=== PATIENT | male | born 1945 | race Caucasian/White ===

== ENCOUNTER 2017-06-15 18:33 | Inpatient (IN) | payer MEDICARE ==
[2017-06-15 18:34] VITALS: BMI 29.0
--- NOTE | 2017-06-15 18:59 | CT ---
PROCEDURE: CT HEAD WITHOUT CONTRAST. HISTORY: Code Stroke COMPARISON: None available. TECHNIQUE: Axial computed tomography images were obtained through the head/brain without intravenous contrast. Radiation dose: Total exam DLP = 894.91 mGy-cm. This CT exam was performed using one or more of the following dose reduction techniques: Automated exposure control, adjustment of the mA and/or kV according to patient size, and/or use of iterative reconstruction technique. FINDINGS: HEMORRHAGE: No intracranial hemorrhage. BRAIN: No mass effect or edema. Mild atrophy. Moderate white matter changes likely due to chronic microvascular ischemic disease. There is questionable left MCA sign. VENTRICLES: Unremarkable. No hydrocephalus. CALVARIUM: Unremarkable. PARANASAL SINUSES: Unremarkable as visualized. No significant inflammatory changes. MASTOID AIR CELLS: Unremarkable as visualized. No inflammatory changes. OTHER FINDINGS: None. IMPRESSION: No evidence of acute intracranial hemorrhage or territorial infarct. Mild atrophy and moderate white matter changes likely due to chronic microvascular ischemic disease. Questionable left MCA sign
[2017-06-15 19:14] LABS: BASO % 0.5 % (0.0-2.0); EOS # 0.1 K/uL (0.0-0.7); EOS % 1.7 % (0.0-4.0); HEMATOCRIT 39.9 % (35.0-51.0); LYMPH # 2.3 K/uL (1.0-4.3); LYMPH % 28.7 % (20.0-40.0); MEAN CELL VOLUME 87.7 fL (80.0-94.0); MEAN CORPUSCULAR HEMOGLOBIN 30.2 pg (27.0-31.0); MEAN CORPUSCULAR HGB CONC 34.4 g/dL (33.0-37.0); MEAN PLATELET VOLUME 8.8 fL (7.2-11.7); MONO # 0.6 K/uL (0.0-0.8); MONO % 7.6 % (0.0-10.0); RED CELL DISTRIBUTION WIDTH 13.3 % (11.5-14.5); WHITE BLOOD COUNT 8.2 K/uL (4.8-10.8)
[2017-06-15 19:23] LABS: INR 1.2
[2017-06-15 19:28] LABS: ALB/GLOB RATIO 1.4 (1.0-2.1); ALKALINE PHOSPHATASE 95 U/L (38-126); ALT/SGPT 27 U/L (21-72); AST/SGOT 17 U/L (17-59); BILIRUBIN,TOTAL 0.8 mg/dL (0.2-1.3); BLOOD UREA NITROGEN 22 mg/dL (9-20); CALCIUM 8.5 mg/dl (8.6-10.4); CARBON DIOXIDE 26 mmol/L (22-30); CHLORIDE 100 mmol/L (98-107); CHOLESTEROL 106 mg/dL (0-199); GFR AFRICAN-AMERICAN > 60; GLUCOSE,RANDOM 204 mg/dL (75-110); POTASSIUM 4.1 mmol/L (3.6-5.2); SODIUM 136 mmol/L (132-148); TOTAL PROTEIN 6.3 g/dL (6.3-8.3)
--- NOTE | 2017-06-15 19:51 | C.PDOC ---
History Of Present Illness 71 year old male, whose PMHx includes DM and HTN, presents to the ED via EMS for evaluation of altered mental status and slurred speech which began earlier today. Patient states he was eating dinner when his symptoms began at 5pm Patient denies other weakness and has no other complaints at this time. Time Seen by Provider: 06/15/17 18:34 Chief Complaint (Nursing): Altered Mental Status History Per: Patient History/Exam Limitations: None Onset/Duration Of Symptoms: Hrs Current Symptoms Are (Timing): Still Present Exacerbating Factor(s): Unknown Additional History Per: Patient Past Medical History Reviewed: Historical Data, Nursing Documentation, Vital Signs Vital Signs: Last Vital Signs Temp 97.9 F 06/16/17 07:55 Pulse 59 L 06/16/17 08:20 Resp 18 06/16/17 07:55 BP 156/85 H 06/16/17 07:55 Pulse Ox 96 06/16/17 07:55 - Medical History PMH: Diabetes, HTN Surgical History: No Surg Hx - [facility] Procedures ESOPHAGOGASTRODUODENOSCOPY [EGD] W/CLOSED BIOPSY (03/02/13) NONEXCIS DEBRID OF WOUND, INFECT, OR BURN (02/07/13) PACKED CELL TRANSFUSION (03/02/13) PART OSTECT-METATAR/TAR (02/07/13) VACCINATION NEC (03/02/13) VENOUS CATHETERIZATION NEC (03/02/13) Family History: States: Unknown Family Hx - Social History Hx Tobacco Use: No Hx Alcohol Use: No Hx Substance Use: No - Immunization History Hx Tetanus Toxoid Vaccination: Yes Hx Influenza Vaccination: No Hx Pneumococcal Vaccination: No Review Of Systems Neurological: Positive for: Change in Speech (slurred ), Altered Mental Status Physical Exam - Physical Exam Appears: Non-toxic, No Acute Distress Skin: Normal Color, Warm, Dry Head: Atraumatic, Normacephalic Eye(s): bilateral: Normal Inspection Oral Mucosa: Moist Neck: Supple Chest: Symmetrical, No Deformity, No Tenderness Cardiovascular: Rhythm Regular, No Murmur Respiratory: Normal Breath Sounds, No Rales, No Rhonchi, No Wheezing Extremity: Normal ROM, Capillary Refill (less than 2 seconds ) Neurological/Psych: No Normal Speech (slurred), Normal Cognition, Normal Cranial Nerves, Normal Motor, Normal Sensation, Other (alert and oriented x 2) ED Course And Treatment - Laboratory Results Result Diagrams: 06/15/17 19:08 06/15/17 19:08 ECG: Interpreted By Me, Viewed By Me ECG Rhythm: R BBB Rate From EC O2 Sat by Pulse Oximetry: 99 (on RA ) Pulse Ox Interpretation: Normal - CT Scan/US CT Head Other Rad Studies (CT/US): Interpreted By Me, Read By Radiologist, Radiology Report Reviewed CT/US Interpretation: PROCEDURE: CT HEAD WITHOUT CONTRAST. HISTORY: Code Stroke. COMPARISON: None available. TECHNIQUE: Axial computed tomography images were obtained through the head/brain without intravenous contrast. Radiation dose: Total exam DLP = 894.91 mGy-cm. This CT exam was performed using one or more of the following dose reduction techniques: Automated exposure control, adjustment of the mA and/or kV according to patient size, and/ or use of iterative reconstruction technique. FINDINGS: HEMORRHAGE: No intracranial hemorrhage. BRAIN: No mass effect or edema. Mild atrophy. Moderate white matter changes likely due to chronic microvascular ischemic disease. There is questionable left MCA sign. VENTRICLES: Unremarkable. No hydrocephalus. CALVARIUM: Unremarkable. PARANASAL SINUSES: Unremarkable as visualized. No significant inflammatory changes. MASTOID AIR CELLS: Unremarkable as visualized. No inflammatory changes. OTHER FINDINGS: None. IMPRESSION: No evidence of acute intracranial hemorrhage or territorial infarct. Mild atrophy and moderate white matter changes likely due to chronic microvascular ischemic disease. Questionable left MCA sign NIHSS Stroke Scale - How Severe is the Stoke Level of Consciousness: 0=Alert LOC to Questions: 0=Both comments correct LOC to commands: 0=Obeys both correctly Best Gaze: 0=Normal Visual: 0=No visual loss Facial: 0=Normal Motor Arm - Left: 0=No drift Motor Arm - Right: 0=No drift Motor Leg - Left: 0=No drift Motor Leg - Right: 0=No drift Limb Ataxia: 0=Absent Sensory: 0=Normal Best Language: 0=No aphasia Dysarthia: 1=Mild to moderate slurring Extinction & Inattention (Neglect): 0=Normal, no object Score: 1 Severity Of Stroke: 1-4= Minor Stroke rTPA Inclusion/Exclusion - Refusal of Treatment Patient Refused Treatment: No - Inclusion Criteria for Altepase Patient is 18 years or Older: Yes Clinical DX Ischemic Stroke Cause Neurological Deficit: No Time of Onset Established Less Than 270 Mins Before TX Begin: Yes Risk/Benefit Discussed With Patient/Family Member Present: Yes Medical Decision Making Medical Decision Making: ams r/o stroke, intracrnial, metabolic, infectious etiology Progress: Bloodwork, UA, CT Head, CXR, EKG ordered and reviewed. On reassessment, patient is resting comfortably, showing no signs of distress and is now alert and oriented x3 and baseline smiling. discussed with dr thomson, resolved symptoms, not tpa candidate Disposition - Disposition Disposition: HOSPITALIZED - Scribe Statement The provider has reviewed the documentation as recorded by the Scribe (China Stinson) Provider Attestation: All medical record entries made by the Scribe were at my direction and personally dictated by me. I have reviewed the chart and agree that the record accurately reflects my personal performance of the history, physical exam, medical decision making, and the department course for this patient. I have also personally directed, reviewed, and agree with the discharge instructions and disposition.
--- NOTE | 2017-06-15 22:33 | CP.PCM.HP ---
Past Patient History - Infectious Disease Hx of Infectious Diseases: None - Past Social History Smoking Status: Never Smoked - CARDIAC Hx Hypertension: Yes - ENDOCRINE/METABOLIC Hx Diabetes Mellitus Type 1: Yes - PSYCHIATRIC Hx Substance Use: No - SURGICAL HISTORY Hx Amputation: Yes (RT GREAT TOE) - ANESTHESIA Hx Anesthesia: Yes Hx Anesthesia Reactions: No Meds Allergies/Adverse Reactions: Allergies Allergy/AdvReac Type Severity Reaction Status Date / Time No Known Allergies Allergy Verified 06/15/17 18:35 Results - Vital Signs Recent Vital Signs: Last Vital Signs Temp 98 F 06/15/17 22:24 Pulse 75 06/15/17 22:24 Resp 20 06/15/17 22:24 BP 154/88 H 06/15/17 22:24 Pulse Ox 95 06/15/17 22:24 - Labs Result Diagrams: 06/15/17 19:08 06/15/17 19:08 Labs: Laboratory Results - last 24 hr 06/15/17 06/15/17 06/15/17 18:36 19:08 19:08 WBC 8.2 RBC 4.55 Hgb 13.7 D Hct 39.9 MCV 87.7 MCH 30.2 MCHC 34.4 RDW 13.3 Plt Count 197 MPV 8.8 Neut % (Auto) 61.5 Lymph % (Auto) 28.7 Luna % (Auto) 7.6 Eos % (Auto) 1.7 Baso % (Auto) 0.5 Neut # 5.0 Lymph # 2.3 Luna # 0.6 Eos # 0.1 Baso # 0.0 PT 12.9 H INR 1.2 APTT 34 Sodium Potassium Chloride Carbon Dioxide Anion Gap BUN Creatinine Est GFR ( Amer) Est GFR (Non-Af Amer) POC Glucose (mg/dL) 241 H Random Glucose Hemoglobin A1c Calcium Total Bilirubin AST ALT Alkaline Phosphatase Troponin I Total Protein Albumin Globulin Albumin/Globulin Ratio Triglycerides Cholesterol LDL Cholesterol Direct HDL Cholesterol Blood Type Antibody Screen 06/15/17 06/15/17 06/15/17 19:08 19:08 19:08 WBC RBC Hgb Hct MCV MCH MCHC RDW Plt Count MPV Neut % (Auto) Lymph % (Auto) Luna % (Auto) Eos % (Auto) Baso % (Auto) Neut # Lymph # Luna # Eos # Baso # PT INR APTT Sodium 136 Potassium 4.1 Chloride 100 Carbon Dioxide 26 Anion Gap 13 BUN 22 H Creatinine 1.4 Est GFR ( Amer) > 60 Est GFR (Non-Af Amer) 50 POC Glucose (mg/dL) Random Glucose 204 H Hemoglobin A1c 8.3 H Calcium 8.5 L Total Bilirubin 0.8 AST 17 ALT 27 Alkaline Phosphatase 95 Troponin I 0.0270 Total Protein 6.3 Albumin 3.7 Globulin 2.7 Albumin/Globulin Ratio 1.4 Triglycerides 203 H Cholesterol 106 LDL Cholesterol Direct 69 HDL Cholesterol 26 L Blood Type O POSITIVE Antibody Screen Negative
[2017-06-16] MEDS ORDERED: Pantoprazole 40 mg EC Tab PO SCH (10:00)
[2017-06-16] MEDS ORDERED: Enoxaparin 40 mg Syringe SC SCH (10:00)
--- NOTE | 2017-06-16 10:24 | RAD ---
HISTORY: code stroke COMPARISON: Portable chest 03/08/2013. FINDINGS: LUNGS: Right PICC is been removed. No acute infiltrate or pleural effusion is seen and there is no pneumothorax identified either. CARDIOVASCULAR: Cardiac size appears somewhat more prominent however technical magnification is not excluded. Pulmonary vascular derangement is manifest by increased vascularity at the hilar regions bilaterally extending to the periphery suspicious for pulmonary venous congestion or CHF. OSSEOUS STRUCTURES: No significant abnormalities. VISUALIZED UPPER ABDOMEN: Normal. OTHER FINDINGS: None. IMPRESSION: Findings suspicious for pulmonary venous congestion/ CHF. No definite acute infiltrate. No pleural effusion or pneumothorax bilaterally. Prior PICC now removed compared to radiograph.
--- NOTE | 2017-06-16 13:32 | CARD ---
APPROVED REPORT EKG Measurement Heart [id number] <Conclusion> Normal sinus rhythm Right bundle branch block Left anterior fascicular block Bifascicular block Moderate voltage criteria for LVH, may be normal variant Cannot rule out Septal infarct, age undetermined Abnormal ECG
--- NOTE | 2017-06-16 16:06 | CARD ---
APPROVED REPORT EXAM: Two-dimensional and M-mode echocardiogram with Doppler and color Doppler. Other Information Quality : GoodRhythm : INDICATION CVA/TIA AMS/ slurred speech RISK FACTORS Hypertension Diabetes 2D DIMENSIONS IVSd1.3 (0.7-1.1cm)LVDd3.9 (3.9-5.9cm) PWd1.3 (0.7-1.1cm)LVDs2.5 (2.5-4.0cm) FS (%) 36.3 %LVEF (%)66.7 (>50%) M-Mode DIMENSIONS Left Atrium (MM)4.03 (2.5-4.0cm)Aortic Root3.49 (2.2-3.7cm) Aortic Cusp Exc.2.26 (1.5-2.0cm) Mitral Valve MV E Fywamvov27.7cm/sMV A Oemjxzay456.0cm/sE/A ratio0.7 TDI E/Lateral E'0.0E/Medial E'0.0 Tricuspid Valve TR Peak Vwpnrsqb798bc/sTR Peak Gr.76jlHoZOZG12gnBr LEFT VENTRICLE The left ventricle is normal size. There is mild to moderate concentric left ventricular hypertrophy. Left ventricle systolic function is normal. The Ejection Fraction is 65-70%. There is normal LV segmental wall motion. Transmitral Doppler flow pattern is Grade I-abnormal relaxation pattern. There is no ventricular septal defect visualized. RIGHT VENTRICLE The right ventricle is normal size. The right ventricular systolic function is normal. ATRIA The left atrium is mildly dilated. The right atrium size is normal. AORTIC VALVE The aortic valve is mildly sclerotic. The aortic valve is tri-cuspid. There is trace aortic regurgitation. There is no aortic valvular stenosis. MITRAL VALVE Mitral annular calcification is moderate to severe. There is no evidence of mitral valve prolapse. There is no mitral valve regurgitation noted. TRICUSPID VALVE The tricuspid valve is normal in structure. There is trace tricuspid regurgitation. Right ventricular systolic pressure is estimated at less than 30 mmHg. There is no pulmonary hypertension. PULMONIC VALVE The pulmonic valve is not well visualized. There is no pulmonic valvular regurgitation. GREAT VESSELS The aortic root is normal in size. The ascending aorta is normal in size. The IVC is normal in size and collapses >50% with inspiration. PERICARDIAL EFFUSION There is no pericardial effusion. <Conclusion> There is mild to moderate concentric left ventricular hypertrophy. Left ventricle systolic function is normal. The Ejection Fraction is 65-70%. Transmitral Doppler flow pattern is Grade I-abnormal relaxation pattern. Mitral annular calcification is moderate to severe.
--- NOTE | 2017-06-16 19:18 | CP.PCM.PN ---
Subjective - Date & Time of Evaluation Date of Evaluation: 06/16/17 Time of Evaluation: 12:20 - Subjective Subjective: clinically same Objective - Vital Signs/Intake and Output Vital Signs (last 24 hours): Temp Pulse Resp BP Pulse Ox 97.9 F 76 18 156/85 H 99 06/16/17 07:55 06/16/17 16:27 06/16/17 07:55 06/16/17 07:55 06/16/17 13:19 Intake and Output: 06/16/17 06/17/17 18:59 06:59 Intake Total 200 Output Total 0 Balance 200 - Medications Medications: Current Medications Aspirin (Aspirin Chewable) 81 mg PO DAILY [facility] Last Admin: 06/16/17 13:18 Dose: 81 mg Clopidogrel Bisulfate (Plavix) 75 mg PO DAILY [facility] Last Admin: 06/16/17 13:18 Dose: 75 mg Enoxaparin Sodium (Lovenox) 40 mg SC DAILY [facility] Last Admin: 06/16/17 09:22 Dose: 40 mg Famotidine (Pepcid) 20 mg PO DAILY [facility] Lisinopril (Zestril) 10 mg PO DAILY [facility] Last Admin: 06/16/17 09:21 Dose: 10 mg Metformin HCl (Glucophage) 1,000 mg PO BID [facility] Last Admin: 06/16/17 17:35 Dose: 1,000 mg - Labs Labs: 06/15/17 19:08 06/15/17 19:08 PT 12.9 SECONDS (9.7-12.2) H 06/15/17 19:08 INR 1.2 06/15/17 19:08 APTT 34 SECONDS (21-34) 06/15/17 19:08
--- NOTE | 2017-06-16 21:21 | CON ---
DATE: NEUROLOGY CONSULTATION REASON FOR CONSULTATION: CVA. HISTORY OF PRESENTING ILLNESS: Patient is a 71-year-old male who has been asked for evaluation of CVA. The patient apparently was at home having dinner and all of a sudden, he started to have weakness in his left side as well as slurring of speech and was a little confused. His symptoms lasted for about an hour and then spontaneously got resolved. He feels fine now. He denies any further weakness in his arm or legs. REVIEW OF SYSTEMS: Denies any headache, dizziness, chest pain, shortness of breath, abdominal pain, constipation, diarrhea, dysuria, pyuria, cough, or sputum production. PAST MEDICAL HISTORY: Includes hypertension, diabetes mellitus. MEDICATIONS AT HOME: Included lisinopril, metformin, and aspirin. ALLERGIES: NO KNOWN DRUG ALLERGIES. SOCIAL HISTORY: Patient denies smoking, use of alcohol, or illicit drugs. FAMILY HISTORY: Reviewed and noncontributory to the case. PHYSICAL EXAMINATION: GENERAL: Patient is an elderly male lying on the bed, in no acute distress. VITAL SIGNS: His blood pressure is 156/85, heart rate is 64 per minute, breathing at a rate of 16 per minute, temperature 97.9 degree Fahrenheit. HEENT: Head is normocephalic and atraumatic. NECK: Supple. There are no carotid bruit. LUNGS: Clear. CARDIOVASCULAR SYSTEM: S1, S2 are audible. No murmurs. ABDOMEN: Soft and nontender. Bowel sounds are present. NEUROLOGIC: Mental status: Patient is awake, alert, oriented to time, place, person. Speech is fluent. Naming and repetition normal. Memory and cognition appears intact. Cranial nerves: Pupils on the left is oval, nonreactive and right is 3 mm and minimally reactive to light. Extraocular movements are intact. There is no facial asymmetry. Palate is upgoing bilaterally and tongue is midline. Motor: Tone is normal. Power is 5/5 bilaterally in all extremities. Reflexes are +1 and symmetrical. Plantars downgoing bilaterally. Cerebellar: [id number]-[id number] shows no dysmetria. LABORATORY DATA: Reviewed, CT scan of the head shows no evidence of acute intracranial hemorrhage or territorial infarct. Mild atrophy and moderate white matter changes, likely due to chronic microvascular ishemic changes. His WBC is 8.2, hemoglobin of 13.7, hematocrit of 39.9, and platelets of 197. INR is 1.2. Sodium is 136, potassium 4.1, chloride 100, carbon dioxide 26, BUN of 22, creatinine of 1.4, and glucose of 204. His cholesterol is 106, LDL is 69. IMPRESSION: Episode of left-sided weakness associated with slurring of speech and confusion. This is likely secondary to a transient ischemic attack. RECOMMENDATIONS: 1. Patient to have an MRI of the brain without contrast. 2. Patient to have a carotid Doppler study. 3. Patient to have an echocardiogram. 4. Patient was taking aspirin at home; we will add Plavix. 5. Patient to have cardiac monitoring to look for any cardiac arrhythmias, particularly atrial fibrillation. 6. Patient was not a candidate for TPA administration because of complete resolution of his symptoms. 7. Patient to have physical therapy and speech therapy. 8. Please continue supportive care and other treatment. Thank you for the opportunity to participate in the care of this patient. Cassidy Guthrie MD
[2017-06-17 02:21] VITALS: RESP 20
[2017-06-17 04:04] VITALS: BP 167/86; TEMP 98.5; O2SAT 99
[2017-06-17 04:47] VITALS: PULSE 82
[2017-06-17] MEDS ORDERED: Moxifloxacin IV 400mg/250ml NS 400 MG/250 ML BAG IVPB SCH (10:00)
--- NOTE | 2017-06-17 15:51 | MRI ---
PROCEDURE: MRI BRAIN WITHOUT CONTRAST HISTORY: tia COMPARISON: Comparison is made to the previous CT dated 06/15/2017 TECHNIQUE: Multiplanar, multisequence MR images of the brain were obtained without intravenous contrast enhancement. FINDINGS: HEMORRHAGE: None DWI: No definite evidence of diffusion restriction in the brain. BRAIN PARENCHYMA: No mass effect or edema. Moderate atrophy and [id number] chronic microvascular white matter ischemic changes. VENTRICLES: Unremarkable. No hydrocephalus. CRANIUM: Unremarkable. ORBITS: Grossly unremarkable. PARANASAL SINUSES/MASTOIDS: Clear VASCULAR SYSTEM: Skull base flow voids intact. OTHER FINDINGS: None. IMPRESSION: No evidence of acute intracranial hemorrhage territorial infarct mass effect or midline shift. Atrophy and chronic microvascular white matter ischemic changes. Preliminary report was submitted by [facility] .
--- NOTE | 2017-06-18 15:09 | VASCLAB ---
PROCEDURE: HISTORY: tia COMPARISON: None available. TECHNIQUE: Grayscale and duplex Doppler evaluation of the cervical carotid and vertebral arteries were performed. The common carotid, carotid bifurcations and cervical Internal Carotid Artery (ICA) and proximal External Carotid Artery (ECA) were evaluated. The vertebral arteries were evaluated for gross patency and flow direction. Report prepared by Vlad Sellers, BS, RVT FINDINGS: RIGHT CAROTID ARTERIES: 1. Common Carotid Artery: No significant focal plaque formation of the right common carotid artery. Maximum Peak Systolic velocity: 78 cm/sec: End-diastolic velocity 10 cm/sec. 2. Carotid Bifurcation: plaque formation. Maximum Peak Systolic velocity: 72 cm/sec: End-diastolic velocity 9 cm/sec. 3. Internal Carotid Artery: Plaque description: 3.1. Proximal Segment: Peak systolic velocity 79 cm/sec: End-diastolic velocity 15 cm/sec - % stenosis 0-15% 3.2. Middle Segment: Peak systolic velocity 97 cm/sec: End-diastolic velocity 18 cm/sec - % stenosis 0-15% 3.3. Distal Segment: Peak systolic velocity 70 cm/sec: End-diastolic velocity 16 cm/sec - % stenosis 0-15% 4. External Carotid Artery: No significant focal plaque formation. Peak systolic velocity 88 cm/sec 5. ICA/CCA Ratio: 1.2 LEFT CAROTID ARTERIES: 1. Common Carotid Artery: No significant focal plaque formation of the left common carotid artery. Maximum Peak Systolic velocity: 93 cm/sec: End-diastolic velocity 12 cm/sec. 2. Carotid Bifurcation: plaque formation. Maximum Peak Systolic velocity: 72 cm/sec: End-diastolic velocity 9 cm/sec. 3. Internal Carotid Artery: Plaque description: 3.1. Proximal Segment: Peak systolic velocity 91 cm/sec: End-diastolic velocity 16 cm/sec - % stenosis 0-15% 3.2. Middle Segment: Peak systolic velocity 47 cm/sec: End-diastolic velocity 10 cm/sec - % stenosis 0-15% 3.3. Distal Segment: Peak systolic velocity 72 cm/sec: End-diastolic velocity 9 cm/sec - % stenosis 0-15% 4. External Carotid Artery: No significant focal plaque formation. Peak systolic velocity 114 cm/sec 5. ICA/CCA Ratio: 1.0 VERTEBRAL ARTERIES: 1. Right Vertebral Artery: The right vertebral artery flow direction is antegrade. 2. Left Vertebral Artery: The left vertebral artery flow direction is antegrade. OTHER FINDINGS: 1. Right Brachial Blood pressure: 164 mmHg. 2. Left Brachial Blood pressure: 160 mmHg. IMPRESSION: RIGHT: Duplex scan does not suggest hemodynamically significant stenosis of the right extracranial carotid arteries. LEFT: Duplex scan does not suggest hemodynamically significant stenosis of the left extracranial carotid arteries.
== END 2017-06-17 09:53 | disposition left against medical advice (07) | DRG 69 ==
LOC: C.ER 18:33 → C.6T 20:18 → OBSVTOIN 06-16 13:24
PROVIDERS: ADMIT Internal Medicine Nephrology; ATTEND Internal Medicine Nephrology
DX: G45.9 Transient cerebral ischemic attack, unspecified (principal); E10.9 Type 1 diabetes mellitus without complications; I10 Essential (primary) hypertension; Z79.4 Long term (current) use of insulin

== ENCOUNTER 2018-04-20 08:34 | Inpatient (IN) | payer MEDICARE ==
[2018-04-20 08:35] VITALS: BMI 29.0
[2018-04-20 08:51] LABS: BASO # 0.1 K/uL (0.0-0.2); BASO % 0.6 % (0.0-2.0); EOS # 0.3 K/uL (0.0-0.7); EOS % 2.6 % (0.0-4.0); LYMPH # 1.3 K/uL (1.0-4.3); LYMPH % 11.6 % (20.0-40.0); MEAN CORPUSCULAR HEMOGLOBIN 29.6 pg (27.0-31.0); MEAN CORPUSCULAR HGB CONC 34.6 g/dL (33.0-37.0); MEAN PLATELET VOLUME 8.2 fL (7.2-11.7); MONO # 0.7 K/uL (0.0-0.8); MONO % 6.5 % (0.0-10.0); NEUT # 8.7 K/uL (1.8-7.0); NEUT % 78.7 % (50.0-75.0); NRBC % 0.1 % (0.0-2.0); RBC 4.05 Mil/uL (4.40-5.90); RED CELL DISTRIBUTION WIDTH 14.2 % (11.5-14.5)
[2018-04-20 08:53] LABS: MEAN CELL VOLUME 85.5 fL (80.0-94.0)
[2018-04-20 09:00] LABS: INR 1.2; PROTHROMBIN TIME 13.2 SECONDS (9.7-12.2)
[2018-04-20 09:04] LABS: BLOOD UREA NITROGEN 25 mg/dL (9-20); CALCIUM 8.3 mg/dl (8.6-10.4); GFR NON-AFRICAN AMERICAN > 60; HDL CHOLESTEROL 23 mg/dL (30-70)
[2018-04-20 09:08] LABS: ALB/GLOB RATIO 0.9 (1.0-2.1); ALBUMIN 2.9 g/dL (3.5-5.0); ALT/SGPT 16 U/L (21-72); AST/SGOT 29 U/L (17-59)
[2018-04-20 09:14] LABS: LDL CHOLESTEROL 75 mg/dL (0-129)
[2018-04-20] MEDS ORDERED: Iodixanol 320 MG/ML 100 ML BOTTLE IV ONE (09:56)
--- NOTE | 2018-04-20 09:58 | CT ---
Date of service: 04/20/2018 PROCEDURE: CT HEAD WITHOUT CONTRAST. HISTORY: Code Stroke COMPARISON: None available. TECHNIQUE: Axial computed tomography images were obtained through the head/brain without intravenous contrast. Radiation dose: Total exam DLP = 1164 mGy-cm. This CT exam was performed using one or more of the following dose reduction techniques: Automated exposure control, adjustment of the mA and/or kV according to patient size, and/or use of iterative reconstruction technique. FINDINGS: HEMORRHAGE: No intracranial hemorrhage. BRAIN: No mass effect or edema. Scattered focal lucencies in the subcortical and periventricular white matter suggestive for chronic microvascular ischemic change. More confluent low attenuation seen within the right frontal subcortical white matter on series 4, image 47, nonspecific. Correlation with MRI may be helpful to better evaluate for acute ischemic change at this level. 9 millimeter focal hypodensity within the right cerebellum suggestive for chronic lacunar infarct. Bilateral basal ganglia calcifications. VENTRICLES: Unremarkable. No hydrocephalus. CALVARIUM: Unremarkable. PARANASAL SINUSES: Unremarkable as visualized. No significant inflammatory changes. MASTOID AIR CELLS: Unremarkable as visualized. No inflammatory changes. OTHER FINDINGS: Intracranial arterial calcifications. IMPRESSION: Chronic microvascular ischemic changes. More confluent low attenuation seen within the right frontal subcortical white matter on series 4, image 47, nonspecific. Correlation with MRI may be helpful to better evaluate for acute ischemic change at this level. 9 millimeter focal hypodensity within the right cerebellum suggestive for chronic lacunar infarct. No acute intracranial hemorrhage. Intracranial arterial calcifications. If symptoms persist, consider correlation with MRI. These findings were discussed with Dr. Johnson at 8:55 a.m. on 04/20/2018.
--- NOTE | 2018-04-20 10:04 | CT ---
Date of service: 04/20/2018. PROCEDURE: CT Angiography of the neck and brain with contrast. HISTORY: Code stroke COMPARISON: Correlation made with concurrent CT scan brain. TECHNIQUE: Contiguous axial images of the neck and brain were obtained from the level of the vertex of the skull to the superior mediastinum in the arteriographic phase of enhancement. Coronal and sagittal reformats or also generated. IV contrast dose: 100 cc Visipaque 320 Radiation Dose - DLP: 544.07 mGy-cm This CT exam was performed using one or more of the following dose reduction techniques: Automated exposure control, adjustment of the mA and/or kV according to patient size, and/or use of iterative reconstruction technique.. FINDINGS: The visualized portions of the aortic arch widely patent despite some minor calcified atherosclerotic plaque changes along the inferior margin of the transverse portion of the aortic arch. Both common carotid arteries are patent. Some minor calcified plaque changes are also seen along the medial margin of the right carotid bifurcation however no evidence of occlusion or significant stenosis seen. There is no evidence of dissection. The left common carotid artery carotid bifurcation and internal carotid artery widely patent. The distal internal carotid arteries are patent however some minimal plaque seen along the right carotid siphon. Both vertebral arteries larger in caliber more dominant than the left. The basilar artery is patent as well. The visualized major branches of the [place] of [place] including the A1 and M1 and proximal posterior cerebral arteries are patent. The A2 segments and distal branches of the middle cerebral artery as well as posterior cerebral arteries are also patent. No evidence of large aneurysm nor vascular malformation. The distal branches of the middle cerebral arteries are also relatively symmetric OTHER FINDINGS: Note made of multilevel degenerative spondylosis of the cervical spine. Suspect chronic interstitial disease/fibrosis both lung apices. Anterior superior margin of the vallecula which may be secondary to some encroaching lingual tonsil however some residual/retained secretion may contribute. Few small nonspecific bilateral cervical lymph nodes. Changes of bilateral cataract surgery again noted. Extensive diffuse bilateral chronic white matter ischemic changes with extension into the basal nuclei less than seen on this exam as compared to standard CT scan. Please refer to that study and corresponding report for additional details. IMPRESSION: No evidence of occlusion dissection or significant stenosis. No evidence of large aneurysm nor vascular malformation. See above discussion for additional details and findings.
--- NOTE | 2018-04-20 11:03 | RAD ---
Date of service: 04/20/2018 HISTORY: Code Stroke COMPARISON: 06/15/2017. FINDINGS: LUNGS: Pulmonary vascular congestion a new finding compared to the prior study. PLEURA: No significant pleural effusion identified, no pneumothorax apparent. CARDIOVASCULAR: No significant interval change compared to the prior examination(s). OSSEOUS STRUCTURES: No significant abnormalities. VISUALIZED UPPER ABDOMEN: Normal. OTHER FINDINGS: None. IMPRESSION: Pulmonary vascular congestion a new finding compared to the prior study.
--- NOTE | 2018-04-20 11:15 | C.PDOC ---
History Of Present Illness 72 y/o male brought to the ED via ALS for evaluation of code stroke. As per patient he woke up around 2:00am with no symptoms, and went back to bed. When he awoke at 7:30 am he noticed inability to use left arm and decreased ability to use left leg. Patient admits to history of TIAs in the past. No recent trauma. Denies any pain. Otherwise no changes in speech, facial droop, changes in sensation, chest pain, SOB, dizziness, or visual changes. Time Seen by Provider: 04/20/18 08:36 Chief Complaint (Nursing): Weakness/Neurological Deficit History Per: Patient History/Exam Limitations: no limitations Onset/Duration Of Symptoms: Hrs Current Symptoms Are (Timing): Still Present Fall Associated With With Symptoms: No, No Injury As Result Of Fall Recent travel outside of the [place]: No - Symptoms Of CVA Character Of Deficits: Left: Weakness, Arm: Weakness, Leg: Weakness Recent Head Trauma: No Past Medical History Reviewed: Historical Data, Nursing Documentation, Vital Signs Vital Signs: Last Vital Signs Temp 98.1 F 04/20/18 15:00 Pulse 79 04/20/18 15:00 Resp 20 04/20/18 15:00 BP 157/84 H 04/20/18 15:00 Pulse Ox 96 04/20/18 15:00 - Medical History PMH: Diabetes, HTN, Hyperlipidemia, TIA Denies: Chronic Kidney Disease - [facility] Procedures ESOPHAGOGASTRODUODENOSCOPY [EGD] W/CLOSED BIOPSY (03/02/13) NONEXCIS DEBRID OF WOUND, INFECT, OR BURN (02/07/13) PACKED CELL TRANSFUSION (03/02/13) PART OSTECT-METATAR/TAR (02/07/13) VACCINATION NEC (03/02/13) VENOUS CATHETERIZATION NEC (03/02/13) Family History: States: Unknown Family Hx - Social History Hx Tobacco Use: No Hx Alcohol Use: No Hx Substance Use: No - Immunization History Hx Tetanus Toxoid Vaccination: Yes Hx Influenza Vaccination: No Hx Pneumococcal Vaccination: No Review Of Systems Except As Marked, All Systems Reviewed And Found Negative. Constitutional: Negative for: Fever, Chills Eyes: Negative for: Vision Change Cardiovascular: Negative for: Chest Pain, Palpitations Respiratory: Negative for: Shortness of Breath Gastrointestinal: Negative for: Nausea, Vomiting, Abdominal Pain Musculoskeletal: Negative for: Arm Pain, Leg Pain Neurological: Positive for: Weakness (to left upper and lower extremity). Negative for: Numbness, Change in Speech, Confusion, Altered Mental Status, Dizziness Physical Exam - Physical Exam Appears: Non-toxic, No Acute Distress Skin: Normal Color, Warm, Dry Head: Atraumatic, Normacephalic Eye(s): bilateral: Normal Inspection, PERRL, EOMI Neck: Normal ROM Chest: Symmetrical Cardiovascular: Rhythm Regular, No Murmur Respiratory: Normal Breath Sounds, No Rales, No Rhonchi, No Wheezing Gastrointestinal/Abdominal: Bowel Sounds (normal), Soft, No Tenderness, No Distention Extremity: Bilateral: Atraumatic, No Pedal Edema, Normal Color And Temperature Pulses: Left Dorsalis Pedis: Normal, Right Dorsalis Pedis: Normal Neurological/Psych: Oriented x3, Normal Speech, Normal Cognition, Normal Cranial Nerves, No Normal Motor (4/5 strength in the right upper and lower extremities; 1/5 strength in LUE, 3/5 strength in LLE), Normal Sensation (no sensory deficits), No Dysarthria Other Neurological Findings: No Facial Palsy, No Forehead Sparing ED Course And Treatment - Laboratory Results Result Diagrams: 04/20/18 08:46 04/20/18 08:46 ECG: Interpreted By Me, Viewed By Me ECG Rhythm: Sinus Rhythm Interpretation Of ECG: Left axis deviation, bifascicular block Rate From EC O2 Sat by Pulse Oximetry: 98 (RA) Pulse Ox Interpretation: Normal - Other Rad Chest X-Ray X-Ray: Viewed By Me, Read By Radiologist Interpretation: Kessler, Howard MD. Patient NameJENNIFER DE LA GARZA / [id number] Singleton MD. Study [id number] 08:39:38Transcriber. Sex / AgeM / 72YApproverCoy Singleton MD. [facility] [id number] 11:01:53. My Comm ent. Study Comments. Report. Date of service: 04/20/2018. HISTORY: Code Stroke. COMPARISON: 06/15/2017. FINDINGS: LUNGS: Pulmonary vascular congestion a new finding compared to the prior study. PLEURA: No significant pleural effusion identified, no pneumothorax apparent. CARDIOVASCULAR: No significant interval change compared to the prior examination(s). OSSEOUS STRUCTURES: No significant abnormalities. VISUALIZED UPPER ABDOMEN: Normal. OTHER FINDINGS: None. IMPRESSION: Pulmonary vascular congestion a new finding compared to the prior study. - CT Scan/US Head CT Other Rad Studies (CT/US): Read By Radiologist, Radiology Report Reviewed CT/US Interpretation: Nancy RT,CT. Patient NameJENNIFER DE LA GARZA / [id number] Argueta MD. Study [id number] 08:47:46Transcriber. Sex / AgeM / 72YApproverSage Argueta MD. [facility] River[facility] [id number] 09:08:17. My Comment. Study Comments. Report. Date of service: 04/20/2018. PROCEDURE: CT HEAD WITHOUT CONTRAST. HISTORY: Code Stroke. COMPARISON: None available. TECHNIQUE: Axial computed tomography images were obtained through the head/brain without intravenous contrast. Radiation dose: Total exam DLP = 1164 mGy-cm. This CT exam was performed using one or more of the following dose reduction techniques: Automated exposure control, adjustment of the mA and/or kV according to patient size, and/or use of iterative reconstruction technique. FINDINGS: HEMORRHAGE: No intracranial hemorrhage. BRAIN: No mass effect or edema. Scattered focal lucencies in the subcortical and periventricular white matter suggestive for chronic microvascular ischemic change. More confluent low attenuation seen within the right frontal subcortical white matter on series 4, image 47, nonspecific. Correlation with MRI may be helpful to better evaluate for acute ischemic change at this level. 9 millimeter focal hypodensity within the right cerebellum suggestive for chronic lacunar infarct. Bilateral basal ganglia calcifications. VENTRICLES: Unremarkable. No hydrocephalus. CALVARIUM: Unremarkable. PARANASAL SINUSES: Unremarkable as visualized. No significant inflammatory changes. MASTOID AIR CELLS: Unremarkable as visualized. No inflammatory changes. OTHER FINDINGS: Intracranial arterial calcifications. IMPRESSION: Chronic microvascular ischemic changes. More confluent low attenuation seen within the right frontal subcortical white matter on series 4, image 47, nonspecific. Correlation with MRI may be helpful to better evaluate for acute ischemic change at this level. 9 millimeter focal hypodensity within the right cerebellum suggestive for chronic lacunar infarct. No acute intracranial hemorrhage. Intracranial arterial calcifications. If symptoms persist, consider correlation with MRI. These findings were discussed with Dr. Johnson at 8:55 a.m. on 04/20/2018. CTA Head/Neck Other Rad Studies (CT/US): Read By Radiologist, Radiology Report Reviewed CT/US Interpretation: Nancy RT,CT. Patient NameJENNIFER DE LA GARZA / [id number] Franklin MD. Study [id number] 08:54:26Transcriber. Sex / AgeM / 72YApproverCarlos Franklin MD. [facility] RiverAppro[facility] [id number] 10:02:54. My Comment. Study Comments. Report. Date of service: 04/20/2018. PROCEDURE: CT Angiography of the neck and brain with contrast. HISTORY: Code stroke. COMPARISON: Correlation made with concurrent CT scan brain. TECHNIQUE: Contiguous axial images of the neck and brain were obtained from the level of the vertex of the skull to the superior mediastinum in the arteriographic phase of enhancement. Coronal and sagittal reformats or also generated. IV contrast dose: 100 cc Visipaque 320. Radiation Dose - DLP: 544.07 mGy-cm. This CT exam was performed using one or more of the following dose reduction techniques: Automated exposure control, adjustment of the mA and/or kV according to patient size, and/or use of iterative reconstruction technique.. FINDINGS: The visualized portions of the aortic arch widely patent despite some minor calcified atherosclerotic plaque changes along the inferior margin of the transverse portion of the aortic arch. Both common carotid arteries are patent. Some minor calcified plaque changes are also seen along the medial margin of the right carotid bifurcation however no evidence of occlusion or significant stenosis seen. There is no evidence of dissection. The left common carotid artery carotid bifurcation and internal carotid artery widely patent. The distal internal carotid arteries are patent however some minimal plaque seen along the right carotid siphon. Both vertebral arteries larger in caliber more dominant than the left. The basilar artery is patent as well. The visualized major branches of the [place] of [place] including the A1 and M1 and proximal posterior cerebral arteries are patent. The A2 segments and distal branches of the middle cerebral artery as well as posterior cerebral arteries are also patent. No evidence of large aneurysm nor vascular malformation. The distal branches of the middle cerebral arteries are also relatively symmetric. OTHER FINDINGS: Note made of multilevel degenerative spondylosis of the cervical spine. Suspect chronic interstitial disease/fibrosis both lung apices. Anterior superior margin of the vallecula which may be secondary to some encroaching lingual tonsil however some residual/retained secretion may contribute. Few small nonspecific bilateral cervical lymph nodes. Changes of bilateral cataract surgery again noted. Extensive diffuse bilateral chronic white matter ischemic changes with extension into the basal nuclei less than seen on this exam as compared to standard CT scan. Please refer to that study and corresponding report for additional details. IMPRESSION: No evidence of occlusion dissection or significant stenosis. No evidence of large aneurysm nor vascular malformation. See above discussion for additional details and findings. Critical Care Time - Critical Care Note Total Time (in mins): 90 Documented critical care: time excludes all time spent performing seperately billable procedures. NIHSS Stroke Scale 2 - Date/Time Evaluation Performed Date Performed: 04/20/18 Time Performed: 08:36 When Was NIHSS Performed: Code Stroke - How Severe is the Stroke Level of Consciousness: 0=Alert LOC to Questions: 0=Both comments correct LOC to commands: 0=Obeys both correctly Best Gaze: 0=Normal Visual: 0=No visual loss Facial: 0=Normal Motor Arm - Left: 4=No movement Motor Arm - Right: 0=No drift Motor Leg - Left: 2=Falls before 5 sec Motor Leg - Right: 0=No drift Limb Ataxia: 0=Absent Sensory: 0=Normal Best Language: 0=No aphasia Dysarthia: 1=Mild to moderate slurring Extinction & Inattention (Neglect): 0=Normal, no object Score: 7 rTPA Inclusion/Exclusion - Refusal of Treatment Patient Refused Treatment: No - Inclusion Criteria for Altepase Patient is 18 years or Older: Yes The Clinical Diagnosis of Ischemic Stroke That is Causing a Potentially Disabling Neurological Deficit: No Time of Onset is Well Established to be Less Than 270 Minute Before Treatment Would Begin: No Risk/Benefit Discussed With Patient/Family Member Present: No Medical Decision Making Medical Decision Making: Code Stroke initiated immediately upon evaluating patient. Initial Plan: --EKG --CT Head --CTA Head/Neck --Blood work --Chest x-ray --Stroke team consult I spoke to Dr. Holliday before and after CT scans made aware of case, recommends full dose aspirin and admit to telemetry. Spoke to Dr. Jansen, patient accepted for admission and resident made aware. Disposition Discussed With : Josué Jansen Jr. Doctor Will See Patient In The: Hospital Counseled Patient/Family Regarding: Studies Performed, Diagnosis - Disposition Disposition: HOSPITALIZED Disposition Time: 10:00 Condition: GUARDED - POA Present On Arrival: None Core Measure Indicators: Code Stroke - Clinical Impression Clinical Impression: TIA (transient ischemic attack) - Scribe Statement The provider has reviewed the documentation as recorded by the Sandra Limon Provider Attestation: All medical record entries made by the Sandra were at my direction and personally dictated by me. I have reviewed the chart and agree that the record accurately reflects my personal performance of the history, physical exam, medical decision making, and the department course for this patient. I have also personally directed, reviewed, and agree with the discharge instructions and disposition.
[2018-04-20] MEDS ORDERED: Sodium Chloride 0.9% 1,000 ML IV SCH (13:30)
[2018-04-20] MEDS ORDERED: Glucagon Recombinant 1 mg Inj IM PRN (14:04)
[2018-04-20] MEDS ORDERED: Dextrose 50% SYRINGE Inj (50 ml) IV PRN (14:04)
[2018-04-20 16:54] LABS: CK-MB 1.62 ng/mL (0.0-3.38); TROPONIN I 0.029 ng/mL (0.00-0.120)
--- NOTE | 2018-04-20 18:02 | CP.PCM.HP ---
History of Present Illness - History of Present Illness History of Present Illness: Carroll Awad PGY-1, H&P for Dr. Jansen CC: left sided weakness This is a 72 year old Mongolian speaking male with PMH of TIA (05/2017), NIDDM, diastolic CHF who was BIBA for evaluation of left sided weakness since approximately 7 am this morning (04/20). Pt is a poor historian. Left sided weakness is described as an inability to move his left arm and decreased movement of his left leg. Pt denies fever, chills, dizziness, headache, visual changes, chest pain, SOB, palpitations, abdominal pain, n/v/d, numbness or tingling. A 12-point ROS was reviewed and is otherwise unremarkable. PMD: Dr. 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 Pt is not taking ASA Allx: NKDA FHx: Father with HTN, of [place] in his 80s, No history of cancer in the family. Social Hx: denies smoking, drink etoh socially, denies drug use. Lives with . Present on Admission - Present on Admission Any Indicators Present on Admission: No Review of Systems - Review of Systems All systems: reviewed and no additional remarkable complaints except (as per HPI) Past Patient History - Infectious Disease Hx of Infectious Diseases: None - Past Medical History & Family History Past Medical History?: Yes - Past Social History Smoking Status: Never Smoked - CARDIAC Hx Hypertension: Yes - PULMONARY Hx Respiratory Disorders: No - NEUROLOGICAL HX Cerebrovascular Accident: Yes - HEENT Hx HEENT Problems: No - RENAL Hx Chronic Kidney Disease: No - ENDOCRINE/METABOLIC Hx Diabetes Mellitus Type 2: Yes - HEMATOLOGICAL/ONCOLOGICAL Hx Blood Disorders: No - INTEGUMENTARY Hx Dermatological Problems: No - MUSCULOSKELETAL/RHEUMATOLOGICAL Hx Musculoskeletal Disorders: No Hx Falls: No - GASTROINTESTINAL Hx Gastrointestinal Disorders: No - GENITOURINARY/GYNECOLOGICAL Hx Genitourinary Disorders: No - PSYCHIATRIC Hx Substance Use: No - SURGICAL HISTORY Hx Amputation: Yes (RT GREAT TOE) - ANESTHESIA Hx Anesthesia: Yes Hx Anesthesia Reactions: No Meds Allergies/Adverse Reactions: Allergies Allergy/AdvReac Type Severity Reaction Status Date / Time No Known Allergies Allergy Verified 06/15/17 18:35 Physical Exam - Constitutional Appears: Non-toxic, No Acute Distress - Head Exam Head Exam: ATRAUMATIC, NORMAL INSPECTION - Eye Exam Eye Exam: EOMI Pupil Exam: Irregular (coloboma bilaterally; brisk reactivity to light bilaterally) - ENT Exam ENT Exam: Mucous Membranes Moist - Neck Exam Neck exam: Positive for: Normal Inspection - Respiratory Exam Respiratory Exam: Rales (scant rales at the bases bilaterally), NORMAL BREATHING PATTERN. absent: Rhonchi, Wheezes, Respiratory Distress - Cardiovascular Exam Cardiovascular Exam: Gallop, REGULAR RHYTHM, +S1, +S2, +S4 Additional comments: (-) carotid bruit bilaterally - GI/Abdominal Exam GI & Abdominal Exam: Normal Bowel Sounds, Soft. absent: Distended, Firm, Guarding, Tenderness - Extremities Exam Extremities exam: Positive for: normal inspection, pedal pulses present. Negative for: pedal edema - Back Exam Back exam: NORMAL INSPECTION - Neurological Exam Neurological exam: Alert, Motor Sensory Deficit ((+) left upper extremity and deltoid strength is 1/5, (+) left lower extremity strength is 3/5; (+) right upper and lower extrmity strength is 4/5 ), Oriented x3 Additional comments: (+) left sided facial droop, but no tongue deviation, sensation is intact in bilateral upper and lower dermatomes (+) patch sander unable to be reliably tested as pt is not following directions appropriately (+) resting tremor, with cogwheel rigidity (-) clonus noted in either extremity (-) babinski bilaterally - Psychiatric Exam Psychiatric exam: Normal Affect, Normal Mood Additional comments: (+) slow mentation; noted to be baseline as per family at bedside - Skin Skin Exam: Dry, Normal Color, Warm Results - Vital Signs Recent Vital Signs: Last Vital Signs Temp 98.1 F 04/20/18 15:00 Pulse 79 04/20/18 15:00 Resp 20 04/20/18 15:00 BP 157/84 H 04/20/18 15:00 Pulse Ox 96 04/20/18 15:00 - Labs Result Diagrams: 04/20/18 08:46 04/20/18 08:46 Labs: Laboratory Results - last 24 hr 04/20/18 04/20/18 04/20/18 08:38 08:46 08:46 WBC 11.0 H RBC 4.05 L Hgb 12.0 Hct 34.6 L MCV 85.5 D MCH 29.6 MCHC 34.6 RDW 14.2 Plt Count 254 MPV 8.2 Neut % (Auto) 78.7 H Lymph % (Auto) 11.6 L Weston % (Auto) 6.5 Eos % (Auto) 2.6 Baso % (Auto) 0.6 Neut # (Auto) 8.7 H Lymph # (Auto) 1.3 Weston # (Auto) 0.7 Eos # (Auto) 0.3 Baso # (Auto) 0.1 PT 13.2 H INR 1.2 APTT 27 Sodium Potassium Chloride Carbon Dioxide Anion Gap BUN Creatinine Est GFR ( Amer) Est GFR (Non-Af Amer) POC Glucose (mg/dL) 151 H Random Glucose Hemoglobin A1c Calcium Total Bilirubin AST ALT Alkaline Phosphatase Total Creatine Kinase CK-MB (Mass) Troponin I Total Protein Albumin Globulin Albumin/Globulin Ratio Triglycerides Cholesterol LDL Cholesterol Direct HDL Cholesterol Blood Type Antibody Screen 04/20/18 04/20/18 04/20/18 08:46 08:48 09:03 WBC RBC Hgb Hct MCV MCH MCHC RDW Plt Count MPV Neut % (Auto) Lymph % (Auto) Weston % (Auto) Eos % (Auto) Baso % (Auto) Neut # (Auto) Lymph # (Auto) Weston # (Auto) Eos # (Auto) Baso # (Auto) PT INR APTT Sodium 138 Potassium 5.2 Chloride 102 Carbon Dioxide 29 Anion Gap 13 BUN 25 H Creatinine 0.8 Est GFR ( Amer) > 60 Est GFR (Non-Af Amer) > 60 POC Glucose (mg/dL) Random Glucose 147 H Hemoglobin A1c 7.2 H Calcium 8.3 L Total Bilirubin 1.0 AST 29 ALT 16 L D Alkaline Phosphatase 90 Total Creatine Kinase CK-MB (Mass) Troponin I 0.0390 Total Protein 6.1 L Albumin 2.9 L D Globulin 3.3 Albumin/Globulin Ratio 0.9 L Triglycerides 153 H D Cholesterol 124 LDL Cholesterol Direct 75 HDL Cholesterol 23 L Blood Type O POSITIVE Antibody Screen Negative 04/20/18 04/20/18 16:16 17:30 WBC RBC Hgb Hct MCV MCH MCHC RDW Plt Count MPV Neut % (Auto) Lymph % (Auto) Weston % (Auto) Eos % (Auto) Baso % (Auto) Neut # (Auto) Lymph # (Auto) Weston # (Auto) Eos # (Auto) Baso # (Auto) PT INR APTT Sodium Potassium Chloride Carbon Dioxide Anion Gap BUN Creatinine Est GFR ( Amer) Est GFR (Non-Af Amer) POC Glucose (mg/dL) 92 Random Glucose Hemoglobin A1c Calcium Total Bilirubin AST ALT Alkaline Phosphatase Total Creatine Kinase 30 L CK-MB (Mass) 1.62 Troponin I 0.0290 Total Protein Albumin Globulin Albumin/Globulin Ratio Triglycerides Cholesterol LDL Cholesterol Direct HDL Cholesterol Blood Type Antibody Screen Assessment & Plan - Assessment and Plan (Free Text) Assessment: This is a 72 year old Mongolian speaking male with PMH of TIA (05/2017), NIDDM, diastolic CHF who was BIBA for evaluation of left sided weakness since approximately 7 am this morning (04/20). Plan: Left sided weakness; likely due to ischemic CVA vs TIA (history of TIA in 2016) - Code stroke was called in the ED; NIHSS was 7 on admission; f/u NIHSS in 24 h ours - Neurology consulted; pt was outside of tPA window and was treated with ASA 300 mg as per Neuro - As per neuro, permissive HTN; SBP 170s-180s - will continue ASA 325 mg PO daily - will start Rosuvastatin 20 mg PO QHS - troponin is negative x1; will continue to trend x2 Q6H - Head CT shows no acute intracranial hemorrhage. Chronic microvascular ischemic changes. More confluent low attenuation seen within the right frontal subcortical white matter. Focal hypodensity within the right cerebellum suggestive for chronic lacunar infarct. Intracranial arterial calcifications. - Head and Neck CTA shows no evidence of occlusion dissectino or significant stenosis. No evidence of large aneurysm or vascular malformation. - Brain MRI w/ and w/o contrast ordered - echocardiogram ordered for evaluation of thromboembolism - swallow eval as per speech therapy suggests pureed solids, nectar thick liq uids - seizure, aspiration and fall precautions - will f/u with Neurology for further recs - PT/OT - vital signs q4h, neurocheck q4h Hx of TIA (2016) - Pt admitted for evaluation of slurred speech and AMS in 05/2017 - At that time: Brain MRI showed chronic changes, Carotid dopplers were negative for significant stenosis, echocardiogram findings below - pt was discharged home after 2 days Hx of CHF - Echocardiogram (2017) shows EF of 65-70%, grade I abnormal relaxation, moderate-severe mitral annular calcification, mildly dilated left atrium, mild- moderate LVH - Echocardiogram pending - CXR shows pulmonary vascular congestion; new in comparison to old CXR in 05/2017 - Lasix 20 mg IV once given Resting tremor; likely secondary to suspected parkinson's disease - as per son at bedside, pt has slow mentation and slurred speech at baseline. - pt noted to have cogwheel rigidity and pill-rolling resting tremor (right hand) on examination - neurology is on board, recs appreciated Hx of DM - HgbA1c is 7.2 - Metformin 500 mg PO BID - accucheck ACHS - ISS low ACHS Hypertriglyceridemia - TG/tChol/LDL/HDL is 153/124/75/23 - Rosuvastatin 20 mg PO at nighttime PPX/Diet - HHD with moderate carb consistency; pureed solids, nectar thick liquids - Protonix for GI; SCDs for DVT; no heparin at this time due to risk of hemorrhagic stroke Case was reviewed and discussed with attending physician, Dr. Jansen All medical management as per Dr. Justyna Awad PGY-1
[2018-04-20] MEDS: (Novolin R) Insulin Human Regular 100 units/ml vial SC SCH ×2 (18:14→21:21)
[2018-04-20 22:01] LABS: CK-MB 1.55 ng/mL (0.0-3.38); TROPONIN I 0.026 ng/mL (0.00-0.120)
[2018-04-21] MEDS: (Novolin R) Insulin Human Regular 100 units/ml vial SC SCH ×4 (06:45→21:41)
[2018-04-21 07:23] LABS: BASO # 0.1 K/uL (0.0-0.2); BASO % 0.7 % (0.0-2.0); EOS # 0.2 K/uL (0.0-0.7); EOS % 1.9 % (0.0-4.0); HEMOGLOBIN 11.2 g/dL (12.0-18.0); LYMPH # 1.3 K/uL (1.0-4.3); LYMPH % 11.4 % (20.0-40.0); MEAN CELL VOLUME 84.7 fL (80.0-94.0); MEAN CORPUSCULAR HEMOGLOBIN 29.3 pg (27.0-31.0); MEAN CORPUSCULAR HGB CONC 34.6 g/dL (33.0-37.0); MEAN PLATELET VOLUME 8.2 fL (7.2-11.7); MONO # 0.8 K/uL (0.0-0.8); MONO % 7.3 % (0.0-10.0); NEUT # 8.8 K/uL (1.8-7.0); NEUT % 78.7 % (50.0-75.0); RBC 3.84 Mil/uL (4.40-5.90); RED CELL DISTRIBUTION WIDTH 14.5 % (11.5-14.5); WHITE BLOOD COUNT 11.2 K/uL (4.8-10.8)
[2018-04-21 07:47] LABS: ALB/GLOB RATIO 0.9 (1.0-2.1); ALBUMIN 2.8 g/dL (3.5-5.0); ALT/SGPT 17 U/L (21-72); AST/SGOT 22 U/L (17-59); BLOOD UREA NITROGEN 23 mg/dL (9-20); CALCIUM 8.5 mg/dl (8.6-10.4); GFR NON-AFRICAN AMERICAN > 60
[2018-04-21] MEDS: Aspirin 325 mg EC Tablets PO SCH (09:07)
--- NOTE | 2018-04-21 14:44 | CP.PCM.PN ---
Subjective - Date & Time of Evaluation Date of Evaluation: 04/21/18 Time of Evaluation: 14:44 - Subjective Subjective: Carroll Awad PGY-1, Medicine progress note for Dr. Jansen Objective - Vital Signs/Intake and Output Vital Signs (last 24 hours): Temp Pulse Resp BP Pulse Ox 98.6 F 88 20 157/91 H 99 04/21/18 08:09 04/21/18 08:09 04/21/18 08:09 04/21/18 08:09 04/21/18 08:09 Intake and Output: 04/21/18 04/21/18 06:59 18:59 Intake Total 250 Output Total 300 Balance -50 - Medications Medications: Current Medications Aspirin (Ecotrin) 325 mg PO DAILY [facility] Last Admin: 04/21/18 09:07 Dose: 325 mg Dextrose (Dextrose 50% Inj) 0 ml IV STAT PRN; Protocol PRN Reason: Hypoglycemia Protocol Dextrose (Glutose 15) 15 gm PO ONCE PRN; Protocol PRN Reason: Hypoglycemia Protocol Glucagon (Glucagen Diagnostic Kit) 1 mg IM STAT PRN; Protocol PRN Reason: Hypoglycemia Protocol Heparin Sodium (Porcine) (Heparin) 5,000 units SC Q12 [facility] Dextrose (Dextrose 5% In Water 1000 Ml) 1,000 mls @ 0 mls/hr IV .Q0M PRN; Protocol PRN Reason: Hypoglycemia Protocol Insulin Human Regular (Novolin R) 0 unit SC ACHS DARIUS; Protocol Last Admin: 04/21/18 12:55 Dose: Not Given Metformin HCl (Glucophage) 500 mg PO BID [facility] Last Admin: 04/21/18 09:07 Dose: 500 mg Pantoprazole Sodium (Protonix Inj) 40 mg IVP DAILY [facility] Last Admin: 04/21/18 09:07 Dose: 40 mg Rosuvastatin Calcium (Crestor) 20 mg PO HS [facility] Last Admin: 04/20/18 21:28 Dose: 20 mg - Labs Labs: 04/21/18 07:06 04/21/18 07:06 PT 13.2 SECONDS (9.7-12.2) H 04/20/18 08:46 INR 1.2 04/20/18 08:46 APTT 27 SECONDS (21-34) 04/20/18 08:46 - Constitutional Appears: Non-toxic, No Acute Distress - Head Exam Head Exam: ATRAUMATIC, NORMAL INSPECTION - Eye Exam Eye Exam: EOMI Pupil Exam: Irregular (coloboma bilaterally; brisk reactivity to light bilaterally) - ENT Exam ENT Exam: Mucous Membranes Moist - Neck Exam Neck Exam: Normal Inspection Additional comments: (-) carotid bruit bilaterally - Respiratory Exam Respiratory Exam: Clear to Ausculation Bilateral, NORMAL BREATHING PATTERN. absent: Rales, Rhonchi, Wheezes - Cardiovascular Exam Cardiovascular Exam: REGULAR RHYTHM, +S1, +S2 - GI/Abdominal Exam GI & Abdominal Exam: Soft, Normal Bowel Sounds. absent: Guarding, Rigid, Tenderness - Extremities Exam Extremities Exam: Normal Inspection. 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 Plan: Left sided weakness; likely due to ischemic CVA vs TIA (history of TIA in 2017) - Code stroke was called in the ED; NIHSS was 7 on admission; f/u NIHSS in 24 hours - Neurology consulted; pt was outside of tPA window and was treated with ASA 300 mg as per Neuro - As per neuro, permissive HTN; SBP 170s-180s - continue ASA 325 mg PO daily - continue Rosuvastatin 20 mg PO QHS - troponin is negative x3 - Head CT shows no acute intracranial hemorrhage. Chronic microvascular ischemic changes. More confluent low attenuation seen within the right frontal subcortical white matter. Focal hypodensity within the right cerebellum suggestive for chronic lacunar infarct. Intracranial arterial calcifications. - Head and Neck CTA shows no evidence of occlusion dissectino or significant stenosis. No evidence of large aneurysm or vascular malformation. - Brain MRI w/o contrast shows 1. small acute right posterior frontoparietal subcortical infarct. 2. Moderate to significant chronic white matter changes with extension into the deep and subcortical white matter both cerebral hemispheres. Ischemic changes are also present in superior basal nuclei/kong radiata junction bilaterally. 3. Chronic appearing brainstem and bilateral cerebella lacunar type infarcts.4. Moderate generalized volume loss. 5. Localized bulbous masslike appearance of the right choroid plexus that is of uncertain etiology however this focus was not present on prior CT scan MRI of the brain dated 06/15/17 and 06/16/17. - Neurology, Dr. Holliday, is on board and recs are appreciated - echocardiogram reading is pending - swallow eval as per speech therapy suggests pureed solids, nectar thick liquids - seizure, aspiration and fall precautions - PT/OT/ST ordered Hx of TIA (2016) - Pt admitted for evaluation of slurred speech and AMS in 05/2017 - At that time: Brain MRI showed chronic changes, Carotid dopplers were negative for significant stenosis, echocardiogram findings below - pt was discharged home after 2 days Hx of CHF - Echocardiogram (2016) shows EF of 65-70%, grade I abnormal relaxation, moderate-severe mitral annular calcification, mildly dilated left atrium, mild- moderate LVH - Echocardiogram pending - CXR shows pulmonary vascular congestion; new in comparison to old CXR in 05/2017 - Lasix 20 mg IV once given - f/u CXR ordered Resting tremor; likely secondary to suspected parkinson's disease - as per son at bedside, pt has slow mentation and slurred speech at baseline. - pt noted to have cogwheel rigidity and pill-rolling resting tremor (right hand) on examination - neurology is on board, recs appreciated Hx of DM - HgbA1c is 7.2 - Metformin 500 mg PO BID - accucheck ACHS - ISS low ACHS Hypertriglyceridemia - TG/tChol/LDL/HDL is 153/124/75/23 - Rosuvastatin 20 mg PO at nighttime PPX/Diet - HHD with moderate carb consistency; pureed solids, nectar thick liquids - Protonix for GI; SCDs for DVT; chemical vte ppx at this time due to risk of hemorrhagic stroke Case was reviewed and discussed with attending physician, Dr. Jansen All medical management as per Dr. Justyna Awad PGY-1
--- NOTE | 2018-04-21 14:48 | MRI ---
Date of service: 2018-04-21 12:54:47 PROCEDURE: MRI BRAIN WITHOUT CONTRAST HISTORY: CVA COMPARISON: None available. TECHNIQUE: Multiplanar, multisequence MR images of the brain were obtained without intravenous contrast enhancement. Examination is limited by motion artifact FINDINGS: HEMORRHAGE: No acute parenchymal, subarachnoid nor extra-axial hemorrhage. No evidence of hemosiderin deposition seen on gradient echo weighted sequence. DWI: There is a small elliptical shaped acute infarct in the right posterior frontoparietal subcortical white matter. No other acute infarcts are identified. BRAIN PARENCHYMA: Moderate to significant diffuse/confluent chronic white matter ischemic changes seen extending peripherally into the deep and subcortical white matter both cerebral hemispheres.. In addition, there are chronic ischemic changes seen in the superior basal nuclei/kong radiata junction.. Chronic appearing the brainstem and bilateral cerebellar lacunar type infarcts are also present Moderate generalized volume loss. VENTRICLES: No obstructive hydrocephalus. Note is made of a localized bulbous masslike appearance of the right choroid plexus that is of uncertain etiology however this focus was not present on prior CT scan MRI of the brain dated 06/15/2017 and 06/16/2017 respectively. Follow-up post-contrast MRI of the brain is recommended to exclude the possibility of an intraventricular lesion such is an intraventricular meningioma, ependymoma, choroid plexus papilloma or neurocytoma not excluded. Follow-up not completely excluded. CRANIUM: Unremarkable. ORBITS: Changes of bilateral cataract surgery again noted PARANASAL SINUSES/MASTOIDS: Clear VASCULAR SYSTEM: Visualized major vascular flow voids at skull base patent. OTHER FINDINGS: None. IMPRESSION: There is a small acute right posterior frontoparietal subcortical infarct. Moderate to significant chronic white matter ischemic changes with extension into the deep and subcortical white matter both cerebral hemispheres as described. Ischemic changes are also seen in superior basal nuclei/kong radiata junction bilaterally. Chronic appearing the brainstem and bilateral cerebellar lacunar type infarcts are also present Moderate generalized volume loss. Localized bulbous masslike appearance of the right choroid plexus that is of uncertain etiology however this focus was not present on prior CT scan MRI of the brain dated 06/15/2017 and 06/16/2017 respectively. Follow-up post-contrast MRI of the brain is recommended to exclude the possibility of an intraventricular lesion such is an intraventricular meningioma, ependymoma, choroid plexus papilloma or neurocytoma not excluded. Follow-up not completely excluded.
[2018-04-22 06:36] LABS: BASO # 0.1 K/uL (0.0-0.2); BASO % 0.6 % (0.0-2.0); EOS # 0.2 K/uL (0.0-0.7); EOS % 1.7 % (0.0-4.0); LYMPH # 1.3 K/uL (1.0-4.3); LYMPH % 11.9 % (20.0-40.0); MEAN CELL VOLUME 84.8 fL (80.0-94.0); MEAN CORPUSCULAR HEMOGLOBIN 29.5 pg (27.0-31.0); MEAN CORPUSCULAR HGB CONC 34.8 g/dL (33.0-37.0); MEAN PLATELET VOLUME 8.1 fL (7.2-11.7); MONO # 0.8 K/uL (0.0-0.8); MONO % 7.6 % (0.0-10.0); NEUT # 8.4 K/uL (1.8-7.0); NEUT % 78.2 % (50.0-75.0); RBC 3.73 Mil/uL (4.40-5.90); RED CELL DISTRIBUTION WIDTH 14.2 % (11.5-14.5); WHITE BLOOD COUNT 10.7 K/uL (4.8-10.8)
[2018-04-22 06:39] LABS: ALB/GLOB RATIO 0.9 (1.0-2.1); ALBUMIN 2.7 g/dL (3.5-5.0); ALT/SGPT 28 U/L (21-72); AST/SGOT 25 U/L (17-59); BLOOD UREA NITROGEN 29 mg/dL (9-20); CALCIUM 8.3 mg/dl (8.6-10.4); GFR NON-AFRICAN AMERICAN > 60
[2018-04-22] MEDS: (Novolin R) Insulin Human Regular 100 units/ml vial SC SCH ×4 (08:02→22:00)
[2018-04-22] MEDS: Aspirin 325 mg EC Tablets PO SCH (09:10)
[2018-04-22 11:29] LABS: ARTERIAL BLOOD GAS HCO3 26.1 mmol/L (21-28); ARTERIAL BLOOD GAS O2 SAT 99.4 % (95-98); ARTERIAL BLOOD GAS PCO2 43 mm/Hg (35-45); ARTERIAL BLOOD GAS PO2 95 mm/Hg (80-100); ARTERIAL BLOOD GAS TCO2 27.9 mmol/L (22-28)
[2018-04-22 12:08] LABS: SQUAMOUS EPITHIAL 1 /hpf (0-5); URINE BACTERIA RARE (<OCC); URINE BILIRUBIN NEGATIVE (NEGATIVE); URINE BLOOD 3+ (NEGATIVE); URINE CLARITY Hazy (Clear); URINE COLOR Amber (YELLOW); URINE GLUCOSE (UA) NORMAL (Normal); URINE PROTEIN 2+ mg/dL (NEGATIVE)
[2018-04-22 12:11] LABS: URINE LEUKOCYTE ESTERASE 1+ Leu/uL (Negative)
[2018-04-22 12:19] LABS: CK-MB 1.51 ng/mL (0.0-3.38); TROPONIN I 0.028 ng/mL (0.00-0.120)
--- NOTE | 2018-04-22 12:39 | RAD ---
Date of service: 04/22/2018 HISTORY: tyson, presented with increased pulm congestion COMPARISON: 04/20/2018 FINDINGS: LUNGS: Worsening pulmonary edema. PLEURA: No significant pleural effusion identified, no pneumothorax apparent. CARDIOVASCULAR: No change. OSSEOUS STRUCTURES: No significant abnormalities. VISUALIZED UPPER ABDOMEN: Normal. OTHER FINDINGS: None. IMPRESSION: Worsening pulmonary edema.
--- NOTE | 2018-04-22 13:14 | RAD ---
HISTORY: dyspnea, pulm edema COMPARISON: Chest x-ray performed 04/22/18 TECHNIQUE: Chest, one view. FINDINGS: LUNGS: Persistent pulmonary edema without significant interval change. Hypoinflation. PLEURA: No significant pleural effusion identified. No definite pneumothorax . CARDIOVASCULAR: Cardiomegaly. OSSEOUS STRUCTURES: Osseous demineralization. Degenerative changes. VISUALIZED UPPER ABDOMEN: Unremarkable. OTHER FINDINGS: None. IMPRESSION: Hypoinflation. Persistent pulmonary edema without significant interval change. Cardiomegaly.
--- NOTE | 2018-04-22 13:29 | CP.PCM.PN ---
Subjective - Date & Time of Evaluation Date of Evaluation: 04/22/18 Time of Evaluation: 13:29 - Subjective Subjective: Carroll Awad PGY-1, Medicine progress note for Dr. Jansen Pt seen and examined at bedside. No acute events overnight. Pt CXR was reviewed from this morning prior to evaluation, which showed pulmonary edema and vascular pulmonary congestion. Pt reports shortness of breath and mild abdominal pain. Pt denies fever, chills, headache, visual changes, chest pain, n/v/d, A reliable 12-point ROS was unable to be obtained due to possibile parkinson's disease at baseline and recent ischemic cva resulting in aphasia. Objective - Vital Signs/Intake and Output Vital Signs (last 24 hours): Temp Pulse Resp BP Pulse Ox 98.2 F 98 H 20 117/80 98 04/22/18 12:26 04/22/18 12:26 04/22/18 12:26 04/22/18 12:26 04/22/18 12:26 Intake and Output: 04/22/18 04/22/18 06:59 18:59 Intake Total 250 Balance 250 - Medications Medications: Current Medications Aspirin (Ecotrin) 325 mg PO DAILY DARIUS Last Admin: 04/22/18 09:10 Dose: 325 mg Dextrose (Dextrose 50% Inj) 0 ml IV STAT PRN; Protocol PRN Reason: Hypoglycemia Protocol Dextrose (Glutose 15) 15 gm PO ONCE PRN; Protocol PRN Reason: Hypoglycemia Protocol Enoxaparin Sodium (Lovenox) 40 mg SC DAILY DARIUS Furosemide (Lasix) 40 mg IVP Q12 DARIUS Glucagon (Glucagen Diagnostic Kit) 1 mg IM STAT PRN; Protocol PRN Reason: Hypoglycemia Protocol Dextrose (Dextrose 5% In Water 1000 Ml) 1,000 mls @ 0 mls/hr IV .Q0M PRN; Pr otocol PRN Reason: Hypoglycemia Protocol Insulin Human Regular (Novolin R) 0 unit SC ACHS DARIUS; Protocol Last Admin: 04/22/18 10:50 Dose: Not Given Metformin HCl (Glucophage) 500 mg PO BID DARIUS Last Admin: 04/22/18 09:10 Dose: 500 mg Pantoprazole Sodium (Protonix Inj) 40 mg IVP DAILY DARIUS Last Admin: 04/22/18 09:10 Dose: 40 mg Rosuvastatin Calcium (Crestor) 20 mg PO HS DARIUS Last Admin: 04/21/18 21:48 Dose: 20 mg - Labs Labs: 04/22/18 06:15 04/22/18 06:15 PT 13.2 SECONDS (9.7-12.2) H 04/20/18 08:46 INR 1.2 04/20/18 08:46 APTT 27 SECONDS (21-34) 04/20/18 08:46 - Constitutional Appears: In Acute Distress (tachypnea) - Head Exam Head Exam: ATRAUMATIC - Eye Exam Eye Exam: EOMI. absent: Normal appearance (coboloma bilaterally, as seen on prior exam) - ENT Exam ENT Exam: Mucous Membranes Dry - Respiratory Exam Respiratory Exam: Accessory Muscle Use, Rales (throughout), Respiratory Distress (tachypnea at 24-28) - Cardiovascular Exam Cardiovascular Exam: REGULAR RHYTHM, +S1, +S2 - GI/Abdominal Exam GI & Abdominal Exam: Soft, Tenderness (mild epigastric tenderness), Normal Bowel Sounds. absent: Distended, Firm, Guarding, Rebound - Extremities Exam Extremities Exam: Normal Capillary Refill, Normal Inspection. absent: Calf Te nderness, Pedal Edema Additional comments: (+) cooler to touch than central body, (-) pallor (+) right upper extremity resting tremor - Neurological Exam Neurological Exam: Alert, Awake. absent: Oriented x3 (oriented to person, time, not place) Neuro motor strength exam: Left Upper Extremity: 2/1, Right Upper Extremity: 4, Left Lower Extremity: 3, Right Lower Extremity: 4 Additional comments: (-) babinski bilaterally GCS is 15 - Psychiatric Exam Psychiatric exam: Normal Affect - Skin Skin Exam: Diaphoretic (cool and clammy hands and feet). absent: Cyanosis Assessment and Plan - Assessment and Plan (Free Text) Assessment: Left sided weakness; likely due to ischemic CVA vs TIA (history of TIA in 2017) - Code stroke was called in the ED; NIHSS was 7 on admission - Neurology consulted; pt was outside of tPA window and was treated with ASA 300 mg as per Neuro - As per neuro, permissive HTN; SBP 170s-180s - ASA 325 mg PO daily - Rosuvastatin 20 mg PO QHS - troponin is negative x3 on admission - Head CT shows no acute intracranial hemorrhage. Chronic microvascular ischemic changes. More confluent low attenuation seen within the right frontal subcortical white matter. Focal hypodensity within the right cerebellum suggestive for chronic lacunar infarct. Intracranial arterial calcifications. - Head and Neck CTA shows no evidence of occlusion dissection or significant stenosis. No evidence of large aneurysm or vascular malformation. - Brain MRI w/o contrast shows 1. small acute right posterior frontoparietal subcortical infarct. 2. Moderate to significant chronic white matter changes with extension into the deep and subcortical white matter both cerebral hemispheres. Ischemic changes are also present in superior basal nuclei/kong radiata junction bilaterally. 3. Chronic appearing brainstem and bilateral cerebellar lacunar type infarcts. 4. Moderate generalized volume loss. 5. Localized bulbous masslike appearance of the right choroid plexus that is of uncertain etiology however this focus was not present on prior CT scan MRI of the brain dated 06/15/17 and 06/16/17. - Neurology, Dr. Holliday, is on board and recs are appreciated - echocardiogram reading is pending - swallow eval as per speech therapy suggests pureed solids, nectar thick liquids - seizure, aspiration and fall precautions - PT/OT/ST ordered CHF exacerbation - Echocardiogram (2016) shows EF of 65-70%, grade I abnormal relaxation, moderate-severe mitral annular calcification, mildly dilated left atrium, mild- moderate LVH - f/u Echocardiogram (04/20) reading - CXR (04/22) shows pulmonary edema, increased vascular congestion; as read by me - Lasix 40 mg IVPx2 given, Gonzalez placed, with diuresis of 600 mL of tea-colored urine. - MILVIA panel, ABG with shock panel, EKG, proBNP, ordered - SBP during this time was in 130s, DBPs in the 80s: pulse ox was 99% on 2L NC - ICU consulted, Dr. Bagley, who will evaluate the pt for transfer to ICU. Recs bipap 10i/5e, 30%, RR12, as well as albumin 5% 12.5g 250 mL. - Bipap initiated due to increased work of breathing. Albumin ordered for volume support. Tea-colored urine - 600 mL of tea-colored urine was diuresed after administration of aformentioned lasix - urine was clearing up (clear yellow, without clots or blood), after initial diuresis with Lasix 40 mg IVP - UA, UCx, BCx2 ordered Hx of TIA (2016) - Pt admitted for evaluation of slurred speech and AMS in 05/2017 - At that time: Brain MRI showed chronic changes, Carotid dopplers were negative for significant stenosis, echocardiogram findings below - pt was discharged home after 2 days Resting tremor; likely secondary to suspected parkinson's disease - as per son at bedside, pt has slow mentation and slurred speech at baseline. - pt noted to have cogwheel rigidity and pill-rolling resting tremor (right hand) on examination - neurology is on board, recs appreciated Hx of DM - HgbA1c is 7.2 - Holding Metformin 500 mg PO BID in light of acute distress - accucheck ACHS - ISS low ACHS Hypertriglyceridemia - TG/tChol/LDL/HDL is 153/124/75/23 on admission - Rosuvastatin 20 mg PO at nighttime PPX/Diet - NPO pending re-evaluation - Protonix for GI; SCDs for DVT; no chemical vte ppx at this time due to risk of conversion to hemorrhagic stroke Dispo: ICU consulted for evaluation due to dyspnea, with tachypnea and increased work of breathing, pulmonary edema. All further management by ICU team. Case was reviewed and discussed with attending physician, Dr. Jansen All medical management as per Dr. Justyna Awad PGY-1
--- NOTE | 2018-04-22 14:55 | CP.PCM.CON ---
<Ben Locke - Last Filed: 04/22/18 16:25> History of Present Illness - History of Present Illness History of Present Illness: CC: left sided weakness This is a 72 year old [place] speaking male with PMH of TIA (05/2017), NIDDM, diastolic CHF who was BIBA for evaluation of left sided weakness since approximately 7 am this morning (04/20). Pt is a poor historian. Left sided weakness is described as an inability to move his left arm and decreased movement of his left leg. Pt denies fever, chills, dizziness, headache, visual changes, chest pain, SOB, palpitations, abdominal pain, n/v/d, numbness or tingling. Pt improved today but was consulted for a sudden decrease in responsiv eness and sudden onset of fatigue. Pt able to follow some commands but appears lethargic. PMD: Dr. 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 Pt is not taking ASA Allx: NKDA FHx: Father with HTN, of NH in his 80s, No history of cancer in the family. Social Hx: denies smoking, drink etoh socially, denies drug use. Lives with . Review of Systems - Review of Systems Systems not reviewed;Unavailable: Altered Mental Status Review of Systems: on CPAP Past Patient History - Infectious Disease Hx of Infectious Diseases: None - Past Medical History & Family History Past Medical History?: Yes - Past Social History Smoking Status: Never Smoked - CARDIAC Hx Hypertension: Yes - PULMONARY Hx Respiratory Disorders: No - NEUROLOGICAL HX Cerebrovascular Accident: Yes - HEENT Hx HEENT Problems: No - RENAL Hx Chronic Kidney Disease: No - ENDOCRINE/METABOLIC Hx Diabetes Mellitus Type 2: Yes - HEMATOLOGICAL/ONCOLOGICAL Hx Blood Disorders: No - INTEGUMENTARY Hx Dermatological Problems: No - MUSCULOSKELETAL/RHEUMATOLOGICAL Hx Musculoskeletal Disorders: No Hx Falls: No - GASTROINTESTINAL Hx Gastrointestinal Disorders: No - GENITOURINARY/GYNECOLOGICAL Hx Genitourinary Disorders: No - PSYCHIATRIC Hx Substance Use: No - SURGICAL HISTORY Hx Amputation: Yes (RT GREAT TOE) - ANESTHESIA Hx Anesthesia: Yes Hx Anesthesia Reactions: No Meds Allergies/Adverse Reactions: Allergies Allergy/AdvReac Type Severity Reaction Status Date / Time No Known Allergies Allergy Verified 06/15/17 18:35 - Medications Medications: Current Medications Albumin Human (Albumin Human 5% (12.5 Gm/250 Ml)) 12.5 gm IV ONCE ONE Stop: 04/22/18 15:46 Aspirin (Ecotrin) 325 mg PO DAILY [facility] Last Admin: 04/22/18 09:10 Dose: 325 mg Dextrose (Dextrose 50% Inj) 0 ml IV STAT PRN; Protocol PRN Reason: Hypoglycemia Protocol Dextrose (Glutose 15) 15 gm PO ONCE PRN; Protocol PRN Reason: Hypoglycemia Protocol Enoxaparin Sodium (Lovenox) 40 mg SC DAILY [facility] Furosemide (Lasix) 40 mg IVP Q12 [facility] Glucagon (Glucagen Diagnostic Kit) 1 mg IM STAT PRN; Protocol PRN Reason: Hypoglycemia Protocol Dextrose (Dextrose 5% In Water 1000 Ml) 1,000 mls @ 0 mls/hr IV .Q0M PRN; Protocol PRN Reason: Hypoglycemia Protocol Insulin Human Regular (Novolin R) 0 unit SC ACHS [facility]; Protocol Last Admin: 04/22/18 10:50 Dose: Not Given Metformin HCl (Glucophage) 500 mg PO BID [facility] Last Admin: 04/22/18 09:10 Dose: 500 mg Pantoprazole Sodium (Protonix Inj) 40 mg IVP DAILY [facility] Last Admin: 04/22/18 09:10 Dose: 40 mg Rosuvastatin Calcium (Crestor) 20 mg PO HS [facility] Last Admin: 04/21/18 21:48 Dose: 20 mg Physical Exam - Constitutional Appears: Confused - Head Exam Head Exam: ATRAUMATIC, NORMAL INSPECTION - Eye Exam Eye Exam: EOMI, Nystagmus Pupil Exam: PERRL - ENT Exam ENT Exam: Mucous Membranes Moist - Neck Exam Neck exam: Positive for: Normal Inspection. Negative for: Tenderness, Thyromegaly - Respiratory Exam Respiratory Exam: Rales. absent: Respiratory Distress - Cardiovascular Exam Cardiovascular Exam: RRR - Extremities Exam Extremities exam: Positive for: pedal pulses present. Negative for: pedal edema - Neurological Exam Neurological exam: Altered Additional comments: follows some verbal commands responds to pain and verbal stimuli GCS 13 +1 clonus LLE 0/5 strength LUE and LLE 3/5 LLE 4/5 RUE - Skin Skin Exam: Pallor Additional comments: cold extremities Results - Vital Signs Recent Vital Signs: Last Vital Signs Temp 98.2 F 04/22/18 12:26 Pulse 98 H 04/22/18 13:40 Resp 20 04/22/18 12:26 BP 117/80 04/22/18 12:26 Pulse Ox 98 04/22/18 12:26 - Labs Result Diagrams: 04/22/18 06:15 04/22/18 06:15 Labs: Laboratory Results - last 24 hr 04/21/18 04/21/18 04/22/18 16:38 20:58 06:02 WBC RBC Hgb Hct MCV MCH MCHC RDW Plt Count MPV Neut % (Auto) Lymph % (Auto) Hutchinson % (Auto) Eos % (Auto) Baso % (Auto) Neut # (Auto) Lymph # (Auto) Hutchinson # (Auto) Eos # (Auto) Baso # (Auto) Puncture Site pCO2 pO2 HCO3 ABG pH ABG Total CO2 ABG O2 Saturation ABG Base Excess Jonas Test ABG Potassium Glucose Lactate Sodium Potassium Chloride Carbon Dioxide Anion Gap BUN Creatinine Est GFR ( Amer) Est GFR (Non-Af Amer) POC Glucose (mg/dL) 99 107 99 Random Glucose Calcium Total Bilirubin AST ALT Alkaline Phosphatase Total Creatine Kinase CK-MB (Mass) Troponin I NT-Pro-B Natriuret Pep Total Protein Albumin Globulin Albumin/Globulin Ratio Arterial Blood Potassium Urine Color Urine Clarity Urine pH Ur Specific [place] Urine Protein Urine Glucose (UA) Urine Ketones Urine Blood Urine Nitrate Urine Bilirubin Urine Urobilinogen Ur Leukocyte Esterase Urine WBC (Auto) Urine RBC (Auto) Ur Squamous Epith Cells Urine Bacteria Hyaline Casts 04/22/18 04/22/18 04/22/18 06:15 06:15 10:45 WBC 10.7 RBC 3.73 L Hgb 11.0 L Hct 31.7 L MCV 84.8 MCH 29.5 MCHC 34.8 RDW 14.2 Plt Count 239 MPV 8.1 Neut % (Auto) 78.2 H Lymph % (Auto) 11.9 L Hutchinson % (Auto) 7.6 Eos % (Auto) 1.7 Baso % (Auto) 0.6 Neut # (Auto) 8.4 H Lymph # (Auto) 1.3 Hutchinson # (Auto) 0.8 Eos # (Auto) 0.2 Baso # (Auto) 0.1 Puncture Site pCO2 pO2 HCO3 ABG pH ABG Total CO2 ABG O2 Saturation ABG Base Excess Jonas Test ABG Potassium Glucose Lactate Sodium 139 Potassium 4.2 Chloride 103 Carbon Dioxide 29 Anion Gap 11 BUN 29 H Creatinine 0.9 Est GFR ( Amer) > 60 Est GFR (Non-Af Amer) > 60 POC Glucose (mg/dL) 99 Random Glucose 111 H Calcium 8.3 L Total Bilirubin 0.8 AST 25 ALT 28 Alkaline Phosphatase 106 Total Creatine Kinase CK-MB (Mass) Troponin I NT-Pro-B Natriuret Pep Total Protein 5.7 L Albumin 2.7 L Globulin 3.0 Albumin/Globulin Ratio 0.9 L Arterial Blood Potassium Urine Color Urine Clarity Urine pH Ur Specific [place] Urine Protein Urine Glucose (UA) Urine Ketones Urine Blood Urine Nitrate Urine Bilirubin Urine Urobilinogen Ur Leukocyte Esterase Urine WBC (Auto) Urine RBC (Auto) Ur Squamous Epith Cells Urine Bacteria Hyaline Casts 04/22/18 04/22/18 04/22/18 11:25 11:39 11:43 WBC RBC Hgb Hct MCV MCH MCHC RDW Plt Count MPV Neut % (Auto) Lymph % (Auto) Hutchinson % (Auto) Eos % (Auto) Baso % (Auto) Neut # (Auto) Lymph # (Auto) Hutchinson # (Auto) Eos # (Auto) Baso # (Auto) Puncture Site Rba pCO2 43 pO2 95 HCO3 26.1 ABG pH 7.40 ABG Total CO2 27.9 ABG O2 Saturation 99.4 H ABG Base Excess 1.5 Jonas Test Na ABG Potassium 4.1 Glucose 107 Lactate 1.1 Sodium 140.0 Potassium Chloride 108.0 H Carbon Dioxide Anion Gap BUN Creatinine Est GFR ( Amer) Est GFR (Non-Af Amer) POC Glucose (mg/dL) Random Glucose Calcium Total Bilirubin AST ALT Alkaline Phosphatase Total Creatine Kinase 49 L CK-MB (Mass) 1.51 Troponin I 0.0280 NT-Pro-B Natriuret Pep 579 Total Protein Albumin Globulin Albumin/Globulin Ratio Arterial Blood Potassium 4.1 Urine Color Mercedes Urine Clarity Hazy Urine pH 5.0 Ur Specific [place] 1.027 Urine Protein 2+ H Urine Glucose (UA) Normal Urine Ketones Negative Urine Blood 3+ H Urine Nitrate Negative Urine Bilirubin Negative Urine Urobilinogen 4.0 Ur Leukocyte Esterase 1+ H Urine WBC (Auto) 19 H Urine RBC (Auto) 94 H Ur Squamous Epith Cells 1 Urine Bacteria Rare Hyaline Casts 3-5 H Assessment & Plan - Assessment and Plan (Free Text) Assessment: This is a 72 year old [place] speaking male with PMH of TIA (05/2017), NIDDM, diastolic CHF who was BIBA for evaluation of left sided weakness since approximately 7 am 04/20. Plan: NEURO Dr Holliday consulted f/u recs: -EEG f/u results consider keppra -hold lovenox - 04/[address] - 04/[address] shows no acute intracranial hemorrhage. Chronic microvascular ischemic changes. More confluent low attenuation seen within the right frontal subcortical white matter. Focal hypodensity within the right cerebellum suggestive for chronic lacunar infarct. Intracranial arterial calcifications. - 04/21 Head and Neck CTA shows no evidence of occlusion dissectino or significant stenosis. No evidence of large aneurysm or vascular malformation. - 04/21 Brain MRI w/o contrast shows: 1. small acute right posterior frontoparietal subcortical infarct. 2. Moderate to significant chronic white matter changes with extension into the deep and subcortical white matter both cerebral hemispheres. Ischemic changes are also present in superior basal nuclei/kong radiata junction bilaterally. 3. 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 4. Moderate generalized volume loss. 5. Localized bulbous masslike appearance of the right choroid plexus that is of uncertain etiology however this focus was not present on prior CT scan MRI of the brain dated 06/15/17 and 06/16/17. -neuro checks q4 PULM Pt lethargic in bed Pt given 80mg of lasix for rales this AM- possible hypoperfusion Stat BP at bedside: 109/66 -give Albumin bolus -f/u stat ABG -vital signs q4 CARDIOVASC Dr Owens Cardio consulted: f/u recs Pt baseline SBP 150s at bedside BP 109/66 likely 2/2 to Lasix hold lovenox ASA 325 PO daily RENAL Tea colored urine Cr 0.9 f/u cmp monitor renal function, I&Os connor cath in place GI -PTX -HHD ID afebrile no leukocytosis ENDO Hold Metformin 500 BID Accuchecks ACHS maintain euglycemia blood sugars 140-180 Hx of DM Sliding scale insulin hypoglycemic protocols glucagon 1mg IM PRN GI DVT PPX <Frank Bagley - Last Filed: 04/22/18 17:03> Meds - Medications Medications: Current Medications Albumin Human (Albumin Human 5% (12.5 Gm/250 Ml)) 12.5 gm IV ONCE ONE Stop: 04/22/18 15:46 Aspirin (Ecotrin) 325 mg PO DAILY [facility] Last Admin: 04/22/18 09:10 Dose: 325 mg Dextrose (Dextrose 50% Inj) 0 ml IV STAT PRN; Protocol PRN Reason: Hypoglycemia Protocol Dextrose (Glutose 15) 15 gm PO ONCE PRN; Protocol PRN Reason: Hypoglycemia Protocol Enoxaparin Sodium (Lovenox) 40 mg SC DAILY [facility] Furosemide (Lasix) 40 mg IVP Q12 [facility] Glucagon (Glucagen Diagnostic Kit) 1 mg IM STAT PRN; Protocol PRN Reason: Hypoglycemia Protocol Dextrose (Dextrose 5% In Water 1000 Ml) 1,000 mls @ 0 mls/hr IV .Q0M PRN; Protocol PRN Reason: Hypoglycemia Protocol Insulin Human Regular (Novolin R) 0 unit SC ACHS [facility]; Protocol Last Admin: 04/22/18 10:50 Dose: Not Given Metformin HCl (Glucophage) 500 mg PO BID [facility] Last Admin: 04/22/18 09:10 Dose: 500 mg Pantoprazole Sodium (Protonix Inj) 40 mg IVP DAILY [facility] Last Admin: 04/22/18 09:10 Dose: 40 mg Pneumococcal Polyvalent Vaccine (Pneumovax 23 Vaccine) 0.5 ml IM .ONCE ONE Stop: 04/23/18 10:01 Rosuvastatin Calcium (Crestor) 20 mg PO HS [facility] Last Admin: 04/21/18 21:48 Dose: 20 mg Results - Vital Signs Recent Vital Signs: Last Vital Signs Temp 98.2 F 04/22/18 12:26 Pulse 98 H 04/22/18 13:40 Resp 20 04/22/18 12:26 BP 117/80 04/22/18 12:26 Pulse Ox 98 04/22/18 12:26 - Labs Result Diagrams: 04/22/18 06:15 04/22/18 06:15 Labs: Laboratory Results - last 24 hr 04/21/18 04/21/18 04/22/18 16:38 20:58 06:02 WBC RBC Hgb Hct MCV MCH MCHC RDW Plt Count MPV Neut % (Auto) Lymph % (Auto) Hutchinson % (Auto) Eos % (Auto) Baso % (Auto) Neut # (Auto) Lymph # (Auto) Hutchinson # (Auto) Eos # (Auto) Baso # (Auto) Puncture Site pCO2 pO2 HCO3 ABG pH ABG Total CO2 ABG O2 Saturation ABG Base Excess Jonas Test ABG Potassium Glucose Lactate Sodium Potassium Chloride Carbon Dioxide Anion Gap BUN Creatinine Est GFR ( Amer) Est GFR (Non-Af Amer) POC Glucose (mg/dL) 99 107 99 Random Glucose Calcium Total Bilirubin AST ALT Alkaline Phosphatase Total Creatine Kinase CK-MB (Mass) Troponin I NT-Pro-B Natriuret Pep Total Protein Albumin Globulin Albumin/Globulin Ratio Arterial Blood Potassium Urine Color Urine Clarity Urine pH Ur Specific [place] Urine Protein Urine Glucose (UA) Urine Ketones Urine Blood Urine Nitrate Urine Bilirubin Urine Urobilinogen Ur Leukocyte Esterase Urine WBC (Auto) Urine RBC (Auto) Ur Squamous Epith Cells Urine Bacteria Hyaline Casts 04/22/18 04/22/18 04/22/18 06:15 06:15 10:45 WBC 10.7 RBC 3.73 L Hgb 11.0 L Hct 31.7 L MCV 84.8 MCH 29.5 MCHC 34.8 RDW 14.2 Plt Count 239 MPV 8.1 Neut % (Auto) 78.2 H Lymph % (Auto) 11.9 L Hutchinson % (Auto) 7.6 Eos % (Auto) 1.7 Baso % (Auto) 0.6 Neut # (Auto) 8.4 H Lymph # (Auto) 1.3 Hutchinson # (Auto) 0.8 Eos # (Auto) 0.2 Baso # (Auto) 0.1 Puncture Site pCO2 pO2 HCO3 ABG pH ABG Total CO2 ABG O2 Saturation ABG Base Excess Jonas Test ABG Potassium Glucose Lactate Sodium 139 Potassium 4.2 Chloride 103 Carbon Dioxide 29 Anion Gap 11 BUN 29 H Creatinine 0.9 Est GFR ( Amer) > 60 Est GFR (Non-Af Amer) > 60 POC Glucose (mg/dL) 99 Random Glucose 111 H Calcium 8.3 L Total Bilirubin 0.8 AST 25 ALT 28 Alkaline Phosphatase 106 Total Creatine Kinase CK-MB (Mass) Troponin I NT-Pro-B Natriuret Pep Total Protein 5.7 L Albumin 2.7 L Globulin 3.0 Albumin/Globulin Ratio 0.9 L Arterial Blood Potassium Urine Color Urine Clarity Urine pH Ur Specific [place] Urine Protein Urine Glucose (UA) Urine Ketones Urine Blood Urine Nitrate Urine Bilirubin Urine Urobilinogen Ur Leukocyte Esterase Urine WBC (Auto) Urine RBC (Auto) Ur Squamous Epith Cells Urine Bacteria Hyaline Casts 04/22/18 04/22/18 04/22/18 11:25 11:39 11:43 WBC RBC Hgb Hct MCV MCH MCHC RDW Plt Count MPV Neut % (Auto) Lymph % (Auto) Hutchinson % (Auto) Eos % (Auto) Baso % (Auto) Neut # (Auto) Lymph # (Auto) Hutchinson # (Auto) Eos # (Auto) Baso # (Auto) Puncture Site Rba pCO2 43 pO2 95 HCO3 26.1 ABG pH 7.40 ABG Total CO2 27.9 ABG O2 Saturation 99.4 H ABG Base Excess 1.5 Jonas Test Na ABG Potassium 4.1 Glucose 107 Lactate 1.1 Sodium 140.0 Potassium Chloride 108.0 H Carbon Dioxide Anion Gap BUN Creatinine Est GFR ( Amer) Est GFR (Non-Af Amer) POC Glucose (mg/dL) Random Glucose Calcium Total Bilirubin AST ALT Alkaline Phosphatase Total Creatine Kinase 49 L CK-MB (Mass) 1.51 Troponin I 0.0280 NT-Pro-B Natriuret Pep 579 Total Protein Albumin Globulin Albumin/Globulin Ratio Arterial Blood Potassium 4.1 Urine Color Mercedes Urine Clarity Hazy Urine pH 5.0 Ur Specific [place] 1.027 Urine Protein 2+ H Urine Glucose (UA) Normal Urine Ketones Negative Urine Blood 3+ H Urine Nitrate Negative Urine Bilirubin Negative Urine Urobilinogen 4.0 Ur Leukocyte Esterase 1+ H Urine WBC (Auto) 19 H Urine RBC (Auto) 94 H Ur Squamous Epith Cells 1 Urine Bacteria Rare Hyaline Casts 3-5 H 04/22/18 15:16 WBC RBC Hgb Hct MCV MCH MCHC RDW Plt Count MPV Neut % (Auto) Lymph % (Auto) Hutchinson % (Auto) Eos % (Auto) Baso % (Auto) Neut # (Auto) Lymph # (Auto) Hutchinson # (Auto) Eos # (Auto) Baso # (Auto) Puncture Site pCO2 pO2 HCO3 ABG pH ABG Total CO2 ABG O2 Saturation ABG Base Excess Jonas Test ABG Potassium Glucose Lactate Sodium Potassium Chloride Carbon Dioxide Anion Gap BUN Creatinine Est GFR ( Amer) Est GFR (Non-Af Amer) POC Glucose (mg/dL) 112 H Random Glucose Calcium Total Bilirubin AST ALT Alkaline Phosphatase Total Creatine Kinase CK-MB (Mass) Troponin I NT-Pro-B Natriuret Pep Total Protein Albumin Globulin Albumin/Globulin Ratio Arterial Blood Potassium Urine Color Urine Clarity Urine pH Ur Specific [place] Urine Protein Urine Glucose (UA) Urine Ketones Urine Blood Urine Nitrate Urine Bilirubin Urine Urobilinogen Ur Leukocyte Esterase Urine WBC (Auto) Urine RBC (Auto) Ur Squamous Epith Cells Urine Bacteria Hyaline Casts Attending/Attestation - Attestation I have personally seen and examined this patient.: Yes I have fully participated in the care of the patient.: Yes I have reviewed all pertinent clinical information: Yes Notes (Text): 04/22/18 15:27 I have seen and examined the patient. Medical records, lab studies, and imaging were reviewed by me and a management plan was formulated on multidisciplinary rounds with resident Dr. Locke. I agree with their documented assessment and plan. Patient became lethargic after diuresis for his CHF exacerbation. Most likely hypovolemia with resultant hypoperfusion with AMS. Will give volume back with albumin bolus. Will also obtain EEG to r/o seizure activity. Critical Care Time 35 minutes. Multi-disciplinary rounds were performed with house staff, nursing, speech therapy, respiratory therapy, pharmacy and nutrition with integrated input from the primary team/attending and other consulting services. The documented time is cumulative and includes review of patient data/exams/labs/chart review and examination of the patient on rounds and throughout the day; time is exclusive of any procedures or teaching time.
[2018-04-22] MEDS ORDERED: Albumin Human 5% (12.5 gm/250 ml) IV ONE (15:45)
--- NOTE | 2018-04-22 15:47 | CT ---
Date of service: 04/22/2018 PROCEDURE: CT HEAD WITHOUT CONTRAST. HISTORY: Decreasing mental status COMPARISON: Comparison made with MRI of the brain dated 04/21/2018. TECHNIQUE: Axial computed tomography images were obtained through the head/brain without intravenous contrast. Radiation dose: Total exam DLP = mGy-cm. This CT exam was performed using one or more of the following dose reduction techniques: Automated exposure control, adjustment of the mA and/or kV according to patient size, and/or use of iterative reconstruction technique. FINDINGS: HEMORRHAGE: No acute parenchymal, subarachnoid extra-axial hemorrhage. BRAIN: Moderate to significant diffuse and confluent chronic white matter ischemic changes seen extending peripherally subcortical white matter both cerebral hemispheres. The risa changes also seen in the superior basal nuclei/coronal radiata junction bilaterally. Chronic appearing brainstem cerebellar ischemic changes less well seen. Moderate generalized volume loss. VENTRICLES: No obstructive hydrocephalus. Redemonstrated is a bulbous somewhat masslike appearance of the right choroid plexus which is of uncertain etiology though underlying choroid plexus lesion must be excluded. Follow-up post-contrast MRI brain recommended to further characterize this lesion. CALVARIUM: Unremarkable. PARANASAL SINUSES: Unremarkable as visualized. No significant inflammatory changes. MASTOID AIR CELLS: Unremarkable as visualized. No inflammatory changes. OTHER FINDINGS: Changes bilateral cataract surgery again IMPRESSION: No acute intracranial hemorrhage. Moderate to significant diffuse and confluent chronic white matter ischemic changes seen extending peripherally subcortical white matter both cerebral hemispheres. The risa changes also seen in the superior basal nuclei/coronal radiata junction bilaterally. Chronic appearing brainstem cerebellar ischemic changes less well seen. Moderate generalized volume loss. Redemonstrated is a bulbous somewhat masslike appearance of the right choroid plexus which is of uncertain etiology though underlying choroid plexus lesion must be excluded. Follow-up post-contrast MRI brain recommended to further characterize this lesion.
[2018-04-22 16:27] LABS: ABG ALLEN TEST UNABLE; ARTERIAL BLOOD GAS HCO3 25.1 mmol/L (21-28); ARTERIAL BLOOD GAS O2 SAT 97.4 % (95-98); ARTERIAL BLOOD GAS PCO2 38 mm/Hg (35-45); ARTERIAL BLOOD GAS PH 7.42 (7.35-7.45); ARTERIAL BLOOD GAS PO2 76 mm/Hg (80-100); ARTERIAL BLOOD GAS TCO2 25.8 mmol/L (22-28)
--- NOTE | 2018-04-22 16:49 | CP.PCM.CON ---
History of Present Illness - History of Present Illness History of Present Illness: Neurology Consult Note: Dr. Holliday's Service CC: left sided weakness This is a 72 year old Togolese speaking male with PMH of TIA (05/2017), NIDDM, diastolic CHF who was BIBA for evaluation of left sided weakness since approximately 7 am this morning (04/20). Pt is a poor historian. Left sided weakness is described as an inability to move his left arm and decreased movement of his left leg. Pt denies fever, chills, dizziness, headache, visual changes, chest pain, SOB, palpitations, abdominal pain, n/v/d, numbness or tingling. Pt improved today but was consulted for a sudden decrease in responsiveness and sudden onset of fatigue. Pt able to follow some commands but appears lethargic. Patient was eating with the aid of his step-daughter at bedside this morning. Neurology was consulted for hemorrhage/cva PMD: Dr. 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 Pt is not taking ASA Allx: NKDA FHx: Father with HTN, of [place] in his 80s, No history of cancer in the family. Social Hx: denies smoking, drink etoh socially, denies drug use. Lives with . Review of Systems - Review of Systems Systems not reviewed;Unavailable: Altered Mental Status Review of Systems: Remaining ROS limited due to patient's current clinical condition. - Constitutional Constitutional: Daytime Sleepiness. absent: Chills, Frequent Falls, Headache - EENT Eyes: absent: Blurred Vision, Discharge, Loss of Peripheral Vision, Requires Corrective Lenses, Sees Flashes, Other Visual Disturbances, Loss of Vision Ears: absent: Ear Discharge, Dizziness Nose/Mouth/Throat: absent: Nasal Congestion, Nose Pain, Halitosis, Facial Pain - Cardiovascular Cardiovascular: absent: Chest Pain, Claudication, Irregular Heart Rhythm, Leg Edema, Palpitations, Pedal Edema, Syncope Past Patient History - Infectious Disease Hx of Infectious Diseases: None - Past Medical History & Family History Past Medical History?: Yes - Past Social History Smoking Status: Never Smoked - CARDIAC Hx Hypertension: Yes - PULMONARY Hx Respiratory Disorders: No - NEUROLOGICAL HX Cerebrovascular Accident: Yes - HEENT Hx HEENT Problems: No - RENAL Hx Chronic Kidney Disease: No - ENDOCRINE/METABOLIC Hx Diabetes Mellitus Type 2: Yes - HEMATOLOGICAL/ONCOLOGICAL Hx Blood Disorders: No - INTEGUMENTARY Hx Dermatological Problems: No - MUSCULOSKELETAL/RHEUMATOLOGICAL Hx Musculoskeletal Disorders: No Hx Falls: No - GASTROINTESTINAL Hx Gastrointestinal Disorders: No - GENITOURINARY/GYNECOLOGICAL Hx Genitourinary Disorders: No - PSYCHIATRIC Hx Substance Use: No - SURGICAL HISTORY Hx Amputation: Yes (RT GREAT TOE) - ANESTHESIA Hx Anesthesia: Yes Hx Anesthesia Reactions: No Meds Allergies/Adverse Reactions: Allergies Allergy/AdvReac Type Severity Reaction Status Date / Time No Known Allergies Allergy Verified 06/15/17 18:35 - Medications Medications: Current Medications Aspirin (Ecotrin) 325 mg PO DAILY [facility] Last Admin: 04/22/18 09:10 Dose: 325 mg Dextrose (Dextrose 50% Inj) 0 ml IV STAT PRN; Protocol PRN Reason: Hypoglycemia Protocol Dextrose (Glutose 15) 15 gm PO ONCE PRN; Protocol PRN Reason: Hypoglycemia Protocol Enoxaparin Sodium (Lovenox) 40 mg SC DAILY [facility] Furosemide (Lasix) 40 mg IVP Q12 [facility] Glucagon (Glucagen Diagnostic Kit) 1 mg IM STAT PRN; Protocol PRN Reason: Hypoglycemia Protocol Dextrose (Dextrose 5% In Water 1000 Ml) 1,000 mls @ 0 mls/hr IV .Q0M PRN; Protocol PRN Reason: Hypoglycemia Protocol Insulin Human Regular (Novolin R) 0 unit SC ACHS [facility]; Protocol Last Admin: 04/22/18 16:42 Dose: Not Given Metformin HCl (Glucophage) 500 mg PO BID [facility] Last Admin: 04/22/18 09:10 Dose: 500 mg Pantoprazole Sodium (Protonix Inj) 40 mg IVP DAILY [facility] Last Admin: 04/22/18 09:10 Dose: 40 mg Pneumococcal Polyvalent Vaccine (Pneumovax 23 Vaccine) 0.5 ml IM .ONCE ONE Stop: 04/23/18 10:01 Rosuvastatin Calcium (Crestor) 20 mg PO HS [facility] Last Admin: 04/21/18 21:48 Dose: 20 mg Physical Exam - Head Exam Head Exam: ATRAUMATIC, NORMAL INSPECTION - Eye Exam Eye Exam: EOMI, Normal appearance, PERRL Pupil Exam: NORMAL ACCOMODATION - ENT Exam ENT Exam: Mucous Membranes Moist - Respiratory Exam Respiratory Exam: Rales, Rhonchi - Cardiovascular Exam Cardiovascular Exam: REGULAR RHYTHM, +S1, +S2 - GI/Abdominal Exam GI & Abdominal Exam: Normal Bowel Sounds, Soft - Neurological Exam Neurological exam: Altered, Motor Sensory Deficit Additional comments: Left side strength 1/5. Decreased sensation and motor strength - Psychiatric Exam Psychiatric exam: Normal Affect, Normal Mood - Skin Skin Exam: Dry Results - Vital Signs Recent Vital Signs: Last Vital Signs Temp 96.7 F L 04/22/18 15:33 Pulse 96 H 04/22/18 16:35 Resp 20 04/22/18 12:26 BP 117/80 04/22/18 12:26 Pulse Ox 98 04/22/18 12:26 - Labs Result Diagrams: 04/22/18 06:15 04/22/18 06:15 Labs: Laboratory Results - last 24 hr 04/21/18 04/22/18 04/22/18 20:58 06:02 06:15 WBC 10.7 RBC 3.73 L Hgb 11.0 L Hct 31.7 L MCV 84.8 MCH 29.5 MCHC 34.8 RDW 14.2 Plt Count 239 MPV 8.1 Neut % (Auto) 78.2 H Lymph % (Auto) 11.9 L [place] % (Auto) 7.6 Eos % (Auto) 1.7 Baso % (Auto) 0.6 Neut # (Auto) 8.4 H Lymph # (Auto) 1.3 [place] # (Auto) 0.8 Eos # (Auto) 0.2 Baso # (Auto) 0.1 Puncture Site pCO2 pO2 HCO3 ABG pH ABG Total CO2 ABG O2 Saturation ABG Base Excess Jonas Test ABG Potassium A-a O2 Difference Respiratory Index Glucose Lactate Vent Mode FiO2 Inspiratory BiPAP Expiratory BiPAP Sodium Potassium Chloride Carbon Dioxide Anion Gap BUN Creatinine Est GFR ( Amer) Est GFR (Non-Af Amer) POC Glucose (mg/dL) 107 99 Random Glucose Calcium Total Bilirubin AST ALT Alkaline Phosphatase Total Creatine Kinase CK-MB (Mass) Troponin I NT-Pro-B Natriuret Pep Total Protein Albumin Globulin Albumin/Globulin Ratio Arterial Blood Potassium Urine Color Urine Clarity Urine pH Ur Specific [place] Urine Protein Urine Glucose (UA) Urine Ketones Urine Blood Urine Nitrate Urine Bilirubin Urine Urobilinogen Ur Leukocyte Esterase Urine WBC (Auto) Urine RBC (Auto) Ur Squamous Epith Cells Urine Bacteria Hyaline Casts 09/04/22/18 04/22/18 06:15 10:45 11:25 WBC RBC Hgb Hct MCV MCH MCHC RDW Plt Count MPV Neut % (Auto) Lymph % (Auto) [place] % (Auto) Eos % (Auto) Baso % (Auto) Neut # (Auto) Lymph # (Auto) [place] # (Auto) Eos # (Auto) Baso # (Auto) Puncture Site Rba pCO2 43 pO2 95 HCO3 26.1 ABG pH 7.40 ABG Total CO2 27.9 ABG O2 Saturation 99.4 H ABG Base Excess 1.5 Jonas Test Na ABG Potassium 4.1 A-a O2 Difference Respiratory Index Glucose 107 Lactate 1.1 Vent Mode FiO2 Inspiratory BiPAP Expiratory BiPAP Sodium 139 140.0 Potassium 4.2 Chloride 103 108.0 H Carbon Dioxide 29 Anion Gap 11 BUN 29 H Creatinine 0.9 Est GFR ( Amer) > 60 Est GFR (Non-Af Amer) > 60 POC Glucose (mg/dL) 99 Random Glucose 111 H Calcium 8.3 L Total Bilirubin 0.8 AST 25 ALT 28 Alkaline Phosphatase 106 Total Creatine Kinase CK-MB (Mass) Troponin I NT-Pro-B Natriuret Pep Total Protein 5.7 L Albumin 2.7 L Globulin 3.0 Albumin/Globulin Ratio 0.9 L Arterial Blood Potassium 4.1 Urine Color Urine Clarity Urine pH Ur Specific [place] Urine Protein Urine Glucose (UA) Urine Ketones Urine Blood Urine Nitrate Urine Bilirubin Urine Urobilinogen Ur Leukocyte Esterase Urine WBC (Auto) Urine RBC (Auto) Ur Squamous Epith Cells Urine Bacteria Hyaline Casts 04/22/18 04/22/18 04/22/18 11:39 11:43 15:16 WBC RBC Hgb Hct MCV MCH MCHC RDW Plt Count MPV Neut % (Auto) Lymph % (Auto) [place] % (Auto) Eos % (Auto) Baso % (Auto) Neut # (Auto) Lymph # (Auto) [place] # (Auto) Eos # (Auto) Baso # (Auto) Puncture Site pCO2 pO2 HCO3 ABG pH ABG Total CO2 ABG O2 Saturation ABG Base Excess Jonas Test ABG Potassium A-a O2 Difference Respiratory Index Glucose Lactate Vent Mode FiO2 Inspiratory BiPAP Expiratory BiPAP Sodium Potassium Chloride Carbon Dioxide Anion Gap BUN Creatinine Est GFR ( Amer) Est GFR (Non-Af Amer) POC Glucose (mg/dL) 112 H Random Glucose Calcium Total Bilirubin AST ALT Alkaline Phosphatase Total Creatine Kinase 49 L CK-MB (Mass) 1.51 Troponin I 0.0280 NT-Pro-B Natriuret Pep 579 Total Protein Albumin Globulin Albumin/Globulin Ratio Arterial Blood Potassium Urine Color [place] Urine Clarity Hazy Urine pH 5.0 Ur Specific [place] 1.027 Urine Protein 2+ H Urine Glucose (UA) Normal Urine Ketones Negative Urine Blood 3+ H Urine Nitrate Negative Urine Bilirubin Negative Urine Urobilinogen 4.0 Ur Leukocyte Esterase 1+ H Urine WBC (Auto) 19 H Urine RBC (Auto) 94 H Ur Squamous Epith Cells 1 Urine Bacteria Rare Hyaline Casts 3-5 H 04/22/18 04/22/18 16:15 16:25 WBC RBC Hgb Hct MCV MCH MCHC RDW Plt Count MPV Neut % (Auto) Lymph % (Auto) [place] % (Auto) Eos % (Auto) Baso % (Auto) Neut # (Auto) Lymph # (Auto) [place] # (Auto) Eos # (Auto) Baso # (Auto) Puncture Site Lr pCO2 38 pO2 76 L HCO3 25.1 ABG pH 7.42 ABG Total CO2 25.8 ABG O2 Saturation 97.4 ABG Base Excess 0.3 Jonas Test Unable ABG Potassium 3.8 A-a O2 Difference 90.0 Respiratory Index 1.2 Glucose 121 H Lactate 1.1 Vent Mode Bipap FiO2 30.0 Inspiratory BiPAP 12 Expiratory BiPAP 6 Sodium 141.0 Potassium Chloride 112.0 H Carbon Dioxide Anion Gap BUN Creatinine Est GFR ( Amer) Est GFR (Non-Af Amer) POC Glucose (mg/dL) 124 H Random Glucose Calcium Total Bilirubin AST ALT Alkaline Phosphatase Total Creatine Kinase CK-MB (Mass) Troponin I NT-Pro-B Natriuret Pep Total Protein Albumin Globulin Albumin/Globulin Ratio Arterial Blood Potassium 3.8 Urine Color Urine Clarity Urine pH Ur Specific [place] Urine Protein Urine Glucose (UA) Urine Ketones Urine Blood Urine Nitrate Urine Bilirubin Urine Urobilinogen Ur Leukocyte Esterase Urine WBC (Auto) Urine RBC (Auto) Ur Squamous Epith Cells Urine Bacteria Hyaline Casts Assessment & Plan - Assessment and Plan (Free Text) Assessment: This is a 72 year old Togolese speaking male with PMH of TIA (05/2017), NIDDM, diastolic CHF who was BIBA for evaluation of left sided weakness since approximately 7 am 04/20. Plan: Head CT shows no acute intracranial hemorrhage. Chronic microvascular ischemic changes. More confluent low attenuation seen within the right frontal subcortical white matter. Focal hypodensity within the right cerebellum askew ggestive for chronic lacunar infarct. Intracranial arterial calcifications. - 04/21 Head and Neck CTA shows no evidence of occlusion dissectino or significant stenosis. No evidence of large aneurysm or vascular malformation. Brain MRI w/o contrast shows: 1. small acute right posterior frontoparietal subcortical infarct. 2. Moderate to significant chronic white matter changes with extension into the deep and subcortical white matter both cerebral hemispheres. Ischemic changes are also present in superior basal nuclei/kong radiata junction bilaterally. 3. 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 4. Moderate generalized volume loss. 5. Localized bulbous masslike appearance of the right choroid plexus that is of uncertain etiology however this focus was not present on prior CT scan MRI of the brain dated 06/15/17 and 06/16/17. EEG ordered. Will f/u with results Repeat Head CT ordered. Will f/u with results. Transferred to ICU for further monitoring. Plan discussed with Dr. Holliday. Kota Daughrety,PGY-2
--- NOTE | 2018-04-22 16:49 | CP.PCM.PN ---
Subjective - Date & Time of Evaluation Date of Evaluation: 04/22/18 Time of Evaluation: 16:49 Objective - Vital Signs/Intake and Output Vital Signs (last 24 hours): Temp Pulse Resp BP Pulse Ox 96.7 F L 96 H 20 117/80 98 04/22/18 15:33 04/22/18 16:35 04/22/18 12:26 04/22/18 12:26 04/22/18 12:26 Intake and Output: 04/22/18 04/22/18 06:59 18:59 Intake Total 250 100 Balance 250 100 - Medications Medications: Current Medications Aspirin (Ecotrin) 325 mg PO DAILY [facility] Last Admin: 04/22/18 09:10 Dose: 325 mg Dextrose (Dextrose 50% Inj) 0 ml IV STAT PRN; Protocol PRN Reason: Hypoglycemia Protocol Dextrose (Glutose 15) 15 gm PO ONCE PRN; Protocol PRN Reason: Hypoglycemia Protocol Enoxaparin Sodium (Lovenox) 40 mg SC DAILY [facility] Furosemide (Lasix) 40 mg IVP Q12 [facility] Glucagon (Glucagen Diagnostic Kit) 1 mg IM STAT PRN; Protocol PRN Reason: Hypoglycemia Protocol Dextrose (Dextrose 5% In Water 1000 Ml) 1,000 mls @ 0 mls/hr IV .Q0M PRN; Protocol PRN Reason: Hypoglycemia Protocol Insulin Human Regular (Novolin R) 0 unit SC ACHS [facility]; Protocol Last Admin: 04/22/18 16:42 Dose: Not Given Metformin HCl (Glucophage) 500 mg PO BID [facility] Last Admin: 04/22/18 09:10 Dose: 500 mg Pantoprazole Sodium (Protonix Inj) 40 mg IVP DAILY [facility] Last Admin: 04/22/18 09:10 Dose: 40 mg Pneumococcal Polyvalent Vaccine (Pneumovax 23 Vaccine) 0.5 ml IM .ONCE ONE Stop: 04/23/18 10:01 Rosuvastatin Calcium (Crestor) 20 mg PO HS [facility] Last Admin: 04/21/18 21:48 Dose: 20 mg - Labs Labs: 04/22/18 06:15 04/22/18 06:15 PT 13.2 SECONDS (9.7-12.2) H 04/20/18 08:46 INR 1.2 04/20/18 08:46 APTT 27 SECONDS (21-34) 04/20/18 08:46
--- NOTE | 2018-04-22 18:24 | CP.PCM.CON ---
History of Present Illness - History of Present Illness History of Present Illness: I was asked to see patient by Dr Jansen. Patient is a 72 year old male who presents with CVA. Patient presented with altered mental status as well as extremity weakness. The patient was found to have a CVA. He was outside of the window for tPA. He was transferred to ICU due to altered mental status. Multiple family members are at the bedside. Review of Systems - Review of Systems Systems not reviewed;Unavailable: Altered Mental Status Past Patient History - Infectious Disease Hx of Infectious Diseases: None - Past Medical History & Family History Past Medical History?: Yes - Past Social History Smoking Status: Never Smoked - CARDIAC Hx Hypertension: Yes - PULMONARY Hx Respiratory Disorders: No - NEUROLOGICAL HX Cerebrovascular Accident: Yes - HEENT Hx HEENT Problems: No - RENAL Hx Chronic Kidney Disease: No - ENDOCRINE/METABOLIC Hx Diabetes Mellitus Type 2: Yes - HEMATOLOGICAL/ONCOLOGICAL Hx Blood Disorders: No - INTEGUMENTARY Hx Dermatological Problems: No - MUSCULOSKELETAL/RHEUMATOLOGICAL Hx Musculoskeletal Disorders: No Hx Falls: No - GASTROINTESTINAL Hx Gastrointestinal Disorders: No - GENITOURINARY/GYNECOLOGICAL Hx Genitourinary Disorders: No - PSYCHIATRIC Hx Substance Use: No - SURGICAL HISTORY Hx Amputation: Yes (RT GREAT TOE) - ANESTHESIA Hx Anesthesia: Yes Hx Anesthesia Reactions: No Meds Allergies/Adverse Reactions: Allergies Allergy/AdvReac Type Severity Reaction Status Date / Time No Known Allergies Allergy Verified 06/15/17 18:35 - Medications Medications: Current Medications Aspirin (Ecotrin) 325 mg PO DAILY [facility] Last Admin: 04/22/18 09:10 Dose: 325 mg Dextrose (Dextrose 50% Inj) 0 ml IV STAT PRN; Protocol PRN Reason: Hypoglycemia Protocol Dextrose (Glutose 15) 15 gm PO ONCE PRN; Protocol PRN Reason: Hypoglycemia Protocol Enoxaparin Sodium (Lovenox) 40 mg SC DAILY [facility] Furosemide (Lasix) 40 mg IVP Q12 [facility] Glucagon (Glucagen Diagnostic Kit) 1 mg IM STAT PRN; Protocol PRN Reason: Hypoglycemia Protocol Dextrose (Dextrose 5% In Water 1000 Ml) 1,000 mls @ 0 mls/hr IV .Q0M PRN; Protocol PRN Reason: Hypoglycemia Protocol Insulin Human Regular (Novolin R) 0 unit SC ACHS [facility]; Protocol Last Admin: 04/22/18 16:42 Dose: Not Given Metformin HCl (Glucophage) 500 mg PO BID [facility] Last Admin: 04/22/18 09:10 Dose: 500 mg Pantoprazole Sodium (Protonix Inj) 40 mg IVP DAILY [facility] Last Admin: 04/22/18 09:10 Dose: 40 mg Pneumococcal Polyvalent Vaccine (Pneumovax 23 Vaccine) 0.5 ml IM .ONCE ONE Stop: 04/23/18 10:01 Rosuvastatin Calcium (Crestor) 20 mg PO [facility] Last Admin: 04/21/18 21:48 Dose: 20 mg Physical Exam - Constitutional Appears: Toxic - Head Exam Head Exam: NORMAL INSPECTION - Eye Exam Eye Exam: Normal appearance - ENT Exam ENT Exam: Mucous Membranes Moist - Neck Exam Neck exam: Positive for: Full Rom - Respiratory Exam Respiratory Exam: Decreased Breath Sounds - Cardiovascular Exam Cardiovascular Exam: REGULAR RHYTHM - GI/Abdominal Exam GI & Abdominal Exam: Normal Bowel Sounds - Rectal Exam Rectal Exam: Deferred - Extremities Exam Extremities exam: Negative for: pedal edema - Back Exam Back exam: NORMAL INSPECTION - Skin Skin Exam: Normal Color Results - Vital Signs Recent Vital Signs: Last Vital Signs Temp 96.7 F L 04/22/18 15:33 Pulse 96 H 04/22/18 16:35 Resp 20 04/22/18 12:26 BP 117/80 04/22/18 12:26 Pulse Ox 98 04/22/18 12:26 - Labs Result Diagrams: 04/22/18 06:15 04/22/18 06:15 Labs: Laboratory Results - last 24 hr 04/21/18 04/22/18 04/22/18 20:58 06:02 06:15 WBC 10.7 RBC 3.73 L Hgb 11.0 L Hct 31.7 L MCV 84.8 MCH 29.5 MCHC 34.8 RDW 14.2 Plt Count 239 MPV 8.1 Neut % (Auto) 78.2 H Lymph % (Auto) 11.9 L [place] % (Auto) 7.6 Eos % (Auto) 1.7 Baso % (Auto) 0.6 Neut # (Auto) 8.4 H Lymph # (Auto) 1.3 [place] # (Auto) 0.8 Eos # (Auto) 0.2 Baso # (Auto) 0.1 Puncture Site pCO2 pO2 HCO3 ABG pH ABG Total CO2 ABG O2 Saturation ABG Base Excess Jonas Test ABG Potassium A-a O2 Difference Respiratory Index Glucose Lactate Vent Mode FiO2 Inspiratory BiPAP Expiratory BiPAP Sodium Potassium Chloride Carbon Dioxide Anion Gap BUN Creatinine Est GFR ( Amer) Est GFR (Non-Af Amer) POC Glucose (mg/dL) 107 99 Random Glucose Calcium Total Bilirubin AST ALT Alkaline Phosphatase Total Creatine Kinase CK-MB (Mass) Troponin I NT-Pro-B Natriuret Pep Total Protein Albumin Globulin Albumin/Globulin Ratio Arterial Blood Potassium Urine Color Urine Clarity Urine pH Ur Specific [place] Urine Protein Urine Glucose (UA) Urine Ketones Urine Blood Urine Nitrate Urine Bilirubin Urine Urobilinogen Ur Leukocyte Esterase Urine WBC (Auto) Urine RBC (Auto) Ur Squamous Epith Cells Urine Bacteria Hyaline Casts 04/22/18 04/22/18 04/22/18 06:15 10:45 11:25 WBC RBC Hgb Hct MCV MCH MCHC RDW Plt Count MPV Neut % (Auto) Lymph % (Auto) [place] % (Auto) Eos % (Auto) Baso % (Auto) Neut # (Auto) Lymph # (Auto) [place] # (Auto) Eos # (Auto) Baso # (Auto) Puncture Site Rba pCO2 43 pO2 95 HCO3 26.1 ABG pH 7.40 ABG Total CO2 27.9 ABG O2 Saturation 99.4 H ABG Base Excess 1.5 Jonas Test Na ABG Potassium 4.1 A-a O2 Difference Respiratory Index Glucose 107 Lactate 1.1 Vent Mode FiO2 Inspiratory BiPAP Expiratory BiPAP Sodium 139 140.0 Potassium 4.2 Chloride 103 108.0 H Carbon Dioxide 29 Anion Gap 11 BUN 29 H Creatinine 0.9 Est GFR ( Amer) > 60 Est GFR (Non-Af Amer) > 60 POC Glucose (mg/dL) 99 Random Glucose 111 H Calcium 8.3 L Total Bilirubin 0.8 AST 25 ALT 28 Alkaline Phosphatase 106 Total Creatine Kinase CK-MB (Mass) Troponin I NT-Pro-B Natriuret Pep Total Protein 5.7 L Albumin 2.7 L Globulin 3.0 Albumin/Globulin Ratio 0.9 L Arterial Blood Potassium 4.1 Urine Color Urine Clarity Urine pH Ur Specific [place] Urine Protein Urine Glucose (UA) Urine Ketones Urine Blood Urine Nitrate Urine Bilirubin Urine Urobilinogen Ur Leukocyte Esterase Urine WBC (Auto) Urine RBC (Auto) Ur Squamous Epith Cells Urine Bacteria Hyaline Casts 04/22/18 04/22/18 04/22/18 11:39 11:43 15:16 WBC RBC Hgb Hct MCV MCH MCHC RDW Plt Count MPV Neut % (Auto) Lymph % (Auto) [place] % (Auto) Eos % (Auto) Baso % (Auto) Neut # (Auto) Lymph # (Auto) [place] # (Auto) Eos # (Auto) Baso # (Auto) Puncture Site pCO2 pO2 HCO3 ABG pH ABG Total CO2 ABG O2 Saturation ABG Base Excess Jonas Test ABG Potassium A-a O2 Difference Respiratory Index Glucose Lactate Vent Mode FiO2 Inspiratory BiPAP Expiratory BiPAP Sodium Potassium Chloride Carbon Dioxide Anion Gap BUN Creatinine Est GFR ( Amer) Est GFR (Non-Af Amer) POC Glucose (mg/dL) 112 H Random Glucose Calcium Total Bilirubin AST ALT Alkaline Phosphatase Total Creatine Kinase 49 L CK-MB (Mass) 1.51 Troponin I 0.0280 NT-Pro-B Natriuret Pep 579 Total Protein Albumin Globulin Albumin/Globulin Ratio Arterial Blood Potassium Urine Color Mercedes Urine Clarity Hazy Urine pH 5.0 Ur Specific [place] 1.027 Urine Protein 2+ H Urine Glucose (UA) Normal Urine Ketones Negative Urine Blood 3+ H Urine Nitrate Negative Urine Bilirubin Negative Urine Urobilinogen 4.0 Ur Leukocyte Esterase 1+ H Urine WBC (Auto) 19 H Urine RBC (Auto) 94 H Ur Squamous Epith Cells 1 Urine Bacteria Rare Hyaline Casts 3-5 H 04/22/18 04/22/18 16:15 16:25 WBC RBC Hgb Hct MCV MCH MCHC RDW Plt Count MPV Neut % (Auto) Lymph % (Auto) [place] % (Auto) Eos % (Auto) Baso % (Auto) Neut # (Auto) Lymph # (Auto) [place] # (Auto) Eos # (Auto) Baso # (Auto) Puncture Site Lr pCO2 38 pO2 76 L HCO3 25.1 ABG pH 7.42 ABG Total CO2 25.8 ABG O2 Saturation 97.4 ABG Base Excess 0.3 Jonas Test Unable ABG Potassium 3.8 A-a O2 Difference 90.0 Respiratory Index 1.2 Glucose 121 H Lactate 1.1 Vent Mode Bipap FiO2 30.0 Inspiratory BiPAP 12 Expiratory BiPAP 6 Sodium 141.0 Potassium Chloride 112.0 H Carbon Dioxide Anion Gap BUN Creatinine Est GFR ( Amer) Est GFR (Non-Af Amer) POC Glucose (mg/dL) 124 H Random Glucose Calcium Total Bilirubin AST ALT Alkaline Phosphatase Total Creatine Kinase CK-MB (Mass) Troponin I NT-Pro-B Natriuret Pep Total Protein Albumin Globulin Albumin/Globulin Ratio Arterial Blood Potassium 3.8 Urine Color Urine Clarity Urine pH Ur Specific [place] Urine Protein Urine Glucose (UA) Urine Ketones Urine Blood Urine Nitrate Urine Bilirubin Urine Urobilinogen Ur Leukocyte Esterase Urine WBC (Auto) Urine RBC (Auto) Ur Squamous Epith Cells Urine Bacteria Hyaline Casts - EKG Data EKG Interpreted by: Myself EKG shows normal: Sinus rhythm Assessment & Plan (1) Diastolic dysfunction Assessment and Plan: echocardiogram reviewed. Normal left ventricular function, no apical thrombus. mitral annular calcification. diastolic dysfunction noted. will continue medical tehrapy. Primary management per neuro. No arrhythmia noted on tel emetry thus far. Status: Acute
--- NOTE | 2018-04-22 20:36 | CARD ---
APPROVED REPORT Date of service: 04/22/2018 EKG Measurement Heart [id number] <Conclusion> Normal sinus rhythm Right bundle branch block, plus right ventricular hypertrophy Septal infarct, age undetermined Abnormal ECG
[2018-04-22 22:32] LABS: URINE BACTERIA FEW (<OCC); URINE BILIRUBIN NEGATIVE (NEGATIVE); URINE BLOOD 3+ (NEGATIVE); URINE CLARITY Hazy (Clear); URINE GLUCOSE (UA) NORMAL (Normal); URINE LEUKOCYTE ESTERASE 2+ Leu/uL (Negative); URINE PROTEIN 2+ mg/dL (NEGATIVE)
[2018-04-22 23:19] LABS: SQUAMOUS EPITHIAL < 1 /hpf (0-5); URINE AMORPHOUS SEDIMENT OCC /ul (<OCC); URINE COLOR Amber (YELLOW)
[2018-04-23] MEDS ORDERED: Dextrose 5%/Lactated Ringer's 1,000 ML IV SCH (05:30)
[2018-04-23 06:23] LABS: BASO # 0.1 K/uL (0.0-0.2); BASO % 0.7 % (0.0-2.0); EOS # 0.2 K/uL (0.0-0.7); EOS % 1.5 % (0.0-4.0); HEMOGLOBIN 10.4 g/dL (12.0-18.0); LYMPH # 1.2 K/uL (1.0-4.3); LYMPH % 10.9 % (20.0-40.0); MEAN CELL VOLUME 85.5 fL (80.0-94.0); MEAN CORPUSCULAR HEMOGLOBIN 29.2 pg (27.0-31.0); MEAN CORPUSCULAR HGB CONC 34.1 g/dL (33.0-37.0); MEAN PLATELET VOLUME 8.3 fL (7.2-11.7); MONO # 0.8 K/uL (0.0-0.8); MONO % 7.4 % (0.0-10.0); NEUT # 8.5 K/uL (1.8-7.0); NEUT % 79.5 % (50.0-75.0); RBC 3.55 Mil/uL (4.40-5.90); RED CELL DISTRIBUTION WIDTH 14.4 % (11.5-14.5); WHITE BLOOD COUNT 10.7 K/uL (4.8-10.8)
[2018-04-23 06:46] LABS: ALBUMIN 2.8 g/dL (3.5-5.0); ALT/SGPT 25 U/L (21-72); AST/SGOT 22 U/L (17-59); BLOOD UREA NITROGEN 35 mg/dL (9-20); CALCIUM 8.4 mg/dl (8.6-10.4); GFR NON-AFRICAN AMERICAN > 60
[2018-04-23] MEDS ORDERED: (Novolin R) Insulin Human Regular 100 units/ml vial SC SCH (07:21)
--- NOTE | 2018-04-23 08:56 | CP.PCM.PN ---
Subjective - Date & Time of Evaluation Date of Evaluation: 04/23/18 Time of Evaluation: 07:00 - Subjective Subjective: PGY2- Progress Note for Dr. Jansen Patient seen and examined at bedside. Patient sleeping comfortably on BiPAP. Pt denies fever, chills, dizziness, headache, visual changes, chest pain, SOB, palpitations, abdominal pain, n/v/d. Objective - Vital Signs/Intake and Output Vital Signs (last 24 hours): Temp Pulse Resp BP Pulse Ox 98 F 91 H 20 145/77 97 04/23/18 04:00 04/23/18 08:13 04/23/18 08:13 04/23/18 08:13 04/23/18 08:13 Intake and Output: 04/23/18 04/23/18 06:59 18:59 Intake Total 0 0 Output Total 320 50 Balance -320 -50 - Medications Medications: Current Medications Aspirin (Ecotrin) 325 mg PO DAILY [facility] Last Admin: 04/22/18 09:10 Dose: 325 mg Dextrose (Dextrose 50% Inj) 0 ml IV STAT PRN; Protocol PRN Reason: Hypoglycemia Protocol Dextrose (Glutose 15) 15 gm PO ONCE PRN; Protocol PRN Reason: Hypoglycemia Protocol Enoxaparin Sodium (Lovenox) 40 mg SC DAILY [facility] Glucagon (Glucagen Diagnostic Kit) 1 mg IM STAT PRN; Protocol PRN Reason: Hypoglycemia Protocol Dextrose (Dextrose 5% In Water 1000 Ml) 1,000 mls @ 0 mls/hr IV .Q0M PRN; Kaushik col PRN Reason: Hypoglycemia Protocol Dextrose/Lactated Ringer's (Dextrose 5%/Lactated Ringer's) 1,000 mls @ 75 mls/hr IV .[id number] [facility] Stop: 04/23/18 18:49 Last Admin: 04/23/18 05:30 Dose: 75 mls/hr Insulin Human Regular (Novolin R) 0 unit SC Q6H [facility]; Protocol Metformin HCl (Glucophage) 500 mg PO BID [facility] Last Admin: 04/22/18 09:10 Dose: 500 mg Pantoprazole Sodium (Protonix Inj) 40 mg IVP DAILY [facility] Last Admin: 04/22/18 09:10 Dose: 40 mg Pneumococcal Polyvalent Vaccine (Pneumovax 23 Vaccine) 0.5 ml IM .ONCE ONE Stop: 04/23/18 10:01 Rosuvastatin Calcium (Crestor) 20 mg PO HS [facility] Last Admin: 04/22/18 22:57 Dose: Not Given - Labs Labs: 04/23/18 06:17 04/23/18 06:17 PT 13.2 SECONDS (9.7-12.2) H 04/20/18 08:46 INR 1.2 04/20/18 08:46 APTT 27 SECONDS (21-34) 04/20/18 08:46 - Additional Findings Additional findings: - Constitutional Appears: In Acute Distress (tachypnea) - Head Exam Head Exam: ATRAUMATIC - Eye Exam Eye Exam: EOMI. absent: Normal appearance (coboloma bilaterally, as seen on prior exam) - ENT Exam ENT Exam: Mucous Membranes Dry - Respiratory Exam Respiratory Exam: Accessory Muscle Use, Rales (throughout), Respiratory Distress (tachypnea at 24-28) - Cardiovascular Exam Cardiovascular Exam: REGULAR RHYTHM, +S1, +S2 - GI/Abdominal Exam GI & Abdominal Exam: Soft, Tenderness (mild epigastric tenderness), Normal Bowel Sounds. absent: Distended, Firm, Guarding, Rebound - Extremities Exam Extremities Exam: Normal Capillary Refill, Normal Inspection. absent: Calf Tenderness, Pedal Edema Additional comments: (+) cooler to touch than central body, (-) pallor (+) right upper extremity resting tremor - Neurological Exam Neurological Exam: Alert, Awake. absent: Oriented x3 (oriented to person, time, not place) Neuro motor strength exam: Left Upper Extremity: 2/1, Right Upper Extremity: 4, Left Lower Extremity: 3, Right Lower Extremity: 4 Additional comments: (-) babinski bilaterally - Psychiatric Exam Psychiatric exam: Normal Affect - Skin Skin Exam: Diaphoretic (cool and clammy hands and feet). absent: Cyanosis Assessment and Plan - Assessment and Plan (Free Text) Assessment: Left sided weakness; likely due to ischemic CVA vs TIA (history of TIA in 2017) - transferred to ICU 2/2 increasing lethargy/ AMS on 04/22 - Code stroke was called in the ED; NIHSS was 7 on admission - Neurology consulted; pt was outside of tPA window and was treated with ASA 300 mg as per Neuro - As per neuro, permissive HTN; SBP 170s-180s - ASA 325 mg PO daily - Rosuvastatin 20 mg PO QHS - troponin is negative x3 on admission -repeat head CT on 04/22: no acute change, redemonstrated a bulbous somewhat masslike appearance of the right choroid plexus which is of uncertain etiology though underlying choroid plexus lesion must be excluded. - Head CT shows no acute intracranial hemorrhage. Chronic microvascular ischemic changes. More confluent low attenuation seen within the right frontal subcortical white matter. Focal hypodensity within the right cerebellum suggestive for chronic lacunar infarct. Intracranial arterial calcifications. - Head and Neck CTA shows no evidence of occlusion dissection or significant stenosis. No evidence of large aneurysm or vascular malformation. - Brain MRI w/o contrast shows: 1. small acute right posterior frontoparietal subcortical infarct. 2. Moderate to significant chronic white matter changes with extension into the deep and subcortical white matter both cerebral hemispheres. Ischemic changes are also present in superior basal nuclei/kong radiata junction bilaterally. 3. Chronic appearing brainstem and bilateral cerebellar lacunar type infarcts. 4. Moderate generalized volume loss. 5. Localized bulbous mass like appearance of the right choroid plexus that is of uncertain etiology however this focus was not present on prior CT scan MRI of the brain dated 06/15/17 and 06/16/17. - Neurology, Dr. Holliday, is on board and recs are appreciated - echocardiogram reading is pending - swallow eval as per speech therapy suggests pureed solids, nectar thick li quids - seizure, aspiration and fall precautions - PT/OT/ST ordered CHF exacerbation - Echocardiogram (2016) shows EF of 65-70%, grade I abnormal relaxation, moderate-severe mitral annular calcification, mildly dilated left atrium, mild- moderate LVH - f/u Echocardiogram (04/20) reading - CXR (04/22) shows pulmonary edema, increased vascular congestion; as read by me - Lasix 40 mg IVPx2 given, Gonzalez placed, with diuresis of 600 mL of tea-colored urine. - MILVIA panel, ABG with shock panel, EKG, proBNP, ordered - SBP during this time was in 130s, DBPs in the 80s: pulse ox was 99% on 2L NC - ICU consulted, Dr. Bagley, who will evaluate the pt for transfer to ICU. Recs bipap 10i/5e, 30%, RR12, as well as albumin 5% 12.5g 250 mL. - Bipap initiated due to increased work of breathing. Albumin ordered for volume support. Tea colored urine - 600 mL of tea-colored urine was diuresed after administration of aformentioned lasix - urine was clearing up (clear yellow, without clots or blood), after initial diuresis with Lasix 40 mg IVP - UA: 2+ protein, 3+blood, 2+ leuk esterase, urine culture on 04/22 negative- no antibiotics indicated -blood cultures negative Hx of TIA (2016) - Pt admitted for evaluation of slurred speech and AMS in 05/2017 - At that time: Brain MRI showed chronic changes, Carotid dopplers were negative for significant stenosis, echocardiogram findings below Resting tremor; likely secondary to suspected parkinson's disease - as per son at bedside, pt has slow mentation and slurred speech at baseline. - pt noted to have cogwheel rigidity and pill-rolling resting tremor (right hand) on examination - neurology is on board, recs appreciated Hx of DM - HgbA1c is 7.2 - Holding Metformin 500 mg PO BID in light of acute distress - accucheck ACHS - ISS low ACHS Hypertriglyceridemia - TG/tChol/LDL/HDL is 153/124/75/23 on admission - Rosuvastatin 20 mg PO at nighttime PPX/Diet - Protonix for GI; SCDs for DVT; no chemical vte ppx at this time due to risk of conversion to hemorrhagic stroke Case was reviewed and discussed with attending physician, Dr. Jansen All medical management as per Dr. Jansen
[2018-04-23] MEDS ORDERED: Pneumococcal 23-Valent Vaccine IM ONE (10:00)
[2018-04-23] MEDS: Aspirin 325 mg EC Tablets PO SCH ×2 (10:20→15:35)
--- NOTE | 2018-04-23 13:49 | CP.CCUPN ---
<Frank Bagley - Last Filed: 04/23/18 14:59> CCU Objective - Vital Signs / Intake & Output Vital Signs (Last 4 hours): Vital Signs Pulse Resp BP Pulse Ox 04/23/18 14:11 83 04/23/18 12:00 83 22 97 04/23/18 11:50 82 17 94 L 04/23/18 11:40 83 18 94 L 04/23/18 11:30 85 19 97 04/23/18 11:20 87 19 97 04/23/18 11:13 86 18 157/80 H 96 04/23/18 11:11 85 04/23/18 11:10 86 23 95 04/23/18 11:00 87 14 97 Intake and Output (Last 8hrs): Intake & Output 04/22/18 04/23/18 04/23/18 22:59 06:59 14:59 Intake Total 250 0 0 Output Total 970 150 50 Balance -720 -150 -50 Weight 148 lb 6.4 oz 143 lb 8 oz Intake: Intake, IV Amount 250 Left Antecubital 250 Oral 0 0 0 Output: Urine 970 150 50 Urethral (Connor) 70 115 50 Urine, Voided 900 35 - Medications Active Medications: Active Medications Generic Name Dose Route Start Last Admin Trade Name Freq PRN Reason Stop Dose Admin Albumin Human 12.5 gm 04/23/18 12:00 Albumin Human 5% (12.5 Gm/250 Ml) IV 04/23/18 17:01 Q5H [facility] Aspirin 325 mg 04/21/18 10:00 04/22/18 09:10 Ecotrin PO 325 mg DAILY [facility] Administration Dextrose 0 ml 04/20/18 14:04 Dextrose 50% Inj IV STAT PRN Hypoglycemia Protocol Protocol Dextrose 15 gm 04/20/18 14:04 Glutose 15 PO ONCE PRN Hypoglycemia Protocol Protocol Enoxaparin Sodium 40 mg 04/22/18 10:00 Lovenox SC DAILY [facility] Furosemide 40 mg 04/23/18 13:30 Lasix IVP Q12H [facility] Glucagon 1 mg 04/20/18 14:04 Glucagen Diagnostic Kit IM STAT PRN Hypoglycemia Protocol Protocol Dextrose 1,000 mls @ 0 mls/hr 04/20/18 14:04 Dextrose 5% In Water 1000 Ml IV .Q0M PRN Hypoglycemia Protocol Protocol Per Protocol Insulin Human Regular 0 unit 04/23/18 12:00 Novolin R SC Q6H [facility] Protocol Levetiracetam 500 mg 04/23/18 18:00 Keppra PO BID [facility] Pantoprazole Sodium 40 mg 04/21/18 10:00 04/22/18 09:10 Protonix Inj IVP 40 mg DAILY [facility] Administration Rosuvastatin Calcium 20 mg 04/20/18 22:00 04/22/18 22:57 Crestor PO Not Given HS [facility] - Patient Studies Lab Studies: Microbiology Studies 04/22/18 13:38 Blood Culture - Preliminary Blood NO GROWTH AFTER 24 HOURS 04/22/18 13:38 Blood Culture - Preliminary Blood NO GROWTH AFTER 24 HOURS 04/22/18 11:39 Urine Culture - Final Urine No Growth (<1,000 CFU/ML) Lab Studies 04/23/18 04/23/18 04/23/18 Range/Units 06:17 06:17 05:13 WBC 10.7 (4.8-10.8) K/uL RBC 3.55 L (4.40-5.90) Mil/uL Hgb 10.4 L (12.0-18.0) g/dL Hct 30.4 L (35.0-51.0) % MCV 85.5 (80.0-94.0) fL MCH 29.2 (27.0-31.0) pg MCHC 34.1 (33.0-37.0) g/dL RDW 14.4 (11.5-14.5) % Plt Count 241 (130-400) K/uL MPV 8.3 (7.2-11.7) fL Neut % (Auto) 79.5 H (50.0-75.0) % Lymph % (Auto) 10.9 L (20.0-40.0) % [place] % (Auto) 7.4 (0.0-10.0) % Eos % (Auto) 1.5 (0.0-4.0) % Baso % (Auto) 0.7 (0.0-2.0) % Neut # (Auto) 8.5 H (1.8-7.0) K/uL Lymph # (Auto) 1.2 (1.0-4.3) K/uL [place] # (Auto) 0.8 (0.0-0.8) K/uL Eos # (Auto) 0.2 (0.0-0.7) K/uL Baso # (Auto) 0.1 (0.0-0.2) K/uL Puncture Site pCO2 (35-45) mm/Hg pO2 (80-100) mm/Hg HCO3 (21-28) mmol/L ABG pH (7.35-7.45) ABG Total CO2 (22-28) mmol/L ABG O2 Saturation (95-98) % ABG Base Excess (-2.0-3.0) mmol/L Jonas Test ABG Potassium (3.6-5.2) mmol/L A-a O2 Difference mm/Hg Respiratory Index Sodium 141 (132-148) mmol/l Chloride 104 (98-107) mmol/L Glucose (75-110) mg/dl Lactate (0.7-2.1) mmol/L Vent Mode FiO2 % Inspiratory BiPAP Expiratory BiPAP Potassium 4.1 (3.6-5.2) mmol/L Carbon Dioxide 28 (22-30) mmol/L Anion Gap 14 (10-20) BUN 35 H (9-20) mg/dL Creatinine 1.1 (0.8-1.5) mg/dL Est GFR ( Amer) > 60 Est GFR (Non-Af Amer) > 60 POC Glucose (mg/dL) 92 (65-110) mg/dL Random Glucose 88 (75-110) mg/dL Calcium 8.4 L (8.6-10.4) mg/dl Total Bilirubin 0.9 (0.2-1.3) mg/dL AST 22 (17-59) U/L ALT 25 (21-72) U/L Alkaline Phosphatase 94 (38-126) U/L Total Protein 5.6 L (6.3-8.3) g/dL Albumin 2.8 L (3.5-5.0) g/dL Globulin 2.8 (2.2-3.9) gm/dL Albumin/Globulin Ratio 1.0 (1.0-2.1) Arterial Blood Potassium (3.6-5.2) mmol/L Urine Color (YELLOW) Urine Clarity (Clear) Urine pH (5.0-8.0) Ur Specific [place] (1.003-1.030) Urine Protein (NEGATIVE) mg/dL Urine Glucose (UA) (Normal) mg/dL Urine Ketones (NEGATIVE) mg/dL Urine Blood (NEGATIVE) Urine Nitrate (NEGATIVE) Urine Bilirubin (NEGATIVE) Urine Urobilinogen (0.2-1.0) mg/dL Ur Leukocyte Esterase (Negative) [place]/uL Urine WBC (Auto) (0-5) /hpf Urine RBC (Auto) (0-3) /hpf Ur Squamous Epith Cells (0-5) /hpf Amorphous Sediment (<OCC) /ul Urine Bacteria (<OCC) 04/22/18 04/22/18 04/22/18 Range/Units 22:24 21:09 16:25 WBC (4.8-10.8) K/uL RBC (4.40-5.90) Mil/uL Hgb (12.0-18.0) g/dL Hct (35.0-51.0) % MCV (80.0-94.0) fL MCH (27.0-31.0) pg MCHC (33.0-37.0) g/dL RDW (11.5-14.5) % Plt Count (130-400) K/uL MPV (7.2-11.7) fL Neut % (Auto) (50.0-75.0) % Lymph % (Auto) (20.0-40.0) % [place] % (Auto) (0.0-10.0) % Eos % (Auto) (0.0-4.0) % Baso % (Auto) (0.0-2.0) % Neut # (Auto) (1.8-7.0) K/uL Lymph # (Auto) (1.0-4.3) K/uL [place] # (Auto) (0.0-0.8) K/uL Eos # (Auto) (0.0-0.7) K/uL Baso # (Auto) (0.0-0.2) K/uL Puncture Site Lr pCO2 38 (35-45) mm/Hg pO2 76 L (80-100) mm/Hg HCO3 25.1 (21-28) mmol/L ABG pH 7.42 (7.35-7.45) ABG Total CO2 25.8 (22-28) mmol/L ABG O2 Saturation 97.4 (95-98) % ABG Base Excess 0.3 (-2.0-3.0) mmol/L Jonas Test Unable ABG Potassium 3.8 (3.6-5.2) mmol/L A-a O2 Difference 90.0 mm/Hg Respiratory Index 1.2 Sodium 141.0 (132-148) mmol/l Chloride 112.0 H (98-107) mmol/L Glucose 121 H (75-110) mg/dl Lactate 1.1 (0.7-2.1) mmol/L Vent Mode Bipap FiO2 30.0 % Inspiratory BiPAP 12 Expiratory BiPAP 6 Potassium (3.6-5.2) mmol/L Carbon Dioxide (22-30) mmol/L Anion Gap (10-20) BUN (9-20) mg/dL Creatinine (0.8-1.5) mg/dL Est GFR ( Amer) Est GFR (Non-Af Amer) POC Glucose (mg/dL) 103 (65-110) mg/dL Random Glucose (75-110) mg/dL Calcium (8.6-10.4) mg/dl Total Bilirubin (0.2-1.3) mg/dL AST (17-59) U/L ALT (21-72) U/L Alkaline Phosphatase (38-126) U/L Total Protein (6.3-8.3) g/dL Albumin (3.5-5.0) g/dL Globulin (2.2-3.9) gm/dL Albumin/Globulin Ratio (1.0-2.1) Arterial Blood Potassium 3.8 (3.6-5.2) mmol/L Urine Color Mercedes (YELLOW) Urine Clarity Hazy (Clear) Urine pH 5.0 (5.0-8.0) Ur Specific [place] 1.020 (1.003-1.030) Urine Protein 2+ H (NEGATIVE) mg/dL Urine Glucose (UA) Normal (Normal) mg/dL Urine Ketones Trace (NEGATIVE) mg/dL Urine Blood 3+ H (NEGATIVE) Urine Nitrate Negative (NEGATIVE) Urine Bilirubin Negative (NEGATIVE) Urine Urobilinogen 4.0 (0.2-1.0) mg/dL Ur Leukocyte Esterase 2+ H (Negative) [place]/uL Urine WBC (Auto) 25 H (0-5) /hpf Urine RBC (Auto) 75 H (0-3) /hpf Ur Squamous Epith Cells < 1 (0-5) /hpf Amorphous Sediment Occ H (<OCC) /ul Urine Bacteria Few H (<OCC) 04/22/18 04/22/18 Range/Units 16:15 15:16 WBC (4.8-10.8) K/uL RBC (4.40-5.90) Mil/uL Hgb (12.0-18.0) g/dL Hct (35.0-51.0) % MCV (80.0-94.0) fL MCH (27.0-31.0) pg MCHC (33.0-37.0) g/dL RDW (11.5-14.5) % Plt Count (130-400) K/uL MPV (7.2-11.7) fL Neut % (Auto) (50.0-75.0) % Lymph % (Auto) (20.0-40.0) % [place] % (Auto) (0.0-10.0) % Eos % (Auto) (0.0-4.0) % Baso % (Auto) (0.0-2.0) % Neut # (Auto) (1.8-7.0) K/uL Lymph # (Auto) (1.0-4.3) K/uL [place] # (Auto) (0.0-0.8) K/uL Eos # (Auto) (0.0-0.7) K/uL Baso # (Auto) (0.0-0.2) K/uL Puncture Site pCO2 (35-45) mm/Hg pO2 (80-100) mm/Hg HCO3 (21-28) mmol/L ABG pH (7.35-7.45) ABG Total CO2 (22-28) mmol/L ABG O2 Saturation (95-98) % ABG Base Excess (-2.0-3.0) mmol/L Jonas Test ABG Potassium (3.6-5.2) mmol/L A-a O2 Difference mm/Hg Respiratory Index Sodium (132-148) mmol/l Chloride (98-107) mmol/L Glucose (75-110) mg/dl Lactate (0.7-2.1) mmol/L Vent Mode FiO2 % Inspiratory BiPAP Expiratory BiPAP Potassium (3.6-5.2) mmol/L Carbon Dioxide (22-30) mmol/L Anion Gap (10-20) BUN (9-20) mg/dL Creatinine (0.8-1.5) mg/dL Est GFR ( Amer) Est GFR (Non-Af Amer) POC Glucose (mg/dL) 124 H 112 H (65-110) mg/dL Random Glucose (75-110) mg/dL Calcium (8.6-10.4) mg/dl Total Bilirubin (0.2-1.3) mg/dL AST (17-59) U/L ALT (21-72) U/L Alkaline Phosphatase (38-126) U/L Total Protein (6.3-8.3) g/dL Albumin (3.5-5.0) g/dL Globulin (2.2-3.9) gm/dL Albumin/Globulin Ratio (1.0-2.1) Arterial Blood Potassium (3.6-5.2) mmol/L Urine Color (YELLOW) Urine Clarity (Clear) Urine pH (5.0-8.0) Ur Specific [place] (1.003-1.030) Urine Protein (NEGATIVE) mg/dL Urine Glucose (UA) (Normal) mg/dL Urine Ketones (NEGATIVE) mg/dL Urine Blood (NEGATIVE) Urine Nitrate (NEGATIVE) Urine Bilirubin (NEGATIVE) Urine Urobilinogen (0.2-1.0) mg/dL Ur Leukocyte Esterase (Negative) [place]/uL Urine WBC (Auto) (0-5) /hpf Urine RBC (Auto) (0-3) /hpf Ur Squamous Epith Cells (0-5) /hpf Amorphous Sediment (<OCC) /ul Urine Bacteria (<OCC) Laboratory Results - last 24 hr 04/22/18 04/22/18 04/22/18 15:16 16:15 16:25 WBC RBC Hgb Hct MCV MCH MCHC RDW Plt Count MPV Neut % (Auto) Lymph % (Auto) [place] % (Auto) Eos % (Auto) Baso % (Auto) Neut # (Auto) Lymph # (Auto) [place] # (Auto) Eos # (Auto) Baso # (Auto) Puncture Site Lr pCO2 38 pO2 76 L HCO3 25.1 ABG pH 7.42 ABG Total CO2 25.8 ABG O2 Saturation 97.4 ABG Base Excess 0.3 Jonas Test Unable ABG Potassium 3.8 A-a O2 Difference 90.0 Respiratory Index 1.2 Sodium 141.0 Chloride 112.0 H Glucose 121 H Lactate 1.1 Vent Mode Bipap FiO2 30.0 Inspiratory BiPAP 12 Expiratory BiPAP 6 Potassium Carbon Dioxide Anion Gap BUN Creatinine Est GFR ( Amer) Est GFR (Non-Af Amer) POC Glucose (mg/dL) 112 H 124 H Random Glucose Calcium Total Bilirubin AST ALT Alkaline Phosphatase Total Protein Albumin Globulin Albumin/Globulin Ratio Arterial Blood Potassium 3.8 Urine Color Urine Clarity Urine pH Ur Specific [place] Urine Protein Urine Glucose (UA) Urine Ketones Urine Blood Urine Nitrate Urine Bilirubin Urine Urobilinogen Ur Leukocyte Esterase Urine WBC (Auto) Urine RBC (Auto) Ur Squamous Epith Cells Amorphous Sediment Urine Bacteria 04/22/18 04/22/18 04/23/18 21:09 22:24 05:13 WBC RBC Hgb Hct MCV MCH MCHC RDW Plt Count MPV Neut % (Auto) Lymph % (Auto) [place] % (Auto) Eos % (Auto) Baso % (Auto) Neut # (Auto) Lymph # (Auto) [place] # (Auto) Eos # (Auto) Baso # (Auto) Puncture Site pCO2 pO2 HCO3 ABG pH ABG Total CO2 ABG O2 Saturation ABG Base Excess Jonas Test ABG Potassium A-a O2 Difference Respiratory Index Sodium Chloride Glucose Lactate Vent Mode FiO2 Inspiratory BiPAP Expiratory BiPAP Potassium Carbon Dioxide Anion Gap BUN Creatinine Est GFR ( Amer) Est GFR (Non-Af Amer) POC Glucose (mg/dL) 103 92 Random Glucose Calcium Total Bilirubin AST ALT Alkaline Phosphatase Total Protein Albumin Globulin Albumin/Globulin Ratio Arterial Blood Potassium Urine Color Mercedes Urine Clarity Hazy Urine pH 5.0 Ur Specific [place] 1.020 Urine Protein 2+ H Urine Glucose (UA) Normal Urine Ketones Trace Urine Blood 3+ H Urine Nitrate Negative Urine Bilirubin Negative Urine Urobilinogen 4.0 Ur Leukocyte Esterase 2+ H Urine WBC (Auto) 25 H Urine RBC (Auto) 75 H Ur Squamous Epith Cells < 1 Amorphous Sediment Occ H Urine Bacteria Few H 04/23/18 04/23/18 06:17 06:17 WBC 10.7 RBC 3.55 L Hgb 10.4 L Hct 30.4 L MCV 85.5 MCH 29.2 MCHC 34.1 RDW 14.4 Plt Count 241 MPV 8.3 Neut % (Auto) 79.5 H Lymph % (Auto) 10.9 L [place] % (Auto) 7.4 Eos % (Auto) 1.5 Baso % (Auto) 0.7 Neut # (Auto) 8.5 H Lymph # (Auto) 1.2 [place] # (Auto) 0.8 Eos # (Auto) 0.2 Baso # (Auto) 0.1 Puncture Site pCO2 pO2 HCO3 ABG pH ABG Total CO2 ABG O2 Saturation ABG Base Excess Jonas Test ABG Potassium A-a O2 Difference Respiratory Index Sodium 141 Chloride 104 Glucose Lactate Vent Mode FiO2 Inspiratory BiPAP Expiratory BiPAP Potassium 4.1 Carbon Dioxide 28 Anion Gap 14 BUN 35 H Creatinine 1.1 Est GFR ( Amer) > 60 Est GFR (Non-Af Amer) > 60 POC Glucose (mg/dL) Random Glucose 88 Calcium 8.4 L Total Bilirubin 0.9 AST 22 ALT 25 Alkaline Phosphatase 94 Total Protein 5.6 L Albumin 2.8 L Globulin 2.8 Albumin/Globulin Ratio 1.0 Arterial Blood Potassium Urine Color Urine Clarity Urine pH Ur Specific [place] Urine Protein Urine Glucose (UA) Urine Ketones Urine Blood Urine Nitrate Urine Bilirubin Urine Urobilinogen Ur Leukocyte Esterase Urine WBC (Auto) Urine RBC (Auto) Ur Squamous Epith Cells Amorphous Sediment Urine Bacteria Attending/Attestation - Attestation I have personally seen and examined this patient.: Yes I have fully participated in the care of the patient.: Yes I have reviewed all pertinent clinical information: Yes Notes (Text): 04/23/18 14:59 I have seen and examined the patient. Medical records, lab studies, and imaging were reviewed by me and a management plan was formulated on multidisciplinary rounds with resident Dr. Campo. I agree with their documented assessment and plan. Patient became symptomatic from low blood pressure state. Still needs diuresis for acute exacerbation of chronic systolic CHF. Starting albumin drip with lasix to mitigate any hypotension. Patient more alert but still completely hemiparetic on the left. Critical Care Time 35 minutes. Multi-disciplinary rounds were performed with house staff, nursing, speech therapy, respiratory therapy, pharmacy and nutrition with integrated input from the primary team/attending and other consulting services. The documented time is cumulative and includes review of patient data/exams/labs/chart review and examination of the patient on rounds and throughout the day; time is exclusive of any procedures or teaching time. <Sky Campo - Last Filed: 04/23/18 19:06> CCU Subjective - Physician Review Subjective (Free Text): 04/23/18 17:33 Patient seen and examined at bedside in ICU. This AM, continued to exhibit aphasia and left hemiparesis, with intact RUE/RLE strength and movement, but this afternoon, shows some LUE/LLE movement on commands, saying few words coherently. Appears very improved. No acute distress. Denies pain, nausea, emesis, shortness of breath. Satting well on Bipap, tolerating well. CCU Objective - Vital Signs / Intake & Output Vital Signs (Last 4 hours): Vital Signs Pulse Resp BP Pulse Ox 04/23/18 12:00 83 22 97 04/23/18 11:50 82 17 94 L 04/23/18 11:40 83 18 94 L 04/23/18 11:30 85 19 97 04/23/18 11:20 87 19 97 04/23/18 11:13 86 18 157/80 H 96 04/23/18 11:11 85 04/23/18 11:10 86 23 95 04/23/18 11:00 87 14 97 04/23/18 10:50 85 17 94 L 04/23/18 10:40 88 20 97 04/23/18 10:30 88 19 98 04/23/18 10:20 88 19 97 04/23/18 10:13 89 15 149/81 97 04/23/18 10:10 85 17 97 04/23/18 10:00 86 19 96 04/23/18 09:50 85 17 95 Intake and Output (Last 8hrs): Intake & Output 04/22/18 04/23/18 04/23/18 22:59 06:59 14:59 Intake Total 250 0 0 Output Total 970 150 50 Balance -720 -150 -50 Weight 67.313 kg 65.091 kg Intake: Intake, IV Amount 250 Left Antecubital 250 Oral 0 0 0 Output: Urine 970 150 50 Urethral (Connor) 70 115 50 Urine, Voided 900 35 - Physical Exam Physical Exam Limitations: Positive for: Other (following simple commands in [place] Islander and Romanian, and pantomimed motions, struggles with complex commands) Head: Positive for: Atraumatic, Normocephalic, Other (no appreciable facial droop) Pupils: Positive for: PERRL. Negative for: Pinpoint Extroacular Muscles: Positive for: EOMI Conjunctiva: Negative for: Injected, Icteric Mouth: Positive for: Moist Mucous Membranes, Other (wearing Bipap mask) Nose (External): Positive for: Atraumatic. Negative for: Abrasion, Contusion, Laceration Nose (Internal): Positive for: No Active Bleeding. Negative for: Epistaxis Neck: Positive for: Normal Range of Motion (passive ROM intact, patient struggles to comprehend instructions for active ROM testing), Trachea Midline. Negative for: JVD Respiratory/Chest: Positive for: Clear to Auscultation, Respiratory Distress. Negative for: Good Air Exchange, Accessory Muscle Use, Wheezes, Decreased Breath Sounds, Rales, Rhonchi Cardiovascular: Positive for: Regular Rate and Rhythm, Normal S1, S2, Peripheal Pulses Present (+2 radials and doralis pedis bilaterally). Negative for: Murmurs, Irregular Rhythm, Tachycardic, Bradycardic Abdomen: Positive for: Normal Bowel Sounds. Negative for: Tenderness, Distention Upper Extremity: Positive for: NORMAL PULSES. Negative for: Cyanosis, Edema, Tenderness, Erythema, Deformity Lower Extremity: Positive for: NORMAL PULSES. Negative for: Edema, CALF TENDERNESS, Cyanosis, Tenderness, Swelling, Deformity Neurological: Positive for: GCS=15 (GCS between 14-15 (E4 V4-5 M6); able to speak few appropriate words, unable to speak sufficiently to assess if oriented or confused), Normal Sensory Function (difficult to fully evaluated sensory function due to non-verbal and language barriers, but able to attempt to move correct extremities based on poking/prodding desired extremity without being able to see the extremities when prodding so at least some degree of sensation intact bilaterally), Other (RUE/RLE: 5/5 motor strength, LUE: 3/5 motor strength, able to lift arm off bed 3-4 cm for 3-4 seconds before dropping to bed; LLE: 3-/5 motor strength, able to lift leg approx 5 cm off of bed over 1-2 seconds but drops back to bed almost immediately) Skin: Positive for: Warm, Dry, Normal Color. Negative for: Rashes Psychiatric: Positive for: Other (awake and alert, minimally verbal so unable to assess orientation but able to follow some commands and answer some questions with 1-2 word answers appropriately, so some intact mental faculties) - Medications Active Medications: Active Medications Generic Name Dose Route Start Last Admin Trade Name Freq PRN Reason Stop Dose Admin Albumin Human 12.5 gm 04/23/18 12:00 Albumin Human 5% (12.5 Gm/250 Ml) IV 04/23/18 17:01 Q5H [facility] Aspirin 325 mg 04/21/18 10:00 04/22/18 09:10 Ecotrin PO 325 mg DAILY [facility] Administration Dextrose 0 ml 04/20/18 14:04 Dextrose 50% Inj IV STAT PRN Hypoglycemia Protocol Protocol Dextrose 15 gm 04/20/18 14:04 Glutose 15 PO ONCE PRN Hypoglycemia Protocol Protocol Enoxaparin Sodium 40 mg 04/22/18 10:00 Lovenox SC DAILY [facility] Furosemide 40 mg 04/23/18 13:30 Lasix IVP Q12H [facility] Glucagon 1 mg 04/20/18 14:04 Glucagen Diagnostic Kit IM STAT PRN Hypoglycemia Protocol Protocol Dextrose 1,000 mls @ 0 mls/hr 04/20/18 14:04 Dextrose 5% In Water 1000 Ml IV .Q0M PRN Hypoglycemia Protocol Protocol Per Protocol Insulin Human Regular 0 unit 04/23/18 12:00 Novolin R SC Q6H [facility] Protocol Levetiracetam 500 mg 04/23/18 18:00 Keppra PO BID [facility] Pantoprazole Sodium 40 mg 04/21/18 10:00 04/22/18 09:10 Protonix Inj IVP 40 mg DAILY [facility] Administration Rosuvastatin Calcium 20 mg 04/20/18 22:00 04/22/18 22:57 Crestor PO Not Given HS [facility] - Patient Studies Lab Studies: Microbiology Studies 04/22/18 13:38 Blood Culture - Preliminary Blood NO GROWTH AFTER 24 HOURS 04/22/18 13:38 Blood Culture - Preliminary Blood NO GROWTH AFTER 24 HOURS 04/22/18 11:39 Urine Culture - Final Urine No Growth (<1,000 CFU/ML) Lab Studies 04/23/18 04/23/18 04/23/18 Range/Units 06:17 06:17 05:13 WBC 10.7 (4.8-10.8) K/uL RBC 3.55 L (4.40-5.90) Mil/uL Hgb 10.4 L (12.0-18.0) g/dL Hct 30.4 L (35.0-51.0) % MCV 85.5 (80.0-94.0) fL MCH 29.2 (27.0-31.0) pg MCHC 34.1 (33.0-37.0) g/dL RDW 14.4 (11.5-14.5) % Plt Count 241 (130-400) K/uL MPV 8.3 (7.2-11.7) fL Neut % (Auto) 79.5 H (50.0-75.0) % Lymph % (Auto) 10.9 L (20.0-40.0) % [place] % (Auto) 7.4 (0.0-10.0) % Eos % (Auto) 1.5 (0.0-4.0) % Baso % (Auto) 0.7 (0.0-2.0) % Neut # (Auto) 8.5 H (1.8-7.0) K/uL Lymph # (Auto) 1.2 (1.0-4.3) K/uL [place] # (Auto) 0.8 (0.0-0.8) K/uL Eos # (Auto) 0.2 (0.0-0.7) K/uL Baso # (Auto) 0.1 (0.0-0.2) K/uL Puncture Site pCO2 (35-45) mm/Hg pO2 (80-100) mm/Hg HCO3 (21-28) mmol/L ABG pH (7.35-7.45) ABG Total CO2 (22-28) mmol/L ABG O2 Saturation (95-98) % ABG Base Excess (-2.0-3.0) mmol/L Jonas Test ABG Potassium (3.6-5.2) mmol/L A-a O2 Difference mm/Hg Respiratory Index Sodium 141 (132-148) mmol/l Chloride 104 (98-107) mmol/L Glucose (75-110) mg/dl Lactate (0.7-2.1) mmol/L Vent Mode FiO2 % Inspiratory BiPAP Expiratory BiPAP Potassium 4.1 (3.6-5.2) mmol/L Carbon Dioxide 28 (22-30) mmol/L Anion Gap 14 (10-20) BUN 35 H (9-20) mg/dL Creatinine 1.1 (0.8-1.5) mg/dL Est GFR ( Amer) > 60 Est GFR (Non-Af Amer) > 60 POC Glucose (mg/dL) 92 (65-110) mg/dL Random Glucose 88 (75-110) mg/dL Calcium 8.4 L (8.6-10.4) mg/dl Total Bilirubin 0.9 (0.2-1.3) mg/dL AST 22 (17-59) U/L ALT 25 (21-72) U/L Alkaline Phosphatase 94 (38-126) U/L Total Protein 5.6 L (6.3-8.3) g/dL Albumin 2.8 L (3.5-5.0) g/dL Globulin 2.8 (2.2-3.9) gm/dL Albumin/Globulin Ratio 1.0 (1.0-2.1) Arterial Blood Potassium (3.6-5.2) mmol/L Urine Color (YELLOW) Urine Clarity (Clear) Urine pH (5.0-8.0) Ur Specific [place] (1.003-1.030) Urine Protein (NEGATIVE) mg/dL Urine Glucose (UA) (Normal) mg/dL Urine Ketones (NEGATIVE) mg/dL Urine Blood (NEGATIVE) Urine Nitrate (NEGATIVE) Urine Bilirubin (NEGATIVE) Urine Urobilinogen (0.2-1.0) mg/dL Ur Leukocyte Esterase (Negative) [place]/uL Urine WBC (Auto) (0-5) /hpf Urine RBC (Auto) (0-3) /hpf Ur Squamous Epith Cells (0-5) /hpf Amorphous Sediment (<OCC) /ul Urine Bacteria (<OCC) 04/22/18 04/22/18 04/22/18 Range/Units 22:24 21:09 16:25 WBC (4.8-10.8) K/uL RBC (4.40-5.90) Mil/uL Hgb (12.0-18.0) g/dL Hct (35.0-51.0) % MCV (80.0-94.0) fL MCH (27.0-31.0) pg MCHC (33.0-37.0) g/dL RDW (11.5-14.5) % Plt Count (130-400) K/uL MPV (7.2-11.7) fL Neut % (Auto) (50.0-75.0) % Lymph % (Auto) (20.0-40.0) % [place] % (Auto) (0.0-10.0) % Eos % (Auto) (0.0-4.0) % Baso % (Auto) (0.0-2.0) % Neut # (Auto) (1.8-7.0) K/uL Lymph # (Auto) (1.0-4.3) K/uL [place] # (Auto) (0.0-0.8) K/uL Eos # (Auto) (0.0-0.7) K/uL Baso # (Auto) (0.0-0.2) K/uL Puncture Site Lr pCO2 38 (35-45) mm/Hg pO2 76 L (80-100) mm/Hg HCO3 25.1 (21-28) mmol/L ABG pH 7.42 (7.35-7.45) ABG Total CO2 25.8 (22-28) mmol/L ABG O2 Saturation 97.4 (95-98) % ABG Base Excess 0.3 (-2.0-3.0) mmol/L Jonas Test Unable ABG Potassium 3.8 (3.6-5.2) mmol/L A-a O2 Difference 90.0 mm/Hg Respiratory Index 1.2 Sodium 141.0 (132-148) mmol/l Chloride 112.0 H (98-107) mmol/L Glucose 121 H (75-110) mg/dl Lactate 1.1 (0.7-2.1) mmol/L Vent Mode Bipap FiO2 30.0 % Inspiratory BiPAP 12 Expiratory BiPAP 6 Potassium (3.6-5.2) mmol/L Carbon Dioxide (22-30) mmol/L Anion Gap (10-20) BUN (9-20) mg/dL Creatinine (0.8-1.5) mg/dL Est GFR ( Amer) Est GFR (Non-Af Amer) POC Glucose (mg/dL) 103 (65-110) mg/dL Random Glucose (75-110) mg/dL Calcium (8.6-10.4) mg/dl Total Bilirubin (0.2-1.3) mg/dL AST (17-59) U/L ALT (21-72) U/L Alkaline Phosphatase (38-126) U/L Total Protein (6.3-8.3) g/dL Albumin (3.5-5.0) g/dL Globulin (2.2-3.9) gm/dL Albumin/Globulin Ratio (1.0-2.1) Arterial Blood Potassium 3.8 (3.6-5.2) mmol/L Urine Color Mercedes (YELLOW) Urine Clarity Hazy (Clear) Urine pH 5.0 (5.0-8.0) Ur Specific [place] 1.020 (1.003-1.030) Urine Protein 2+ H (NEGATIVE) mg/dL Urine Glucose (UA) Normal (Normal) mg/dL Urine Ketones Trace (NEGATIVE) mg/dL Urine Blood 3+ H (NEGATIVE) Urine Nitrate Negative (NEGATIVE) Urine Bilirubin Negative (NEGATIVE) Urine Urobilinogen 4.0 (0.2-1.0) mg/dL Ur Leukocyte Esterase 2+ H (Negative) Humaria/uL Urine WBC (Auto) 25 H (0-5) /hpf Urine RBC (Auto) 75 H (0-3) /hpf Ur Squamous Epith Cells < 1 (0-5) /hpf Amorphous Sediment Occ H (<OCC) /ul Urine Bacteria Few H (<OCC) 04/22/18 04/22/18 Range/Units 16:15 15:16 WBC (4.8-10.8) K/uL RBC (4.40-5.90) Mil/uL Hgb (12.0-18.0) g/dL Hct (35.0-51.0) % MCV (80.0-94.0) fL MCH (27.0-31.0) pg MCHC (33.0-37.0) g/dL RDW (11.5-14.5) % Plt Count (130-400) K/uL MPV (7.2-11.7) fL Neut % (Auto) (50.0-75.0) % Lymph % (Auto) (20.0-40.0) % [place] % (Auto) (0.0-10.0) % Eos % (Auto) (0.0-4.0) % Baso % (Auto) (0.0-2.0) % Neut # (Auto) (1.8-7.0) K/uL Lymph # (Auto) (1.0-4.3) K/uL [place] # (Auto) (0.0-0.8) K/uL Eos # (Auto) (0.0-0.7) K/uL Baso # (Auto) (0.0-0.2) K/uL Puncture Site pCO2 (35-45) mm/Hg pO2 (80-100) mm/Hg HCO3 (21-28) mmol/L ABG pH (7.35-7.45) ABG Total CO2 (22-28) mmol/L ABG O2 Saturation (95-98) % ABG Base Excess (-2.0-3.0) mmol/L Jonas Test ABG Potassium (3.6-5.2) mmol/L A-a O2 Difference mm/Hg Respiratory Index Sodium (132-148) mmol/l Chloride (98-107) mmol/L Glucose (75-110) mg/dl Lactate (0.7-2.1) mmol/L Vent Mode FiO2 % Inspiratory BiPAP Expiratory BiPAP Potassium (3.6-5.2) mmol/L Carbon Dioxide (22-30) mmol/L Anion Gap (10-20) BUN (9-20) mg/dL Creatinine (0.8-1.5) mg/dL Est GFR ( Amer) Est GFR (Non-Af Amer) POC Glucose (mg/dL) 124 H 112 H (65-110) mg/dL Random Glucose (75-110) mg/dL Calcium (8.6-10.4) mg/dl Total Bilirubin (0.2-1.3) mg/dL AST (17-59) U/L ALT (21-72) U/L Alkaline Phosphatase (38-126) U/L Total Protein (6.3-8.3) g/dL Albumin (3.5-5.0) g/dL Globulin (2.2-3.9) gm/dL Albumin/Globulin Ratio (1.0-2.1) Arterial Blood Potassium (3.6-5.2) mmol/L Urine Color (YELLOW) Urine Clarity (Clear) Urine pH (5.0-8.0) Ur Specific [place] (1.003-1.030) Urine Protein (NEGATIVE) mg/dL Urine Glucose (UA) (Normal) mg/dL Urine Ketones (NEGATIVE) mg/dL Urine Blood (NEGATIVE) Urine Nitrate (NEGATIVE) Urine Bilirubin (NEGATIVE) Urine Urobilinogen (0.2-1.0) mg/dL Ur Leukocyte Esterase (Negative) [place]/uL Urine WBC (Auto) (0-5) /hpf Urine RBC (Auto) (0-3) /hpf Ur Squamous Epith Cells (0-5) /hpf Amorphous Sediment (<OCC) /ul Urine Bacteria (<OCC) Laboratory Results - last 24 hr 04/22/18 04/22/18 04/22/18 15:16 16:15 16:25 WBC RBC Hgb Hct MCV MCH MCHC RDW Plt Count MPV Neut % (Auto) Lymph % (Auto) [place] % (Auto) Eos % (Auto) Baso % (Auto) Neut # (Auto) Lymph # (Auto) [place] # (Auto) Eos # (Auto) Baso # (Auto) Puncture Site Lr pCO2 38 pO2 76 L HCO3 25.1 ABG pH 7.42 ABG Total CO2 25.8 ABG O2 Saturation 97.4 ABG Base Excess 0.3 Jonas Test Unable ABG Potassium 3.8 A-a O2 Difference 90.0 Respiratory Index 1.2 Sodium 141.0 Chloride 112.0 H Glucose 121 H Lactate 1.1 Vent Mode Bipap FiO2 30.0 Inspiratory BiPAP 12 Expiratory BiPAP 6 Potassium Carbon Dioxide Anion Gap BUN Creatinine Est GFR ( Amer) Est GFR (Non-Af Amer) POC Glucose (mg/dL) 112 H 124 H Random Glucose Calcium Total Bilirubin AST ALT Alkaline Phosphatase Total Protein Albumin Globulin Albumin/Globulin Ratio Arterial Blood Potassium 3.8 Urine Color Urine Clarity Urine pH Ur Specific [place] Urine Protein Urine Glucose (UA) Urine Ketones Urine Blood Urine Nitrate Urine Bilirubin Urine Urobilinogen Ur Leukocyte Esterase Urine WBC (Auto) Urine RBC (Auto) Ur Squamous Epith Cells Amorphous Sediment Urine Bacteria 04/22/18 04/22/18 04/23/18 21:09 22:24 05:13 WBC RBC Hgb Hct MCV MCH MCHC RDW Plt Count MPV Neut % (Auto) Lymph % (Auto) [place] % (Auto) Eos % (Auto) Baso % (Auto) Neut # (Auto) Lymph # (Auto) [place] # (Auto) Eos # (Auto) Baso # (Auto) Puncture Site pCO2 pO2 HCO3 ABG pH ABG Total CO2 ABG O2 Saturation ABG Base Excess Jonas Test ABG Potassium A-a O2 Difference Respiratory Index Sodium Chloride Glucose Lactate Vent Mode FiO2 Inspiratory BiPAP Expiratory BiPAP Potassium Carbon Dioxide Anion Gap BUN Creatinine Est GFR ( Amer) Est GFR (Non-Af Amer) POC Glucose (mg/dL) 103 92 Random Glucose Calcium Total Bilirubin AST ALT Alkaline Phosphatase Total Protein Albumin Globulin Albumin/Globulin Ratio Arterial Blood Potassium Urine Color [place] Urine Clarity Hazy Urine pH 5.0 Ur Specific [place] 1.020 Urine Protein 2+ H Urine Glucose (UA) Normal Urine Ketones Trace Urine Blood 3+ H Urine Nitrate Negative Urine Bilirubin Negative Urine Urobilinogen 4.0 Ur Leukocyte Esterase 2+ H Urine WBC (Auto) 25 H Urine RBC (Auto) 75 H Ur Squamous Epith Cells < 1 Amorphous Sediment Occ H Urine Bacteria Few H 04/23/18 04/23/18 06:17 06:17 WBC 10.7 RBC 3.55 L Hgb 10.4 L Hct 30.4 L MCV 85.5 MCH 29.2 MCHC 34.1 RDW 14.4 Plt Count 241 MPV 8.3 Neut % (Auto) 79.5 H Lymph % (Auto) 10.9 L [place] % (Auto) 7.4 Eos % (Auto) 1.5 Baso % (Auto) 0.7 Neut # (Auto) 8.5 H Lymph # (Auto) 1.2 [place] # (Auto) 0.8 Eos # (Auto) 0.2 Baso # (Auto) 0.1 Puncture Site pCO2 pO2 HCO3 ABG pH ABG Total CO2 ABG O2 Saturation ABG Base Excess Jonas Test ABG Potassium A-a O2 Difference Respiratory Index Sodium 141 Chloride 104 Glucose Lactate Vent Mode FiO2 Inspiratory BiPAP Expiratory BiPAP Potassium 4.1 Carbon Dioxide 28 Anion Gap 14 BUN 35 H Creatinine 1.1 Est GFR ( Amer) > 60 Est GFR (Non-Af Amer) > 60 POC Glucose (mg/dL) Random Glucose 88 Calcium 8.4 L Total Bilirubin 0.9 AST 22 ALT 25 Alkaline Phosphatase 94 Total Protein 5.6 L Albumin 2.8 L Globulin 2.8 Albumin/Globulin Ratio 1.0 Arterial Blood Potassium Urine Color Urine Clarity Urine pH Ur Specific [place] Urine Protein Urine Glucose (UA) Urine Ketones Urine Blood Urine Nitrate Urine Bilirubin Urine Urobilinogen Ur Leukocyte Esterase Urine WBC (Auto) Urine RBC (Auto) Ur Squamous Epith Cells Amorphous Sediment Urine Bacteria Fingerstick Blood Sugar Results: 92 Review of Systems - Review of Systems Systems not reviewed;Unavailable: Other (primarily non-verbal + language barrier) Assessment/Plan - Assessment and Plan (Free Text) Assessment: This is a 72 yo M with PMH of TIA (05/2017), NIDDM, and diastolic CHF who presented to for evaluation of acute onset left sided weakness prior to presentation. He developed AMS yesterday and worsening left-sided weakness after diuresis for possible CHF exacerbation yesterday, but this has significantly improved today. Plan: Neuro: - 04/[address] shows no acute intracranial hemorrhage. Chronic microvascular ischemic changes. More confluent low attenuation seen within the right frontal subcortical white matter. Focal hypodensity within the right cerebellum suggestive for chronic lacunar infarct. Intracranial arterial calcifications. - 04/[address] notable for Moderate generalized volume loss, Redemonstrated bulbous/somewhat mass-like appearance in the right choroid plexus of uncertain etiology (please see report for full details) - 04/21 Head and Neck CTA shows no evidence of occlusion, dissection, or significant stenosis. No evidence of large aneurysm or vascular malformation. - 04/21 Brain MRI w/o contrast shows small acute rightposterior frontoparietal subcortical infarct, -significant improvement in neuro function throughout today, now moving left extremities and able to speak some words -Neuro (Dr Holliday) consulted, appreciate all recs; recs EEG (pending), repeat head CT (as above) -Continue Keppra 500mg BID, continue ASA 325mg -neuro checks q4 Pulm: -lungs clear to auscultation today -satting well on Bipap, tolerating well (no agitation, pulling at mask, etc), continue with Bipap -CXR this AM reviewed and compared to prior, appears unchanged on the left and mildly improved on the right -ABG from yesterday reviewed Cardio: -Dr Owens (Cardio) consulted, appreciate all recs; echo reviewed, no arrhythmia on tele, primary management as per neuro -Maintaining MAP > 65, no further hypotensive episodes -initial hypotensive episode with AMS likely 2/2 high dose lasix -Albumin drip q5 x2 bags ordered, continue Lasix 40mg IV q12 -continue ASA 325mg PO daily GI: -NPO except meds -Protonix for GI ppx Nephro: -Cr from 0.9 to 1.1 -making clear yellow urine in connor -monitor and replete electrolytes as needed ID: -remains afebrile, no leukocytosis -no indication for abx at this time Heme: -Hgb from 11 to 10.4, no signs of bleeding -repeat head CT negative for bleed -Lovenox SC for DVT ppx Endo: -maintain euglycemia, BG target 140-180 as per [employer] trial -Hx of DM, but hold Metformin given NPO and in case patient needs contrast study -Sliding scale insulin, hypoglycemic protocols, Accuchecks q6 -glucagon 1mg IM PRN Dispo: ICU, improving neurologically, tolerating Bipap well FEN: NPO Access: Peripheral IVs Consults: Neuro, Cardio, ICU Ppx: Lovenox for DVT, Protonix for GI Code Status: Unknown, so Full by default Seen, reviewed, and discussed with attending, Dr. Bagley
[2018-04-23] MEDS: Albumin Human 5% (12.5 gm/250 ml) IV SCH ×2 (14:00→18:09)
--- NOTE | 2018-04-23 15:02 | CARD ---
APPROVED REPORT Date of service: 04/20/2018 EKG Measurement Heart [id number] <Conclusion> Normal sinus rhythm Right bundle branch block Left anterior fascicular block Bifascicular block Septal infarct, age undetermined Abnormal ECG
[2018-04-23] MEDS: (Novolin R) Insulin Human Regular 100 units/ml vial SC SCH ×2 (15:06→18:08)
--- NOTE | 2018-04-23 15:32 | RAD ---
Date of service: 04/23/2018 HISTORY: chf COMPARISON: Comparison chest dated 04/22/2018. FINDINGS: LUNGS: Patchy bilateral infiltrate changes are present left greater than right likely due to pulmonary edema/CHF however concomitant pneumonia not excluded.. Questionable small bilateral effusions left larger than right. PLEURA: As above. No pneumothorax apparent. CARDIOVASCULAR: Heart appears borderline enlarged. OSSEOUS STRUCTURES: No significant abnormalities. VISUALIZED UPPER ABDOMEN: Normal. OTHER FINDINGS: None. IMPRESSION: Patchy bilateral infiltrate changes are present left greater than right likely due to pulmonary edema/CHF however concomitant pneumonia not excluded.. Questionable small bilateral effusions left larger than right.
[2018-04-24] MEDS: (Novolin R) Insulin Human Regular 100 units/ml vial SC SCH ×4 (00:31→18:27)
[2018-04-24 06:32] LABS: BASO # 0.1 K/uL (0.0-0.2); BASO % 0.6 % (0.0-2.0); EOS # 0.2 K/uL (0.0-0.7); HEMOGLOBIN 9.8 g/dL (12.0-18.0); LYMPH % 10.6 % (20.0-40.0); MEAN CELL VOLUME 85.5 fL (80.0-94.0); MEAN CORPUSCULAR HEMOGLOBIN 29.4 pg (27.0-31.0); MEAN CORPUSCULAR HGB CONC 34.4 g/dL (33.0-37.0); MEAN PLATELET VOLUME 8.2 fL (7.2-11.7); MONO # 0.8 K/uL (0.0-0.8); MONO % 8.3 % (0.0-10.0); NEUT # 7.7 K/uL (1.8-7.0); NEUT % 78.5 % (50.0-75.0); RBC 3.32 Mil/uL (4.40-5.90); RED CELL DISTRIBUTION WIDTH 14.1 % (11.5-14.5); WHITE BLOOD COUNT 9.8 K/uL (4.8-10.8)
--- NOTE | 2018-04-24 07:14 | CP.CCUPN ---
<Flip Fortune P - Last Filed: 04/24/18 18:05> CCU Objective - Vital Signs / Intake & Output Vital Signs (Last 4 hours): Vital Signs Temp Pulse Resp BP Pulse Ox 04/24/18 17:27 104 H 04/24/18 17:03 104 H 20 142/80 97 04/24/18 17:00 107 H 25 H 97 04/24/18 16:03 101 H 25 H 140/74 96 04/24/18 16:00 97.9 F 99 H 26 H 96 04/24/18 15:03 101 H 21 128/71 95 04/24/18 15:00 100 H 25 H 95 Intake and Output (Last 8hrs): Intake & Output 04/24/18 04/24/18 04/24/18 06:59 14:59 22:59 Intake Total 50 100 0 Output Total 1195 290 265 Balance -1145 -190 -265 Weight 139 lb Intake: Intake, IV Amount 50 100 0 Left Antecubital 0 0 Right Forearm 50 100 0 Oral 0 0 Output: Urine 1195 290 265 Urethral (Connor) 1195 290 265 Other: # Bowel Movements 0 0 - Medications Active Medications: Active Medications Generic Name Dose Route Start Last Admin Trade Name Freq PRN Reason Stop Dose Admin Aspirin 325 mg 04/21/18 10:00 04/24/18 09:55 Ecotrin PO Not Given DAILY DARIUS Dextrose 0 ml 04/20/18 14:04 Dextrose 50% Inj IV STAT PRN Hypoglycemia Protocol Protocol Dextrose 15 gm 04/20/18 14:04 Glutose 15 PO ONCE PRN Hypoglycemia Protocol Protocol Enoxaparin Sodium 40 mg 04/22/18 10:00 04/24/18 09:59 Lovenox SC 40 mg DAILY DARIUS Administration Glucagon 1 mg 04/20/18 14:04 Glucagen Diagnostic Kit IM STAT PRN Hypoglycemia Protocol Protocol Levetiracetam 500 mg/ Sodium 105 mls @ 420 mls/hr 04/24/18 10:30 04/24/18 10:24 Chloride IVPB 420 mls/hr Q12 DARIUS Administration Insulin Human Regular 0 unit 04/23/18 12:00 04/24/18 11:37 Novolin R SC Not Given Q6H DARIUS Protocol Levetiracetam 500 mg 04/23/18 18:00 04/24/18 09:59 Keppra PO Not Given BID DARIUS Pantoprazole Sodium 40 mg 04/21/18 10:00 04/24/18 10:13 Protonix Inj IVP 40 mg DAILY DARIUS Administration Rosuvastatin Calcium 20 mg 04/20/18 22:00 04/23/18 22:38 Crestor PO Not Given HS DARIUS - Patient Studies Lab Studies: Microbiology Studies 04/22/18 13:38 Blood Culture - Preliminary Blood NO GROWTH AFTER 48 HOURS 04/22/18 13:38 Blood Culture - Preliminary Blood NO GROWTH AFTER 48 HOURS 04/22/18 18:55 Urine Culture - Final Urine,Connor No Growth (<1,000 CFU/ML) 04/22/18 15:25 MRSA Culture (Admit) - Final Naris MRSA NOT DETECTED Lab Studies 04/24/18 04/24/18 04/24/18 Range/Units 17:45 11:15 05:43 WBC (4.8-10.8) K/uL RBC (4.40-5.90) Mil/uL Hgb (12.0-18.0) g/dL Hct (35.0-51.0) % MCV (80.0-94.0) fL MCH (27.0-31.0) pg MCHC (33.0-37.0) g/dL RDW (11.5-14.5) % Plt Count (130-400) K/uL MPV (7.2-11.7) fL Neut % (Auto) (50.0-75.0) % Lymph % (Auto) (20.0-40.0) % [place] % (Auto) (0.0-10.0) % Eos % (Auto) (0.0-4.0) % Baso % (Auto) (0.0-2.0) % Neut # (Auto) (1.8-7.0) K/uL Lymph # (Auto) (1.0-4.3) K/uL [place] # (Auto) (0.0-0.8) K/uL Eos # (Auto) (0.0-0.7) K/uL Baso # (Auto) (0.0-0.2) K/uL Sodium (132-148) mmol/L Potassium (3.6-5.2) mmol/L Chloride (98-107) mmol/L Carbon Dioxide (22-30) mmol/L Anion Gap (10-20) BUN (9-20) mg/dL Creatinine (0.8-1.5) mg/dL Est GFR ( Amer) Est GFR (Non-Af Amer) POC Glucose (mg/dL) 76 80 88 (65-110) mg/dL Random Glucose (75-110) mg/dL Calcium (8.6-10.4) mg/dl Total Bilirubin (0.2-1.3) mg/dL AST (17-59) U/L ALT (21-72) U/L Alkaline Phosphatase (38-126) U/L Total Protein (6.3-8.3) g/dL Albumin (3.5-5.0) g/dL Globulin (2.2-3.9) gm/dL Albumin/Globulin Ratio (1.0-2.1) 04/24/18 04/24/18 04/23/18 Range/Units 03:57 03:57 23:59 WBC 9.8 (4.8-10.8) K/uL RBC 3.32 L (4.40-5.90) Mil/uL Hgb 9.8 L (12.0-18.0) g/dL Hct 28.4 L (35.0-51.0) % MCV 85.5 (80.0-94.0) fL MCH 29.4 (27.0-31.0) pg MCHC 34.4 (33.0-37.0) g/dL RDW 14.1 (11.5-14.5) % Plt Count 237 (130-400) K/uL MPV 8.2 (7.2-11.7) fL Neut % (Auto) 78.5 H (50.0-75.0) % Lymph % (Auto) 10.6 L (20.0-40.0) % [place] % (Auto) 8.3 (0.0-10.0) % Eos % (Auto) 2.0 (0.0-4.0) % Baso % (Auto) 0.6 (0.0-2.0) % Neut # (Auto) 7.7 H (1.8-7.0) K/uL Lymph # (Auto) 1.0 (1.0-4.3) K/uL [place] # (Auto) 0.8 (0.0-0.8) K/uL Eos # (Auto) 0.2 (0.0-0.7) K/uL Baso # (Auto) 0.1 (0.0-0.2) K/uL Sodium 142 (132-148) mmol/L Potassium 4.1 (3.6-5.2) mmol/L Chloride 102 (98-107) mmol/L Carbon Dioxide 29 (22-30) mmol/L Anion Gap 16 (10-20) BUN 29 H (9-20) mg/dL Creatinine 0.8 (0.8-1.5) mg/dL Est GFR ( Amer) > 60 Est GFR (Non-Af Amer) > 60 POC Glucose (mg/dL) 84 (65-110) mg/dL Random Glucose 83 (75-110) mg/dL Calcium 8.8 (8.6-10.4) mg/dl Total Bilirubin 1.3 (0.2-1.3) mg/dL AST 29 (17-59) U/L ALT 20 L (21-72) U/L Alkaline Phosphatase 86 (38-126) U/L Total Protein 6.0 L (6.3-8.3) g/dL Albumin 3.1 L (3.5-5.0) g/dL Globulin 3.0 (2.2-3.9) gm/dL Albumin/Globulin Ratio 1.0 (1.0-2.1) Laboratory Results - last 24 hr 04/23/18 04/24/18 04/24/18 23:59 03:57 03:57 WBC 9.8 RBC 3.32 L Hgb 9.8 L Hct 28.4 L MCV 85.5 MCH 29.4 MCHC 34.4 RDW 14.1 Plt Count 237 MPV 8.2 Neut % (Auto) 78.5 H Lymph % (Auto) 10.6 L [place] % (Auto) 8.3 Eos % (Auto) 2.0 Baso % (Auto) 0.6 Neut # (Auto) 7.7 H Lymph # (Auto) 1.0 [place] # (Auto) 0.8 Eos # (Auto) 0.2 Baso # (Auto) 0.1 Sodium 142 Potassium 4.1 Chloride 102 Carbon Dioxide 29 Anion Gap 16 BUN 29 H Creatinine 0.8 Est GFR ( Amer) > 60 Est GFR (Non-Af Amer) > 60 POC Glucose (mg/dL) 84 Random Glucose 83 Calcium 8.8 Total Bilirubin 1.3 AST 29 ALT 20 L Alkaline Phosphatase 86 Total Protein 6.0 L Albumin 3.1 L Globulin 3.0 Albumin/Globulin Ratio 1.0 04/24/18 04/24/18 04/24/18 05:43 11:15 17:45 WBC RBC Hgb Hct MCV MCH MCHC RDW Plt Count MPV Neut % (Auto) Lymph % (Auto) [place] % (Auto) Eos % (Auto) Baso % (Auto) Neut # (Auto) Lymph # (Auto) [place] # (Auto) Eos # (Auto) Baso # (Auto) Sodium Potassium Chloride Carbon Dioxide Anion Gap BUN Creatinine Est GFR ( Amer) Est GFR (Non-Af Amer) POC Glucose (mg/dL) 88 80 76 Random Glucose Calcium Total Bilirubin AST ALT Alkaline Phosphatase Total Protein Albumin Globulin Albumin/Globulin Ratio Attending/Attestation - Attestation I have personally seen and examined this patient.: Yes I have fully participated in the care of the patient.: Yes I have reviewed all pertinent clinical information: Yes Notes (Text): 04/24/18 18:06 Patient had been bit lethargic but follows some commands, right arm 4/5, left a rm 2/5, moving, moving right leg more than left, spo2 on bipap was 97% on 30% fio2, patient was not sob, patient taken off bipap, spo2 on NC 97%, CXR done today still unchanged b/l vascular congestion with slight worsening left side infiltrate, afebrile, Head CT and MRI brain suggesting infarct in right water shed area. IV lasix stopped to improve perfusion in water shed infarct area. CTA chest will be ordered to assess the infiltrates seen on Chest xray better. MRI with and without contrast ordered by neuro to assess ct finding of choroid plexus mass. See orders for detail. <Sky Campo - Last Filed: 04/24/18 21:24> CCU Subjective - Physician Review Subjective (Free Text): 04/24/18 21:17 Patient seen and examined at bedside in ICU. More lethargic this AM, still speaking few words and less movement of left extremities on command, but does display some spontaneous movements of LLE and L hand. Tolerating Bipap well, downgraded to NC and will monitor. Pending official speech/swallow eval tmr. CCU Objective - Vital Signs / Intake & Output Vital Signs (Last 4 hours): Vital Signs Temp Pulse Resp BP Pulse Ox 04/24/18 06:13 95 H 18 163/91 H 97 04/24/18 05:13 89 19 156/80 H 92 L 04/24/18 04:13 130/91 H 04/24/18 04:12 96 H 21 97 04/24/18 04:00 98 F Intake and Output (Last 8hrs): Intake & Output 04/23/18 04/24/18 04/24/18 22:59 06:59 14:59 Intake Total 400 50 Output Total 270 1195 Balance 130 -1145 Weight 63.049 kg Intake: Intake, IV Amount 200 50 Right Forearm 200 50 Oral 0 Albumin 200 Output: Urine 270 1195 Urethral (Connor) 270 1195 Stool 0 Emesis 0 - Physical Exam Physical Exam Limitations: Positive for: Other (only following some commands, appears more lethargic today) Head: Positive for: Atraumatic, Normocephalic, Other (no appreciable facial droop) Pupils: Positive for: PERRL. Negative for: Pinpoint Extroacular Muscles: Positive for: EOMI Conjunctiva: Negative for: Injected, Icteric Mouth: Positive for: Moist Mucous Membranes, Other (wearing Bipap mask) Nose (External): Positive for: Atraumatic. Negative for: Abrasion, Contusion, Laceration Nose (Internal): Positive for: No Active Bleeding. Negative for: Epistaxis Neck: Positive for: Normal Range of Motion (passive ROM intact, patient struggles to comprehend instructions for active ROM testing), Trachea Midline. Negative for: JVD Respiratory/Chest: Positive for: Clear to Auscultation, Respiratory Distress. Negative for: Good Air Exchange, Accessory Muscle Use, Wheezes, Decreased Breath Sounds, Rales, Rhonchi Cardiovascular: Positive for: Regular Rate and Rhythm, Normal S1, S2, Peripheal Pulses Present (+2 radials and doralis pedis bilaterally). Negative for: Murmurs, Irregular Rhythm, Tachycardic, Bradycardic Abdomen: Positive for: Normal Bowel Sounds. Negative for: Tenderness, Distention Upper Extremity: Positive for: NORMAL PULSES. Negative for: Cyanosis, Edema, Tenderness, Erythema, Deformity Lower Extremity: Positive for: NORMAL PULSES. Negative for: Edema, CALF TENDERNESS, Cyanosis, Tenderness, Swelling, Deformity Neurological: Positive for: GCS=15 (GCS between 14-15 (E4 V4-5 M6); able to speak few appropriate words, unable to speak sufficiently to assess if oriented or confused), Normal Sensory Function (difficult to fully evaluated sensory function due to non-verbal and language barriers, but able to attempt to move correct extremities based on poking/prodding desired extremity without being able to see the extremities when prodding so at least some degree of sensation intact bilaterally), Other (5/5 motor in RLE and RUE, less movement of L extremities but does display spontaneous movement of L hand and LLE) Skin: Positive for: Warm, Dry, Normal Color. Negative for: Rashes Psychiatric: Positive for: Other (awake and alert, minimally verbal so unable to assess orientation but able to follow some commands and answer some questions with 1-2 word answers appropriately, so some intact mental faculties) - Medications Active Medications: Active Medications Generic Name Dose Route Start Last Admin Trade Name Freq PRN Reason Stop Dose Admin Aspirin 325 mg 04/21/18 10:00 04/23/18 15:35 Ecotrin PO Not Given DAILY DARIUS Dextrose 0 ml 04/20/18 14:04 Dextrose 50% Inj IV STAT PRN Hypoglycemia Protocol Protocol Dextrose 15 gm 04/20/18 14:04 Glutose 15 PO ONCE PRN Hypoglycemia Protocol Protocol Enoxaparin Sodium 40 mg 04/22/18 10:00 Lovenox SC DAILY DARIUS Furosemide 40 mg 04/23/18 13:30 04/24/18 00:33 Lasix IVP 40 mg Q12H DARIUS Administration Glucagon 1 mg 04/20/18 14:04 Glucagen Diagnostic Kit IM STAT PRN Hypoglycemia Protocol Protocol Insulin Human Regular 0 unit 04/23/18 12:00 04/24/18 00:31 Novolin R SC Not Given Q6H DARIUS Protocol Levetiracetam 500 mg 04/23/18 18:00 04/23/18 18:08 Keppra PO Not Given BID DARIUS Pantoprazole Sodium 40 mg 04/21/18 10:00 04/23/18 10:20 Protonix Inj IVP 40 mg DAILY DARIUS Administration Rosuvastatin Calcium 20 mg 04/20/18 22:00 04/23/18 22:38 Crestor PO Not Given HS DARIUS - Patient Studies Lab Studies: Microbiology Studies 04/22/18 15:25 MRSA Culture (Admit) - Final Naris MRSA NOT DETECTED 04/22/18 13:38 Blood Culture - Preliminary Blood NO GROWTH AFTER 24 HOURS 04/22/18 13:38 Blood Culture - Preliminary Blood NO GROWTH AFTER 24 HOURS 04/22/18 11:39 Urine Culture - Final Urine No Growth (<1,000 CFU/ML) Lab Studies 04/24/18 04/24/18 04/23/18 Range/Units 05:43 03:57 23:59 WBC 9.8 (4.8-10.8) K/uL RBC 3.32 L (4.40-5.90) Mil/uL Hgb 9.8 L (12.0-18.0) g/dL Hct 28.4 L (35.0-51.0) % MCV 85.5 (80.0-94.0) fL MCH 29.4 (27.0-31.0) pg MCHC 34.4 (33.0-37.0) g/dL RDW 14.1 (11.5-14.5) % Plt Count 237 (130-400) K/uL MPV 8.2 (7.2-11.7) fL Neut % (Auto) 78.5 H (50.0-75.0) % Lymph % (Auto) 10.6 L (20.0-40.0) % [place] % (Auto) 8.3 (0.0-10.0) % Eos % (Auto) 2.0 (0.0-4.0) % Baso % (Auto) 0.6 (0.0-2.0) % Neut # (Auto) 7.7 H (1.8-7.0) K/uL Lymph # (Auto) 1.0 (1.0-4.3) K/uL [place] # (Auto) 0.8 (0.0-0.8) K/uL Eos # (Auto) 0.2 (0.0-0.7) K/uL Baso # (Auto) 0.1 (0.0-0.2) K/uL POC Glucose (mg/dL) 88 84 (65-110) mg/dL 04/23/18 04/23/18 04/23/18 Range/Units 17:24 11:22 05:13 WBC (4.8-10.8) K/uL RBC (4.40-5.90) Mil/uL Hgb (12.0-18.0) g/dL Hct (35.0-51.0) % MCV (80.0-94.0) fL MCH (27.0-31.0) pg MCHC (33.0-37.0) g/dL RDW (11.5-14.5) % Plt Count (130-400) K/uL MPV (7.2-11.7) fL Neut % (Auto) (50.0-75.0) % Lymph % (Auto) (20.0-40.0) % [place] % (Auto) (0.0-10.0) % Eos % (Auto) (0.0-4.0) % Baso % (Auto) (0.0-2.0) % Neut # (Auto) (1.8-7.0) K/uL Lymph # (Auto) (1.0-4.3) K/uL [place] # (Auto) (0.0-0.8) K/uL Eos # (Auto) (0.0-0.7) K/uL Baso # (Auto) (0.0-0.2) K/uL POC Glucose (mg/dL) 91 122 H 92 (65-110) mg/dL Laboratory Results - last 24 hr 04/23/18 04/23/18 04/23/18 05:13 11:22 17:24 WBC RBC Hgb Hct MCV MCH MCHC RDW Plt Count MPV Neut % (Auto) Lymph % (Auto) [place] % (Auto) Eos % (Auto) Baso % (Auto) Neut # (Auto) Lymph # (Auto) [place] # (Auto) Eos # (Auto) Baso # (Auto) POC Glucose (mg/dL) 92 122 H 91 04/23/18 04/24/18 04/24/18 23:59 03:57 05:43 WBC 9.8 RBC 3.32 L Hgb 9.8 L Hct 28.4 L MCV 85.5 MCH 29.4 MCHC 34.4 RDW 14.1 Plt Count 237 MPV 8.2 Neut % (Auto) 78.5 H Lymph % (Auto) 10.6 L [place] % (Auto) 8.3 Eos % (Auto) 2.0 Baso % (Auto) 0.6 Neut # (Auto) 7.7 H Lymph # (Auto) 1.0 [place] # (Auto) 0.8 Eos # (Auto) 0.2 Baso # (Auto) 0.1 POC Glucose (mg/dL) 84 88 Fingerstick Blood Sugar Results: 88 Review of Systems - Review of Systems Systems not reviewed;Unavailable: Other (aphasia vs language barrier) Assessment/Plan - Assessment and Plan (Free Text) Assessment: This is a 72 yo M with PMH of TIA (05/2017), NIDDM, and diastolic CHF who presented to for evaluation of acute onset left sided weakness prior to presentation. Aphasia and L sided weakness persists but is improved as compared to initial presentation to ICU. Plan: Neuro: - 04/[address] shows no acute intracranial hemorrhage. Chronic microvascular ischemic changes. More confluent low attenuation seen within the right frontal subcortical white matter. Focal hypodensity within the right cerebellum suggestive for chronic lacunar infarct. Intracranial arterial calcifications. - 04/[address] notable for Moderate generalized volume loss, Redemonstrated bulbous/somewhat mass-like appearance in the right choroid plexus of uncertain etiology (please see report for full details) - 04/21 Head and Neck CTA shows no evidence of occlusion, dissection, or signif icant stenosis. No evidence of large aneurysm or vascular malformation. - 04/21 Brain MRI w/o contrast shows small acute rightposterior frontoparietal subcortical infarct, -significant improvement in neuro function throughout today, now moving left extremities and able to speak some words -Neuro (Dr Holliday) consulted, appreciate all recs; recs EEG (pending), repeat head CT (as above), and obtaining MRI with and w/o efraín to assess for new stroke given speech deficits and to better assess R choroid plexus mass -Continue Keppra 500mg BID, continue ASA 325mg -neuro checks q4 Pulm: -lungs clear to auscultation today -satting well on Bipap, tolerating well (no agitation, pulling at mask, etc), downgraded to nasal canula, will f/u -CXR this AM reviewed and compared to prior, appears unchanged; pending CT chest to assess for any persisting effusion -ABG from yesterday reviewed Cardio: -Dr Owens (Cardio) consulted, appreciate all recs; echo reviewed, no arrhythmia on tele, primary management as per neuro -Maintaining MAP > 65, no further hypotensive episodes -initial hypotensive episode with AMS likely 2/2 high dose lasix holding lasix pending chest CT to assess if still effusions, if resuming diuresis will have to diurese gently to prevent bottoming-out BP -Albumin drip completed yesterday -continue ASA 325mg PO daily GI: -NPO except meds -Protonix for GI ppx -pending official swallow eval tmr Nephro: -Cr 0.8 -making clear yellow urine in connor -monitor and replete electrolytes as needed ID: -remains afebrile, no leukocytosis -no indication for abx at this time Heme: -Hgb from 10.4 to 9.8, no signs of bleeding -repeat head CT negative for bleed -Lovenox SC for DVT ppx Endo: -maintain euglycemia, BG target 140-180 as per [employer] trial -Hx of DM, but hold Metformin given NPO and in case patient needs contrast study -Sliding scale insulin, hypoglycemic protocols, Accuchecks q6 -glucagon 1mg IM PRN Dispo: ICU, improving neurologically, tolerating Bipap well pending switch to NC, pending repeat MRI with and without efraín as per Neuro FEN: NPO Access: Peripheral IVs Consults: Neuro, Cardio, ICU Ppx: Lovenox for DVT, Protonix for GI Code Status: Unknown, so Full by default Seen, reviewed, and discussed with attending, Dr. Fortune
--- NOTE | 2018-04-24 08:33 | CP.PCM.PN ---
Subjective - Date & Time of Evaluation Date of Evaluation: 04/24/18 Time of Evaluation: 07:00 - Subjective Subjective: PGY2- Progress note for Dr. Jansen Patient seen and examined at bedside. Patient more alert. Patient denies any pain, nausea, vomiting, diarrhea, or constipation. Patient tolerating BiPap well. Objective - Vital Signs/Intake and Output Vital Signs (last 24 hours): Temp Pulse Resp BP Pulse Ox 98 F 93 H 21 148/85 97 04/24/18 04:00 04/24/18 07:13 04/24/18 07:13 04/24/18 07:13 04/24/18 07:13 Intake and Output: 04/24/18 04/24/18 06:59 18:59 Intake Total 250 Output Total 1345 100 Balance -1095 -100 - Medications Medications: Current Medications Aspirin (Ecotrin) 325 mg PO DAILY [facility] Last Admin: 04/23/18 15:35 Dose: Not Given Dextrose (Dextrose 50% Inj) 0 ml IV STAT PRN; Protocol PRN Reason: Hypoglycemia Protocol Dextrose (Glutose 15) 15 gm PO ONCE PRN; Protocol PRN Reason: Hypoglycemia Protocol Enoxaparin Sodium (Lovenox) 40 mg SC DAILY DARIUS Furosemide (Lasix) 40 mg IVP Q12H DARIUS Last Admin: 04/24/18 00:33 Dose: 40 mg Glucagon (Glucagen Diagnostic Kit) 1 mg IM STAT PRN; Protocol PRN Reason: Hypoglycemia Protocol Insulin Human Regular (Novolin R) 0 unit SC Q6H DARIUS; Protocol Last Admin: 04/24/18 06:30 Dose: Not Given Levetiracetam (Keppra) 500 mg PO BID DARIUS Last Admin: 04/23/18 18:08 Dose: Not Given Pantoprazole Sodium (Protonix Inj) 40 mg IVP DAILY DARIUS Last Admin: 04/23/18 10:20 Dose: 40 mg Rosuvastatin Calcium (Crestor) 20 mg PO HS DARIUS Last Admin: 04/23/18 22:38 Dose: Not Given - Labs Labs: 04/24/18 03:57 04/23/18 06:17 PT 13.2 SECONDS (9.7-12.2) H 04/20/18 08:46 INR 1.2 04/20/18 08:46 APTT 27 SECONDS (21-34) 04/20/18 08:46 - Additional Findings Additional findings: - Constitutional Appears: In Acute Distress (tachypnea) - Head Exam Head Exam: ATRAUMATIC - Eye Exam Eye Exam: EOMI. absent: Normal appearance (coboloma bilaterally, as seen on prior exam) - ENT Exam ENT Exam: Mucous Membranes Dry - Respiratory Exam Respiratory Exam: Accessory Muscle Use, Rales (throughout), Respiratory Distress (tachypnea at 24-28) - Cardiovascular Exam Cardiovascular Exam: REGULAR RHYTHM, +S1, +S2 - GI/Abdominal Exam GI & Abdominal Exam: Soft, Tenderness (mild epigastric tenderness), Normal Bowel Sounds. absent: Distended, Firm, Guarding, Rebound - Extremities Exam Extremities Exam: Normal Capillary Refill, Normal Inspection. absent: Calf Tenderness, Pedal Edema Additional comments: (+) cooler to touch than central body, (-) pallor (+) right upper extremity resting tremor - Neurological Exam Neurological Exam: Alert, Awake. absent: Oriented x3 (oriented to person, time, not place) Neuro motor strength exam: Left Upper Extremity: 2/1, Right Upper Extremity: 4, Left Lower Extremity: 3, Right Lower Extremity: 4 Additional comments: (-) babinski bilaterally - Psychiatric Exam Psychiatric exam: Normal Affect - Skin Skin Exam: warm, dry, intact Assessment and Plan - Assessment and Plan (Free Text) Assessment: Left sided weakness; likely due to ischemic CVA vs TIA (history of TIA in 2017) - transferred to ICU 2/2 increasing lethargy/ AMS on 04/22 - Code stroke was called in the ED; NIHSS was 7 on admission - Neurology consulted; pt was outside of tPA window and was treated with ASA 300 mg as per Neuro - As per neuro, permissive HTN; SBP 170s-180s - ASA 325 mg PO daily - Rosuvastatin 20 mg PO QHS - troponin is negative x3 on admission -repeat head CT on 04/22: no acute change, redemonstrated a bulbous somewhat masslike appearance of the right choroid plexus which is of uncertain etiology though underlying choroid plexus lesion must be excluded. - Head CT shows no acute intracranial hemorrhage. Chronic microvascular ischemic changes. More confluent low attenuation seen within the right frontal subcortical white matter. Focal hypodensity within the right cerebellum suggestive for chronic lacunar infarct. Intracranial arterial calcifications. - Head and Neck CTA shows no evidence of occlusion dissection or significant stenosis. No evidence of large aneurysm or vascular malformation. - Brain MRI w/o contrast shows: 1. small acute right posterior frontoparietal subcortical infarct. 2. Moderate to significant chronic white matter changes with extension into the deep and subcortical white matter both cerebral hemispheres. Ischemic changes are also present in superior basal nuclei/kong radiata junction bilaterally. 3. Chronic appearing brainstem and bilateral cerebellar lacunar type infarcts. 4. Moderate generalized volume loss. 5. Localized bulbous mass like appearance of the right choroid plexus that is of uncertain etiology however this focus was not present on prior CT scan MRI of the brain dated 06/15/17 and 06/16/17. -f/u MRI with and without contrast - Neurology, Dr. Holliday, is on board and recs are appreciated - echocardiogram reading is pending - swallow eval as per speech therapy suggests pureed solids, nectar thick liquids - seizure, aspiration and fall precautions - PT/OT/ST ordered CHF exacerbation - Echocardiogram (2016) shows EF of 65-70%, grade I abnormal relaxation, moderate-severe mitral annular calcification, mildly dilated left atrium, mild- moderate LVH - f/u Echocardiogram (04/20) reading - CXR (04/22) shows pulmonary edema, increased vascular congestion; as read by me - Lasix 40 mg q12h stopped on 04/24/18 - MILVIA: .0390, .0290, .0260, .0280, proBNP: 579 - SBP during this time was in 130s, DBPs in the 80s: pulse ox was 99% on 2L NC - ICU consulted, Dr. Bagley, who will evaluate the pt for transfer to ICU. Recs bipap 10i/5e, 30%, RR12, as well as albumin 5% 12.5g 250 mL. - Bipap initiated due to increased work of breathing. Albumin ordered for volume support. Chest Infiltrate seen on cxray f/u CT chest Tea colored urine - 600 mL of tea-colored urine was diuresed after administration of aformentioned lasix - urine was clearing up (clear yellow, without clots or blood), after initial diuresis with Lasix 40 mg IVP - UA: 2+ protein, 3+blood, 2+ leuk esterase, urine culture on 04/22 negative- no antibiotics indicated -blood cultures negative Hx of TIA (2016) - Pt admitted for evaluation of slurred speech and AMS in 05/2017 - At that time: Brain MRI showed chronic changes, Carotid dopplers were negative for significant stenosis, echocardiogram findings below Resting tremor; likely secondary to suspected parkinson's disease - as per son, pt has slow mentation and slurred speech at baseline. - pt noted to have cogwheel rigidity and pill-rolling resting tremor (right hand) on examination - neurology is on board, recs appreciated -Keppra 500mg po BID Hx of DM - HgbA1c is 7.2 - Holding Metformin 500 mg PO BID in light of acute distress - accucheck ACHS - ISS low ACHS - hypoglycemia protocol Hypertriglyceridemia - TG/tChol/LDL/HDL is 153/124/75/23 on admission - Rosuvastatin 20 mg PO at nighttime PPX/Diet - Protonix for GI; SCDs for DVT Lovenox 40mg sc daily Case was reviewed and discussed with attending physician, Dr. Jansen All medical management as per Dr. Jansen
[2018-04-24] MEDS: Aspirin 325 mg EC Tablets PO SCH (09:55)
[2018-04-24] MEDS: Enoxaparin 40 mg Syringe SC SCH (09:59)
[2018-04-24] MEDS: levETIRAcetam 500 MG in Sodium Chloride 0.9% 100 ML IVPB SCH ×2 (10:24→22:42)
[2018-04-24 12:07] LABS: ALBUMIN 3.1 g/dL (3.5-5.0); ALT/SGPT 20 U/L (21-72); AST/SGOT 29 U/L (17-59); BLOOD UREA NITROGEN 29 mg/dL (9-20); CALCIUM 8.8 mg/dl (8.6-10.4); GFR NON-AFRICAN AMERICAN > 60
--- NOTE | 2018-04-24 12:50 | RAD ---
Date of service: 04/24/2018 HISTORY: fluid overload follow up COMPARISON: April 23, 2018. Study performed 07:07. FINDINGS: LUNGS: Stable multifocal infiltrates left greater than right. PLEURA: No change in associated left pleural effusion. CARDIOVASCULAR: Normal. OSSEOUS STRUCTURES: No significant abnormalities. VISUALIZED UPPER ABDOMEN: Normal. OTHER FINDINGS: None. IMPRESSION: Stable multifocal infiltrates left greater than right. No new/acute findings or interval changes identified.
--- NOTE | 2018-04-24 21:32 | CP.PCM.PN ---
Subjective - Date & Time of Evaluation Date of Evaluation: 04/24/18 Time of Evaluation: 13:30 - Subjective Subjective: Patient examined in the ICU with normal speech and normal level of consciousness. He continues to have left sided weakness. no headache, no other complaints. ROS; negative ON exam: LEft arm and leg weakness. EOMI. PERRL. Cn 2-12 normal. Rest of neuro exam unchanged. Objective - Vital Signs/Intake and Output Vital Signs (last 24 hours): Temp Pulse Resp BP Pulse Ox 97.9 F 104 H 18 131/85 98 04/24/18 16:00 04/24/18 19:03 04/24/18 19:03 04/24/18 19:03 04/24/18 19:03 Intake and Output: 04/24/18 04/25/18 18:59 06:59 Intake Total 100 0 Output Total 580 30 Balance -480 -30 - Medications Medications: Current Medications Aspirin (Ecotrin) 325 mg PO DAILY [facility] Last Admin: 04/24/18 09:55 Dose: Not Given Dextrose (Dextrose 50% Inj) 0 ml IV STAT PRN; Protocol PRN Reason: Hypoglycemia Protocol Dextrose (Glutose 15) 15 gm PO ONCE PRN; Protocol PRN Reason: Hypoglycemia Protocol Enoxaparin Sodium (Lovenox) 40 mg SC DAILY DARIUS Last Admin: 04/24/18 09:59 Dose: 40 mg Glucagon (Glucagen Diagnostic Kit) 1 mg IM STAT PRN; Protocol PRN Reason: Hypoglycemia Protocol Levetiracetam 500 mg/ Sodium (Chloride) 105 mls @ 420 mls/hr IVPB Q12 DARIUS Last Admin: 04/24/18 10:24 Dose: 420 mls/hr Insulin Human Regular (Novolin R) 0 unit SC Q6H DARIUS; Protocol Last Admin: 04/24/18 18:27 Dose: Not Given Pantoprazole Sodium (Protonix Inj) 40 mg IVP DAILY DARIUS Last Admin: 04/24/18 10:13 Dose: 40 mg Rosuvastatin Calcium (Crestor) 20 mg PO HS DARIUS Last Admin: 04/24/18 21:25 Dose: Not Given - Labs Labs: 04/24/18 03:57 04/24/18 03:57 PT 13.2 SECONDS (9.7-12.2) H 04/20/18 08:46 INR 1.2 04/20/18 08:46 APTT 27 SECONDS (21-34) 04/20/18 08:46 Assessment and Plan - Assessment and Plan (Free Text) Assessment: 72 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 Plan; 1. ECHo. 2. EEg am. 3. Can restart aspirin 325 m gpo daily 4. MRI brain with efraín to investigate intraventricular lesion THank you Dr. Holliday
[2018-04-25] MEDS: (Novolin R) Insulin Human Regular 100 units/ml vial SC SCH ×5 (00:09→23:11)
[2018-04-25 06:26] LABS: BASO # 0.1 K/uL (0.0-0.2); BASO % 0.8 % (0.0-2.0); EOS # 0.2 K/uL (0.0-0.7); EOS % 1.1 % (0.0-4.0); HEMOGLOBIN 9.9 g/dL (12.0-18.0); LYMPH # 1.6 K/uL (1.0-4.3); LYMPH % 10.5 % (20.0-40.0); MEAN CORPUSCULAR HEMOGLOBIN 28.9 pg (27.0-31.0); MEAN CORPUSCULAR HGB CONC 33.2 g/dL (33.0-37.0); MEAN PLATELET VOLUME 9.1 fL (7.2-11.7); MONO # 1.1 K/uL (0.0-0.8); MONO % 7.2 % (0.0-10.0); NEUT # 12.6 K/uL (1.8-7.0); NEUT % 80.4 % (50.0-75.0); RBC 3.41 Mil/uL (4.40-5.90); RED CELL DISTRIBUTION WIDTH 14.7 % (11.5-14.5); WHITE BLOOD COUNT 15.7 K/uL (4.8-10.8)
[2018-04-25 06:41] LABS: ALB/GLOB RATIO 1.1 (1.0-2.1); ALBUMIN 3.2 g/dL (3.5-5.0); ALT/SGPT 24 U/L (21-72); AST/SGOT 24 U/L (17-59); BLOOD UREA NITROGEN 44 mg/dL (9-20); CALCIUM 8.9 mg/dl (8.6-10.4); GFR NON-AFRICAN AMERICAN > 60
--- NOTE | 2018-04-25 08:31 | RAD ---
Date of service: 04/25/2018 HISTORY: fluid overload follow up COMPARISON: 04/24/2018. FINDINGS: LUNGS: The lungs are well inflated. There is worsening airspace disease in the right lower lobe and worsening patchy and confluent airspace disease in the left lung. PLEURA: Worsening effusions, larger on the left, no pneumothorax apparent. CARDIOVASCULAR: Normal. OSSEOUS STRUCTURES: No significant abnormalities. VISUALIZED UPPER ABDOMEN: Normal. OTHER FINDINGS: None. IMPRESSION: Findings are most compatible with worsening pulmonary edema, worse in the left lung with the stated clinical history. Worsening pleural effusions, larger on the left.
[2018-04-25] MEDS: levETIRAcetam 500 MG in Sodium Chloride 0.9% 100 ML IVPB SCH ×2 (10:29→22:56)
[2018-04-25] MEDS: Enoxaparin 40 mg Syringe SC SCH (10:30)
[2018-04-25] MEDS: Dextrose 5%/0.9% NS 1,000 ML IV SCH ×2 (12:27→22:56)
[2018-04-25] MEDS: Piperacill/Tazo 2.25gm in Dex 2.25 GM/50 ML BAG IVPB SCH ×3 (12:27→22:59)
[2018-04-25] MEDS ORDERED: Iodixanol 320 mg/ml 150 ml Bottle IV ONE (12:50)
--- NOTE | 2018-04-25 13:00 | CP.CCUPN ---
<Ben Locke - Last Filed: 04/25/18 16:39> CCU Subjective - Physician Review Subjective (Free Text): 04/25/18 12:43 Pt seen and examined at bedside. Pt saturationg well with NC, off BiPAP. Pt able to follow command. Pt unable to eat, recieving d5w. will consider feeding options with family. Pt going for f/u CT head today. unable to tolerate MRI - on BiPAP 04/25/18 16:39 CCU Objective - Vital Signs / Intake & Output Vital Signs (Last 4 hours): Vital Signs Pulse 04/25/18 11:58 102 H Intake and Output (Last 8hrs): Intake & Output 04/24/18 04/25/18 04/25/18 22:59 06:59 14:59 Intake Total 110 0 0 Output Total 400 140 Balance -290 -140 0 Weight 137 lb 12.8 oz Intake: Intake, IV Amount 110 Left Antecubital 100 Right Forearm 10 Oral 0 0 0 Output: Urine 400 140 Urethral (Connor) 400 140 Other: # Bowel Movements 0 1 - Physical Exam Head: Positive for: Atraumatic, Normocephalic, Other (no appreciable facial droop) Pupils: Positive for: PERRL. Negative for: Pinpoint Extroacular Muscles: Positive for: EOMI Conjunctiva: Negative for: Injected, Icteric Mouth: Positive for: Moist Mucous Membranes, Other (wearing Bipap mask) Nose (External): Positive for: Atraumatic. Negative for: Abrasion, Contusion, Laceration Nose (Internal): Positive for: No Active Bleeding. Negative for: Epistaxis Neck: Positive for: Normal Range of Motion (passive ROM intact, patient struggles to comprehend instructions for active ROM testing), Trachea Midline. Negative for: JVD Respiratory/Chest: Positive for: Clear to Auscultation, Respiratory Distress. Negative for: Good Air Exchange, Accessory Muscle Use, Wheezes, Decreased Breath Sounds, Rales, Rhonchi Cardiovascular: Positive for: Regular Rate and Rhythm, Normal S1, S2, Peripheal Pulses Present (+2 radials and doralis pedis bilaterally). Negative for: Murmurs, Irregular Rhythm, Tachycardic, Bradycardic Abdomen: Positive for: Normal Bowel Sounds. Negative for: Tenderness, Distention Upper Extremity: Positive for: NORMAL PULSES. Negative for: Cyanosis, Edema, Tenderness, Erythema, Deformity Lower Extremity: Positive for: NORMAL PULSES. Negative for: Edema, CALF TENDERNESS, Cyanosis, Tenderness, Swelling, Deformity Neurological: Positive for: GCS=15 (GCS between 14-15 (E4 V4-5 M6); able to speak few appropriate words, unable to speak sufficiently to assess if oriented or confused), Normal Sensory Function (difficult to fully evaluated sensory function due to non-verbal and language barriers, but able to attempt to move correct extremities based on poking/prodding desired extremity without being able to see the extremities when prodding so at least some degree of sensation intact bilaterally), Other (5/5 motor in RLE and RUE, less movement of L extremities but does display spontaneous movement of L hand and LLE) Skin: Positive for: Warm, Dry, Normal Color. Negative for: Rashes Psychiatric: Positive for: Other (awake and alert, minimally verbal so unable to assess orientation but able to follow some commands and answer some questions with 1-2 word answers appropriately, so some intact mental faculties) - Medications Active Medications: Active Medications Generic Name Dose Route Start Last Admin Trade Name Freq PRN Reason Stop Dose Admin Aspirin 325 mg 04/21/18 10:00 04/24/18 09:55 Ecotrin PO Not Given DAILY DARIUS Dextrose 0 ml 04/20/18 14:04 Dextrose 50% Inj IV STAT PRN Hypoglycemia Protocol Protocol Dextrose 15 gm 04/20/18 14:04 Glutose 15 PO ONCE PRN Hypoglycemia Protocol Protocol Enoxaparin Sodium 40 mg 04/22/18 10:00 04/25/18 10:30 Lovenox SC 40 mg DAILY DARIUS Administration Glucagon 1 mg 04/20/18 14:04 Glucagen Diagnostic Kit IM STAT PRN Hypoglycemia Protocol Protocol Levetiracetam 500 mg/ Sodium 105 mls @ 420 mls/hr 04/24/18 10:30 04/25/18 10:29 Chloride IVPB 420 mls/hr Q12 DARIUS Administration Dextrose/Sodium Chloride 1,000 mls @ 100 mls/hr 04/25/18 12:00 04/25/18 12:27 Dextrose 5%/0.9% Ns 1000 Ml IV 100 mls/hr .Q10H DARIUS Administration Piperacillin Sod/Tazobactam Sod 2.25 gm in 50 mls @ 100 mls/hr 04/25/18 12:00 04/25/18 12:27 Zosyn 2.25 Gm Iv Premix IVPB 100 mls/hr Q6H DARIUS Administration Protocol Insulin Human Regular 0 unit 04/23/18 12:00 04/25/18 12:28 Novolin R SC Not Given Q6H DARIUS Protocol Pantoprazole Sodium 40 mg 04/21/18 10:00 04/25/18 10:48 Protonix Inj IVP 40 mg DAILY DARIUS Administration Rosuvastatin Calcium 20 mg 04/20/18 22:00 04/24/18 21:25 Crestor PO Not Given HS DARIUS - Patient Studies Lab Studies: Microbiology Studies 04/22/18 13:38 Blood Culture - Preliminary Blood NO GROWTH AFTER 48 HOURS 04/22/18 13:38 Blood Culture - Preliminary Blood NO GROWTH AFTER 48 HOURS 04/22/18 18:55 Urine Culture - Final Urine,Connor No Growth (<1,000 CFU/ML) Lab Studies 04/25/18 04/25/18 04/25/18 Range/Units 11:47 06:19 06:16 WBC (4.8-10.8) K/uL RBC (4.40-5.90) Mil/uL Hgb (12.0-18.0) g/dL Hct (35.0-51.0) % MCV (80.0-94.0) fL MCH (27.0-31.0) pg MCHC (33.0-37.0) g/dL RDW (11.5-14.5) % Plt Count (130-400) K/uL MPV (7.2-11.7) fL Neut % (Auto) (50.0-75.0) % Lymph % (Auto) (20.0-40.0) % [place] % (Auto) (0.0-10.0) % Eos % (Auto) (0.0-4.0) % Baso % (Auto) (0.0-2.0) % Neut # (Auto) (1.8-7.0) K/uL Lymph # (Auto) (1.0-4.3) K/uL [place] # (Auto) (0.0-0.8) K/uL Eos # (Auto) (0.0-0.7) K/uL Baso # (Auto) (0.0-0.2) K/uL Sodium 147 (132-148) mmol/L Potassium 4.7 (3.6-5.2) mmol/L Chloride 104 (98-107) mmol/L Carbon Dioxide 27 (22-30) mmol/L Anion Gap 21 H (10-20) BUN 44 H (9-20) mg/dL Creatinine 1.1 (0.8-1.5) mg/dL Est GFR ( Amer) > 60 Est GFR (Non-Af Amer) > 60 POC Glucose (mg/dL) 125 H 103 (65-110) mg/dL Random Glucose 85 (75-110) mg/dL Calcium 8.9 (8.6-10.4) mg/dl Phosphorus 4.5 (2.5-4.5) mg/dL Magnesium 2.1 (1.6-2.3) mg/dL Total Bilirubin 1.4 H (0.2-1.3) mg/dL AST 24 (17-59) U/L ALT 24 (21-72) U/L Alkaline Phosphatase 87 (38-126) U/L Total Protein 6.2 L (6.3-8.3) g/dL Albumin 3.2 L (3.5-5.0) g/dL Globulin 3.0 (2.2-3.9) gm/dL Albumin/Globulin Ratio 1.1 (1.0-2.1) 04/25/18 04/24/18 04/24/18 Range/Units 06:16 23:28 17:45 WBC 15.7 H D (4.8-10.8) K/uL RBC 3.41 L (4.40-5.90) Mil/uL Hgb 9.9 L (12.0-18.0) g/dL Hct 29.7 L (35.0-51.0) % MCV 87.0 (80.0-94.0) fL MCH 28.9 (27.0-31.0) pg MCHC 33.2 (33.0-37.0) g/dL RDW 14.7 H (11.5-14.5) % Plt Count 296 (130-400) K/uL MPV 9.1 (7.2-11.7) fL Neut % (Auto) 80.4 H (50.0-75.0) % Lymph % (Auto) 10.5 L (20.0-40.0) % [place] % (Auto) 7.2 (0.0-10.0) % Eos % (Auto) 1.1 (0.0-4.0) % Baso % (Auto) 0.8 (0.0-2.0) % Neut # (Auto) 12.6 H (1.8-7.0) K/uL Lymph # (Auto) 1.6 (1.0-4.3) K/uL [place] # (Auto) 1.1 H (0.0-0.8) K/uL Eos # (Auto) 0.2 (0.0-0.7) K/uL Baso # (Auto) 0.1 (0.0-0.2) K/uL Sodium (132-148) mmol/L Potassium (3.6-5.2) mmol/L Chloride (98-107) mmol/L Carbon Dioxide (22-30) mmol/L Anion Gap (10-20) BUN (9-20) mg/dL Creatinine (0.8-1.5) mg/dL Est GFR ( Amer) Est GFR (Non-Af Amer) POC Glucose (mg/dL) 79 76 (65-110) mg/dL Random Glucose (75-110) mg/dL Calcium (8.6-10.4) mg/dl Phosphorus (2.5-4.5) mg/dL Magnesium (1.6-2.3) mg/dL Total Bilirubin (0.2-1.3) mg/dL AST (17-59) U/L ALT (21-72) U/L Alkaline Phosphatase (38-126) U/L Total Protein (6.3-8.3) g/dL Albumin (3.5-5.0) g/dL Globulin (2.2-3.9) gm/dL Albumin/Globulin Ratio (1.0-2.1) Laboratory Results - last 24 hr 04/24/18 04/24/18 04/25/18 17:45 23:28 06:16 WBC 15.7 H D RBC 3.41 L Hgb 9.9 L Hct 29.7 L MCV 87.0 MCH 28.9 MCHC 33.2 RDW 14.7 H Plt Count 296 MPV 9.1 Neut % (Auto) 80.4 H Lymph % (Auto) 10.5 L [place] % (Auto) 7.2 Eos % (Auto) 1.1 Baso % (Auto) 0.8 Neut # (Auto) 12.6 H Lymph # (Auto) 1.6 [place] # (Auto) 1.1 H Eos # (Auto) 0.2 Baso # (Auto) 0.1 Sodium Potassium Chloride Carbon Dioxide Anion Gap BUN Creatinine Est GFR ( Amer) Est GFR (Non-Af Amer) POC Glucose (mg/dL) 76 79 Random Glucose Calcium Phosphorus Magnesium Total Bilirubin AST ALT Alkaline Phosphatase Total Protein Albumin Globulin Albumin/Globulin Ratio 04/25/18 04/25/18 04/25/18 06:16 06:19 11:47 WBC RBC Hgb Hct MCV MCH MCHC RDW Plt Count MPV Neut % (Auto) Lymph % (Auto) [place] % (Auto) Eos % (Auto) Baso % (Auto) Neut # (Auto) Lymph # (Auto) [place] # (Auto) Eos # (Auto) Baso # (Auto) Sodium 147 Potassium 4.7 Chloride 104 Carbon Dioxide 27 Anion Gap 21 H BUN 44 H Creatinine 1.1 Est GFR ( Amer) > 60 Est GFR (Non-Af Amer) > 60 POC Glucose (mg/dL) 103 125 H Random Glucose 85 Calcium 8.9 Phosphorus 4.5 Magnesium 2.1 Total Bilirubin 1.4 H AST 24 ALT 24 Alkaline Phosphatase 87 Total Protein 6.2 L Albumin 3.2 L Globulin 3.0 Albumin/Globulin Ratio 1.1 Fingerstick Blood Sugar Results: 103 Review of Systems - Review of Systems Systems not reviewed;Unavailable: Acuity of Condition Critical Care Progress Note - Nutrition Nutrition: Nutrition Category Date Time Status NPO Diet [DIET] Diets 04/24/18 Breakfast Active Assessment/Plan - Assessment and Plan (Free Text) Assessment: This is a 72 yo M with PMH of TIA (05/2017), NIDDM, and diastolic CHF who presented to for evaluation of acute onset left sided weakness prior to presentation. Aphasia and L sided weakness persists but is improved as compared to initial presentation to ICU. possible aspiration PNA Plan: Neuro: - 04/[address] shows no acute intracranial hemorrhage. Chronic microvascular ischemic changes. More confluent low attenuation seen within the right frontal subcortical white matter. Focal hypodensity within the right cerebellum suggestive for chronic lacunar infarct. Intracranial arterial calcifications. - 04/[address] notable for Moderate generalized volume loss, Redemonstrated bulbous/somewhat mass-like appearance in the right choroid plexus of uncertain etiology (please see report for full details) - 04/21 Head and Neck CTA shows no evidence of occlusion, dissection, or significant stenosis. No evidence of large aneurysm or vascular malformation. - 04/21 Brain MRI w/o contrast shows small acute rightposterior frontoparietal subcortical infarct, -significant improvement in neuro function throughout today, now moving left extremities and able to speak some words -Neuro (Dr Holliday) consulted, appreciate all recs; recs EEG (pending), repeat head CT (as above), and obtaining MRI with and w/o efraín to assess for new stroke given speech deficits and to better assess R choroid plexus mass -Continue Keppra 500mg BID, continue ASA 325mg -neuro checks q4 Pulm: -R Lung severe rales -started zosyn -satting well on NC -CXR this AM reviewed and compared to prior, worsening pulm edema and effusions possible pna; pending CT chest to assess for any persisting effusion -ABG from yesterday reviewed -possible intubation Cardio: -Dr Owens (Cardio) consulted, appreciate all recs; echo reviewed, no arrhythmia on tele, primary management as per neuro -Maintaining MAP > 65, no further hypotensive episodes -initial hypotensive episode with AMS likely 2/2 high dose lasix holding lasix pending chest CT to assess if still effusions, if resuming diuresis will have to diurese gently to prevent bottoming-out BP -Albumin drip completed yesterday -continue ASA 325mg PO daily GI: -NPO except meds -Protonix for GI ppx -pending official swallow eval tmr Nephro: -Cr 1.1 -making clear yellow urine in connor -monitor and replete electrolytes as needed ID: -[id number] started -WBCs 15.7 Heme: -Hgb 9.9 , no signs of bleeding -repeat head CT negative for bleed -Lovenox SC for DVT ppx Endo: -maintain euglycemia, BG target 140-180 as per [employer] trial -Hx of DM, but hold Metformin given NPO and in case patient needs contrast study -Sliding scale insulin, hypoglycemic protocols, Accuchecks q6 -glucagon 1mg IM PRN <Simon Garcia - Last Filed: 04/25/18 19:53> CCU Objective - Vital Signs / Intake & Output Vital Signs (Last 4 hours): Vital Signs Temp Pulse Resp BP Pulse Ox 04/25/18 19:03 97 H 26 H 104/71 100 04/25/18 18:03 96 H 24 110/69 99 04/25/18 17:03 99 H 24 122/77 100 04/25/18 16:03 100 H 28 H 134/78 100 04/25/18 16:00 97.8 F 100 Intake and Output (Last 8hrs): Intake & Output 04/25/18 04/25/18 04/25/18 06:59 14:59 22:59 Intake Total 0 400 450 Output Total 140 205 145 Balance -140 195 305 Weight 137 lb 12.8 oz Intake: Intake, IV Amount 400 450 Right Forearm 400 450 Oral 0 0 Output: Urine 140 205 145 Urethral (Connor) 140 205 145 Other: # Bowel Movements 1 1 - Medications Active Medications: Active Medications Generic Name Dose Route Start Last Admin Trade Name Freq PRN Reason Stop Dose Admin Aspirin 325 mg 04/21/18 10:00 04/24/18 09:55 Ecotrin PO Not Given DAILY DARIUS Dextrose 0 ml 04/20/18 14:04 Dextrose 50% Inj IV STAT PRN Hypoglycemia Protocol Protocol Dextrose 15 gm 04/20/18 14:04 Glutose 15 PO ONCE PRN Hypoglycemia Protocol Protocol Enoxaparin Sodium 40 mg 04/22/18 10:00 04/25/18 10:30 Lovenox SC 40 mg DAILY DARIUS Administration Glucagon 1 mg 04/20/18 14:04 Glucagen Diagnostic Kit IM STAT PRN Hypoglycemia Protocol Protocol Levetiracetam 500 mg/ Sodium 105 mls @ 420 mls/hr 04/24/18 10:30 04/25/18 10:29 Chloride IVPB 420 mls/hr Q12 DARIUS Administration Dextrose/Sodium Chloride 1,000 mls @ 100 mls/hr 04/25/18 12:00 04/25/18 12:27 Dextrose 5%/0.9% Ns 1000 Ml IV 100 mls/hr .Q10H DARIUS Administration Piperacillin Sod/Tazobactam Sod 2.25 gm in 50 mls @ 100 mls/hr 04/25/18 12:00 04/25/18 17:13 Zosyn 2.25 Gm Iv Premix IVPB 100 mls/hr Q6H DARIUS Administration Protocol Insulin Human Regular 0 unit 04/23/18 12:00 04/25/18 18:00 Novolin R SC Not Given Q6H DARIUS Protocol Pantoprazole Sodium 40 mg 04/21/18 10:00 04/25/18 10:48 Protonix Inj IVP 40 mg DAILY DARIUS Administration Rosuvastatin Calcium 20 mg 04/20/18 22:00 04/24/18 21:25 Crestor PO Not Given HS DARIUS - Patient Studies Lab Studies: Microbiology Studies 04/22/18 13:38 Blood Culture - Preliminary Blood NO GROWTH AFTER 3 DAYS 04/22/18 13:38 Blood Culture - Preliminary Blood NO GROWTH AFTER 3 DAYS Lab Studies 04/25/18 04/25/18 04/25/18 Range/Units 13:42 11:47 06:19 WBC (4.8-10.8) K/uL RBC (4.40-5.90) Mil/uL Hgb (12.0-18.0) g/dL Hct (35.0-51.0) % MCV (80.0-94.0) fL MCH (27.0-31.0) pg MCHC (33.0-37.0) g/dL RDW (11.5-14.5) % Plt Count (130-400) K/uL MPV (7.2-11.7) fL Neut % (Auto) (50.0-75.0) % Lymph % (Auto) (20.0-40.0) % [place] % (Auto) (0.0-10.0) % Eos % (Auto) (0.0-4.0) % Baso % (Auto) (0.0-2.0) % Neut # (Auto) (1.8-7.0) K/uL Lymph # (Auto) (1.0-4.3) K/uL [place] # (Auto) (0.0-0.8) K/uL Eos # (Auto) (0.0-0.7) K/uL Baso # (Auto) (0.0-0.2) K/uL Puncture Site Lf pCO2 54 H (35-45) mm/Hg pO2 83 (80-100) mm/Hg HCO3 24.1 (21-28) mmol/L ABG pH 7.29 L (7.35-7.45) ABG Total CO2 27.7 (22-28) mmol/L ABG O2 Saturation 97.4 (95-98) % ABG Base Excess -1.0 (-2.0-3.0) mmol/L ABG Hemoglobin 9.4 L (11.7-17.4) g/dL ABG Carboxyhemoglobin 2.3 H (0.5-1.5) % POC ABG HHb (Measured) 2.5 (0.0-5.0) % ABG Methemoglobin 1.3 (0.0-3.0) % Jonas Test Na Hgb O2 Saturation 93.9 L (95.0-98.0) % Liter Flow 6.0 Crit Value Called To Dr juarez Crit Value Called By [place] rice environmental resource specialist Crit Value Read Back Y Blood Gas Notified Time 1350 Sodium (132-148) mmol/L Potassium (3.6-5.2) mmol/L Chloride (98-107) mmol/L Carbon Dioxide (22-30) mmol/L Anion Gap (10-20) BUN (9-20) mg/dL Creatinine (0.8-1.5) mg/dL Est GFR ( Amer) Est GFR (Non-Af Amer) POC Glucose (mg/dL) 125 H 103 (65-110) mg/dL Random Glucose (75-110) mg/dL Calcium (8.6-10.4) mg/dl Phosphorus (2.5-4.5) mg/dL Magnesium (1.6-2.3) mg/dL Total Bilirubin (0.2-1.3) mg/dL AST (17-59) U/L ALT (21-72) U/L Alkaline Phosphatase (38-126) U/L Total Protein (6.3-8.3) g/dL Albumin (3.5-5.0) g/dL Globulin (2.2-3.9) gm/dL Albumin/Globulin Ratio (1.0-2.1) 04/25/18 04/25/18 04/24/18 Range/Units 06:16 06:16 23:28 WBC 15.7 H D (4.8-10.8) K/uL RBC 3.41 L (4.40-5.90) Mil/uL Hgb 9.9 L (12.0-18.0) g/dL Hct 29.7 L (35.0-51.0) % MCV 87.0 (80.0-94.0) fL MCH 28.9 (27.0-31.0) pg MCHC 33.2 (33.0-37.0) g/dL RDW 14.7 H (11.5-14.5) % Plt Count 296 (130-400) K/uL MPV 9.1 (7.2-11.7) fL Neut % (Auto) 80.4 H (50.0-75.0) % Lymph % (Auto) 10.5 L (20.0-40.0) % [place] % (Auto) 7.2 (0.0-10.0) % Eos % (Auto) 1.1 (0.0-4.0) % Baso % (Auto) 0.8 (0.0-2.0) % Neut # (Auto) 12.6 H (1.8-7.0) K/uL Lymph # (Auto) 1.6 (1.0-4.3) K/uL [place] # (Auto) 1.1 H (0.0-0.8) K/uL Eos # (Auto) 0.2 (0.0-0.7) K/uL Baso # (Auto) 0.1 (0.0-0.2) K/uL Puncture Site pCO2 (35-45) mm/Hg pO2 (80-100) mm/Hg HCO3 (21-28) mmol/L ABG pH (7.35-7.45) ABG Total CO2 (22-28) mmol/L ABG O2 Saturation (95-98) % ABG Base Excess (-2.0-3.0) mmol/L ABG Hemoglobin (11.7-17.4) g/dL ABG Carboxyhemoglobin (0.5-1.5) % POC ABG HHb (Measured) (0.0-5.0) % ABG Methemoglobin (0.0-3.0) % Jonas Test Hgb O2 Saturation (95.0-98.0) % Liter Flow Crit Value Called To Crit Value Called By Crit Value Read Back Blood Gas Notified Time Sodium 147 (132-148) mmol/L Potassium 4.7 (3.6-5.2) mmol/L Chloride 104 (98-107) mmol/L Carbon Dioxide 27 (22-30) mmol/L Anion Gap 21 H (10-20) BUN 44 H (9-20) mg/dL Creatinine 1.1 (0.8-1.5) mg/dL Est GFR ( Amer) > 60 Est GFR (Non-Af Amer) > 60 POC Glucose (mg/dL) 79 (65-110) mg/dL Random Glucose 85 (75-110) mg/dL Calcium 8.9 (8.6-10.4) mg/dl Phosphorus 4.5 (2.5-4.5) mg/dL Magnesium 2.1 (1.6-2.3) mg/dL Total Bilirubin 1.4 H (0.2-1.3) mg/dL AST 24 (17-59) U/L ALT 24 (21-72) U/L Alkaline Phosphatase 87 (38-126) U/L Total Protein 6.2 L (6.3-8.3) g/dL Albumin 3.2 L (3.5-5.0) g/dL Globulin 3.0 (2.2-3.9) gm/dL Albumin/Globulin Ratio 1.1 (1.0-2.1) Laboratory Results - last 24 hr 04/24/18 04/25/18 04/25/18 23:28 06:16 06:16 WBC 15.7 H D RBC 3.41 L Hgb 9.9 L Hct 29.7 L MCV 87.0 MCH 28.9 MCHC 33.2 RDW 14.7 H Plt Count 296 MPV 9.1 Neut % (Auto) 80.4 H Lymph % (Auto) 10.5 L [place] % (Auto) 7.2 Eos % (Auto) 1.1 Baso % (Auto) 0.8 Neut # (Auto) 12.6 H Lymph # (Auto) 1.6 [place] # (Auto) 1.1 H Eos # (Auto) 0.2 Baso # (Auto) 0.1 Puncture Site pCO2 pO2 HCO3 ABG pH ABG Total CO2 ABG O2 Saturation ABG Base Excess ABG Hemoglobin ABG Carboxyhemoglobin POC ABG HHb (Measured) ABG Methemoglobin Jonas Test Hgb O2 Saturation Liter Flow Crit Value Called To Crit Value Called By Crit Value Read Back Blood Gas Notified Time Sodium 147 Potassium 4.7 Chloride 104 Carbon Dioxide 27 Anion Gap 21 H BUN 44 H Creatinine 1.1 Est GFR ( Amer) > 60 Est GFR (Non-Af Amer) > 60 POC Glucose (mg/dL) 79 Random Glucose 85 Calcium 8.9 Phosphorus 4.5 Magnesium 2.1 Total Bilirubin 1.4 H AST 24 ALT 24 Alkaline Phosphatase 87 Total Protein 6.2 L Albumin 3.2 L Globulin 3.0 Albumin/Globulin Ratio 1.1 04/25/18 04/25/18 04/25/18 06:19 11:47 13:42 WBC RBC Hgb Hct MCV MCH MCHC RDW Plt Count MPV Neut % (Auto) Lymph % (Auto) [place] % (Auto) Eos % (Auto) Baso % (Auto) Neut # (Auto) Lymph # (Auto) [place] # (Auto) Eos # (Auto) Baso # (Auto) Puncture Site Lf pCO2 54 H pO2 83 HCO3 24.1 ABG pH 7.29 L ABG Total CO2 27.7 ABG O2 Saturation 97.4 ABG Base Excess -1.0 ABG Hemoglobin 9.4 L ABG Carboxyhemoglobin 2.3 H POC ABG HHb (Measured) 2.5 ABG Methemoglobin 1.3 Jonas Test Na Hgb O2 Saturation 93.9 L Liter Flow 6.0 Crit Value Called To Dr juarez Crit Value Called By [place] [employer] environmental resource specialist Crit Value Read Back Y Blood Gas Notified Time 1350 Sodium Potassium Chloride Carbon Dioxide Anion Gap BUN Creatinine Est GFR ( Amer) Est GFR (Non-Af Amer) POC Glucose (mg/dL) 103 125 H Random Glucose Calcium Phosphorus Magnesium Total Bilirubin AST ALT Alkaline Phosphatase Total Protein Albumin Globulin Albumin/Globulin Ratio Critical Care Progress Note - Nutrition Nutrition: Nutrition Category Date Time Status NPO Diet [DIET] Diets 04/24/18 Breakfast Active Attending/Attestation - Attestation I have personally seen and examined this patient.: Yes I have fully participated in the care of the patient.: Yes I have reviewed all pertinent clinical information: Yes Notes (Text): 04/25/18 19:53 pt is admitted with left sided weakness ct head ? ventricular bleed noted called neuro
[2018-04-25] MEDS ORDERED: Albumin Human 25% (12.5 gm/50 ml) IV ONE (13:01)
--- NOTE | 2018-04-25 13:19 | CP.PCM.PN ---
<Kota Daugherty - Last Filed: 04/25/18 15:17> Subjective - Date & Time of Evaluation Date of Evaluation: 04/25/18 Time of Evaluation: 13:17 - Subjective Subjective: PGY-2 Progress Note: Dr. Garcia's Service Patient seen and examined at bedside. Per nursing no acute events occurred overnight. ROS unobtainable due to current clinical condition. Objective - Vital Signs/Intake and Output Vital Signs (last 24 hours): Temp Pulse Resp BP Pulse Ox 98.8 F 102 H 27 H 149/82 96 04/25/18 04:00 04/25/18 11:58 04/25/18 07:03 04/25/18 07:03 04/25/18 07:03 Intake and Output: 04/25/18 04/25/18 06:59 18:59 Intake Total 110 0 Output Total 230 Balance -120 0 - Medications Medications: Current Medications Albumin Human (Albumin Human 25% (12.5 Gm/50 Ml)) 12.5 gm IV ONCE ONE Stop: 04/25/18 13:02 Aspirin (Ecotrin) 325 mg PO DAILY [facility] Last Admin: 04/24/18 09:55 Dose: Not Given Dextrose (Dextrose 50% Inj) 0 ml IV STAT PRN; Protocol PRN Reason: Hypoglycemia Protocol Dextrose (Glutose 15) 15 gm PO ONCE PRN; Protocol PRN Reason: Hypoglycemia Protocol Enoxaparin Sodium (Lovenox) 40 mg SC DAILY [facility] Last Admin: 04/25/18 10:30 Dose: 40 mg Furosemide (Lasix) 20 mg IVP ONCE ONE Stop: 04/25/18 16:01 Glucagon (Glucagen Diagnostic Kit) 1 mg IM STAT PRN; Protocol PRN Reason: Hypoglycemia Protocol Levetiracetam 500 mg/ Sodium (Chloride) 105 mls @ 420 mls/hr IVPB Q12 [facility] Last Admin: 04/25/18 10:29 Dose: 420 mls/hr Dextrose/Sodium Chloride (Dextrose 5%/0.9% Ns 1000 Ml) 1,000 mls @ 100 mls/hr IV .Q10H [facility] Last Admin: 04/25/18 12:27 Dose: 100 mls/hr Piperacillin Sod/Tazobactam Sod (Zosyn 2.25 Gm Iv Premix) 2.25 gm in 50 mls @ 100 mls/hr IVPB Q6H [facility]; Protocol Last Admin: 04/25/18 12:27 Dose: 100 mls/hr Insulin Human Regular (Novolin R) 0 unit SC Q6H [facility]; Protocol Last Admin: 04/25/18 12:28 Dose: Not Given Pantoprazole Sodium (Protonix Inj) 40 mg IVP DAILY [facility] Last Admin: 04/25/18 10:48 Dose: 40 mg Rosuvastatin Calcium (Crestor) 20 mg PO HS [facility] Last Admin: 04/24/18 21:25 Dose: Not Given - Labs Labs: 04/25/18 06:16 04/25/18 06:16 PT 13.2 SECONDS (9.7-12.2) H 04/20/18 08:46 INR 1.2 04/20/18 08:46 APTT 27 SECONDS (21-34) 04/20/18 08:46 - Head Exam Head Exam: NORMAL INSPECTION - Eye Exam Eye Exam: Normal appearance, PERRL Pupil Exam: NORMAL ACCOMODATION. absent: Miosis, Mydriatic - Respiratory Exam Respiratory Exam: Decreased Breath Sounds, Rales - Cardiovascular Exam Cardiovascular Exam: REGULAR RHYTHM, +S1, +S2 - GI/Abdominal Exam GI & Abdominal Exam: Soft, Normal Bowel Sounds - Neurological Exam Neuro motor strength exam: Left Upper Extremity: 2/1, Right Upper Extremity: 3, Left Lower Extremity: 2/1, Right Lower Extremity: 3 - Psychiatric Exam Psychiatric exam: Normal Affect, Normal Mood Assessment and Plan - Assessment and Plan (Free Text) Assessment: This is a 72 year old Khmer speaking male with PMH of TIA (05/2017), NIDDM, diastolic CHF who was BIBA for evaluation of left sided weakness since approximately 7 am 04/20. Plan: 1.CVA Head CT shows no acute intracranial hemorrhage. Chronic microvascular ischemic changes. More confluent low attenuation seen within the right frontal subcortical white matter. Focal hypodensity within the right cerebellum suggestive for chronic lacunar infarct. Intracranial arterial calcifications. - 04/21 Head and Neck CTA shows no evidence of occlusion dissectino or significant stenosis. No evidence of large aneurysm or vascular malformation. Brain MRI w/o contrast shows: 1. small acute right posterior frontoparietal subcortical infarct. 2. Moderate to significant chronic white matter changes with extension into the deep and subcortical white matter both cerebral hemispheres. Ischemic changes are also present in superior basal nuclei/kong radiata junction bilaterally. 3. 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 4. Moderate generalized volume loss. 5. Localized bulbous masslike appearance of the right choroid plexus that is of uncertain etiology however this focus was not present on prior CT scan MRI of the brain dated 06/15/17 and 06/16/17. Repeat Head CT: :No acute intracranial hemorrhage. :Moderate to significant diffuse and confluent chronic white matter ischemic changes seen extending peripherally subcortical white matter both cerebral hemispheres. The risa changes also seen in the superior basal nuclei/coronal radiata junction bilaterally. Chronic appearing brainstem cerebellar ischemic changes less well seen. :Moderate generalized volume loss. :Redemonstrated is a bulbous somewhat masslike appearance of the right choroid plexus which is of uncertain etiology though underlying choroid plexus lesion must be excluded. Follow-up post-contrast MRI brain recommended to further characterize this lesion. EEG ordered. Will f/u with results. MRI brain ordered. Will f/u with results. Plan discussed with Dr. Garcia. Kota Daugherty,PGY-2 <Reanna Garcia - Last Filed: 04/26/18 12:33> Objective - Vital Signs/Intake and Output Vital Signs (last 24 hours): Temp Pulse Resp BP Pulse Ox 98.8 F 88 22 128/72 98 04/26/18 08:00 04/26/18 10:38 04/26/18 08:02 04/26/18 11:21 04/26/18 08:02 Intake and Output: 04/26/18 04/26/18 06:59 18:59 Intake Total 1150 100 Output Total 420 130 Balance 730 -30 - Medications Medications: Current Medications Aspirin (Ecotrin) 325 mg PO DAILY [facility] Last Admin: 04/24/18 09:55 Dose: Not Given Dextrose (Dextrose 50% Inj) 0 ml IV STAT PRN; Protocol PRN Reason: Hypoglycemia Protocol Dextrose (Glutose 15) 15 gm PO ONCE PRN; Protocol PRN Reason: Hypoglycemia Protocol Glucagon (Glucagen Diagnostic Kit) 1 mg IM STAT PRN; Protocol PRN Reason: Hypoglycemia Protocol Levetiracetam 500 mg/ Sodium (Chloride) 105 mls @ 420 mls/hr IVPB Q12 [facility] Last Admin: 04/26/18 09:53 Dose: 420 mls/hr Dextrose/Sodium Chloride (Dextrose 5%/0.9% Ns 1000 Ml) 1,000 mls @ 100 mls/hr IV .Q10H [facility] Last Admin: 04/26/18 09:54 Dose: 100 mls/hr Piperacillin Sod/Tazobactam Sod (Zosyn 2.25 Gm Iv Premix) 2.25 gm in 50 mls @ 100 mls/hr IVPB Q6H [facility]; Protocol Last Admin: 04/26/18 11:22 Dose: 100 mls/hr Insulin Human Regular (Novolin R) 0 unit SC Q6H [facility]; Protocol Last Admin: 04/26/18 11:44 Dose: Not Given Pantoprazole Sodium (Protonix Inj) 40 mg IVP DAILY [facility] Last Admin: 04/26/18 09:03 Dose: 40 mg Rosuvastatin Calcium (Crestor) 20 mg PO HS [facility] Last Admin: 04/25/18 21:23 Dose: Not Given - Labs Labs: 04/26/18 04:36 04/26/18 04:36 PT 13.2 SECONDS (9.7-12.2) H 04/20/18 08:46 INR 1.2 04/20/18 08:46 APTT 27 SECONDS (21-34) 04/20/18 08:46 Assessment and Plan - Assessment and Plan (Free Text) Assessment: All medical record entries made by the Scribe were at my direction and personally dictated by me. I have reviewed the chart and agree that the record accurately reflects my personal performance of the history, physical exam, medical decision making, and the department course for this patient. I have also personally directed, reviewed, and agree with the discharge instructions and disposition. Addendum: Pateint with new onset right parietal hemorrhage, around the area of the stroke, and new right motor strip stroke. He has had decreased level of consciousness most likely related to hemorrhage and pe. Plan; 1. hold all anticoagulants. Thank you for consulting neurology Dr. garcia
[2018-04-25 13:46] LABS: ARTERIAL BLOOD GAS HCO3 24.1 mmol/L (21-28); ARTERIAL BLOOD GAS HEMOGLOBIN 9.4 g/dL (11.7-17.4); ARTERIAL BLOOD GAS O2 SAT 97.4 % (95-98); ARTERIAL BLOOD GAS PCO2 54 mm/Hg (35-45); ARTERIAL BLOOD GAS PH 7.29 (7.35-7.45); ARTERIAL BLOOD GAS PO2 83 mm/Hg (80-100); ARTERIAL BLOOD GAS TCO2 27.7 mmol/L (22-28)
--- NOTE | 2018-04-25 14:40 | CT ---
Date of service: 04/25/2018 PROCEDURE: CT Chest with contrast (Pulmonary Angiogram) HISTORY: Bilateral infiltrates, sob, recent stroke COMPARISON: Comparison made with prior chest radiograph earlier same day TECHNIQUE: Axial computed tomography images were obtained of the chest in the pulmonary arterial phase of enhancement. Coronal and sagittal reformatted images were created and reviewed. Intravenous contrast dose: 100 cc Visipaque 320 Radiation dose: Total exam DLP = 493.15 mGy-cm. This CT exam was performed using one or more of the following dose reduction techniques: Automated exposure control, adjustment of the mA and/or kV according to patient size, and/or use of iterative reconstruction technique. FINDINGS: PULMONARY ARTERIES: The visualized pulmonary trunk, right and left main, the lobar, segmental and subsegmental branches so far as can be seen appear patent with no definitive filling defects seen identified to suggest acute pulmonary embolus. Note the distal branches are poorly delineated particularly in the left lower lung field due to a moderate size left-sided effusion and atelectasis. Patchy atelectasis-infiltrate changes are also seen within the right middle and lower lung aranda Pulmonary trunk measures approximately 2.8 cm. AORTA: No acute findings. No thoracic aortic aneurysm. Ascending thoracic aorta measures 3.2 cm and descending thoracic aorta measures 2.8 cm. LUNGS: There are multiple round varying sized nodular densities scattered throughout the lower lobes bilaterally and to a lesser degree several bilateral upper lobe nodular densities. Findings are of uncertain etiology though could represent post infectious sequela however metastatic disease must be excluded... Moderately large left-sided effusion with left basilar atelectasis. Patchy consolidation changes seen in the right middle lobe and left lung base. Underlying pulmonary venous congestive changes are also felt to be present. PLEURAL SPACES: As above. No evidence of pneumothorax. HEART: Unremarkable. No cardiomegaly. No significant pericardial effusion. LYMPH NODES: There bilateral hilar adenopathy and/or masses right larger than left. Few small nonspecific mediastinal lymph nodes are present. May all there may be slightly enlarged lymph nodes dorsal to the jenny abutting the esophagus.. BONES, CHEST WALL: Multilevel degenerative spondylosis of the thoracic spine with flowing multilevel anterior bridging osteophyte formation consistent with DISH. OTHER FINDINGS: Moderate amount of upper abdominal ascites present right greater than left.. Questionable nodular hepatic surface. The possibility of cirrhosis not excluded. IMPRESSION: No evidence of acute central pulmonary embolus. There are bilateral hilar masses and/or adenopathy right larger than left. Numerous mom of varying sized rounded nodular densities scattered throughout the lower lobes and to a lesser degree upper lobes bilaterally. Findings could be post infectious sequela however metastatic disease must be excluded. Moderately large left-sided effusion and left basilar atelectasis. Patchy infiltrate changes seen throughout the left lung as well as the right middle lobe. Pulmonary venous congestive changes. Moderate amount of upper abdominal ascites present. Rule out cirrhosis.
--- NOTE | 2018-04-25 18:56 | CT ---
Date of service: 04/25/2018 PROCEDURE: CT HEAD WITHOUT CONTRAST. HISTORY: L sided weak, chor plexus mass, BIPAP- cant MRI COMPARISON: Comparison made with prior CT scan brain 04/22/2018. TECHNIQUE: Axial computed tomography images were obtained through the head/brain without intravenous contrast. Radiation dose: Total exam DLP = 1016.41 mGy-cm. This CT exam was performed using one or more of the following dose reduction techniques: Automated exposure control, adjustment of the mA and/or kV according to patient size, and/or use of iterative reconstruction technique. FINDINGS: HEMORRHAGE: There is a small amount of layering hemorrhage seen in the left atria/occipital, new since prior exam.. BRAIN: Moderate to fairly significant diffuse/confluent chronic white matter ischemic changes are also again seen extending peripherally into the deep and subcortical white matter both cerebral hemispheres... Ischemic changes superior basal nuclei/coronal radiata also felt to be present. Moderate generalized volume loss. VENTRICLES: No obstructive hydrocephalus despite a small amount of intraventricular hemorrhage seen layering in the left atrium/occipital horn. Read demonstrated is bulbous masslike appearance of the right choroid plexus again noted. Rule out underlying choroid plexus mass. Follow-up of post-contrast MRI. CALVARIUM: No acute calvarial fractures. PARANASAL SINUSES: Unremarkable as visualized. No significant inflammatory changes. MASTOID AIR CELLS: Unremarkable as visualized. No inflammatory changes. OTHER FINDINGS: Changes of bilateral cataract surgery. IMPRESSION: Small amount of layering hemorrhage seen in the left atria/occipital, new since prior exam.. Moderate to fairly significant diffuse/confluent chronic white matter ischemic changes are also again seen extending peripherally into the deep and subcortical white matter both cerebral hemispheres... Ischemic changes superior basal nuclei/coronal radiata also felt to be present. These findings discussed with Dr. Garcia at approximately 6:49 p.m. with written down and read back verification.
[2018-04-26 04:39] LABS: BASO # 0.1 K/uL (0.0-0.2); BASO % 0.6 % (0.0-2.0); EOS # 0.2 K/uL (0.0-0.7); EOS % 1.5 % (0.0-4.0); HEMOGLOBIN 8.4 g/dL (12.0-18.0); LYMPH # 1.2 K/uL (1.0-4.3); LYMPH % 11.5 % (20.0-40.0); MEAN CELL VOLUME 86.8 fL (80.0-94.0); MEAN CORPUSCULAR HEMOGLOBIN 28.9 pg (27.0-31.0); MEAN CORPUSCULAR HGB CONC 33.3 g/dL (33.0-37.0); MEAN PLATELET VOLUME 8.2 fL (7.2-11.7); MONO % 8.8 % (0.0-10.0); NEUT # 8.4 K/uL (1.8-7.0); NEUT % 77.6 % (50.0-75.0); RBC 2.9 Mil/uL (4.40-5.90); WHITE BLOOD COUNT 10.8 K/uL (4.8-10.8)
[2018-04-26 04:53] LABS: CALCIUM 8.5 mg/dl (8.6-10.4)
[2018-04-26 04:54] LABS: ALBUMIN 2.9 g/dL (3.5-5.0)
[2018-04-26] MEDS: (Novolin R) Insulin Human Regular 100 units/ml vial SC SCH ×4 (05:16→23:56)
[2018-04-26] MEDS: Piperacill/Tazo 2.25gm in Dex 2.25 GM/50 ML BAG IVPB SCH ×3 (05:24→18:07)
--- NOTE | 2018-04-26 08:54 | RAD ---
Date of service: 04/26/2018 HISTORY: eval pulm effusion and pulm edema COMPARISON: Portable chest 04/25/2018. FINDINGS: LUNGS: Interval opacity at the left chest has diminished, remaining at the left perihilar and basilar regions with right basilar patchy airspace disease unchanged. PLEURA: Trace fluid is developing in the minor fissure. Left pleural effusion not excluded. No pneumothorax bilaterally. CARDIOVASCULAR: Stable cardiac silhouette. Pulmonary vascular pattern persists with significant residual remaining. OSSEOUS STRUCTURES: No significant abnormalities. VISUALIZED UPPER ABDOMEN: Normal. OTHER FINDINGS: None. IMPRESSION: Improved left pleural effusion with significant residual pulmonary vascular congestion. Left airspace disease improved with significant residual bilaterally. Continued clinical and radiographic monitoring recommended.
[2018-04-26] MEDS: Dextrose 5%/0.9% NS 1,000 ML IV SCH ×3 (09:02→18:05)
[2018-04-26] MEDS: levETIRAcetam 500 MG in Sodium Chloride 0.9% 100 ML IVPB SCH ×2 (09:53→22:24)
--- NOTE | 2018-04-26 10:28 | RAD ---
Date of service: 04/26/2018 HISTORY: pulm edema COMPARISON: 04/26/2018 at 0654 hr FINDINGS: LUNGS: Current study more rotated towards the left. Patchy airspace opacities right lung base-slightly less and multiple in the left perihilar and left lung base locations. Left-sided findings show trace improved aeration here. Probable concomitant minimal passive compressive atelectasis left lung base with left pleural effusion PLEURA: Left pleural effusion similar. No pneumothorax. Trace fluid in each fissure. The right minor fissural fluid appears less CARDIOVASCULAR: Cardiomegaly and pulmonary venous congestion-both similar OSSEOUS STRUCTURES: Thoracic spondylosis. VISUALIZED UPPER ABDOMEN: Normal. OTHER FINDINGS: None. IMPRESSION: Bilateral patchy airspace opacities compatible with areas of focal pulmonary edema given the cardiomegaly pulmonary venous congestion and left pleural effusion present. Pulmonary edema appears slightly decreased as referenced above. Patchy pulmonary areas of edema can simulate patchy infectious/inflammatory infiltrates. Clinical correlation and follow-up to resolution recommended.
--- NOTE | 2018-04-26 12:37 | CP.CCUPN ---
<Ben Locke - Last Filed: 04/26/18 18:56> CCU Subjective - Physician Review Subjective (Free Text): Pt seen and examined at bedside. Pt saturationg well with BiPAP. Pt able to follow command. Pt unable to eat, recieving d5w IV and starting tube feeds today. CCU Objective - Vital Signs / Intake & Output Vital Signs (Last 4 hours): Vital Signs Pulse BP 04/26/18 11:21 128/72 04/26/18 10:38 88 Intake and Output (Last 8hrs): Intake & Output 04/25/18 04/26/18 04/26/18 22:59 06:59 14:59 Intake Total 750 750 100 Output Total 175 360 130 Balance 575 390 -30 Weight 137 lb 6.4 oz Intake: Intake, IV Amount 750 750 100 Right Forearm 750 750 100 Output: Urine 175 360 130 Urethral (Connor) 175 360 130 Other: # Bowel Movements 1 - Physical Exam Head: Positive for: Atraumatic, Normocephalic, Other (no appreciable facial droop) Pupils: Positive for: PERRL. Negative for: Pinpoint Extroacular Muscles: Positive for: EOMI Conjunctiva: Negative for: Injected, Icteric Mouth: Positive for: Moist Mucous Membranes, Other (wearing Bipap mask) Nose (External): Positive for: Atraumatic. Negative for: Abrasion, Contusion, Laceration Nose (Internal): Positive for: No Active Bleeding. Negative for: Epistaxis Neck: Positive for: Normal Range of Motion (passive ROM intact, patient struggles to comprehend instructions for active ROM testing), Trachea Midline. Negative for: JVD Respiratory/Chest: Positive for: Clear to Auscultation, Respiratory Distress. Negative for: Good Air Exchange, Accessory Muscle Use, Wheezes, Decreased Breath Sounds, Rales, Rhonchi Cardiovascular: Positive for: Regular Rate and Rhythm, Normal S1, S2, Peripheal Pulses Present (+2 radials and doralis pedis bilaterally). Negative for: Murmurs, Irregular Rhythm, Tachycardic, Bradycardic Abdomen: Positive for: Normal Bowel Sounds. Negative for: Tenderness, Distention Upper Extremity: Positive for: NORMAL PULSES. Negative for: Cyanosis, Edema, Tenderness, Erythema, Deformity Lower Extremity: Positive for: NORMAL PULSES. Negative for: Edema, CALF TENDERNESS, Cyanosis, Tenderness, Swelling, Deformity Neurological: Positive for: GCS=15 (GCS between 14-15 (E4 V4-5 M6); able to speak few appropriate words, unable to speak sufficiently to assess if oriented or confused), Normal Sensory Function (difficult to fully evaluated sensory function due to non-verbal and language barriers, but able to attempt to move correct extremities based on poking/prodding desired extremity without being able to see the extremities when prodding so at least some degree of sensation i ntact bilaterally), Other (5/5 motor in RLE and RUE, less movement of L extremities but does display spontaneous movement of L hand and LLE) Skin: Positive for: Warm, Dry, Normal Color. Negative for: Rashes Psychiatric: Positive for: Other (awake and alert, minimally verbal so unable to assess orientation but able to follow some commands and answer some questions with 1-2 word answers appropriately, so some intact mental faculties) - Medications Active Medications: Active Medications Generic Name Dose Route Start Last Admin Trade Name Freq PRN Reason Stop Dose Admin Aspirin 325 mg 04/21/18 10:00 04/24/18 09:55 Ecotrin PO Not Given DAILY [facility] Dextrose 0 ml 04/20/18 14:04 Dextrose 50% Inj IV STAT PRN Hypoglycemia Protocol Protocol Dextrose 15 gm 04/20/18 14:04 Glutose 15 PO ONCE PRN Hypoglycemia Protocol Protocol Glucagon 1 mg 04/20/18 14:04 Glucagen Diagnostic Kit IM STAT PRN Hypoglycemia Protocol Protocol Levetiracetam 500 mg/ Sodium 105 mls @ 420 mls/hr 04/24/18 10:30 04/26/18 09:53 Chloride IVPB 420 mls/hr Q12 [facility] Administration Dextrose/Sodium Chloride 1,000 mls @ 100 mls/hr 04/25/18 12:00 04/26/18 09:54 Dextrose 5%/0.9% Ns 1000 Ml IV 100 mls/hr .Q10H [facility] Administration Piperacillin Sod/Tazobactam Sod 2.25 gm in 50 mls @ 100 mls/hr 04/25/18 12:00 04/26/18 11:22 Zosyn 2.25 Gm Iv Premix IVPB 100 mls/hr Q6H [facility] Administration Protocol Insulin Human Regular 0 unit 04/23/18 12:00 04/26/18 11:44 Novolin R SC Not Given Q6H [facility] Protocol Pantoprazole Sodium 40 mg 04/21/18 10:00 04/26/18 09:03 Protonix Inj IVP 40 mg DAILY [facility] Administration Rosuvastatin Calcium 20 mg 04/20/18 22:00 04/25/18 21:23 Crestor PO Not Given HS [facility] - Patient Studies Lab Studies: Microbiology Studies 04/25/18 13:42 Urine Culture - Final Urine,Connor No Growth (<1,000 CFU/ML) 04/22/18 13:38 Blood Culture - Preliminary Blood NO GROWTH AFTER 3 DAYS 04/22/18 13:38 Blood Culture - Preliminary Blood NO GROWTH AFTER 3 DAYS Lab Studies 04/26/18 04/26/18 04/26/18 Range/Units 05:23 04:36 04:36 WBC 10.8 (4.8-10.8) K/uL RBC 2.90 L (4.40-5.90) Mil/uL Hgb 8.4 L (12.0-18.0) g/dL Hct 25.2 L (35.0-51.0) % MCV 86.8 (80.0-94.0) fL MCH 28.9 (27.0-31.0) pg MCHC 33.3 (33.0-37.0) g/dL RDW 14.0 (11.5-14.5) % Plt Count 249 (130-400) K/uL MPV 8.2 (7.2-11.7) fL Neut % (Auto) 77.6 H (50.0-75.0) % Lymph % (Auto) 11.5 L (20.0-40.0) % Shelby % (Auto) 8.8 (0.0-10.0) % Eos % (Auto) 1.5 (0.0-4.0) % Baso % (Auto) 0.6 (0.0-2.0) % Neut # (Auto) 8.4 H (1.8-7.0) K/uL Lymph # (Auto) 1.2 (1.0-4.3) K/uL Shelby # (Auto) 1.0 H (0.0-0.8) K/uL Eos # (Auto) 0.2 (0.0-0.7) K/uL Baso # (Auto) 0.1 (0.0-0.2) K/uL Puncture Site pCO2 (35-45) mm/Hg pO2 (80-100) mm/Hg HCO3 (21-28) mmol/L ABG pH (7.35-7.45) ABG Total CO2 (22-28) mmol/L ABG O2 Saturation (95-98) % ABG Base Excess (-2.0-3.0) mmol/L ABG Hemoglobin (11.7-17.4) g/dL ABG Carboxyhemoglobin (0.5-1.5) % POC ABG HHb (Measured) (0.0-5.0) % ABG Methemoglobin (0.0-3.0) % Jonas Test Hgb O2 Saturation (95.0-98.0) % Liter Flow Crit Value Called To Crit Value Called By Crit Value Read Back Blood Gas Notified Time Sodium 150 H (132-148) mmol/L Potassium 4.2 (3.6-5.2) mmol/L Chloride 109 H (98-107) mmol/L Carbon Dioxide 30 (22-30) mmol/L Anion Gap 14 (10-20) BUN 57 H (9-20) mg/dL Creatinine 1.6 H (0.8-1.5) mg/dL Est GFR ( Amer) 52 Est GFR (Non-Af Amer) 43 POC Glucose (mg/dL) 199 H (65-110) mg/dL Random Glucose 195 H (75-110) mg/dL Calcium 8.5 L (8.6-10.4) mg/dl Phosphorus 4.1 (2.5-4.5) mg/dL Magnesium 2.2 (1.6-2.3) mg/dL Total Bilirubin 1.1 (0.2-1.3) mg/dL AST 16 L D (17-59) U/L ALT 19 L D (21-72) U/L Alkaline Phosphatase 82 (38-126) U/L NT-Pro-B Natriuret Pep 417 (0-900) pg/mL Total Protein 5.9 L (6.3-8.3) g/dL Albumin 2.9 L (3.5-5.0) g/dL Globulin 2.9 (2.2-3.9) gm/dL Albumin/Globulin Ratio 1.0 (1.0-2.1) 04/25/18 04/25/18 Range/Units 23:51 13:42 WBC (4.8-10.8) K/uL RBC (4.40-5.90) Mil/uL Hgb (12.0-18.0) g/dL Hct (35.0-51.0) % MCV (80.0-94.0) fL MCH (27.0-31.0) pg MCHC (33.0-37.0) g/dL RDW (11.5-14.5) % Plt Count (130-400) K/uL MPV (7.2-11.7) fL Neut % (Auto) (50.0-75.0) % Lymph % (Auto) (20.0-40.0) % Shelby % (Auto) (0.0-10.0) % Eos % (Auto) (0.0-4.0) % Baso % (Auto) (0.0-2.0) % Neut # (Auto) (1.8-7.0) K/uL Lymph # (Auto) (1.0-4.3) K/uL Shelby # (Auto) (0.0-0.8) K/uL Eos # (Auto) (0.0-0.7) K/uL Baso # (Auto) (0.0-0.2) K/uL Puncture Site Lf pCO2 54 H (35-45) mm/Hg pO2 83 (80-100) mm/Hg HCO3 24.1 (21-28) mmol/L ABG pH 7.29 L (7.35-7.45) ABG Total CO2 27.7 (22-28) mmol/L ABG O2 Saturation 97.4 (95-98) % ABG Base Excess -1.0 (-2.0-3.0) mmol/L ABG Hemoglobin 9.4 L (11.7-17.4) g/dL ABG Carboxyhemoglobin 2.3 H (0.5-1.5) % POC ABG HHb (Measured) 2.5 (0.0-5.0) % ABG Methemoglobin 1.3 (0.0-3.0) % Jonas Test Na Hgb O2 Saturation 93.9 L (95.0-98.0) % Liter Flow 6.0 Crit Value Called To Dr juarez Crit Value Called By [place] [employer] manager Crit Value Read Back Y Blood Gas Notified Time 1350 Sodium (132-148) mmol/L Potassium (3.6-5.2) mmol/L Chloride (98-107) mmol/L Carbon Dioxide (22-30) mmol/L Anion Gap (10-20) BUN (9-20) mg/dL Creatinine (0.8-1.5) mg/dL Est GFR ( Amer) Est GFR (Non-Af Amer) POC Glucose (mg/dL) 193 H (65-110) mg/dL Random Glucose (75-110) mg/dL Calcium (8.6-10.4) mg/dl Phosphorus (2.5-4.5) mg/dL Magnesium (1.6-2.3) mg/dL Total Bilirubin (0.2-1.3) mg/dL AST (17-59) U/L ALT (21-72) U/L Alkaline Phosphatase (38-126) U/L NT-Pro-B Natriuret Pep (0-900) pg/mL Total Protein (6.3-8.3) g/dL Albumin (3.5-5.0) g/dL Globulin (2.2-3.9) gm/dL Albumin/Globulin Ratio (1.0-2.1) Laboratory Results - last 24 hr 04/25/18 04/25/18 04/26/18 13:42 23:51 04:36 WBC 10.8 RBC 2.90 L Hgb 8.4 L Hct 25.2 L MCV 86.8 MCH 28.9 MCHC 33.3 RDW 14.0 Plt Count 249 MPV 8.2 Neut % (Auto) 77.6 H Lymph % (Auto) 11.5 L Shelby % (Auto) 8.8 Eos % (Auto) 1.5 Baso % (Auto) 0.6 Neut # (Auto) 8.4 H Lymph # (Auto) 1.2 Shelby # (Auto) 1.0 H Eos # (Auto) 0.2 Baso # (Auto) 0.1 Puncture Site Lf pCO2 54 H pO2 83 HCO3 24.1 ABG pH 7.29 L ABG Total CO2 27.7 ABG O2 Saturation 97.4 ABG Base Excess -1.0 ABG Hemoglobin 9.4 L ABG Carboxyhemoglobin 2.3 H POC ABG HHb (Measured) 2.5 ABG Methemoglobin 1.3 Jonas Test Na Hgb O2 Saturation 93.9 L Liter Flow 6.0 Crit Value Called To Dr juarez Crit Value Called By [place] [employer] manager Crit Value Read Back Y Blood Gas Notified Time 1350 Sodium Potassium Chloride Carbon Dioxide Anion Gap BUN Creatinine Est GFR ( Amer) Est GFR (Non-Af Amer) POC Glucose (mg/dL) 193 H Random Glucose Calcium Phosphorus Magnesium Total Bilirubin AST ALT Alkaline Phosphatase NT-Pro-B Natriuret Pep Total Protein Albumin Globulin Albumin/Globulin Ratio 04/26/18 04/26/18 04:36 05:23 WBC RBC Hgb Hct MCV MCH MCHC RDW Plt Count MPV Neut % (Auto) Lymph % (Auto) Shelby % (Auto) Eos % (Auto) Baso % (Auto) Neut # (Auto) Lymph # (Auto) Shelby # (Auto) Eos # (Auto) Baso # (Auto) Puncture Site pCO2 pO2 HCO3 ABG pH ABG Total CO2 ABG O2 Saturation ABG Base Excess ABG Hemoglobin ABG Carboxyhemoglobin POC ABG HHb (Measured) ABG Methemoglobin Jonas Test Hgb O2 Saturation Liter Flow Crit Value Called To Crit Value Called By Crit Value Read Back Blood Gas Notified Time Sodium 150 H Potassium 4.2 Chloride 109 H Carbon Dioxide 30 Anion Gap 14 BUN 57 H Creatinine 1.6 H Est GFR ( Amer) 52 Est GFR (Non-Af Amer) 43 POC Glucose (mg/dL) 199 H Random Glucose 195 H Calcium 8.5 L Phosphorus 4.1 Magnesium 2.2 Total Bilirubin 1.1 AST 16 L D ALT 19 L D Alkaline Phosphatase 82 NT-Pro-B Natriuret Pep 417 Total Protein 5.9 L Albumin 2.9 L Globulin 2.9 Albumin/Globulin Ratio 1.0 Fingerstick Blood Sugar Results: 199 Review of Systems - Review of Systems Systems not reviewed;Unavailable: Acuity of Condition Critical Care Progress Note - Nutrition Nutrition: Nutrition Category Date Time Status NPO Diet [DIET] Diets 04/24/18 Breakfast Active Assessment/Plan - Assessment and Plan (Free Text) Assessment: This is a 72 yo M with [facility] of TIA (05/2017), NIDDM, and diastolic CHF who presented to for evaluation of acute onset left sided weakness prior to presentation. Aphasia and L sided weakness persists but is improved as compared to initial presentation to ICU. possible aspiration PNA Plan: Neuro: - 04/[address] shows no acute intracranial hemorrhage. Chronic microvascular ischemic changes. More confluent low attenuation seen within the right frontal subcortical white matter. Focal hypodensity within the right cerebellum suggestive for chronic lacunar infarct. Intracranial arterial calcifications. - 04/[address] notable for Moderate generalized volume loss, Redemonstrated bulbous/somewhat mass-like appearance in the right choroid plexus of uncertain etiology (please see report for full details) - 04/21 Head and Neck CTA shows no evidence of occlusion, dissection, or signi ficant stenosis. No evidence of large aneurysm or vascular malformation. - 04/21 Brain MRI w/o contrast shows small acute rightposterior frontoparietal subcortical infarct, -significant improvement in neuro function throughout today, now moving left extremities and able to speak some words -Neuro (Dr Holliday) consulted, appreciate all recs; recs EEG (pending), repeat head CT, and obtaining MRI with and w/o efraín to assess for new stroke given speech deficits and to better assess R choroid plexus mass -04/[address]: minor occipital bleed -Continue Keppra 500mg BID -hold ASA -neuro checks q4 Pulm: -R Lung severe rales -started zosyn -satting well on BiPAP -CXR this AM reviewed and compared to prior, worsening pulm edema and effusions possible pna; pending CT chest to assess for any persisting effusion -ABG from yesterday reviewed -possible intubation Cardio: -Dr Owens (Cardio) consulted, appreciate all recs; echo reviewed, no arrhythmia on tele, primary management as per neuro -Maintaining MAP > 65, no further hypotensive episodes -initial hypotensive episode with AMS likely 2/2 high dose lasix holding lasix pending chest CT to assess if still effusions, if resuming diuresis will have to diurese gently to prevent bottoming-out BP -Albumin drip completed 04/24 -continue ASA 325mg PO daily GI: -NG tube feeds jevity started @ 10cc/hr - f/u nutrition goal recs -Protonix for GI ppx -pending official swallow eval tmr Nephro: -Cr 1.6 -making clear yellow urine in connor -monitor and replete electrolytes as needed ID: -zosyn started -WBCs 10.8 Heme: -Hgb 8.4 , no signs of bleeding -repeat head CT negative for bleed -Lovenox SC for DVT ppx Endo: -maintain euglycemia, BG target 140-180 as per [employer] trial -Hx of DM, but hold Metformin given NPO and in case patient needs contrast study -Sliding scale insulin, hypoglycemic protocols, Accuchecks q6 -glucagon 1mg IM PRN Case discussed w/ Dr Rasta Locke PGY1 <Leoncio Magdaleno S - Last Filed: 04/26/18 19:01> CCU Subjective - Physician Review Critical Care Time Spent (in minutes): 40 CCU Objective - Vital Signs / Intake & Output Vital Signs (Last 4 hours): Vital Signs Temp Pulse Resp BP Pulse Ox 04/26/18 16:03 88 21 121/71 96 04/26/18 16:00 98.7 F 99 04/26/18 15:03 82 22 122/60 99 Intake and Output (Last 8hrs): Intake & Output 04/26/18 04/26/18 04/26/18 06:59 14:59 22:59 Intake Total 750 600 200 Output Total 360 465 100 Balance 390 135 100 Weight 137 lb 6.4 oz Intake: Intake, IV Amount 750 600 200 Right Forearm 750 600 200 Output: Urine 360 465 100 Urethral (Connor) 360 465 100 Other: # Bowel Movements 1 - Medications Active Medications: Active Medications Generic Name Dose Route Start Last Admin Trade Name Freq PRN Reason Stop Dose Admin Aspirin 325 mg 04/21/18 10:00 04/24/18 09:55 Ecotrin PO Not Given DAILY D[facility]US Dextrose 0 ml 04/20/18 14:04 Dextrose 50% Inj IV STAT PRN Hypoglycemia Protocol Protocol Dextrose 15 gm 04/20/18 14:04 Glutose 15 PO ONCE PRN Hypoglycemia Protocol Protocol Glucagon 1 mg 04/20/18 14:04 Glucagen Diagnostic Kit IM STAT PRN Hypoglycemia Protocol Protocol Levetiracetam 500 mg/ Sodium 105 mls @ 420 mls/hr 04/24/18 10:30 04/26/18 09:53 Chloride IVPB 420 mls/hr Q12 DARIUS Administration Dextrose/Sodium Chloride 1,000 mls @ 100 mls/hr 04/25/18 12:00 04/26/18 18:05 Dextrose 5%/0.9% Ns 1000 Ml IV Not Given .Q10H [facility]US Piperacillin Sod/Tazobactam Sod 2.25 gm in 50 mls @ 100 mls/hr 04/25/18 12:00 04/26/18 18:07 Zosyn 2.25 Gm Iv Premix IVPB 100 mls/hr Q6H [facility]US Administration Protocol Insulin Human Regular 0 unit 04/23/18 12:00 04/26/18 11:44 Novolin R SC Not Given Q6H [facility] Protocol Pantoprazole Sodium 40 mg 04/21/18 10:00 04/26/18 09:03 Protonix Inj IVP 40 mg DAILY [facility] Administration Rosuvastatin Calcium 20 mg 04/20/18 22:00 04/25/18 21:23 Crestor PO Not Given HS [facility] - Patient Studies Lab Studies: Microbiology Studies 04/25/18 13:39 Blood Culture - Preliminary Blood NO GROWTH AFTER 24 HOURS 04/25/18 13:39 Blood Culture - Preliminary Blood NO GROWTH AFTER 24 HOURS 04/22/18 13:38 Blood Culture - Preliminary Blood NO GROWTH AFTER 4 DAYS 04/22/18 13:38 Blood Culture - Preliminary Blood NO GROWTH AFTER 4 DAYS 04/25/18 13:42 Urine Culture - Final Urine,Connor No Growth (<1,000 CFU/ML) Lab Studies 04/26/18 04/26/18 04/26/18 Range/Units 05:23 04:36 04:36 WBC 10.8 (4.8-10.8) K/uL RBC 2.90 L (4.40-5.90) Mil/uL Hgb 8.4 L (12.0-18.0) g/dL Hct 25.2 L (35.0-51.0) % MCV 86.8 (80.0-94.0) fL MCH 28.9 (27.0-31.0) pg MCHC 33.3 (33.0-37.0) g/dL RDW 14.0 (11.5-14.5) % Plt Count 249 (130-400) K/uL MPV 8.2 (7.2-11.7) fL Neut % (Auto) 77.6 H (50.0-75.0) % Lymph % (Auto) 11.5 L (20.0-40.0) % Shelby % (Auto) 8.8 (0.0-10.0) % Eos % (Auto) 1.5 (0.0-4.0) % Baso % (Auto) 0.6 (0.0-2.0) % Neut # (Auto) 8.4 H (1.8-7.0) K/uL Lymph # (Auto) 1.2 (1.0-4.3) K/uL Shelby # (Auto) 1.0 H (0.0-0.8) K/uL Eos # (Auto) 0.2 (0.0-0.7) K/uL Baso # (Auto) 0.1 (0.0-0.2) K/uL Sodium 150 H (132-148) mmol/L Potassium 4.2 (3.6-5.2) mmol/L Chloride 109 H (98-107) mmol/L Carbon Dioxide 30 (22-30) mmol/L Anion Gap 14 (10-20) BUN 57 H (9-20) mg/dL Creatinine 1.6 H (0.8-1.5) mg/dL Est GFR ( Amer) 52 Est GFR (Non-Af Amer) 43 POC Glucose (mg/dL) 199 H (65-110) mg/dL Random Glucose 195 H (75-110) mg/dL Calcium 8.5 L (8.6-10.4) mg/dl Phosphorus 4.1 (2.5-4.5) mg/dL Magnesium 2.2 (1.6-2.3) mg/dL Total Bilirubin 1.1 (0.2-1.3) mg/dL AST 16 L D (17-59) U/L ALT 19 L D (21-72) U/L Alkaline Phosphatase 82 (38-126) U/L NT-Pro-B Natriuret Pep 417 (0-900) pg/mL Total Protein 5.9 L (6.3-8.3) g/dL Albumin 2.9 L (3.5-5.0) g/dL Globulin 2.9 (2.2-3.9) gm/dL Albumin/Globulin Ratio 1.0 (1.0-2.1) 04/25/18 Range/Units 23:51 WBC (4.8-10.8) K/uL RBC (4.40-5.90) Mil/uL Hgb (12.0-18.0) g/dL Hct (35.0-51.0) % MCV (80.0-94.0) fL MCH (27.0-31.0) pg MCHC (33.0-37.0) g/dL RDW (11.5-14.5) % Plt Count (130-400) K/uL MPV (7.2-11.7) fL Neut % (Auto) (50.0-75.0) % Lymph % (Auto) (20.0-40.0) % Shelby % (Auto) (0.0-10.0) % Eos % (Auto) (0.0-4.0) % Baso % (Auto) (0.0-2.0) % Neut # (Auto) (1.8-7.0) K/uL Lymph # (Auto) (1.0-4.3) K/uL Shelby # (Auto) (0.0-0.8) K/uL Eos # (Auto) (0.0-0.7) K/uL Baso # (Auto) (0.0-0.2) K/uL Sodium (132-148) mmol/L Potassium (3.6-5.2) mmol/L Chloride (98-107) mmol/L Carbon Dioxide (22-30) mmol/L Anion Gap (10-20) BUN (9-20) mg/dL Creatinine (0.8-1.5) mg/dL Est GFR ( Amer) Est GFR (Non-Af Amer) POC Glucose (mg/dL) 193 H (65-110) mg/dL Random Glucose (75-110) mg/dL Calcium (8.6-10.4) mg/dl Phosphorus (2.5-4.5) mg/dL Magnesium (1.6-2.3) mg/dL Total Bilirubin (0.2-1.3) mg/dL AST (17-59) U/L ALT (21-72) U/L Alkaline Phosphatase (38-126) U/L NT-Pro-B Natriuret Pep (0-900) pg/mL Total Protein (6.3-8.3) g/dL Albumin (3.5-5.0) g/dL Globulin (2.2-3.9) gm/dL Albumin/Globulin Ratio (1.0-2.1) Laboratory Results - last 24 hr 04/25/18 04/26/18 04/26/18 23:51 04:36 04:36 WBC 10.8 RBC 2.90 L Hgb 8.4 L Hct 25.2 L MCV 86.8 MCH 28.9 MCHC 33.3 RDW 14.0 Plt Count 249 MPV 8.2 Neut % (Auto) 77.6 H Lymph % (Auto) 11.5 L Shelby % (Auto) 8.8 Eos % (Auto) 1.5 Baso % (Auto) 0.6 Neut # (Auto) 8.4 H Lymph # (Auto) 1.2 Shelby # (Auto) 1.0 H Eos # (Auto) 0.2 Baso # (Auto) 0.1 Sodium 150 H Potassium 4.2 Chloride 109 H Carbon Dioxide 30 Anion Gap 14 BUN 57 H Creatinine 1.6 H Est GFR ( Amer) 52 Est GFR (Non-Af Amer) 43 POC Glucose (mg/dL) 193 H Random Glucose 195 H Calcium 8.5 L Phosphorus 4.1 Magnesium 2.2 Total Bilirubin 1.1 AST 16 L D ALT 19 L D Alkaline Phosphatase 82 NT-Pro-B Natriuret Pep 417 Total Protein 5.9 L Albumin 2.9 L Globulin 2.9 Albumin/Globulin Ratio 1.0 04/26/18 05:23 WBC RBC Hgb Hct MCV MCH MCHC RDW Plt Count MPV Neut % (Auto) Lymph % (Auto) Shelby % (Auto) Eos % (Auto) Baso % (Auto) Neut # (Auto) Lymph # (Auto) Shelby # (Auto) Eos # (Auto) Baso # (Auto) Sodium Potassium Chloride Carbon Dioxide Anion Gap BUN Creatinine Est GFR ( Amer) Est GFR (Non-Af Amer) POC Glucose (mg/dL) 199 H Random Glucose Calcium Phosphorus Magnesium Total Bilirubin AST ALT Alkaline Phosphatase NT-Pro-B Natriuret Pep Total Protein Albumin Globulin Albumin/Globulin Ratio Critical Care Progress Note - Nutrition Nutrition: Nutrition Category Date Time Status NPO Diet [DIET] Diets 04/24/18 Breakfast Active Attending/Attestation - Attestation I have personally seen and examined this patient.: Yes I have fully participated in the care of the patient.: Yes I have reviewed all pertinent clinical information: Yes Notes (Text): 04/26/18 19:01 patient seen and examined in the intensive care unit. Assessment and plan as per resident note
--- NOTE | 2018-04-26 15:33 | CP.PCM.PN ---
<Kota Daugherty - Last Filed: 04/26/18 15:41> Subjective - Date & Time of Evaluation Date of Evaluation: 04/26/18 Time of Evaluation: 15:31 - Subjective Subjective: PGY-2 Progress Note: Dr. Garcia's Service Patient seen and examined at bedside. Per nursing no acute events occurred overnight. ROS unobtainable due to current clinical condition. Objective - Vital Signs/Intake and Output Vital Signs (last 24 hours): Temp Pulse Resp BP Pulse Ox 98.8 F 88 22 128/72 98 04/26/18 08:00 04/26/18 14:04 04/26/18 08:02 04/26/18 11:21 04/26/18 08:02 Intake and Output: 04/26/18 04/26/18 06:59 18:59 Intake Total 1150 100 Output Total 420 130 Balance 730 -30 - Medications Medications: Current Medications Aspirin (Ecotrin) 325 mg PO DAILY [facility] Last Admin: 04/24/18 09:55 Dose: Not Given Dextrose (Dextrose 50% Inj) 0 ml IV STAT PRN; Protocol PRN Reason: Hypoglycemia Protocol Dextrose (Glutose 15) 15 gm PO ONCE PRN; Protocol PRN Reason: Hypoglycemia Protocol Glucagon (Glucagen Diagnostic Kit) 1 mg IM STAT PRN; Protocol PRN Reason: Hypoglycemia Protocol Levetiracetam 500 mg/ Sodium (Chloride) 105 mls @ 420 mls/hr IVPB Q12 [facility] Last Admin: 04/26/18 09:53 Dose: 420 mls/hr Dextrose/Sodium Chloride (Dextrose 5%/0.9% Ns 1000 Ml) 1,000 mls @ 100 mls/hr IV .Q10H [facility] Last Admin: 04/26/18 09:54 Dose: 100 mls/hr Piperacillin Sod/Tazobactam Sod (Zosyn 2.25 Gm Iv Premix) 2.25 gm in 50 mls @ 100 mls/hr IVPB Q6H [facility]; Protocol Last Admin: 04/26/18 11:22 Dose: 100 mls/hr Insulin Human Regular (Novolin R) 0 unit SC Q6H [facility]; Protocol Last Admin: 04/26/18 11:44 Dose: Not Given Pantoprazole Sodium (Protonix Inj) 40 mg IVP DAILY [facility] Last Admin: 10/02/18 09:03 Dose: 40 mg Rosuvastatin Calcium (Crestor) 20 mg PO HS [facility] Last Admin: 04/25/18 21:23 Dose: Not Given - Labs Labs: 04/26/18 04:36 04/26/18 04:36 PT 13.2 SECONDS (9.7-12.2) H 04/20/18 08:46 INR 1.2 04/20/18 08:46 APTT 27 SECONDS (21-34) 04/20/18 08:46 - Head Exam Head Exam: NORMAL INSPECTION - Eye Exam Eye Exam: EOMI, Normal appearance, PERRL Additional comments: s/p Cataract sx - ENT Exam ENT Exam: Mucous Membranes Moist, Normal Oropharynx - Cardiovascular Exam Cardiovascular Exam: REGULAR RHYTHM, +S1, +S2 - GI/Abdominal Exam GI & Abdominal Exam: Soft, Normal Bowel Sounds - Back Exam Back Exam: absent: CVA tenderness (L), CVA tenderness (R), paraspinal tenderness - Neurological Exam Neurological Exam: Motor Sensory Deficit. absent: Oriented x3 Neuro motor strength exam: Left Upper Extremity: 0, Right Upper Extremity: 3, Left Lower Extremity: 0, Right Lower Extremity: 3 - Psychiatric Exam Psychiatric exam: Flat Affect - Skin Skin Exam: Dry, Intact Assessment and Plan - Assessment and Plan (Free Text) Assessment: This is a 72 year old [place]ander speaking male with PMH of TIA (05/2017), NIDDM, diastolic CHF who was BIBA for evaluation of left sided weakness since approximately 7 am 04/20. Plan: 1.CVA Head CT shows no acute intracranial hemorrhage. Chronic microvascular ischemic changes. More confluent low attenuation seen within the right frontal subcortical white matter. Focal hypodensity within the right cerebellum s uggestive for chronic lacunar infarct. Intracranial arterial calcifications. - 04/21 Head and Neck CTA shows no evidence of occlusion dissectino or significant stenosis. No evidence of large aneurysm or vascular malformation. Brain MRI w/o contrast shows: 1. small acute right posterior frontoparietal subcortical infarct. 2. Moderate to significant chronic white matter changes with extension into the deep and subcortical white matter both cerebral hemispheres. Ischemic changes are also present in superior basal nuclei/kong radiata junction bilaterally. 3. 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 4. Moderate generalized volume loss. 5. Localized bulbous masslike appearance of the right choroid plexus that is of uncertain etiology however this focus was not present on prior CT scan MRI of the brain dated 06/15/17 and 06/16/17. Repeat Head CT: :No acute intracranial hemorrhage. :Moderate to significant diffuse and confluent chronic white matter ischemic changes seen extending peripherally subcortical white matter both cerebral hemispheres. The risa changes also seen in the superior basal nuclei/coronal radiata junction bilaterally. Chronic appearing brainstem cerebellar ischemic changes less well seen. :Moderate generalized volume loss. :Redemonstrated is a bulbous somewhat masslike appearance of the right choroid plexus which is of uncertain etiology though underlying choroid plexus lesion must be excluded. Follow-up post-contrast MRI brain recommended to further characterize this lesion. Repeat Head CT(04/25/18): :Small amount of layering hemorrhage seen in the left atria/occipital, new since prior exam.. Moderate to fairly significant diffuse/confluent chronic white matter ischemic changes are also again seen extending peripherally into the deep and subcortical white matter both cerebral hemispheres... Ischemic changes superior basal nuclei/coronal radiata also felt to be present. MRI brain :There is a small acute right posterior frontoparietal subcortical infarct. Moderate to significant chronic white matter ischemic changes with extension into the deep and subcortical white matter both cerebral hemispheres as described. Ischemic changes are also seen in superior basal nuclei/kong rad iata junction bilaterally. Chronic appearing the brainstem and bilateral cerebellar lacunar type i nfarcts are also present Moderate generalized volume loss. Localized bulbous masslike appearance of the right choroid plexus that is of uncertain etiology however this focus was not present on prior CT scan MRI of the brain dated 06/15/2017 and 06/16/2017 respectively. Follow-up post-contrast MRI of the brain is recommended to exclude the possibility of an intraventricular lesion such is an intraventricular meningioma, ependymoma, choroid plexus papilloma or neurocytoma not excluded. Follow-up not completely excluded. EEG ordered. Will f/u with results. CT Head/ Neck Carotid doppler taken. Pending result. PT/OT Plan discussed with Dr. Garcia. Kota Daugherty,PGY-2 <Reanna Garcia - Last Filed: 04/28/18 22:09> Subjective - Subjective Subjective: On exam: Patient is on sedation, and has no corneals, no dolls eyes, no gag. He is nonverbal and has grimace to sternal rub. Off sedation, patient's best exam has been opening his eyes to sternal rub and localizing to painful stimuli with corneals and gag. A/p: Patient with toxic metabolic encephalopathy secondary to sepsis and multiple medical problems, including HIV, now with poor prognosis. Dr. garcia Objective - Vital Signs/Intake and Output Vital Signs (last 24 hours): Temp Pulse Resp BP Pulse Ox 99.9 F H 95 H 28 H 128/62 93 L 04/28/18 17:10 04/28/18 19:03 04/28/18 19:03 04/28/18 19:03 04/28/18 19:03 Intake and Output: 04/28/18 04/29/18 18:59 06:59 Intake Total 1300 40 Output Total 640 40 Balance 660 0 - Medications Medications: Current Medications Acetaminophen (Tylenol 650mg/20.3ml Solution Ud) 650 mg PO Q6 PRN PRN Reason: Temperature Last Admin: 04/28/18 16:10 Dose: 650 mg Acetazolamide (Diamox 250 Mg Tab) 500 mg PO BID [facility] Last Admin: 04/28/18 18:50 Dose: 500 mg Acetylcysteine (Acetylcysteine 20%) 6 ml PO Q12H [facility] Stop: 04/29/18 01:01 Last Admin: 04/28/18 16:10 Dose: 6 ml Albuterol/Ipratropium (Duoneb 3 Mg/0.5 Mg (3 Ml) Ud) 3 ml INH RQ4 [facility] Last Admin: 04/28/18 16:11 Dose: 3 ml Aspirin (Ecotrin) 325 mg PO DAILY [facility] Last Admin: 04/24/18 09:55 Dose: Not Given Dextrose (Dextrose 50% Inj) 0 ml IV STAT PRN; Protocol PRN Reason: Hypoglycemia Protocol Dextrose (Glutose 15) 15 gm PO ONCE PRN; Protocol PRN Reason: Hypoglycemia Protocol Furosemide (Lasix) 40 mg IVP Q12H [facility] Last Admin: 04/28/18 09:37 Dose: 40 mg Glucagon (Glucagen Diagnostic Kit) 1 mg IM STAT PRN; Protocol PRN Reason: Hypoglycemia Protocol Levetiracetam 500 mg/ Sodium (Chloride) 105 mls @ 420 mls/hr IVPB Q12 [facility] Last Admin: 04/28/18 09:07 Dose: 420 mls/hr Piperacillin Sod/Tazobactam Sod (Zosyn 2.25 Gm Iv Premix) 2.25 gm in 50 mls @ 100 mls/hr IVPB Q6H [facility]; Protocol Last Admin: 04/28/18 18:49 Dose: 100 mls/hr Azithromycin 500 mg/ Sodium (Chloride) 250 mls @ 250 mls/hr IVPB DAILY [facility]; Protocol Last Admin: 04/28/18 09:26 Dose: 250 mls/hr Insulin Human Regular (Novolin R) 0 unit SC Q6H [facility]; Protocol Last Admin: 04/28/18 18:49 Dose: 2 units Pantoprazole Sodium (Protonix Susp) 40 mg NG DAILY [facility] Last Admin: 04/28/18 09:19 Dose: 40 mg Rosuvastatin Calcium (Crestor) 20 mg PO HS [facility] Last Admin: 04/27/18 21:53 Dose: 20 mg - Labs Labs: 04/28/18 05:53 04/28/18 05:53 PT 16.4 SECONDS (9.7-12.2) H 04/28/18 09:59 INR 1.5 04/28/18 09:59 APTT 24 SECONDS (21-34) 04/28/18 09:59 Assessment and Plan - Assessment and Plan (Free Text) Plan: All medical record entries made by the Resident were at my direction and pers onally dictated by me. I have reviewed the chart and agree that the record accurately reflects my personal performance of the history, physical exam, medical decision making, and the department course for this patient. I have also personally directed, reviewed, and agree with the discharge instructions and disposition. Thank you Dr. Garcia
[2018-04-26] MEDS ORDERED: Lidocaine 4% (Laryng-O-Jet) Kit MM ONE (17:48)
[2018-04-27] MEDS: Piperacill/Tazo 2.25gm in Dex 2.25 GM/50 ML BAG IVPB SCH ×4 (00:15→17:44)
[2018-04-27] MEDS: Dextrose 5%/0.9% NS 1,000 ML IV SCH ×2 (04:22→06:27)
[2018-04-27 04:49] LABS: ARTERIAL BLOOD GAS HCO3 27.2 mmol/L (21-28); ARTERIAL BLOOD GAS HEMOGLOBIN 12.2 g/dL (11.7-17.4); ARTERIAL BLOOD GAS O2 SAT 99.4 % (95-98); ARTERIAL BLOOD GAS PCO2 47 mm/Hg (35-45); ARTERIAL BLOOD GAS PH 7.39 (7.35-7.45); ARTERIAL BLOOD GAS PO2 147 mm/Hg (80-100); ARTERIAL BLOOD GAS TCO2 29.9 mmol/L (22-28)
[2018-04-27 06:26] LABS: BASO # 0.1 K/uL (0.0-0.2); BASO % 0.8 % (0.0-2.0); EOS # 0.2 K/uL (0.0-0.7); EOS % 1.6 % (0.0-4.0); HEMOGLOBIN 9.2 g/dL (12.0-18.0); LYMPH # 1.3 K/uL (1.0-4.3); LYMPH % 10.9 % (20.0-40.0); MEAN CELL VOLUME 87.5 fL (80.0-94.0); MEAN CORPUSCULAR HEMOGLOBIN 28.7 pg (27.0-31.0); MEAN CORPUSCULAR HGB CONC 32.8 g/dL (33.0-37.0); MEAN PLATELET VOLUME 8.4 fL (7.2-11.7); MONO # 0.9 K/uL (0.0-0.8); MONO % 7.4 % (0.0-10.0); NEUT # 9.7 K/uL (1.8-7.0); NEUT % 79.3 % (50.0-75.0); RBC 3.21 Mil/uL (4.40-5.90); RED CELL DISTRIBUTION WIDTH 14.8 % (11.5-14.5); WHITE BLOOD COUNT 12.2 K/uL (4.8-10.8)
[2018-04-27] MEDS: (Novolin R) Insulin Human Regular 100 units/ml vial SC SCH ×3 (06:26→18:10)
[2018-04-27 07:34] LABS: ALBUMIN 2.9 g/dL (3.5-5.0); CALCIUM 8.4 mg/dl (8.6-10.4)
--- NOTE | 2018-04-27 07:50 | RAD ---
Chest x-ray single frontal view HISTORY: NG tube. Pulmonary edema. Comparison: 04/26/2018 FINDINGS: NG tube extending into the stomach. Moderate to severe venous congestion. Diffuse increased interstitial lung markings bilaterally. Confluent airspace consolidation seen within the left mid to lower lung zone as well as the right lung base. Bilateral hilar prominence. Moderate left and small to moderate right pleural effusions. Enlarged ectatic aorta. Cardiomegaly. Degenerative changes in the spine and shoulders. Impression: NG tube extending into the stomach. Moderate to severe venous congestion. Diffuse increased interstitial lung markings bilaterally. Confluent airspace consolidation seen within the left mid to lower lung zone as well as the right lung base. Bilateral hilar prominence. Moderate left and small to moderate right pleural effusions. Enlarged ectatic aorta. Cardiomegaly.
[2018-04-27] MEDS: levETIRAcetam 500 MG in Sodium Chloride 0.9% 100 ML IVPB SCH ×2 (09:02→21:53)
[2018-04-27] MEDS ORDERED: Vancomycin 1 gm/NS 200 ml 1 GM/200 ML BAG IVPB STA (10:01)
--- NOTE | 2018-04-27 10:58 | CP.CCUPN ---
<Ben Locke - Last Filed: 04/27/18 17:52> CCU Subjective - Physician Review Subjective (Free Text): Pt seen and examined at bedside. Pt saturating well with BiPAP, Nasal canula trial today. Pt able to follow command. Pt on tube feeds today. 04/27/18 10:58 04/27/18 17:51 CCU Objective - Vital Signs / Intake & Output Vital Signs (Last 4 hours): Vital Signs Temp Pulse Resp BP Pulse Ox 04/27/18 10:30 95 H 04/27/18 08:03 95 H 23 139/78 96 04/27/18 08:00 99.5 F 97 04/27/18 07:03 91 H 21 151/78 H 97 04/27/18 06:50 91 H Intake and Output (Last 8hrs): Intake & Output 04/26/18 04/27/18 04/27/18 22:59 06:59 14:59 Intake Total 690 305 30 Output Total 265 375 60 Balance 425 -70 -30 Weight 143 lb 12.8 oz Intake: Intake, IV Amount 600 175 Right Forearm 600 175 Tube Feeding 40 80 30 Other 50 50 Output: Urine 265 375 60 Urethral (Connor) 265 375 60 Other: # Bowel Movements 0 0 - Physical Exam Head: Positive for: Atraumatic, Normocephalic, Other (no appreciable facial droop) Pupils: Positive for: PERRL. Negative for: Pinpoint Extroacular Muscles: Positive for: EOMI Conjunctiva: Negative for: Injected, Icteric Mouth: Positive for: Moist Mucous Membranes, Other (wearing Bipap mask) Nose (External): Positive for: Atraumatic. Negative for: Abrasion, Contusion, Laceration Nose (Internal): Positive for: No Active Bleeding. Negative for: Epistaxis Neck: Positive for: Normal Range of Motion (passive ROM intact, patient struggles to comprehend instructions for active ROM testing), Trachea Midline. Negative for: JVD Respiratory/Chest: Positive for: Clear to Auscultation, Respiratory Distress. Negative for: Good Air Exchange, Accessory Muscle Use, Wheezes, Decreased Breath Sounds, Rales, Rhonchi Cardiovascular: Positive for: Regular Rate and Rhythm, Normal S1, S2, Peripheal Pulses Present (+2 radials and doralis pedis bilaterally). Negative for: Murmurs, Irregular Rhythm, Tachycardic, Bradycardic Abdomen: Positive for: Normal Bowel Sounds. Negative for: Tenderness, Distention Upper Extremity: Positive for: NORMAL PULSES. Negative for: Cyanosis, Edema, Tenderness, Erythema, Deformity Lower Extremity: Positive for: NORMAL PULSES. Negative for: Edema, CALF TENDERNESS, Cyanosis, Tenderness, Swelling, Deformity Neurological: Positive for: GCS=15 (GCS between 14-15 (E4 V4-5 M6); able to speak few appropriate words, unable to speak sufficiently to assess if oriented or confused), Normal Sensory Function (difficult to fully evaluated sensory function due to non-verbal and language barriers, but able to attempt to move correct extremities based on poking/prodding desired extremity without being able to see the extremities when prodding so at least some degree of sensation intact bilaterally), Other (5/5 motor in RLE and RUE, less movement of L extremities but does display spontaneous movement of L hand and LLE) Skin: Positive for: Warm, Dry, Normal Color. Negative for: Rashes Psychiatric: Positive for: Other (awake and alert, minimally verbal so unable to assess orientation but able to follow some commands and answer some questions with 1-2 word answers appropriately, so some intact mental faculties) - Medications Active Medications: Active Medications Generic Name Dose Route Start Last Admin Trade Name Freq PRN Reason Stop Dose Admin Aspirin 325 mg 04/21/18 10:00 04/24/18 09:55 Ecotrin PO Not Given DAILY DARIUS Dextrose 0 ml 04/20/18 14:04 Dextrose 50% Inj IV STAT PRN Hypoglycemia Protocol Protocol Dextrose 15 gm 04/20/18 14:04 Glutose 15 PO ONCE PRN Hypoglycemia Protocol Protocol Glucagon 1 mg 04/20/18 14:04 Glucagen Diagnostic Kit IM STAT PRN Hypoglycemia Protocol Protocol Levetiracetam 500 mg/ Sodium 105 mls @ 420 mls/hr 04/24/18 10:30 04/27/18 09:02 Chloride IVPB 420 mls/hr Q12 DARIUS Administration Piperacillin Sod/Tazobactam Sod 2.25 gm in 50 mls @ 100 mls/hr 04/25/18 12:00 04/27/18 05:21 Zosyn 2.25 Gm Iv Premix IVPB 100 mls/hr Q6H DARIUS Administration Protocol Dextrose/Sodium Chloride 1,000 mls @ 60 mls/hr 04/27/18 06:14 04/27/18 06:27 Dextrose 5%/0.9% Ns 1000 Ml IV 60 mls/hr .[id number] DARIUS Administration Vancomycin/Sodium Chloride 1 gm in 200 mls @ 133 mls/hr 04/27/18 10:01 Vancomycin 1 Gm/Ns 200 Ml IVPB 04/27/18 11:31 STAT STA Protocol Azithromycin 500 mg/ Sodium 250 mls @ 250 mls/hr 04/27/18 10:15 Chloride IVPB DAILY DARIUS Protocol Insulin Human Regular 0 unit 04/23/18 12:00 04/27/18 06:26 Novolin R SC 1 units Q6H DARIUS Administration Protocol Pantoprazole Sodium 40 mg 04/21/18 10:00 04/27/18 09:02 Protonix Inj IVP 40 mg DAILY DARIUS Administration Rosuvastatin Calcium 20 mg 04/20/18 22:00 04/26/18 22:24 Crestor PO 20 mg HS DARIUS Administration - Patient Studies Lab Studies: Microbiology Studies 04/25/18 13:39 Blood Culture - Preliminary Blood NO GROWTH AFTER 24 HOURS 04/25/18 13:39 Blood Culture - Preliminary Blood NO GROWTH AFTER 24 HOURS 04/22/18 13:38 Blood Culture - Preliminary Blood NO GROWTH AFTER 4 DAYS 04/22/18 13:38 Blood Culture - Preliminary Blood NO GROWTH AFTER 4 DAYS 04/25/18 13:42 Urine Culture - Final Urine,Connor No Growth (<1,000 CFU/ML) Lab Studies 04/27/18 04/27/18 04/27/18 Range/Units 06:20 06:15 06:15 WBC 12.2 H (4.8-10.8) K/uL RBC 3.21 L (4.40-5.90) Mil/uL Hgb 9.2 L (12.0-18.0) g/dL Hct 28.1 L (35.0-51.0) % MCV 87.5 (80.0-94.0) fL MCH 28.7 (27.0-31.0) pg MCHC 32.8 L (33.0-37.0) g/dL RDW 14.8 H (11.5-14.5) % Plt Count 261 (130-400) K/uL MPV 8.4 (7.2-11.7) fL Neut % (Auto) 79.3 H (50.0-75.0) % Lymph % (Auto) 10.9 L (20.0-40.0) % Mclean % (Auto) 7.4 (0.0-10.0) % Eos % (Auto) 1.6 (0.0-4.0) % Baso % (Auto) 0.8 (0.0-2.0) % Neut # (Auto) 9.7 H (1.8-7.0) K/uL Lymph # (Auto) 1.3 (1.0-4.3) K/uL Mclean # (Auto) 0.9 H (0.0-0.8) K/uL Eos # (Auto) 0.2 (0.0-0.7) K/uL Baso # (Auto) 0.1 (0.0-0.2) K/uL Puncture Site pCO2 (35-45) mm/Hg pO2 (80-100) mm/Hg HCO3 (21-28) mmol/L ABG pH (7.35-7.45) ABG Total CO2 (22-28) mmol/L ABG O2 Saturation (95-98) % ABG Base Excess (-2.0-3.0) mmol/L ABG Hemoglobin (11.7-17.4) g/dL ABG Carboxyhemoglobin (0.5-1.5) % POC ABG HHb (Measured) (0.0-5.0) % ABG Methemoglobin (0.0-3.0) % Jonas Test A-a O2 Difference mm/Hg Respiratory Index Hgb O2 Saturation (95.0-98.0) % Vent Mode FiO2 % Inspiratory BiPAP Expiratory BiPAP Sodium 154 H (132-148) mmol/L Potassium 4.0 (3.6-5.2) mmol/L Chloride 114 H (98-107) mmol/L Carbon Dioxide 31 H (22-30) mmol/L Anion Gap 13 (10-20) BUN 52 H (9-20) mg/dL Creatinine 1.5 (0.8-1.5) mg/dL Est GFR ( Amer) 56 Est GFR (Non-Af Amer) 46 POC Glucose (mg/dL) 190 H (65-110) mg/dL Random Glucose 194 H (75-110) mg/dL Calcium 8.4 L (8.6-10.4) mg/dl Phosphorus 3.6 (2.5-4.5) mg/dL Magnesium 2.3 (1.6-2.3) mg/dL Total Bilirubin 1.0 (0.2-1.3) mg/dL AST 21 (17-59) U/L ALT 22 (21-72) U/L Alkaline Phosphatase 85 (38-126) U/L Total Protein 6.0 L (6.3-8.3) g/dL Albumin 2.9 L (3.5-5.0) g/dL Globulin 3.0 (2.2-3.9) gm/dL Albumin/Globulin Ratio 1.0 (1.0-2.1) 04/27/18 04/26/18 04/26/18 Range/Units 04:21 23:22 17:41 WBC (4.8-10.8) K/uL RBC (4.40-5.90) Mil/uL Hgb (12.0-18.0) g/dL Hct (35.0-51.0) % MCV (80.0-94.0) fL MCH (27.0-31.0) pg MCHC (33.0-37.0) g/dL RDW (11.5-14.5) % Plt Count (130-400) K/uL MPV (7.2-11.7) fL Neut % (Auto) (50.0-75.0) % Lymph % (Auto) (20.0-40.0) % Mclean % (Auto) (0.0-10.0) % Eos % (Auto) (0.0-4.0) % Baso % (Auto) (0.0-2.0) % Neut # (Auto) (1.8-7.0) K/uL Lymph # (Auto) (1.0-4.3) K/uL Mclean # (Auto) (0.0-0.8) K/uL Eos # (Auto) (0.0-0.7) K/uL Baso # (Auto) (0.0-0.2) K/uL Puncture Site Rb pCO2 47 H (35-45) mm/Hg pO2 147 H (80-100) mm/Hg HCO3 27.2 (21-28) mmol/L ABG pH 7.39 (7.35-7.45) ABG Total CO2 29.9 H (22-28) mmol/L ABG O2 Saturation 99.4 H (95-98) % ABG Base Excess 2.9 (-2.0-3.0) mmol/L ABG Hemoglobin 12.2 (11.7-17.4) g/dL ABG Carboxyhemoglobin 1.8 H (0.5-1.5) % POC ABG HHb (Measured) 0.6 (0.0-5.0) % ABG Methemoglobin 1.2 (0.0-3.0) % Jonas Test Na A-a O2 Difference 151.0 mm/Hg Respiratory Index 1.0 Hgb O2 Saturation 96.5 (95.0-98.0) % Vent Mode Bipap FiO2 50.0 % Inspiratory BiPAP 12 Expiratory BiPAP 6 Sodium (132-148) mmol/L Potassium (3.6-5.2) mmol/L Chloride (98-107) mmol/L Carbon Dioxide (22-30) mmol/L Anion Gap (10-20) BUN (9-20) mg/dL Creatinine (0.8-1.5) mg/dL Est GFR ( Amer) Est GFR (Non-Af Amer) POC Glucose (mg/dL) 200 H 212 H (65-110) mg/dL Random Glucose (75-110) mg/dL Calcium (8.6-10.4) mg/dl Phosphorus (2.5-4.5) mg/dL Magnesium (1.6-2.3) mg/dL Total Bilirubin (0.2-1.3) mg/dL AST (17-59) U/L ALT (21-72) U/L Alkaline Phosphatase (38-126) U/L Total Protein (6.3-8.3) g/dL Albumin (3.5-5.0) g/dL Globulin (2.2-3.9) gm/dL Albumin/Globulin Ratio (1.0-2.1) 04/26/18 Range/Units 11:10 WBC (4.8-10.8) K/uL RBC (4.40-5.90) Mil/uL Hgb (12.0-18.0) g/dL Hct (35.0-51.0) % MCV (80.0-94.0) fL MCH (27.0-31.0) pg MCHC (33.0-37.0) g/dL RDW (11.5-14.5) % Plt Count (130-400) K/uL MPV (7.2-11.7) fL Neut % (Auto) (50.0-75.0) % Lymph % (Auto) (20.0-40.0) % Mclean % (Auto) (0.0-10.0) % Eos % (Auto) (0.0-4.0) % Baso % (Auto) (0.0-2.0) % Neut # (Auto) (1.8-7.0) K/uL Lymph # (Auto) (1.0-4.3) K/uL Mclean # (Auto) (0.0-0.8) K/uL Eos # (Auto) (0.0-0.7) K/uL Baso # (Auto) (0.0-0.2) K/uL Puncture Site pCO2 (35-45) mm/Hg pO2 (80-100) mm/Hg HCO3 (21-28) mmol/L ABG pH (7.35-7.45) ABG Total CO2 (22-28) mmol/L ABG O2 Saturation (95-98) % ABG Base Excess (-2.0-3.0) mmol/L ABG Hemoglobin (11.7-17.4) g/dL ABG Carboxyhemoglobin (0.5-1.5) % POC ABG HHb (Measured) (0.0-5.0) % ABG Methemoglobin (0.0-3.0) % Jonas Test A-a O2 Difference mm/Hg Respiratory Index Hgb O2 Saturation (95.0-98.0) % Vent Mode FiO2 % Inspiratory BiPAP Expiratory BiPAP Sodium (132-148) mmol/L Potassium (3.6-5.2) mmol/L Chloride (98-107) mmol/L Carbon Dioxide (22-30) mmol/L Anion Gap (10-20) BUN (9-20) mg/dL Creatinine (0.8-1.5) mg/dL Est GFR ( Amer) Est GFR (Non-Af Amer) POC Glucose (mg/dL) 210 H (65-110) mg/dL Random Glucose (75-110) mg/dL Calcium (8.6-10.4) mg/dl Phosphorus (2.5-4.5) mg/dL Magnesium (1.6-2.3) mg/dL Total Bilirubin (0.2-1.3) mg/dL AST (17-59) U/L ALT (21-72) U/L Alkaline Phosphatase (38-126) U/L Total Protein (6.3-8.3) g/dL Albumin (3.5-5.0) g/dL Globulin (2.2-3.9) gm/dL Albumin/Globulin Ratio (1.0-2.1) Laboratory Results - last 24 hr 04/26/18 04/26/18 04/26/18 11:10 17:41 23:22 WBC RBC Hgb Hct MCV MCH MCHC RDW Plt Count MPV Neut % (Auto) Lymph % (Auto) Mclean % (Auto) Eos % (Auto) Baso % (Auto) Neut # (Auto) Lymph # (Auto) Mclean # (Auto) Eos # (Auto) Baso # (Auto) Puncture Site pCO2 pO2 HCO3 ABG pH ABG Total CO2 ABG O2 Saturation ABG Base Excess ABG Hemoglobin ABG Carboxyhemoglobin POC ABG HHb (Measured) ABG Methemoglobin Jonas Test A-a O2 Difference Respiratory Index Hgb O2 Saturation Vent Mode FiO2 Inspiratory BiPAP Expiratory BiPAP Sodium Potassium Chloride Carbon Dioxide Anion Gap BUN Creatinine Est GFR ( Amer) Est GFR (Non-Af Amer) POC Glucose (mg/dL) 210 H 212 H 200 H Random Glucose Calcium Phosphorus Magnesium Total Bilirubin AST ALT Alkaline Phosphatase Total Protein Albumin Globulin Albumin/Globulin Ratio 04/27/18 04/27/18 04/27/18 04:21 06:15 06:15 WBC 12.2 H RBC 3.21 L Hgb 9.2 L Hct 28.1 L MCV 87.5 MCH 28.7 MCHC 32.8 L RDW 14.8 H Plt Count 261 MPV 8.4 Neut % (Auto) 79.3 H Lymph % (Auto) 10.9 L Mclean % (Auto) 7.4 Eos % (Auto) 1.6 Baso % (Auto) 0.8 Neut # (Auto) 9.7 H Lymph # (Auto) 1.3 Mclean # (Auto) 0.9 H Eos # (Auto) 0.2 Baso # (Auto) 0.1 Puncture Site Rb pCO2 47 H pO2 147 H HCO3 27.2 ABG pH 7.39 ABG Total CO2 29.9 H ABG O2 Saturation 99.4 H ABG Base Excess 2.9 ABG Hemoglobin 12.2 ABG Carboxyhemoglobin 1.8 H POC ABG HHb (Measured) 0.6 ABG Methemoglobin 1.2 Jonas Test Na A-a O2 Difference 151.0 Respiratory Index 1.0 Hgb O2 Saturation 96.5 Vent Mode Bipap FiO2 50.0 Inspiratory BiPAP 12 Expiratory BiPAP 6 Sodium 154 H Potassium 4.0 Chloride 114 H Carbon Dioxide 31 H Anion Gap 13 BUN 52 H Creatinine 1.5 Est GFR ( Amer) 56 Est GFR (Non-Af Amer) 46 POC Glucose (mg/dL) Random Glucose 194 H Calcium 8.4 L Phosphorus 3.6 Magnesium 2.3 Total Bilirubin 1.0 AST 21 ALT 22 Alkaline Phosphatase 85 Total Protein 6.0 L Albumin 2.9 L Globulin 3.0 Albumin/Globulin Ratio 1.0 04/27/18 06:20 WBC RBC Hgb Hct MCV MCH MCHC RDW Plt Count MPV Neut % (Auto) Lymph % (Auto) Mclean % (Auto) Eos % (Auto) Baso % (Auto) Neut # (Auto) Lymph # (Auto) Mclean # (Auto) Eos # (Auto) Baso # (Auto) Puncture Site pCO2 pO2 HCO3 ABG pH ABG Total CO2 ABG O2 Saturation ABG Base Excess ABG Hemoglobin ABG Carboxyhemoglobin POC ABG HHb (Measured) ABG Methemoglobin Jonas Test A-a O2 Difference Respiratory Index Hgb O2 Saturation Vent Mode FiO2 Inspiratory BiPAP Expiratory BiPAP Sodium Potassium Chloride Carbon Dioxide Anion Gap BUN Creatinine Est GFR ( Amer) Est GFR (Non-Af Amer) POC Glucose (mg/dL) 190 H Random Glucose Calcium Phosphorus Magnesium Total Bilirubin AST ALT Alkaline Phosphatase Total Protein Albumin Globulin Albumin/Globulin Ratio Fingerstick Blood Sugar Results: 190 Critical Care Progress Note - Nutrition Nutrition: Nutrition Category Date Time Status NPO Diet [DIET] Diets 04/24/18 Breakfast Active Assessment/Plan - Assessment and Plan (Free Text) Assessment: This is a 72 yo M with PMH of TIA (05/2017), NIDDM, and diastolic CHF who presented to for evaluation of acute onset left sided weakness prior to presentation. Aphasia and L sided weakness persists but is improved as compared to initial presentation to ICU. possible aspiration PNA Plan: Neuro: - 04/[address] shows no acute intracranial hemorrhage. Chronic microvascular ischemic changes. More confluent low attenuation seen within the right frontal subcortical white matter. Focal hypodensity within the right cerebellum suggestive for chronic lacunar infarct. Intracranial arterial calcifications. - 04/[address] notable for Moderate generalized volume loss, Redemonstrated bulbous/somewhat mass-like appearance in the right choroid plexus of uncertain etiology (please see report for full details) - 04/21 Head and Neck CTA shows no evidence of occlusion, dissection, or significant stenosis. No evidence of large aneurysm or vascular malformation. - 04/21 Brain MRI w/o contrast shows small acute rightposterior frontoparietal subcortical infarct, -significant improvement in neuro function throughout today, now moving left extremities and able to speak some words -Neuro (Dr Holliday) consulted, appreciate all recs; recs EEG (pending), repeat head CT, and obtaining MRI with and w/o efraín to assess for new stroke given speech deficits and to better assess R choroid plexus mass -04/[address]: minor occipital bleed -Continue Keppra 500mg BID -hold ASA -neuro checks q4 Pulm: -R Lung severe rales -CXR today shows infiltrate -zosyn 2.25 q6 -vanco 1g IV one dose (cr 1.5) -azithro 500 qd -satting well on BiPAP -CXR this AM reviewed and compared to prior, worsening pulm edema and effusions possible pna; pending CT chest to assess for any persisting effusion -ABG from yesterday reviewed -possible intubation -17:30 Nasal Canula trial 4L O2: pt tolerating well will observe Cardio: -Dr Owens (Cardio) consulted, appreciate all recs; echo reviewed, no arrhythmia on tele, primary management as per neuro -Maintaining MAP > 65, no further hypotensive episodes -initial hypotensive episode with AMS likely 2/2 high dose lasix holding lasix pending chest CT to assess if still effusions, if resuming diuresis will have to diurese gently to prevent bottoming-out BP -Albumin drip completed 04/24 -continue ASA 325mg PO daily GI: -NG tube feeds jevity started @ 10cc/hr - f/u nutrition goal recs -Protonix for GI ppx -pending official swallow eval tmr Nephro: -Cr 1.6 -making clear yellow urine in connor -monitor and replete electrolytes as needed ID: -zosyn, azithro + single dose Vanco -WBCs 12 Heme: -Hgb 9 , no signs of bleeding -repeat head CT: Occipital bleed -Lovenox SC for DVT ppx Endo: -maintain euglycemia, BG target 140-180 as per NICE SUGAR trial -Hx of DM, but hold Metformin given NPO and in case patient needs contrast study -Sliding scale insulin, hypoglycemic protocols, Accuchecks q6 -glucagon 1mg IM PRN <Leoncio Magdaleno S - Last Filed: 04/27/18 18:06> CCU Subjective - Physician Review Critical Care Time Spent (in minutes): 35 CCU Objective - Vital Signs / Intake & Output Vital Signs (Last 4 hours): Vital Signs Pulse 04/27/18 16:06 81 04/27/18 14:25 82 Intake and Output (Last 8hrs): Intake & Output 04/27/18 04/27/18 04/27/18 06:59 14:59 22:59 Intake Total 305 30 Output Total 375 60 Balance -70 -30 Weight 143 lb 12.8 oz Intake: Intake, IV Amount 175 Right Forearm 175 Tube Feeding 80 30 Other 50 Output: Urine 375 60 Urethral (Connor) 375 60 Other: # Bowel Movements 0 - Medications Active Medications: Active Medications Generic Name Dose Route Start Last Admin Trade Name Freq PRN Reason Stop Dose Admin Acetylcysteine 6 ml 04/27/18 13:00 04/27/18 13:01 Acetylcysteine 20% PO 04/29/18 01:01 6 ml Q12H DARIUS Administration Aspirin 325 mg 04/21/18 10:00 04/24/18 09:55 Ecotrin PO Not Given DAILY DARIUS Dextrose 0 ml 04/20/18 14:04 Dextrose 50% Inj IV STAT PRN Hypoglycemia Protocol Protocol Dextrose 15 gm 04/20/18 14:04 Glutose 15 PO ONCE PRN Hypoglycemia Protocol Protocol Glucagon 1 mg 04/20/18 14:04 Glucagen Diagnostic Kit IM STAT PRN Hypoglycemia Protocol Protocol Levetiracetam 500 mg/ Sodium 105 mls @ 420 mls/hr 04/24/18 10:30 04/27/18 09:02 Chloride IVPB 420 mls/hr Q12 DARIUS Administration Piperacillin Sod/Tazobactam Sod 2.25 gm in 50 mls @ 100 mls/hr 04/25/18 12:00 04/27/18 17:44 Zosyn 2.25 Gm Iv Premix IVPB 100 mls/hr Q6H DARIUS Administration Protocol Dextrose/Sodium Chloride 1,000 mls @ 60 mls/hr 04/27/18 06:14 04/27/18 06:27 Dextrose 5%/0.9% Ns 1000 Ml IV 60 mls/hr .[id number] DARIUS Administration Azithromycin 500 mg/ Sodium 250 mls @ 250 mls/hr 04/27/18 10:15 04/27/18 11:15 Chloride IVPB 250 mls/hr DAILY DARIUS Administration Protocol Insulin Human Regular 0 unit 04/23/18 12:00 04/27/18 13:00 Novolin R SC 2 units Q6H DARIUS Administration Protocol Pantoprazole Sodium 40 mg 04/28/18 10:00 Protonix Susp NG DAILY DARIUS Rosuvastatin Calcium 20 mg 04/20/18 22:00 04/26/18 22:24 Crestor PO 20 mg HS DARIUS Administration - Patient Studies Lab Studies: Microbiology Studies 04/25/18 13:39 Blood Culture - Preliminary Blood NO GROWTH AFTER 48 HOURS 04/22/18 13:38 Blood Culture - Final Blood NO GROWTH AFTER 5 DAYS Gram Stain - Final TEST NOT PERFORMED 04/25/18 13:39 Blood Culture - Preliminary Blood NO GROWTH AFTER 48 HOURS 04/22/18 13:38 Blood Culture - Final Blood NO GROWTH AFTER 5 DAYS Gram Stain - Final TEST NOT PERFORMED Lab Studies 04/27/18 04/27/18 04/27/18 Range/Units 11:24 11:08 06:20 WBC (4.8-10.8) K/uL RBC (4.40-5.90) Mil/uL Hgb (12.0-18.0) g/dL Hct (35.0-51.0) % MCV (80.0-94.0) fL MCH (27.0-31.0) pg MCHC (33.0-37.0) g/dL RDW (11.5-14.5) % Plt Count (130-400) K/uL MPV (7.2-11.7) fL Neut % (Auto) (50.0-75.0) % Lymph % (Auto) (20.0-40.0) % Mclean % (Auto) (0.0-10.0) % Eos % (Auto) (0.0-4.0) % Baso % (Auto) (0.0-2.0) % Neut # (Auto) (1.8-7.0) K/uL Lymph # (Auto) (1.0-4.3) K/uL Mclean # (Auto) (0.0-0.8) K/uL Eos # (Auto) (0.0-0.7) K/uL Baso # (Auto) (0.0-0.2) K/uL Puncture Site pCO2 (35-45) mm/Hg pO2 (80-100) mm/Hg HCO3 (21-28) mmol/L ABG pH (7.35-7.45) ABG Total CO2 (22-28) mmol/L ABG O2 Saturation (95-98) % ABG Base Excess (-2.0-3.0) mmol/L ABG Hemoglobin (11.7-17.4) g/dL ABG Carboxyhemoglobin (0.5-1.5) % POC ABG HHb (Measured) (0.0-5.0) % ABG Methemoglobin (0.0-3.0) % Jonas Test A-a O2 Difference mm/Hg Respiratory Index Hgb O2 Saturation (95.0-98.0) % Vent Mode FiO2 % Inspiratory BiPAP Expiratory BiPAP Sodium (132-148) mmol/L Potassium (3.6-5.2) mmol/L Chloride (98-107) mmol/L Carbon Dioxide (22-30) mmol/L Anion Gap (10-20) BUN (9-20) mg/dL Creatinine (0.8-1.5) mg/dL Est GFR ( Amer) Est GFR (Non-Af Amer) POC Glucose (mg/dL) 246 H 190 H (65-110) mg/dL Random Glucose (75-110) mg/dL Calcium (8.6-10.4) mg/dl Phosphorus (2.5-4.5) mg/dL Magnesium (1.6-2.3) mg/dL Total Bilirubin (0.2-1.3) mg/dL AST (17-59) U/L ALT (21-72) U/L Alkaline Phosphatase (38-126) U/L Total Protein (6.3-8.3) g/dL Albumin (3.5-5.0) g/dL Globulin (2.2-3.9) gm/dL Albumin/Globulin Ratio (1.0-2.1) Procalcitonin 0.36 (0.19-0.49) NG/ML Ur L.pneumophila Ag Negative (NEGATIVE) 04/27/18 04/27/18 04/27/18 Range/Units 06:15 06:15 04:21 WBC 12.2 H (4.8-10.8) K/uL RBC 3.21 L (4.40-5.90) Mil/uL Hgb 9.2 L (12.0-18.0) g/dL Hct 28.1 L (35.0-51.0) % MCV 87.5 (80.0-94.0) fL MCH 28.7 (27.0-31.0) pg MCHC 32.8 L (33.0-37.0) g/dL RDW 14.8 H (11.5-14.5) % Plt Count 261 (130-400) K/uL MPV 8.4 (7.2-11.7) fL Neut % (Auto) 79.3 H (50.0-75.0) % Lymph % (Auto) 10.9 L (20.0-40.0) % Mclean % (Auto) 7.4 (0.0-10.0) % Eos % (Auto) 1.6 (0.0-4.0) % Baso % (Auto) 0.8 (0.0-2.0) % Neut # (Auto) 9.7 H (1.8-7.0) K/uL Lymph # (Auto) 1.3 (1.0-4.3) K/uL Mclean # (Auto) 0.9 H (0.0-0.8) K/uL Eos # (Auto) 0.2 (0.0-0.7) K/uL Baso # (Auto) 0.1 (0.0-0.2) K/uL Puncture Site Rb pCO2 47 H (35-45) mm/Hg pO2 147 H (80-100) mm/Hg HCO3 27.2 (21-28) mmol/L ABG pH 7.39 (7.35-7.45) ABG Total CO2 29.9 H (22-28) mmol/L ABG O2 Saturation 99.4 H (95-98) % ABG Base Excess 2.9 (-2.0-3.0) mmol/L ABG Hemoglobin 12.2 (11.7-17.4) g/dL ABG Carboxyhemoglobin 1.8 H (0.5-1.5) % POC ABG HHb (Measured) 0.6 (0.0-5.0) % ABG Methemoglobin 1.2 (0.0-3.0) % Jonas Test Na A-a O2 Difference 151.0 mm/Hg Respiratory Index 1.0 Hgb O2 Saturation 96.5 (95.0-98.0) % Vent Mode Bipap FiO2 50.0 % Inspiratory BiPAP 12 Expiratory BiPAP 6 Sodium 154 H (132-148) mmol/L Potassium 4.0 (3.6-5.2) mmol/L Chloride 114 H (98-107) mmol/L Carbon Dioxide 31 H (22-30) mmol/L Anion Gap 13 (10-20) BUN 52 H (9-20) mg/dL Creatinine 1.5 (0.8-1.5) mg/dL Est GFR ( Amer) 56 Est GFR (Non-Af Amer) 46 POC Glucose (mg/dL) (65-110) mg/dL Random Glucose 194 H (75-110) mg/dL Calcium 8.4 L (8.6-10.4) mg/dl Phosphorus 3.6 (2.5-4.5) mg/dL Magnesium 2.3 (1.6-2.3) mg/dL Total Bilirubin 1.0 (0.2-1.3) mg/dL AST 21 (17-59) U/L ALT 22 (21-72) U/L Alkaline Phosphatase 85 (38-126) U/L Total Protein 6.0 L (6.3-8.3) g/dL Albumin 2.9 L (3.5-5.0) g/dL Globulin 3.0 (2.2-3.9) gm/dL Albumin/Globulin Ratio 1.0 (1.0-2.1) Procalcitonin (0.19-0.49) NG/ML Ur L.pneumophila Ag (NEGATIVE) 04/26/18 04/26/18 04/26/18 Range/Units 23:22 17:41 11:10 WBC (4.8-10.8) K/uL RBC (4.40-5.90) Mil/uL Hgb (12.0-18.0) g/dL Hct (35.0-51.0) % MCV (80.0-94.0) fL MCH (27.0-31.0) pg MCHC (33.0-37.0) g/dL RDW (11.5-14.5) % Plt Count (130-400) K/uL MPV (7.2-11.7) fL Neut % (Auto) (50.0-75.0) % Lymph % (Auto) (20.0-40.0) % Mclean % (Auto) (0.0-10.0) % Eos % (Auto) (0.0-4.0) % Baso % (Auto) (0.0-2.0) % Neut # (Auto) (1.8-7.0) K/uL Lymph # (Auto) (1.0-4.3) K/uL Mclean # (Auto) (0.0-0.8) K/uL Eos # (Auto) (0.0-0.7) K/uL Baso # (Auto) (0.0-0.2) K/uL Puncture Site pCO2 (35-45) mm/Hg pO2 (80-100) mm/Hg HCO3 (21-28) mmol/L ABG pH (7.35-7.45) ABG Total CO2 (22-28) mmol/L ABG O2 Saturation (95-98) % ABG Base Excess (-2.0-3.0) mmol/L ABG Hemoglobin (11.7-17.4) g/dL ABG Carboxyhemoglobin (0.5-1.5) % POC ABG HHb (Measured) (0.0-5.0) % ABG Methemoglobin (0.0-3.0) % Jonas Test A-a O2 Difference mm/Hg Respiratory Index Hgb O2 Saturation (95.0-98.0) % Vent Mode FiO2 % Inspiratory BiPAP Expiratory BiPAP Sodium (132-148) mmol/L Potassium (3.6-5.2) mmol/L Chloride (98-107) mmol/L Carbon Dioxide (22-30) mmol/L Anion Gap (10-20) BUN (9-20) mg/dL Creatinine (0.8-1.5) mg/dL Est GFR ( Amer) Est GFR (Non-Af Amer) POC Glucose (mg/dL) 200 H 212 H 210 H (65-110) mg/dL Random Glucose (75-110) mg/dL Calcium (8.6-10.4) mg/dl Phosphorus (2.5-4.5) mg/dL Magnesium (1.6-2.3) mg/dL Total Bilirubin (0.2-1.3) mg/dL AST (17-59) U/L ALT (21-72) U/L Alkaline Phosphatase (38-126) U/L Total Protein (6.3-8.3) g/dL Albumin (3.5-5.0) g/dL Globulin (2.2-3.9) gm/dL Albumin/Globulin Ratio (1.0-2.1) Procalcitonin (0.19-0.49) NG/ML Ur L.pneumophila Ag (NEGATIVE) Laboratory Results - last 24 hr 04/26/18 04/26/18 04/26/18 11:10 17:41 23:22 WBC RBC Hgb Hct MCV MCH MCHC RDW Plt Count MPV Neut % (Auto) Lymph % (Auto) Mclean % (Auto) Eos % (Auto) Baso % (Auto) Neut # (Auto) Lymph # (Auto) Mclean # (Auto) Eos # (Auto) Baso # (Auto) Puncture Site pCO2 pO2 HCO3 ABG pH ABG Total CO2 ABG O2 Saturation ABG Base Excess ABG Hemoglobin ABG Carboxyhemoglobin POC ABG HHb (Measured) ABG Methemoglobin Jonas Test A-a O2 Difference Respiratory Index Hgb O2 Saturation Vent Mode FiO2 Inspiratory BiPAP Expiratory BiPAP Sodium Potassium Chloride Carbon Dioxide Anion Gap BUN Creatinine Est GFR ( Amer) Est GFR (Non-Af Amer) POC Glucose (mg/dL) 210 H 212 H 200 H Random Glucose Calcium Phosphorus Magnesium Total Bilirubin AST ALT Alkaline Phosphatase Total Protein Albumin Globulin Albumin/Globulin Ratio Procalcitonin Ur L.pneumophila Ag 04/27/18 04/27/18 04/27/18 04:21 06:15 06:15 WBC 12.2 H RBC 3.21 L Hgb 9.2 L Hct 28.1 L MCV 87.5 MCH 28.7 MCHC 32.8 L RDW 14.8 H Plt Count 261 MPV 8.4 Neut % (Auto) 79.3 H Lymph % (Auto) 10.9 L Mclean % (Auto) 7.4 Eos % (Auto) 1.6 Baso % (Auto) 0.8 Neut # (Auto) 9.7 H Lymph # (Auto) 1.3 Mclean # (Auto) 0.9 H Eos # (Auto) 0.2 Baso # (Auto) 0.1 Puncture Site Rb pCO2 47 H pO2 147 H HCO3 27.2 ABG pH 7.39 ABG Total CO2 29.9 H ABG O2 Saturation 99.4 H ABG Base Excess 2.9 ABG Hemoglobin 12.2 ABG Carboxyhemoglobin 1.8 H POC ABG HHb (Measured) 0.6 ABG Methemoglobin 1.2 Jonas Test Na A-a O2 Difference 151.0 Respiratory Index 1.0 Hgb O2 Saturation 96.5 Vent Mode Bipap FiO2 50.0 Inspiratory BiPAP 12 Expiratory BiPAP 6 Sodium 154 H Potassium 4.0 Chloride 114 H Carbon Dioxide 31 H Anion Gap 13 BUN 52 H Creatinine 1.5 Est GFR ( Amer) 56 Est GFR (Non-Af Amer) 46 POC Glucose (mg/dL) Random Glucose 194 H Calcium 8.4 L Phosphorus 3.6 Magnesium 2.3 Total Bilirubin 1.0 AST 21 ALT 22 Alkaline Phosphatase 85 Total Protein 6.0 L Albumin 2.9 L Globulin 3.0 Albumin/Globulin Ratio 1.0 Procalcitonin Ur L.pneumophila Ag 04/27/18 04/27/18 04/27/18 06:20 11:08 11:24 WBC RBC Hgb Hct MCV MCH MCHC RDW Plt Count MPV Neut % (Auto) Lymph % (Auto) Mclean % (Auto) Eos % (Auto) Baso % (Auto) Neut # (Auto) Lymph # (Auto) Mclean # (Auto) Eos # (Auto) Baso # (Auto) Puncture Site pCO2 pO2 HCO3 ABG pH ABG Total CO2 ABG O2 Saturation ABG Base Excess ABG Hemoglobin ABG Carboxyhemoglobin POC ABG HHb (Measured) ABG Methemoglobin Jonas Test A-a O2 Difference Respiratory Index Hgb O2 Saturation Vent Mode FiO2 Inspiratory BiPAP Expiratory BiPAP Sodium Potassium Chloride Carbon Dioxide Anion Gap BUN Creatinine Est GFR ( Amer) Est GFR (Non-Af Amer) POC Glucose (mg/dL) 190 H 246 H Random Glucose Calcium Phosphorus Magnesium Total Bilirubin AST ALT Alkaline Phosphatase Total Protein Albumin Globulin Albumin/Globulin Ratio Procalcitonin 0.36 Ur L.pneumophila Ag Negative Critical Care Progress Note - Nutrition Nutrition: Nutrition Category Date Time Status NPO Diet [DIET] Diets 04/24/18 Breakfast Active Attending/Attestation - Attestation I have personally seen and examined this patient.: Yes I have fully participated in the care of the patient.: Yes I have reviewed all pertinent clinical information: Yes Notes (Text): 04/27/18 18:05 patient seen and examined in the intensive care unit. Patient is off BiPAP Chest x-ray consistent with bilateral infiltrate Echocardiogram showed good ejection fraction Afebrile Continue antibiotics Follow-up culture and sensitivity Follow-up renal function CT angiogram also head
[2018-04-27] MEDS: Azithromycin 500 MG in Sodium Chloride 0.9% 250 ML IVPB SCH (11:15)
[2018-04-27 12:14] LABS: LEGIONELLA AG URINE NEGATIVE (NEGATIVE)
[2018-04-27] MEDS: Acetylcysteine 20% Inhal Soln (4ml) PO SCH (13:01)
--- NOTE | 2018-04-27 13:37 | CP.PCM.PN ---
Subjective - Date & Time of Evaluation Date of Evaluation: 04/27/18 Time of Evaluation: 13:37 - Subjective Subjective: PGY-2 Progress Note: Dr. Holliday's Service Patient seen and examined at bedside. Per nursing no acute events occurred overnight. ROS unobtainable due to current clinical condition. Patient remains on BIPAP. Objective - Vital Signs/Intake and Output Vital Signs (last 24 hours): Temp Pulse Resp BP Pulse Ox 99.5 F 95 H 23 139/78 96 04/27/18 08:00 04/27/18 10:30 04/27/18 08:03 04/27/18 08:03 04/27/18 08:03 Intake and Output: 04/27/18 04/27/18 06:59 18:59 Intake Total 795 30 Output Total 540 60 Balance 255 -30 - Medications Medications: Current Medications Acetylcysteine (Acetylcysteine 20%) 6 ml PO Q12H DARIUS Stop: 04/29/18 01:01 Last Admin: 04/27/18 13:01 Dose: 6 ml Aspirin (Ecotrin) 325 mg PO DAILY DARIUS Last Admin: 04/24/18 09:55 Dose: Not Given Dextrose (Dextrose 50% Inj) 0 ml IV STAT PRN; Protocol PRN Reason: Hypoglycemia Protocol Dextrose (Glutose 15) 15 gm PO ONCE PRN; Protocol PRN Reason: Hypoglycemia Protocol Glucagon (Glucagen Diagnostic Kit) 1 mg IM STAT PRN; Protocol PRN Reason: Hypoglycemia Protocol Levetiracetam 500 mg/ Sodium (Chloride) 105 mls @ 420 mls/hr IVPB Q12 DARIUS Last Admin: 04/27/18 09:02 Dose: 420 mls/hr Piperacillin Sod/Tazobactam Sod (Zosyn 2.25 Gm Iv Premix) 2.25 gm in 50 mls @ 100 mls/hr IVPB Q6H DARIUS; Protocol Last Admin: 04/27/18 05:21 Dose: 100 mls/hr Dextrose/Sodium Chloride (Dextrose 5%/0.9% Ns 1000 Ml) 1,000 mls @ 60 mls/hr IV .[id number] DARIUS Last Admin: 04/27/18 06:27 Dose: 60 mls/hr Azithromycin 500 mg/ Sodium (Chloride) 250 mls @ 250 mls/hr IVPB DAILY DARIUS; Protocol Last Admin: 04/27/18 11:15 Dose: 250 mls/hr Insulin Human Regular (Novolin R) 0 unit SC Q6H [facility]; Protocol Last Admin: 04/27/18 13:00 Dose: 2 units Pantoprazole Sodium (Protonix Inj) 40 mg IVP DAILY [facility] Last Admin: 04/27/18 09:02 Dose: 40 mg Rosuvastatin Calcium (Crestor) 20 mg PO HS [facility] Last Admin: 04/26/18 22:24 Dose: 20 mg - Labs Labs: 04/27/18 06:15 04/27/18 06:15 PT 13.2 SECONDS (9.7-12.2) H 04/20/18 08:46 INR 1.2 04/20/18 08:46 APTT 27 SECONDS (21-34) 04/20/18 08:46 - Head Exam Head Exam: NORMAL INSPECTION - Eye Exam Eye Exam: EOMI, Normal appearance, PERRL. absent: Periorbital tenderness Pupil Exam: NORMAL ACCOMODATION - ENT Exam ENT Exam: Mucous Membranes Moist, Normal Oropharynx - Respiratory Exam Respiratory Exam: Clear to Ausculation Bilateral, NORMAL BREATHING PATTERN. absent: Prolonged Expiratory Phase, Respiratory Distress - Cardiovascular Exam Cardiovascular Exam: REGULAR RHYTHM, +S1, +S2 - GI/Abdominal Exam GI & Abdominal Exam: Soft, Normal Bowel Sounds - Back Exam Back Exam: NORMAL INSPECTION. absent: paraspinal tenderness - Neurological Exam Neurological Exam: Alert, Awake, Oriented x3 Neuro motor strength exam: Left Upper Extremity: 0, Right Upper Extremity: 3, Left Lower Extremity: 0, Right Lower Extremity: 3 - Psychiatric Exam Psychiatric exam: Normal Affect Assessment and Plan - Assessment and Plan (Free Text) Assessment: This is a 72 year old [place] speaking male with PMH of TIA (05/2017), NIDDM, diastolic CHF who was BIBA for evaluation of left sided weakness since approximately 7 am 04/20. Plan: 1.CVA Head CT shows no acute intracranial hemorrhage. Chronic microvascular ischemic changes. More confluent low attenuation seen within the right frontal subcortical white matter. Focal hypodensity within the right cerebellum suggestive for chronic lacunar infarct. Intracranial arterial calcifications. - 04/21 Head and Neck CTA shows no evidence of occlusion dissectino or significant stenosis. No evidence of large aneurysm or vascular malformation. Brain MRI w/o contrast shows: 1. small acute right posterior frontoparietal subcortical infarct. 2. Moderate to significant chronic white matter changes with extension into the deep and subcortical white matter both cerebral hemispheres. Ischemic changes are also present in superior basal nuclei/kong radiata junction bilaterally. 3. 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 4. Moderate generalized volume loss. 5. Localized bulbous masslike appearance of the right choroid plexus that is of uncertain etiology however this focus was not present on prior CT scan MRI of the brain dated 06/15/17 and 06/16/17. Repeat Head CT: :No acute intracranial hemorrhage. :Moderate to significant diffuse and confluent chronic white matter ischemic changes seen extending peripherally subcortical white matter both cerebral hemispheres. The risa changes also seen in the superior basal nuclei/coronal radiata junction bilaterally. Chronic appearing brainstem cerebellar ischemic changes less well seen. :Moderate generalized volume loss. :Redemonstrated is a bulbous somewhat masslike appearance of the right choroid plexus which is of uncertain etiology though underlying choroid plexus lesion must be excluded. Follow-up post-contrast MRI brain recommended to further characterize this lesion. Repeat Head CT(04/25/18): :Small amount of layering hemorrhage seen in the left atria/occipital, new since prior exam.. Moderate to fairly significant diffuse/confluent chronic white matter ischemic changes are also again seen extending peripherally into the deep and subcortical white matter both cerebral hemispheres... Ischemic changes superior basal nuclei/coronal radiata also felt to be present. MRI brain :There is a small acute right posterior frontoparietal subcortical infarct. Moderate to significant chronic white matter ischemic changes with extension into the deep and subcortical white matter both cerebral hemispheres as described. Ischemic changes are also seen in superior basal nuclei/kong radiata junction bilaterally. Chronic appearing the brainstem and bilateral cerebellar lacunar type infarcts are also present Moderate generalized volume loss. Localized bulbous masslike appearance of the right choroid plexus that is of uncertain etiology however this focus was not present on prior CT scan MRI of the brain dated 06/15/2017 and 06/16/2017 respectively. Follow-up post-contrast MRI of the brain is recommended to exclude the possibility of an intraventricular lesion such is an intraventricular meningioma, ependymoma, choroid plexus papilloma or neurocytoma not excluded. Follow-up not completely excluded. CT Head/ Neck on hold currently due to patient's elevation in Creatinine. EEG ordered. Will f/u with results. Carotid doppler taken. Pending result. PT/OT Plan discussed with Dr. Holliday. Kota Daugherty,PGY-2
--- NOTE | 2018-04-27 14:14 | VASCLAB ---
Date of service: 04/25/2018 PROCEDURE: Carotid Duplex Exam. HISTORY: cva COMPARISON: None available. TECHNIQUE: Grayscale and duplex Doppler evaluation of the cervical carotid and vertebral arteries were performed. The common carotid, carotid bifurcations and cervical Internal Carotid Artery (ICA) and proximal External Carotid Artery (ECA) were evaluated. The vertebral arteries were evaluated for gross patency and flow direction. Report prepared by Vlad Sellers, BS, RVT FINDINGS: RIGHT CAROTID ARTERIES: 1. Common Carotid Artery: No significant focal plaque formation of the right common carotid artery. Maximum Peak Systolic velocity: 84 cm/sec: End-diastolic velocity 18 cm/sec. 2. Carotid Bifurcation: plaque formation. Maximum Peak Systolic velocity: 66 cm/sec: End-diastolic velocity 8 cm/sec. 3. Internal Carotid Artery: Plaque description: 3.1. Proximal Segment: Peak systolic velocity 84 cm/sec: End-diastolic velocity 17 cm/sec - % stenosis 0-15% 3.2. Middle Segment: Peak systolic velocity 108 cm/sec: End-diastolic velocity 25 cm/sec - % stenosis 0-15% 3.3. Distal Segment: Peak systolic velocity 118 cm/sec: End-diastolic velocity 27 cm/sec - % stenosis 0-15% 4. External Carotid Artery: No significant focal plaque formation. Peak systolic velocity 100 cm/sec 5. ICA/CCA Ratio: 1.4 LEFT CAROTID ARTERIES: 1. Common Carotid Artery: No significant focal plaque formation of the left common carotid artery. Maximum Peak Systolic velocity: 109 cm/sec: End-diastolic velocity 15 cm/sec. 2. Carotid Bifurcation: plaque formation. Maximum Peak Systolic velocity: 92 cm/sec: End-diastolic velocity 0 cm/sec. 3. Internal Carotid Artery: Plaque description: 3.1. Proximal Segment: Peak systolic velocity 121 cm/sec: End-diastolic velocity 27 cm/sec - % stenosis 0-15% 3.2. Middle Segment: Peak systolic velocity 75 cm/sec: End-diastolic velocity 15 cm/sec - % stenosis 0-15% 3.3. Distal Segment: Peak systolic velocity 79 cm/sec: End-diastolic velocity 12 cm/sec - % stenosis 0-15% 4. External Carotid Artery: No significant focal plaque formation. Peak systolic velocity 173 cm/sec 5. ICA/CCA Ratio: 1.1 VERTEBRAL ARTERIES: 1. Right Vertebral Artery: The right vertebral artery flow direction is antegrade. 2. Left Vertebral Artery: The left vertebral artery flow direction is antegrade. OTHER FINDINGS: 1. Right Brachial Blood pressure: 123 mmHg. 2. Left Brachial Blood pressure: mmHg. IMPRESSION: RIGHT: Duplex scan does not suggest hemodynamically significant stenosis of the right extracranial carotid arteries. LEFT: Duplex scan does not suggest hemodynamically significant stenosis of the left extracranial carotid arteries.
[2018-04-28] MEDS: Piperacill/Tazo 2.25gm in Dex 2.25 GM/50 ML BAG IVPB SCH ×4 (00:14→18:49)
[2018-04-28] MEDS: (Novolin R) Insulin Human Regular 100 units/ml vial SC SCH ×4 (00:15→18:49)
[2018-04-28] MEDS: Acetylcysteine 20% Inhal Soln (4ml) PO SCH ×2 (01:18→16:10)
[2018-04-28 06:03] LABS: BASO # 0.1 K/uL (0.0-0.2); BASO % 0.7 % (0.0-2.0); EOS # 0.3 K/uL (0.0-0.7); EOS % 2.6 % (0.0-4.0); HEMOGLOBIN 8.4 g/dL (12.0-18.0); LYMPH # 1.3 K/uL (1.0-4.3); LYMPH % 10.9 % (20.0-40.0); MEAN CELL VOLUME 88.5 fL (80.0-94.0); MEAN CORPUSCULAR HEMOGLOBIN 29.2 pg (27.0-31.0); MEAN CORPUSCULAR HGB CONC 32.9 g/dL (33.0-37.0); MEAN PLATELET VOLUME 8.2 fL (7.2-11.7); MONO # 0.8 K/uL (0.0-0.8); MONO % 6.6 % (0.0-10.0); NEUT # 9.8 K/uL (1.8-7.0); NEUT % 79.2 % (50.0-75.0); NRBC % 0.1 % (0.0-2.0); RBC 2.87 Mil/uL (4.40-5.90); RED CELL DISTRIBUTION WIDTH 14.9 % (11.5-14.5); WHITE BLOOD COUNT 12.4 K/uL (4.8-10.8)
[2018-04-28 06:26] LABS: ALB/GLOB RATIO 0.9 (1.0-2.1); ALBUMIN 2.7 g/dL (3.5-5.0); ALT/SGPT 23 U/L (21-72); AST/SGOT 22 U/L (17-59); BLOOD UREA NITROGEN 50 mg/dL (9-20); CALCIUM 8.2 mg/dl (8.6-10.4); GFR NON-AFRICAN AMERICAN 50
[2018-04-28] MEDS: Dextrose 5%/0.9% NS 1,000 ML IV SCH (06:43)
[2018-04-28] MEDS: levETIRAcetam 500 MG in Sodium Chloride 0.9% 100 ML IVPB SCH ×2 (09:07→22:04)
[2018-04-28] MEDS: Azithromycin 500 MG in Sodium Chloride 0.9% 250 ML IVPB SCH (09:26)
[2018-04-28] MEDS ORDERED: Albumin Human 5% (12.5 gm/250 ml) IV ONE (09:30)
[2018-04-28] MEDS: guaiFENesin 600 mg ER Tab PO SCH ×2 (09:36→18:50)
[2018-04-28] MEDS ORDERED: Pantoprazole 40 mg Susp UD NG SCH (10:00)
[2018-04-28 10:15] LABS: INR 1.5; PROTHROMBIN TIME 16.4 SECONDS (9.7-12.2)
[2018-04-28] MEDS: Albuterol-Ipratrop 3 mg / 0.5 (3 ml) UD INH SCH ×3 (11:21→20:39)
[2018-04-28 12:06] LABS: ABG ALLEN TEST POS; ARTERIAL BLOOD GAS HCO3 28.9 mmol/L (21-28); ARTERIAL BLOOD GAS O2 SAT 98.7 % (95-98); ARTERIAL BLOOD GAS PCO2 47 mm/Hg (35-45); ARTERIAL BLOOD GAS PH 7.42 (7.35-7.45); ARTERIAL BLOOD GAS PO2 82 mm/Hg (80-100); ARTERIAL BLOOD GAS TCO2 31.9 mmol/L (22-28)
--- NOTE | 2018-04-28 12:34 | RAD ---
Date of service: 04/28/2018 HISTORY: Pulmonary edema. COMPARISON: Multiple serial examinations preceding the most recent study: April 27, 2018 study performed 07:19. FINDINGS: LUNGS: Worsening pulmonary edema with more confluent airspace disease in particular affecting the right lung. PLEURA: Bilateral pleural effusions right greater than left indistinguishable from airspace disease. CARDIOVASCULAR: Normal. OSSEOUS STRUCTURES: No significant abnormalities. VISUALIZED UPPER ABDOMEN: Nasogastric tube courses through the esophagus, of the tip is in the distal stomach. OTHER FINDINGS: None. IMPRESSION: Worsening pulmonary edema.
--- NOTE | 2018-04-28 14:24 | CT ---
Date of service: 04/28/18 CT chest without IV contrast Indication: Pneumonia Technique: Contiguous axial images were obtained through the chest without intravenous contrast enhancement. Sagittal and coronal reconstructions were generated and reviewed. This CT exam was performed using 1 or more of the following dose reduction techniques: Automated exposure control, adjustment of the MAA and/or kV according to patient size, and/or use of iterative reconstruction technique. Radiation dose (DLP): 706.00 MGy-cm. Comparison: Chest x-ray performed 04/28/18, CT chest performed 04/25/18 Findings: Visualized portions of the inferior thyroid gland appear unremarkable. Borderline cardiomegaly. Dense mitral annulus calcifications. Bilateral hilar masses measuring approximately 3.1 cm on the right and 3.3 cm on the left. Large left and trace right pleural effusions and associated compressive consolidations. Multifocal patchy infiltrates. Numerous varying sized rounded nodular densities are re-identified bilaterally with lower lobe predominance. Limited visualization of the noncontrast upper abdomen: Mild to moderate ascites. Nasogastric tube extends to the stomach. High-density material within the gallbladder may reflect vicarious excretion of contrast versus sludge. Right adrenal gland hypertrophy. Left adrenal mass measures approximately 3.4 x 3.1 cm. Mildly nodular hepatic contour. Osseous demineralization. Multilevel degenerative changes. Prominent bridging anterior osteophyte formation/fusion. Numerous low-density sclerotic foci throughout the included thoracic and upper lumbar spine; appearance worrisome for metastatic disease. Impression: Bilateral hilar masses and/or adenopathy. Numerous varying sized rounded nodular densities with lower lobe predominance; while findings may reflect infection metastatic disease must be excluded. Large left and trace right pleural effusions and associated compressive consolidations. Multifocal patchy infiltrates. Limited visualization of the noncontrast upper abdomen: Mild to moderate ascites. High-density material within the gallbladder may reflect vicarious excretion of contrast versus sludge. Right adrenal gland hypertrophy. Left adrenal mass measures approximately 3.4 x 3.1 cm. Mildly nodular hepatic contour. Numerous low-density sclerotic foci throughout the included thoracic and upper lumbar spine; appearance worrisome for metastatic disease. Nasogastric tube.
--- NOTE | 2018-04-28 14:48 | CT ---
Date of service: 04/28/2018 PROCEDURE: CT HEAD WITHOUT CONTRAST. HISTORY: occipital bleed on prev CT. pt unresponsive today COMPARISON: Noncontrast head CT 04/25/2018. TECHNIQUE: Axial computed tomography images were obtained through the head/brain without intravenous contrast. Radiation dose: Total exam DLP = 1929.44 mGy-cm. This CT exam was performed using one or more of the following dose reduction techniques: Automated exposure control, adjustment of the mA and/or kV according to patient size, and/or use of iterative reconstruction technique. FINDINGS: HEMORRHAGE: No increased intracranial hemorrhage is identified. Trace hemorrhage is again seen layering at the left lateral ventricle atrium minimally diminished in volume. BRAIN: Stable age related neuro degenerative changes are appreciate including diffuse cerebral atrophy chronic microangiopathy with a small lobar infarction identified at the left parietal lobe near the vertex and also the right frontal lobe superiorly. No interval mass effect. No suspicious extra-axial fluid collection in the interval. VENTRICLES: Unremarkable. No hydrocephalus. CALVARIUM: Unremarkable. PARANASAL SINUSES: Unremarkable as visualized. No significant inflammatory changes. MASTOID AIR CELLS: Unremarkable as visualized. No inflammatory changes. OTHER FINDINGS: None. IMPRESSION: Stable CT of the head including diminishing left intraventricular hemorrhage minimally layering at the left lateral ventricle atrium. Age-related degenerative changes are reiterated as discussed above and appear age-appropriate once again. Small chronic lobar infarcts are as described above.
--- NOTE | 2018-04-28 14:50 | CP.PCM.CON ---
History of Present Illness - History of Present Illness History of Present Illness: Palliative consult requested by Doctor Rasta for goals of care discussion Patient is a 72 yo male admitted S/P CVA. per ER report, patient was last time OK at 2 am od the day of admission when he woke up. patient went back to bed and woke up at 7; 30 am with left sided weakness. In ED patient was verbal and able to fallow commends. MRI brain was significant for small right frontoparietal subcortical infarct. CT head negative hemorrhages. Doctor Mg on board. During this hospital stay patient's condition worsened and he become very lethargic. CT head of today showed new small hemorrhage of Left occipital. Large left pleural effusion with compressive consolidation per CT chest. Many nodules seen, malignancy needs to be ruled out. BP 138/65, RR 30, O2Sat 96% WBC 12.4, Hb 8.4 down from 9.2 Zosyn, Vanco and Zitromax on board. ASA on hold for possible trach. PMH: TIA, HTN, DM, high cholesterol Soc. Hx: , lives at home, children are Medical decision makers Fam Hx: denied Review of Systems - Review of Systems All systems: reviewed and no additional remarkable complaints except Review of Systems: ROS unobtainable fro patient due to lethargy. Per nursing, patient had been less responsive since yesterday. Blood gasses and CT chest ordered Past Patient History - Infectious Disease Hx of Infectious Diseases: None - Past Medical History & Family History Past Medical History?: Yes - Past Social History Smoking Status: Never Smoked - CARDIAC Hx Hypertension: Yes - PULMONARY Hx Respiratory Disorders: No - NEUROLOGICAL HX Cerebrovascular Accident: Yes - HEENT Hx HEENT Problems: No - RENAL Hx Chronic Kidney Disease: No - ENDOCRINE/METABOLIC Hx Diabetes Mellitus Type 2: Yes - HEMATOLOGICAL/ONCOLOGICAL Hx Blood Disorders: No - INTEGUMENTARY Hx Dermatological Problems: No - MUSCULOSKELETAL/RHEUMATOLOGICAL Hx Musculoskeletal Disorders: No Hx Falls: No - GASTROINTESTINAL Hx Gastrointestinal Disorders: No - GENITOURINARY/GYNECOLOGICAL Hx Genitourinary Disorders: No - PSYCHIATRIC Hx Substance Use: No - SURGICAL HISTORY Hx Amputation: Yes (RT GREAT TOE) - ANESTHESIA Hx Anesthesia: Yes Hx Anesthesia Reactions: No Meds Allergies/Adverse Reactions: Allergies Allergy/AdvReac Type Severity Reaction Status Date / Time No Known Allergies Allergy Verified 11/21/17 18:35 - Medications Medications: Current Medications Acetazolamide (Diamox 250 Mg Tab) 500 mg PO BID [facility] Acetylcysteine (Acetylcysteine 20%) 6 ml PO Q12H [facility] Stop: 04/29/18 01:01 Last Admin: 04/28/18 01:18 Dose: 6 ml Albuterol/Ipratropium (Duoneb 3 Mg/0.5 Mg (3 Ml) Ud) 3 ml INH RQ4 [facility] Last Admin: 04/28/18 11:21 Dose: 3 ml Aspirin (Ecotrin) 325 mg PO DAILY [facility] Last Admin: 04/24/18 09:55 Dose: Not Given Dextrose (Dextrose 50% Inj) 0 ml IV STAT PRN; Protocol PRN Reason: Hypoglycemia Protocol Dextrose (Glutose 15) 15 gm PO ONCE PRN; Protocol PRN Reason: Hypoglycemia Protocol Furosemide (Lasix) 40 mg IVP Q12H [facility] Last Admin: 04/28/18 09:37 Dose: 40 mg Glucagon (Glucagen Diagnostic Kit) 1 mg IM STAT PRN; Protocol PRN Reason: Hypoglycemia Protocol Guaifenesin (Mucinex La) 600 mg PO BID [facility] Last Admin: 04/28/18 09:36 Dose: 600 mg Levetiracetam 500 mg/ Sodium (Chloride) 105 mls @ 420 mls/hr IVPB Q12 [facility] Last Admin: 04/28/18 09:07 Dose: 420 mls/hr Piperacillin Sod/Tazobactam Sod (Zosyn 2.25 Gm Iv Premix) 2.25 gm in 50 mls @ 100 mls/hr IVPB Q6H [facility]; Protocol Last Admin: 04/28/18 05:45 Dose: 100 mls/hr Azithromycin 500 mg/ Sodium (Chloride) 250 mls @ 250 mls/hr IVPB DAILY [facility]; Protocol Last Admin: 04/28/18 09:26 Dose: 250 mls/hr Insulin Human Regular (Novolin R) 0 unit SC Q6H [facility]; Protocol Last Admin: 04/28/18 14:23 Dose: 2 units Pantoprazole Sodium (Protonix Susp) 40 mg NG DAILY [facility] Last Admin: 04/28/18 09:19 Dose: 40 mg Rosuvastatin Calcium (Crestor) 20 mg PO HS [facility] Last Admin: 04/27/18 21:53 Dose: 20 mg Physical Exam - Constitutional Appears: In Acute Distress - Head Exam Head Exam: ATRAUMATIC, NORMAL INSPECTION, NORMOCEPHALIC - Eye Exam Eye Exam: EOMI, Normal appearance - ENT Exam Additional comments: NGT with feedings - Neck Exam Neck exam: Positive for: Normal Inspection - Respiratory Exam Respiratory Exam: Accessory Muscle Use, Decreased Breath Sounds, Respiratory Distress - Cardiovascular Exam Cardiovascular Exam: Tachycardia - GI/Abdominal Exam GI & Abdominal Exam: Diminished Bowel Sounds - Rectal Exam Rectal Exam: Deferred - Extremities Exam Additional comments: left sided weakness - Back Exam Back exam: NORMAL INSPECTION - Neurological Exam Neurological exam: Motor Sensory Deficit - Psychiatric Exam Psychiatric exam: Flat Affect - Skin Skin Exam: Dry, Intact, Pallor, Warm Results - Vital Signs Recent Vital Signs: Last Vital Signs Temp 99.4 F 04/28/18 04:00 Pulse 96 H 04/28/18 11:03 Resp 30 H 04/28/18 11:03 BP 138/65 04/28/18 11:03 Pulse Ox 97 04/28/18 11:03 - Labs Result Diagrams: 04/28/18 05:53 04/28/18 05:53 Labs: Laboratory Results - last 24 hr 04/27/18 04/27/18 04/27/18 11:08 11:08 17:53 WBC RBC Hgb Hct MCV MCH MCHC RDW Plt Count MPV Neut % (Auto) Lymph % (Auto) [place] % (Auto) Eos % (Auto) Baso % (Auto) Neut # (Auto) Lymph # (Auto) [place] # (Auto) Eos # (Auto) Baso # (Auto) PT INR APTT Puncture Site pCO2 pO2 HCO3 ABG pH ABG Total CO2 ABG O2 Saturation ABG Base Excess Jonas Test ABG Potassium A-a O2 Difference Respiratory Index Glucose Lactate Liter Flow FiO2 Sodium Potassium Chloride Carbon Dioxide Anion Gap BUN Creatinine Est GFR ( Amer) Est GFR (Non-Af Amer) POC Glucose (mg/dL) 225 H Random Glucose Calcium Phosphorus Magnesium Total Bilirubin AST ALT Alkaline Phosphatase Total Protein Albumin Globulin Albumin/Globulin Ratio Procalcitonin 0.36 Arterial Blood Potassium Mycoplasma pneumon IgM Negative 04/27/18 04/28/18 04/28/18 23:55 05:32 05:53 WBC 12.4 H RBC 2.87 L Hgb 8.4 L Hct 25.4 L MCV 88.5 MCH 29.2 MCHC 32.9 L RDW 14.9 H Plt Count 255 MPV 8.2 Neut % (Auto) 79.2 H Lymph % (Auto) 10.9 L [place] % (Auto) 6.6 Eos % (Auto) 2.6 Baso % (Auto) 0.7 Neut # (Auto) 9.8 H Lymph # (Auto) 1.3 [place] # (Auto) 0.8 Eos # (Auto) 0.3 Baso # (Auto) 0.1 PT INR APTT Puncture Site pCO2 pO2 HCO3 ABG pH ABG Total CO2 ABG O2 Saturation ABG Base Excess Jonas Test ABG Potassium A-a O2 Difference Respiratory Index Glucose Lactate Liter Flow FiO2 Sodium Potassium Chloride Carbon Dioxide Anion Gap BUN Creatinine Est GFR ( Amer) Est GFR (Non-Af Amer) POC Glucose (mg/dL) 180 H 223 H Random Glucose Calcium Phosphorus Magnesium Total Bilirubin AST ALT Alkaline Phosphatase Total Protein Albumin Globulin Albumin/Globulin Ratio Procalcitonin Arterial Blood Potassium Mycoplasma pneumon IgM 04/28/18 04/28/18 04/28/18 05:53 09:59 12:01 WBC RBC Hgb Hct MCV MCH MCHC RDW Plt Count MPV Neut % (Auto) Lymph % (Auto) [place] % (Auto) Eos % (Auto) Baso % (Auto) Neut # (Auto) Lymph # (Auto) [place] # (Auto) Eos # (Auto) Baso # (Auto) PT 16.4 H INR 1.5 APTT 24 Puncture Site Lra pCO2 47 H pO2 82 HCO3 28.9 H ABG pH 7.42 ABG Total CO2 31.9 H ABG O2 Saturation 98.7 H ABG Base Excess 5.1 H Jonas Test Pos ABG Potassium 3.6 A-a O2 Difference 144.0 Respiratory Index 1.8 Glucose 216 H Lactate 1.3 Liter Flow 30.0 FiO2 40.0 Sodium 158 H 155.0 H Potassium 3.9 Chloride 117 H 125.0 H Carbon Dioxide 34 H Anion Gap 11 BUN 50 H Creatinine 1.4 Est GFR ( Amer) > 60 Est GFR (Non-Af Amer) 50 POC Glucose (mg/dL) Random Glucose 210 H Calcium 8.2 L Phosphorus 2.9 Magnesium 2.3 Total Bilirubin 0.8 AST 22 ALT 23 Alkaline Phosphatase 81 Total Protein 5.6 L Albumin 2.7 L Globulin 2.9 Albumin/Globulin Ratio 0.9 L Procalcitonin Arterial Blood Potassium 3.6 Mycoplasma pneumon IgM Assessment & Plan - Assessment and Plan (Free Text) Assessment: Palliative consult Full Code, there is no advance directive on chart, PPS 10% I reviewed Medical records, all diagnostic studies, examined patient in the bed Patient is very lethargic, unresponsive to verbal nor tactile stimuli. Patient did not react neither to sternal rub nor pressure to eye balls. Patient was not given any sedating medications. Per nursing, patient gradually was decreasing over last few days. Breathing is labored with abdominal muscles used. ICU team ordered STAT ABGs and CT chest. Abdomen soft, active bowel sounds, NGT feeding in place. Patient moves his right arm spontaneously but there is no movement of left arm and left leg. pedal and radial pulses present. I discussed patient's condition with his son Mr. Jon Silva. Mr. Webb stated being well aware of patient's condition as Doctor Justyna had spoken to them already. I updated him with new worsening condition and all actions taken. Code status discussed. Mr. Webb said he would need to talk to his other siblings before decision is made. However, if patient's respiratory condition worsens he would want all agressive measures to be implemented, including CPR and intubation. This was shared with ICU team. Family meeting was scheduled for 12 pm tomorrow for further goals of care discussion. Impression * S/P CVA * Left hemiplegia * Dysphagia * Lethargy * Non verbal * Respiratory distress * Goals for the end of life care are not known; family is requesting Full Code Suggestions * Reposition for comfort Q 2 hr * Continue NGT feedings * Aspiration precautions * Promote safety * FULL CODE Family meeting at 12 pm tomorrow 04/29/18 Advance care planing 25 min
--- NOTE | 2018-04-28 15:00 | CT ---
Date of service: 04/28/2018 PROCEDURE: CT NECK WITHOUT CONTRAST HISTORY: PNA-no other history provided. COMPARISON: CT angiogram of the head and neck 04/20/2018. TECHNIQUE: CT of the neck without intravenous contrast. Coronal and sagittal reformats generated. Radiation dose: DLP 399.80 mGy-cm This CT exam was performed using one or more of the following dose reduction techniques: Automated exposure control, adjustment of the mA and/or kV according to patient size, and/or use of iterative reconstruction technique. FINDINGS: Lack of intravenous contrast limits interpretation of the neck soft tissues. NASOPHARYNX: A nasogastric tube is identified placed through the left nares extending through the pharynx toward the left with the final image demonstrating a within the region of the esophagus in the upper chest. Nasopharynx otherwise unremarkable. SUPRAHYOID NECK: Unremarkable oropharynx, parapharyngeal space and retropharyngeal space, exclusive of nasogastric tube. Dental hardware obscures oral cavity somewhat. No gross oral cavity mass identified. INFRAHYOID NECK: Unremarkable larynx, hypopharynx, and supraglottic space. Motion artifacts distort the upper glottis region. Vocal cords intact. MASS: None grossly apparent in this noncontrast CT. GLANDS: Parotid and submandibular glands unremarkable. Normal size thyroid gland, without nodule. LYMPH NODES: Normal. No lymphadenopathy. CERVICAL SPINE: No fracture or focal lesion. OTHER FINDINGS: Ectasis is appreciated at the upper trachea within the upper chest. Apparent large left pleural effusion identified. Gross carious changes in amongst numerous mandibular and maxillary teeth. IMPRESSION: Exam limited by lack of intravenous contrast. No gross suspicious findings appreciable. A nasogastric tube is identified placed which obscures the left oropharynx and hypopharynx somewhat. Motion artifacts obscure the glottis. Limited tracheal ectasis is seen at the upper thorax. Incidental reticular nodular changes seen the right apex with large left pleural effusion evident. Further incidental changes are identified including gross carious dental changes at the mandible and maxilla. Dental consultation advised when feasible.
--- NOTE | 2018-04-28 15:25 | CP.PCM.CON ---
Past Patient History - Infectious Disease Hx of Infectious Diseases: None - Past Medical History & Family History Past Medical History?: Yes - Past Social History Smoking Status: Never Smoked - CARDIAC Hx Hypertension: Yes - PULMONARY Hx Respiratory Disorders: No - NEUROLOGICAL HX Cerebrovascular Accident: Yes - HEENT Hx HEENT Problems: No - RENAL Hx Chronic Kidney Disease: No - ENDOCRINE/METABOLIC Hx Diabetes Mellitus Type 2: Yes - HEMATOLOGICAL/ONCOLOGICAL Hx Blood Disorders: No - INTEGUMENTARY Hx Dermatological Problems: No - MUSCULOSKELETAL/RHEUMATOLOGICAL Hx Musculoskeletal Disorders: No Hx Falls: No - GASTROINTESTINAL Hx Gastrointestinal Disorders: No - GENITOURINARY/GYNECOLOGICAL Hx Genitourinary Disorders: No - PSYCHIATRIC Hx Substance Use: No - SURGICAL HISTORY Hx Amputation: Yes (RT GREAT TOE) - ANESTHESIA Hx Anesthesia: Yes Hx Anesthesia Reactions: No Meds Allergies/Adverse Reactions: Allergies Allergy/AdvReac Type Severity Reaction Status Date / Time No Known Allergies Allergy Verified 06/15/17 18:35 - Medications Medications: Current Medications Acetazolamide (Diamox 250 Mg Tab) 500 mg PO BID [facility] Acetylcysteine (Acetylcysteine 20%) 6 ml PO Q12H [facility] Stop: 04/29/18 01:01 Last Admin: 04/28/18 01:18 Dose: 6 ml Albuterol/Ipratropium (Duoneb 3 Mg/0.5 Mg (3 Ml) Ud) 3 ml INH RQ4 [facility] Last Admin: 04/28/18 11:21 Dose: 3 ml Aspirin (Ecotrin) 325 mg PO DAILY [facility] Last Admin: 04/24/18 09:55 Dose: Not Given Dextrose (Dextrose 50% Inj) 0 ml IV STAT PRN; Protocol PRN Reason: Hypoglycemia Protocol Dextrose (Glutose 15) 15 gm PO ONCE PRN; Protocol PRN Reason: Hypoglycemia Protocol Furosemide (Lasix) 40 mg IVP Q12H [facility] Last Admin: 04/28/18 09:37 Dose: 40 mg Glucagon (Glucagen Diagnostic Kit) 1 mg IM STAT PRN; Protocol PRN Reason: Hypoglycemia Protocol Guaifenesin (Mucinex La) 600 mg PO BID [facility] Last Admin: 04/28/18 09:36 Dose: 600 mg Levetiracetam 500 mg/ Sodium (Chloride) 105 mls @ 420 mls/hr IVPB Q12 [facility] Last Admin: 04/28/18 09:07 Dose: 420 mls/hr Piperacillin Sod/Tazobactam Sod (Zosyn 2.25 Gm Iv Premix) 2.25 gm in 50 mls @ 100 mls/hr IVPB Q6H [facility]; Protocol Last Admin: 04/28/18 05:45 Dose: 100 mls/hr Azithromycin 500 mg/ Sodium (Chloride) 250 mls @ 250 mls/hr IVPB DAILY [facility]; Protocol Last Admin: 04/28/18 09:26 Dose: 250 mls/hr Insulin Human Regular (Novolin R) 0 unit SC Q6H [facility]; Protocol Last Admin: 04/28/18 14:23 Dose: 2 units Pantoprazole Sodium (Protonix Susp) 40 mg NG DAILY [facility] Last Admin: 04/28/18 09:19 Dose: 40 mg Rosuvastatin Calcium (Crestor) 20 mg PO HS [facility] Last Admin: 04/27/18 21:53 Dose: 20 mg Results - Vital Signs Recent Vital Signs: Last Vital Signs Temp 99.4 F 04/28/18 04:00 Pulse 96 H 04/28/18 11:03 Resp 30 H 04/28/18 11:03 BP 138/65 04/28/18 11:03 Pulse Ox 97 04/28/18 11:03 - Labs Result Diagrams: 04/28/18 05:53 04/28/18 05:53 Labs: Laboratory Results - last 24 hr 04/27/18 04/27/18 04/27/18 11:08 17:53 23:55 WBC RBC Hgb Hct MCV MCH MCHC RDW Plt Count MPV Neut % (Auto) Lymph % (Auto) [place] % (Auto) Eos % (Auto) Baso % (Auto) Neut # (Auto) Lymph # (Auto) [place] # (Auto) Eos # (Auto) Baso # (Auto) PT INR APTT Puncture Site pCO2 pO2 HCO3 ABG pH ABG Total CO2 ABG O2 Saturation ABG Base Excess Jonas Test ABG Potassium A-a O2 Difference Respiratory Index Glucose Lactate Liter Flow FiO2 Sodium Potassium Chloride Carbon Dioxide Anion Gap BUN Creatinine Est GFR ( Amer) Est GFR (Non-Af Amer) POC Glucose (mg/dL) 225 H 180 H Random Glucose Calcium Phosphorus Magnesium Total Bilirubin AST ALT Alkaline Phosphatase Total Protein Albumin Globulin Albumin/Globulin Ratio Arterial Blood Potassium Mycoplasma pneumon IgM Negative 04/28/18 04/28/18 04/28/18 05:32 05:53 05:53 WBC 12.4 H RBC 2.87 L Hgb 8.4 L Hct 25.4 L MCV 88.5 MCH 29.2 MCHC 32.9 L RDW 14.9 H Plt Count 255 MPV 8.2 Neut % (Auto) 79.2 H Lymph % (Auto) 10.9 L [place] % (Auto) 6.6 Eos % (Auto) 2.6 Baso % (Auto) 0.7 Neut # (Auto) 9.8 H Lymph # (Auto) 1.3 [place] # (Auto) 0.8 Eos # (Auto) 0.3 Baso # (Auto) 0.1 PT INR APTT Puncture Site pCO2 pO2 HCO3 ABG pH ABG Total CO2 ABG O2 Saturation ABG Base Excess Jonas Test ABG Potassium A-a O2 Difference Respiratory Index Glucose Lactate Liter Flow FiO2 Sodium 158 H Potassium 3.9 Chloride 117 H Carbon Dioxide 34 H Anion Gap 11 BUN 50 H Creatinine 1.4 Est GFR ( Amer) > 60 Est GFR (Non-Af Amer) 50 POC Glucose (mg/dL) 223 H Random Glucose 210 H Calcium 8.2 L Phosphorus 2.9 Magnesium 2.3 Total Bilirubin 0.8 AST 22 ALT 23 Alkaline Phosphatase 81 Total Protein 5.6 L Albumin 2.7 L Globulin 2.9 Albumin/Globulin Ratio 0.9 L Arterial Blood Potassium Mycoplasma pneumon IgM 04/28/18 04/28/18 09:59 12:01 WBC RBC Hgb Hct MCV MCH MCHC RDW Plt Count MPV Neut % (Auto) Lymph % (Auto) [place] % (Auto) Eos % (Auto) Baso % (Auto) Neut # (Auto) Lymph # (Auto) [place] # (Auto) Eos # (Auto) Baso # (Auto) PT 16.4 H INR 1.5 APTT 24 Puncture Site Lra pCO2 47 H pO2 82 HCO3 28.9 H ABG pH 7.42 ABG Total CO2 31.9 H ABG O2 Saturation 98.7 H ABG Base Excess 5.1 H Jonas Test Pos ABG Potassium 3.6 A-a O2 Difference 144.0 Respiratory Index 1.8 Glucose 216 H Lactate 1.3 Liter Flow 30.0 FiO2 40.0 Sodium 155.0 H Potassium Chloride 125.0 H Carbon Dioxide Anion Gap BUN Creatinine Est GFR ( Amer) Est GFR (Non-Af Amer) POC Glucose (mg/dL) Random Glucose Calcium Phosphorus Magnesium Total Bilirubin AST ALT Alkaline Phosphatase Total Protein Albumin Globulin Albumin/Globulin Ratio Arterial Blood Potassium 3.6 Mycoplasma pneumon IgM
--- NOTE | 2018-04-28 15:54 | CP.CCUPN ---
<Frank Bagley - Last Filed: 04/28/18 16:29> CCU Objective - Vital Signs / Intake & Output Vital Signs (Last 4 hours): Vital Signs Temp Resp 04/28/18 16:13 24 04/28/18 16:10 100.9 F H Intake and Output (Last 8hrs): Intake & Output 04/28/18 04/28/18 04/28/18 06:59 14:59 22:59 Intake Total 1195 745 Output Total 205 Balance 990 745 Weight 149 lb 12.8 oz Intake: Intake, IV Amount 535 545 Left Antecubital 75 Right Forearm 535 470 Tube Feeding 310 200 Other 350 Output: Urine 205 Urethral (Connor) 205 - Medications Active Medications: Active Medications Generic Name Dose Route Start Last Admin Trade Name Freq PRN Reason Stop Dose Admin Acetaminophen 650 mg 04/28/18 15:58 04/28/18 16:10 Tylenol 650mg/20.3ml Solution Ud PO 650 mg Q6 PRN Administration Temperature Acetazolamide 500 mg 04/28/18 18:00 Diamox 250 Mg Tab PO BID DARIUS Acetylcysteine 6 ml 04/27/18 13:00 04/28/18 16:10 Acetylcysteine 20% PO 04/29/18 01:01 6 ml Q12H DARIUS Administration Albuterol/Ipratropium 3 ml 04/28/18 12:00 04/28/18 16:11 Duoneb 3 Mg/0.5 Mg (3 Ml) Ud INH 3 ml RQ4 DARIUS Administration Aspirin 325 mg 04/21/18 10:00 04/24/18 09:55 Ecotrin PO Not Given DAILY DARIUS Dextrose 0 ml 04/20/18 14:04 Dextrose 50% Inj IV STAT PRN Hypoglycemia Protocol Protocol Dextrose 15 gm 04/20/18 14:04 Glutose 15 PO ONCE PRN Hypoglycemia Protocol Protocol Furosemide 40 mg 04/28/18 09:00 04/28/18 09:37 Lasix IVP 40 mg Q12H DARIUS Administration Glucagon 1 mg 04/20/18 14:04 Glucagen Diagnostic Kit IM STAT PRN Hypoglycemia Protocol Protocol Guaifenesin 600 mg 04/28/18 10:00 04/28/18 09:36 Mucinex La PO 600 mg BID DARIUS Administration Levetiracetam 500 mg/ Sodium 105 mls @ 420 mls/hr 04/24/18 10:30 04/28/18 09:07 Chloride IVPB 420 mls/hr Q12 DARIUS Administration Piperacillin Sod/Tazobactam Sod 2.25 gm in 50 mls @ 100 mls/hr 04/25/18 12:00 04/28/18 12:00 Zosyn 2.25 Gm Iv Premix IVPB 100 mls/hr Q6H DARIUS Administration Protocol Azithromycin 500 mg/ Sodium 250 mls @ 250 mls/hr 04/27/18 10:15 04/28/18 09:26 Chloride IVPB 250 mls/hr DAILY DARIUS Administration Protocol Insulin Human Regular 0 unit 04/23/18 12:00 04/28/18 14:23 Novolin R SC 2 units Q6H DARIUS Administration Protocol Pantoprazole Sodium 40 mg 04/28/18 10:00 04/28/18 09:19 Protonix Susp NG 40 mg DAILY DARIUS Administration Rosuvastatin Calcium 20 mg 04/20/18 22:00 04/27/18 21:53 Crestor PO 20 mg HS DARIUS Administration - Patient Studies Lab Studies: Microbiology Studies 04/25/18 13:39 Blood Culture - Preliminary Blood NO GROWTH AFTER 3 DAYS 04/25/18 13:39 Blood Culture - Preliminary Blood NO GROWTH AFTER 3 DAYS 04/22/18 13:38 Blood Culture - Final Blood NO GROWTH AFTER 5 DAYS Gram Stain - Final TEST NOT PERFORMED 04/22/18 13:38 Blood Culture - Final Blood NO GROWTH AFTER 5 DAYS Gram Stain - Final TEST NOT PERFORMED Lab Studies 04/28/18 04/28/18 04/28/18 Range/Units 12:01 11:14 09:59 WBC (4.8-10.8) K/uL RBC (4.40-5.90) Mil/uL Hgb (12.0-18.0) g/dL Hct (35.0-51.0) % MCV (80.0-94.0) fL MCH (27.0-31.0) pg MCHC (33.0-37.0) g/dL RDW (11.5-14.5) % Plt Count (130-400) K/uL MPV (7.2-11.7) fL Neut % (Auto) (50.0-75.0) % Lymph % (Auto) (20.0-40.0) % [place] % (Auto) (0.0-10.0) % Eos % (Auto) (0.0-4.0) % Baso % (Auto) (0.0-2.0) % Neut # (Auto) (1.8-7.0) K/uL Lymph # (Auto) (1.0-4.3) K/uL [place] # (Auto) (0.0-0.8) K/uL Eos # (Auto) (0.0-0.7) K/uL Baso # (Auto) (0.0-0.2) K/uL PT 16.4 H (9.7-12.2) SECONDS INR 1.5 APTT 24 (21-34) SECONDS Puncture Site Lra pCO2 47 H (35-45) mm/Hg pO2 82 (80-100) mm/Hg HCO3 28.9 H (21-28) mmol/L ABG pH 7.42 (7.35-7.45) ABG Total CO2 31.9 H (22-28) mmol/L ABG O2 Saturation 98.7 H (95-98) % ABG Base Excess 5.1 H (-2.0-3.0) mmol/L Jonas Test Pos ABG Potassium 3.6 (3.6-5.2) mmol/L A-a O2 Difference 144.0 mm/Hg Respiratory Index 1.8 Glucose 216 H (75-110) mg/dl Lactate 1.3 (0.7-2.1) mmol/L Liter Flow 30.0 FiO2 40.0 % Sodium 155.0 H (132-148) mmol/L Potassium (3.6-5.2) mmol/L Chloride 125.0 H (98-107) mmol/L Carbon Dioxide (22-30) mmol/L Anion Gap (10-20) BUN (9-20) mg/dL Creatinine (0.8-1.5) mg/dL Est GFR ( Amer) Est GFR (Non-Af Amer) POC Glucose (mg/dL) 207 H (65-110) mg/dL Random Glucose (75-110) mg/dL Calcium (8.6-10.4) mg/dl Phosphorus (2.5-4.5) mg/dL Magnesium (1.6-2.3) mg/dL Total Bilirubin (0.2-1.3) mg/dL AST (17-59) U/L ALT (21-72) U/L Alkaline Phosphatase (38-126) U/L Total Protein (6.3-8.3) g/dL Albumin (3.5-5.0) g/dL Globulin (2.2-3.9) gm/dL Albumin/Globulin Ratio (1.0-2.1) Arterial Blood Potassium 3.6 (3.6-5.2) mmol/L Mycoplasma pneumon IgM (NEGATIVE) 04/28/18 04/28/18 04/28/18 Range/Units 05:53 05:53 05:32 WBC 12.4 H (4.8-10.8) K/uL RBC 2.87 L (4.40-5.90) Mil/uL Hgb 8.4 L (12.0-18.0) g/dL Hct 25.4 L (35.0-51.0) % MCV 88.5 (80.0-94.0) fL MCH 29.2 (27.0-31.0) pg MCHC 32.9 L (33.0-37.0) g/dL RDW 14.9 H (11.5-14.5) % Plt Count 255 (130-400) K/uL MPV 8.2 (7.2-11.7) fL Neut % (Auto) 79.2 H (50.0-75.0) % Lymph % (Auto) 10.9 L (20.0-40.0) % [place] % (Auto) 6.6 (0.0-10.0) % Eos % (Auto) 2.6 (0.0-4.0) % Baso % (Auto) 0.7 (0.0-2.0) % Neut # (Auto) 9.8 H (1.8-7.0) K/uL Lymph # (Auto) 1.3 (1.0-4.3) K/uL [place] # (Auto) 0.8 (0.0-0.8) K/uL Eos # (Auto) 0.3 (0.0-0.7) K/uL Baso # (Auto) 0.1 (0.0-0.2) K/uL PT (9.7-12.2) SECONDS INR APTT (21-34) SECONDS Puncture Site pCO2 (35-45) mm/Hg pO2 (80-100) mm/Hg HCO3 (21-28) mmol/L ABG pH (7.35-7.45) ABG Total CO2 (22-28) mmol/L ABG O2 Saturation (95-98) % ABG Base Excess (-2.0-3.0) mmol/L Jonas Test ABG Potassium (3.6-5.2) mmol/L A-a O2 Difference mm/Hg Respiratory Index Glucose (75-110) mg/dl Lactate (0.7-2.1) mmol/L Liter Flow FiO2 % Sodium 158 H (132-148) mmol/L Potassium 3.9 (3.6-5.2) mmol/L Chloride 117 H (98-107) mmol/L Carbon Dioxide 34 H (22-30) mmol/L Anion Gap 11 (10-20) BUN 50 H (9-20) mg/dL Creatinine 1.4 (0.8-1.5) mg/dL Est GFR ( Amer) > 60 Est GFR (Non-Af Amer) 50 POC Glucose (mg/dL) 223 H (65-110) mg/dL Random Glucose 210 H (75-110) mg/dL Calcium 8.2 L (8.6-10.4) mg/dl Phosphorus 2.9 (2.5-4.5) mg/dL Magnesium 2.3 (1.6-2.3) mg/dL Total Bilirubin 0.8 (0.2-1.3) mg/dL AST 22 (17-59) U/L ALT 23 (21-72) U/L Alkaline Phosphatase 81 (38-126) U/L Total Protein 5.6 L (6.3-8.3) g/dL Albumin 2.7 L (3.5-5.0) g/dL Globulin 2.9 (2.2-3.9) gm/dL Albumin/Globulin Ratio 0.9 L (1.0-2.1) Arterial Blood Potassium (3.6-5.2) mmol/L Mycoplasma pneumon IgM (NEGATIVE) 04/27/18 04/27/18 04/27/18 Range/Units 23:55 17:53 11:08 WBC (4.8-10.8) K/uL RBC (4.40-5.90) Mil/uL Hgb (12.0-18.0) g/dL Hct (35.0-51.0) % MCV (80.0-94.0) fL MCH (27.0-31.0) pg MCHC (33.0-37.0) g/dL RDW (11.5-14.5) % Plt Count (130-400) K/uL MPV (7.2-11.7) fL Neut % (Auto) (50.0-75.0) % Lymph % (Auto) (20.0-40.0) % [place] % (Auto) (0.0-10.0) % Eos % (Auto) (0.0-4.0) % Baso % (Auto) (0.0-2.0) % Neut # (Auto) (1.8-7.0) K/uL Lymph # (Auto) (1.0-4.3) K/uL [place] # (Auto) (0.0-0.8) K/uL Eos # (Auto) (0.0-0.7) K/uL Baso # (Auto) (0.0-0.2) K/uL PT (9.7-12.2) SECONDS INR APTT (21-34) SECONDS Puncture Site pCO2 (35-45) mm/Hg pO2 (80-100) mm/Hg HCO3 (21-28) mmol/L ABG pH (7.35-7.45) ABG Total CO2 (22-28) mmol/L ABG O2 Saturation (95-98) % ABG Base Excess (-2.0-3.0) mmol/L Jonas Test ABG Potassium (3.6-5.2) mmol/L A-a O2 Difference mm/Hg Respiratory Index Glucose (75-110) mg/dl Lactate (0.7-2.1) mmol/L Liter Flow FiO2 % Sodium (132-148) mmol/L Potassium (3.6-5.2) mmol/L Chloride (98-107) mmol/L Carbon Dioxide (22-30) mmol/L Anion Gap (10-20) BUN (9-20) mg/dL Creatinine (0.8-1.5) mg/dL Est GFR ( Amer) Est GFR (Non-Af Amer) POC Glucose (mg/dL) 180 H 225 H (65-110) mg/dL Random Glucose (75-110) mg/dL Calcium (8.6-10.4) mg/dl Phosphorus (2.5-4.5) mg/dL Magnesium (1.6-2.3) mg/dL Total Bilirubin (0.2-1.3) mg/dL AST (17-59) U/L ALT (21-72) U/L Alkaline Phosphatase (38-126) U/L Total Protein (6.3-8.3) g/dL Albumin (3.5-5.0) g/dL Globulin (2.2-3.9) gm/dL Albumin/Globulin Ratio (1.0-2.1) Arterial Blood Potassium (3.6-5.2) mmol/L Mycoplasma pneumon IgM Negative (NEGATIVE) Laboratory Results - last 24 hr 04/27/18 04/27/18 04/27/18 11:08 17:53 23:55 WBC RBC Hgb Hct MCV MCH MCHC RDW Plt Count MPV Neut % (Auto) Lymph % (Auto) [place] % (Auto) Eos % (Auto) Baso % (Auto) Neut # (Auto) Lymph # (Auto) [place] # (Auto) Eos # (Auto) Baso # (Auto) PT INR APTT Puncture Site pCO2 pO2 HCO3 ABG pH ABG Total CO2 ABG O2 Saturation ABG Base Excess Jonas Test ABG Potassium A-a O2 Difference Respiratory Index Glucose Lactate Liter Flow FiO2 Sodium Potassium Chloride Carbon Dioxide Anion Gap BUN Creatinine Est GFR ( Amer) Est GFR (Non-Af Amer) POC Glucose (mg/dL) 225 H 180 H Random Glucose Calcium Phosphorus Magnesium Total Bilirubin AST ALT Alkaline Phosphatase Total Protein Albumin Globulin Albumin/Globulin Ratio Arterial Blood Potassium Mycoplasma pneumon IgM Negative 04/28/18 04/28/18 04/28/18 05:32 05:53 05:53 WBC 12.4 H RBC 2.87 L Hgb 8.4 L Hct 25.4 L MCV 88.5 MCH 29.2 MCHC 32.9 L RDW 14.9 H Plt Count 255 MPV 8.2 Neut % (Auto) 79.2 H Lymph % (Auto) 10.9 L [place] % (Auto) 6.6 Eos % (Auto) 2.6 Baso % (Auto) 0.7 Neut # (Auto) 9.8 H Lymph # (Auto) 1.3 [place] # (Auto) 0.8 Eos # (Auto) 0.3 Baso # (Auto) 0.1 PT INR APTT Puncture Site pCO2 pO2 HCO3 ABG pH ABG Total CO2 ABG O2 Saturation ABG Base Excess Jonas Test ABG Potassium A-a O2 Difference Respiratory Index Glucose Lactate Liter Flow FiO2 Sodium 158 H Potassium 3.9 Chloride 117 H Carbon Dioxide 34 H Anion Gap 11 BUN 50 H Creatinine 1.4 Est GFR ( Amer) > 60 Est GFR (Non-Af Amer) 50 POC Glucose (mg/dL) 223 H Random Glucose 210 H Calcium 8.2 L Phosphorus 2.9 Magnesium 2.3 Total Bilirubin 0.8 AST 22 ALT 23 Alkaline Phosphatase 81 Total Protein 5.6 L Albumin 2.7 L Globulin 2.9 Albumin/Globulin Ratio 0.9 L Arterial Blood Potassium Mycoplasma pneumon IgM 04/28/18 04/28/18 04/28/18 09:59 11:14 12:01 WBC RBC Hgb Hct MCV MCH MCHC RDW Plt Count MPV Neut % (Auto) Lymph % (Auto) [place] % (Auto) Eos % (Auto) Baso % (Auto) Neut # (Auto) Lymph # (Auto) [place] # (Auto) Eos # (Auto) Baso # (Auto) PT 16.4 H INR 1.5 APTT 24 Puncture Site Lra pCO2 47 H pO2 82 HCO3 28.9 H ABG pH 7.42 ABG Total CO2 31.9 H ABG O2 Saturation 98.7 H ABG Base Excess 5.1 H Jonas Test Pos ABG Potassium 3.6 A-a O2 Difference 144.0 Respiratory Index 1.8 Glucose 216 H Lactate 1.3 Liter Flow 30.0 FiO2 40.0 Sodium 155.0 H Potassium Chloride 125.0 H Carbon Dioxide Anion Gap BUN Creatinine Est GFR ( Amer) Est GFR (Non-Af Amer) POC Glucose (mg/dL) 207 H Random Glucose Calcium Phosphorus Magnesium Total Bilirubin AST ALT Alkaline Phosphatase Total Protein Albumin Globulin Albumin/Globulin Ratio Arterial Blood Potassium 3.6 Mycoplasma pneumon IgM Critical Care Progress Note - Nutrition Nutrition: Nutrition Category Date Time Status NPO Diet [DIET] Diets 04/24/18 Breakfast Active Attending/Attestation - Attestation I have personally seen and examined this patient.: Yes I have fully participated in the care of the patient.: Yes I have reviewed all pertinent clinical information: Yes Notes (Text): 04/28/18 16:35 I have seen and examined the patient. Medical records, lab studies, and imaging were reviewed by me and a management plan was formulated on multidisciplinary rounds with resident Dr. Locke. I agree with their documented assessment and plan. Patient's mental status is worse, most likely metabolic encephalopathy. Large loculated pleural effusion of left lung. Chest CT shows multiple nodules and possible spinal mets. Patient does not appear well, and high likelihood of decompensation. Called son, Sascha and discussed advanced directives. Awaiting call back for decision. Patient has high mortality risk with a very poor prognosis. Critical Care Time 35 minutes. Multi-disciplinary rounds were performed with house staff, nursing, speech thera py, respiratory therapy, pharmacy and nutrition with integrated input from the primary team/attending and other consulting services. The documented time is cumulative and includes review of patient data/exams/labs/chart review and examination of the patient on rounds and throughout the day; time is exclusive of any procedures or teaching time. <Ben Locke - Last Filed: 04/28/18 18:08> CCU Subjective - Physician Review Subjective (Free Text): Pt seen and examined at bedside. Pt saturating well with Nasal canula High flow FiO2 40 today. Pt unable to follow commands today. pt opens eyes. DNR/DNI 04/28/18 18:08 CCU Objective - Vital Signs / Intake & Output Intake and Output (Last 8hrs): Intake & Output 04/28/18 04/28/18 04/28/18 06:59 14:59 22:59 Intake Total 1195 745 Output Total 205 Balance 990 745 Weight 149 lb 12.8 oz Intake: Intake, IV Amount 535 545 Left Antecubital 75 Right Forearm 535 470 Tube Feeding 310 200 Other 350 Output: Urine 205 Urethral (Connor) 205 - Physical Exam Head: Positive for: Atraumatic, Normocephalic, Other (no appreciable facial droop) Pupils: Positive for: PERRL. Negative for: Pinpoint Extroacular Muscles: Positive for: EOMI Conjunctiva: Negative for: Injected, Icteric Mouth: Positive for: Moist Mucous Membranes, Other (wearing Bipap mask) Nose (External): Positive for: Atraumatic. Negative for: Abrasion, Contusion, Laceration Nose (Internal): Positive for: No Active Bleeding. Negative for: Epistaxis Neck: Positive for: Normal Range of Motion (passive ROM intact, patient strugg les to comprehend instructions for active ROM testing), Trachea Midline. Negative for: JVD Respiratory/Chest: Positive for: Wheezes, Rales, Rhonchi, Other (R worse than left). Negative for: Good Air Exchange, Accessory Muscle Use, Decreased Breath Sounds Cardiovascular: Positive for: Regular Rate and Rhythm, Normal S1, S2, Peripheal Pulses Present (+2 radials and doralis pedis bilaterally). Negative for: Murmurs, Irregular Rhythm, Tachycardic, Bradycardic Abdomen: Positive for: Normal Bowel Sounds. Negative for: Tenderness, Distention Upper Extremity: Positive for: NORMAL PULSES. Negative for: Cyanosis, Edema, Tenderness, Erythema, Deformity Lower Extremity: Positive for: NORMAL PULSES. Negative for: Edema, CALF TENDERNESS, Cyanosis, Tenderness, Swelling, Deformity Neurological: Positive for: GCS=15 (GCS between 14-15 (E4 V4-5 M6); able to speak few appropriate words, unable to speak sufficiently to assess if oriented or confused), Normal Sensory Function (difficult to fully evaluated sensory function due to non-verbal and language barriers, but able to attempt to move correct extremities based on poking/prodding desired extremity without being able to see the extremities when prodding so at least some degree of sensation intact bilaterally), Other (5/5 motor in RLE and RUE, less movement of L extremities but does display spontaneous movement of L hand and LLE) Skin: Positive for: Warm, Dry, Normal Color. Negative for: Rashes Psychiatric: Positive for: Other (awake and alert, minimally verbal so unable to assess orientation but able to follow some commands and answer some questions with 1-2 word answers appropriately, so some intact mental faculties) - Medications Active Medications: Active Medications Generic Name Dose Route Start Last Admin Trade Name Freq PRN Reason Stop Dose Admin Acetazolamide 500 mg 04/28/18 18:00 Diamox 250 Mg Tab PO BID DARIUS Acetylcysteine 6 ml 04/27/18 13:00 04/28/18 01:18 Acetylcysteine 20% PO 04/29/18 01:01 6 ml Q12H DARIUS Administration Albuterol/Ipratropium 3 ml 04/28/18 12:00 04/28/18 11:21 Duoneb 3 Mg/0.5 Mg (3 Ml) Ud INH 3 ml RQ4 DARIUS Administration Aspirin 325 mg 04/21/18 10:00 04/24/18 09:55 Ecotrin PO Not Given DAILY DARIUS Dextrose 0 ml 04/20/18 14:04 Dextrose 50% Inj IV STAT PRN Hypoglycemia Protocol Protocol Dextrose 15 gm 04/20/18 14:04 Glutose 15 PO ONCE PRN Hypoglycemia Protocol Protocol Furosemide 40 mg 04/28/18 09:00 04/28/18 09:37 Lasix IVP 40 mg Q12H DARIUS Administration Glucagon 1 mg 04/20/18 14:04 Glucagen Diagnostic Kit IM STAT PRN Hypoglycemia Protocol Protocol Guaifenesin 600 mg 04/28/18 10:00 04/28/18 09:36 Mucinex La PO 600 mg BID DARIUS Administration Levetiracetam 500 mg/ Sodium 105 mls @ 420 mls/hr 04/24/18 10:30 04/28/18 09:07 Chloride IVPB 420 mls/hr Q12 DARIUS Administration Piperacillin Sod/Tazobactam Sod 2.25 gm in 50 mls @ 100 mls/hr 04/25/18 12:00 04/28/18 05:45 Zosyn 2.25 Gm Iv Premix IVPB 100 mls/hr Q6H DARIUS Administration Protocol Azithromycin 500 mg/ Sodium 250 mls @ 250 mls/hr 04/27/18 10:15 04/28/18 09:26 Chloride IVPB 250 mls/hr DAILY DARIUS Administration Protocol Insulin Human Regular 0 unit 04/23/18 12:00 04/28/18 14:23 Novolin R SC 2 units Q6H DARIUS Administration Protocol Pantoprazole Sodium 40 mg 04/28/18 10:00 04/28/18 09:19 Protonix Susp NG 40 mg DAILY DARIUS Administration Rosuvastatin Calcium 20 mg 04/20/18 22:00 04/27/18 21:53 Crestor PO 20 mg HS DARIUS Administration - Patient Studies Lab Studies: Microbiology Studies 04/25/18 13:39 Blood Culture - Preliminary Blood NO GROWTH AFTER 3 DAYS 04/25/18 13:39 Blood Culture - Preliminary Blood NO GROWTH AFTER 3 DAYS 04/22/18 13:38 Blood Culture - Final Blood NO GROWTH AFTER 5 DAYS Gram Stain - Final TEST NOT PERFORMED 04/22/18 13:38 Blood Culture - Final Blood NO GROWTH AFTER 5 DAYS Gram Stain - Final TEST NOT PERFORMED Lab Studies 04/28/18 04/28/18 04/28/18 Range/Units 12:01 09:59 05:53 WBC (4.8-10.8) K/uL RBC (4.40-5.90) Mil/uL Hgb (12.0-18.0) g/dL Hct (35.0-51.0) % MCV (80.0-94.0) fL MCH (27.0-31.0) pg MCHC (33.0-37.0) g/dL RDW (11.5-14.5) % Plt Count (130-400) K/uL MPV (7.2-11.7) fL Neut % (Auto) (50.0-75.0) % Lymph % (Auto) (20.0-40.0) % [place] % (Auto) (0.0-10.0) % Eos % (Auto) (0.0-4.0) % Baso % (Auto) (0.0-2.0) % Neut # (Auto) (1.8-7.0) K/uL Lymph # (Auto) (1.0-4.3) K/uL [place] # (Auto) (0.0-0.8) K/uL Eos # (Auto) (0.0-0.7) K/uL Baso # (Auto) (0.0-0.2) K/uL PT 16.4 H (9.7-12.2) SECONDS INR 1.5 APTT 24 (21-34) SECONDS Puncture Site Lra pCO2 47 H (35-45) mm/Hg pO2 82 (80-100) mm/Hg HCO3 28.9 H (21-28) mmol/L ABG pH 7.42 (7.35-7.45) ABG Total CO2 31.9 H (22-28) mmol/L ABG O2 Saturation 98.7 H (95-98) % ABG Base Excess 5.1 H (-2.0-3.0) mmol/L Jonas Test Pos ABG Potassium 3.6 (3.6-5.2) mmol/L A-a O2 Difference 144.0 mm/Hg Respiratory Index 1.8 Glucose 216 H (75-110) mg/dl Lactate 1.3 (0.7-2.1) mmol/L Liter Flow 30.0 FiO2 40.0 % Sodium 155.0 H 158 H (132-148) mmol/L Potassium 3.9 (3.6-5.2) mmol/L Chloride 125.0 H 117 H (98-107) mmol/L Carbon Dioxide 34 H (22-30) mmol/L Anion Gap 11 (10-20) BUN 50 H (9-20) mg/dL Creatinine 1.4 (0.8-1.5) mg/dL Est GFR ( Amer) > 60 Est GFR (Non-Af Amer) 50 POC Glucose (mg/dL) (65-110) mg/dL Random Glucose 210 H (75-110) mg/dL Calcium 8.2 L (8.6-10.4) mg/dl Phosphorus 2.9 (2.5-4.5) mg/dL Magnesium 2.3 (1.6-2.3) mg/dL Total Bilirubin 0.8 (0.2-1.3) mg/dL AST 22 (17-59) U/L ALT 23 (21-72) U/L Alkaline Phosphatase 81 (38-126) U/L Total Protein 5.6 L (6.3-8.3) g/dL Albumin 2.7 L (3.5-5.0) g/dL Globulin 2.9 (2.2-3.9) gm/dL Albumin/Globulin Ratio 0.9 L (1.0-2.1) Arterial Blood Potassium 3.6 (3.6-5.2) mmol/L Mycoplasma pneumon IgM (NEGATIVE) 04/28/18 04/28/18 04/27/18 Range/Units 05:53 05:32 23:55 WBC 12.4 H (4.8-10.8) K/uL RBC 2.87 L (4.40-5.90) Mil/uL Hgb 8.4 L (12.0-18.0) g/dL Hct 25.4 L (35.0-51.0) % MCV 88.5 (80.0-94.0) fL MCH 29.2 (27.0-31.0) pg MCHC 32.9 L (33.0-37.0) g/dL RDW 14.9 H (11.5-14.5) % Plt Count 255 (130-400) K/uL MPV 8.2 (7.2-11.7) fL Neut % (Auto) 79.2 H (50.0-75.0) % Lymph % (Auto) 10.9 L (20.0-40.0) % [place] % (Auto) 6.6 (0.0-10.0) % Eos % (Auto) 2.6 (0.0-4.0) % Baso % (Auto) 0.7 (0.0-2.0) % Neut # (Auto) 9.8 H (1.8-7.0) K/uL Lymph # (Auto) 1.3 (1.0-4.3) K/uL [place] # (Auto) 0.8 (0.0-0.8) K/uL Eos # (Auto) 0.3 (0.0-0.7) K/uL Baso # (Auto) 0.1 (0.0-0.2) K/uL PT (9.7-12.2) SECONDS INR APTT (21-34) SECONDS Puncture Site pCO2 (35-45) mm/Hg pO2 (80-100) mm/Hg HCO3 (21-28) mmol/L ABG pH (7.35-7.45) ABG Total CO2 (22-28) mmol/L ABG O2 Saturation (95-98) % ABG Base Excess (-2.0-3.0) mmol/L Jonas Test ABG Potassium (3.6-5.2) mmol/L A-a O2 Difference mm/Hg Respiratory Index Glucose (75-110) mg/dl Lactate (0.7-2.1) mmol/L Liter Flow FiO2 % Sodium (132-148) mmol/L Potassium (3.6-5.2) mmol/L Chloride (98-107) mmol/L Carbon Dioxide (22-30) mmol/L Anion Gap (10-20) BUN (9-20) mg/dL Creatinine (0.8-1.5) mg/dL Est GFR ( Amer) Est GFR (Non-Af Amer) POC Glucose (mg/dL) 223 H 180 H (65-110) mg/dL Random Glucose (75-110) mg/dL Calcium (8.6-10.4) mg/dl Phosphorus (2.5-4.5) mg/dL Magnesium (1.6-2.3) mg/dL Total Bilirubin (0.2-1.3) mg/dL AST (17-59) U/L ALT (21-72) U/L Alkaline Phosphatase (38-126) U/L Total Protein (6.3-8.3) g/dL Albumin (3.5-5.0) g/dL Globulin (2.2-3.9) gm/dL Albumin/Globulin Ratio (1.0-2.1) Arterial Blood Potassium (3.6-5.2) mmol/L Mycoplasma pneumon IgM (NEGATIVE) 04/27/18 04/27/18 Range/Units 17:53 11:08 WBC (4.8-10.8) K/uL RBC (4.40-5.90) Mil/uL Hgb (12.0-18.0) g/dL Hct (35.0-51.0) % MCV (80.0-94.0) fL MCH (27.0-31.0) pg MCHC (33.0-37.0) g/dL RDW (11.5-14.5) % Plt Count (130-400) K/uL MPV (7.2-11.7) fL Neut % (Auto) (50.0-75.0) % Lymph % (Auto) (20.0-40.0) % [place] % (Auto) (0.0-10.0) % Eos % (Auto) (0.0-4.0) % Baso % (Auto) (0.0-2.0) % Neut # (Auto) (1.8-7.0) K/uL Lymph # (Auto) (1.0-4.3) K/uL [place] # (Auto) (0.0-0.8) K/uL Eos # (Auto) (0.0-0.7) K/uL Baso # (Auto) (0.0-0.2) K/uL PT (9.7-12.2) SECONDS INR APTT (21-34) SECONDS Puncture Site pCO2 (35-45) mm/Hg pO2 (80-100) mm/Hg HCO3 (21-28) mmol/L ABG pH (7.35-7.45) ABG Total CO2 (22-28) mmol/L ABG O2 Saturation (95-98) % ABG Base Excess (-2.0-3.0) mmol/L Jonas Test ABG Potassium (3.6-5.2) mmol/L A-a O2 Difference mm/Hg Respiratory Index Glucose (75-110) mg/dl Lactate (0.7-2.1) mmol/L Liter Flow FiO2 % Sodium (132-148) mmol/L Potassium (3.6-5.2) mmol/L Chloride (98-107) mmol/L Carbon Dioxide (22-30) mmol/L Anion Gap (10-20) BUN (9-20) mg/dL Creatinine (0.8-1.5) mg/dL Est GFR ( Amer) Est GFR (Non-Af Amer) POC Glucose (mg/dL) 225 H (65-110) mg/dL Random Glucose (75-110) mg/dL Calcium (8.6-10.4) mg/dl Phosphorus (2.5-4.5) mg/dL Magnesium (1.6-2.3) mg/dL Total Bilirubin (0.2-1.3) mg/dL AST (17-59) U/L ALT (21-72) U/L Alkaline Phosphatase (38-126) U/L Total Protein (6.3-8.3) g/dL Albumin (3.5-5.0) g/dL Globulin (2.2-3.9) gm/dL Albumin/Globulin Ratio (1.0-2.1) Arterial Blood Potassium (3.6-5.2) mmol/L Mycoplasma pneumon IgM Negative (NEGATIVE) Laboratory Results - last 24 hr 04/27/18 04/27/18 04/27/18 11:08 17:53 23:55 WBC RBC Hgb Hct MCV MCH MCHC RDW Plt Count MPV Neut % (Auto) Lymph % (Auto) [place] % (Auto) Eos % (Auto) Baso % (Auto) Neut # (Auto) Lymph # (Auto) [place] # (Auto) Eos # (Auto) Baso # (Auto) PT INR APTT Puncture Site pCO2 pO2 HCO3 ABG pH ABG Total CO2 ABG O2 Saturation ABG Base Excess Jonas Test ABG Potassium A-a O2 Difference Respiratory Index Glucose Lactate Liter Flow FiO2 Sodium Potassium Chloride Carbon Dioxide Anion Gap BUN Creatinine Est GFR ( Amer) Est GFR (Non-Af Amer) POC Glucose (mg/dL) 225 H 180 H Random Glucose Calcium Phosphorus Magnesium Total Bilirubin AST ALT Alkaline Phosphatase Total Protein Albumin Globulin Albumin/Globulin Ratio Arterial Blood Potassium Mycoplasma pneumon IgM Negative 04/28/18 04/28/18 04/28/18 05:32 05:53 05:53 WBC 12.4 H RBC 2.87 L Hgb 8.4 L Hct 25.4 L MCV 88.5 MCH 29.2 MCHC 32.9 L RDW 14.9 H Plt Count 255 MPV 8.2 Neut % (Auto) 79.2 H Lymph % (Auto) 10.9 L [place] % (Auto) 6.6 Eos % (Auto) 2.6 Baso % (Auto) 0.7 Neut # (Auto) 9.8 H Lymph # (Auto) 1.3 [place] # (Auto) 0.8 Eos # (Auto) 0.3 Baso # (Auto) 0.1 PT INR APTT Puncture Site pCO2 pO2 HCO3 ABG pH ABG Total CO2 ABG O2 Saturation ABG Base Excess Jonas Test ABG Potassium A-a O2 Difference Respiratory Index Glucose Lactate Liter Flow FiO2 Sodium 158 H Potassium 3.9 Chloride 117 H Carbon Dioxide 34 H Anion Gap 11 BUN 50 H Creatinine 1.4 Est GFR ( Amer) > 60 Est GFR (Non-Af Amer) 50 POC Glucose (mg/dL) 223 H Random Glucose 210 H Calcium 8.2 L Phosphorus 2.9 Magnesium 2.3 Total Bilirubin 0.8 AST 22 ALT 23 Alkaline Phosphatase 81 Total Protein 5.6 L Albumin 2.7 L Globulin 2.9 Albumin/Globulin Ratio 0.9 L Arterial Blood Potassium Mycoplasma pneumon IgM 04/28/18 04/28/18 09:59 12:01 WBC RBC Hgb Hct MCV MCH MCHC RDW Plt Count MPV Neut % (Auto) Lymph % (Auto) [place] % (Auto) Eos % (Auto) Baso % (Auto) Neut # (Auto) Lymph # (Auto) [place] # (Auto) Eos # (Auto) Baso # (Auto) PT 16.4 H INR 1.5 APTT 24 Puncture Site Lra pCO2 47 H pO2 82 HCO3 28.9 H ABG pH 7.42 ABG Total CO2 31.9 H ABG O2 Saturation 98.7 H ABG Base Excess 5.1 H Jonas Test Pos ABG Potassium 3.6 A-a O2 Difference 144.0 Respiratory Index 1.8 Glucose 216 H Lactate 1.3 Liter Flow 30.0 FiO2 40.0 Sodium 155.0 H Potassium Chloride 125.0 H Carbon Dioxide Anion Gap BUN Creatinine Est GFR ( Amer) Est GFR (Non-Af Amer) POC Glucose (mg/dL) Random Glucose Calcium Phosphorus Magnesium Total Bilirubin AST ALT Alkaline Phosphatase Total Protein Albumin Globulin Albumin/Globulin Ratio Arterial Blood Potassium 3.6 Mycoplasma pneumon IgM Fingerstick Blood Sugar Results: 207 Review of Systems - Review of Systems Systems not reviewed;Unavailable: Acuity of Condition Critical Care Progress Note - Nutrition Nutrition: Nutrition Category Date Time Status NPO Diet [DIET] Diets 04/24/18 Breakfast Active Assessment/Plan - Assessment and Plan (Free Text) Assessment: Neuro: - 04/[address] shows no acute intracranial hemorrhage. Chronic microvascular ischemic changes. More confluent low attenuation seen within the right frontal subcortical white matter. Focal hypodensity within the right cerebellum suggestive for chronic lacunar infarct. Intracranial arterial calcifications. - 04/[address] notable for Moderate generalized volume loss, Redemonstrated bulbous/somewhat mass-like appearance in the right choroid plexus of uncertain etiology (please see report for full details) - 04/21 Head and Neck CTA shows no evidence of occlusion, dissection, or significant stenosis. No evidence of large aneurysm or vascular malformation. - 04/21 Brain MRI w/o contrast shows small acute rightposterior frontoparietal subcortical infarct, -significant improvement in neuro function throughout today, now moving left extremities and able to speak some words -Neuro (Dr Holliday) consulted, appreciate all recs; recs EEG (pending), repeat head CT, and obtaining MRI with and w/o efraín to assess for new stroke given speech deficits and to better assess R choroid plexus mass -04/[address]: minor occipital bleed -Continue Keppra 500mg BID -hold ASA -neuro checks q4 -04/28 CT: stable Pulm: -CT Sx consulted for chest tube -04/28 CT Chest: Large left pleural effusion. possible mets -R Lung severe rales -CXR today shows infiltrate -zosyn 2.25 q6 -vanco 1g IV one dose (cr 1.5) -azithro 500 qd -satting well on high flow NC -CXR this AM reviewed and compared to prior, worsening pulm edema and effusions possible pna; -ABG from yesterday reviewed -possible intubation -17:30 Nasal [place] trial 4L O2: pt tolerating well will observe Cardio: -Dr Owens (Cardio) consulted, appreciate all recs; echo reviewed, no arrhythmia on tele, primary management as per neuro -Maintaining MAP > 65, no further hypotensive episodes -initial hypotensive episode with AMS likely 2/2 high dose lasix holding lasix pending chest CT to assess if still effusions, if resuming diuresis will have to diurese gently to prevent bottoming-out BP -Albumin drip completed 04/24 -continue ASA 325mg PO daily GI: -NG tube feeds jevity started @ 10cc/hr - f/u nutrition goal recs -Protonix for GI ppx -pending official swallow eval tmr Nephro: -Cr 1.6 -making clear yellow urine in connor -monitor and replete electrolytes as needed ID: -zosyn, azithro + single dose Vanco -WBCs 12 Heme: -Hgb 9 , no signs of bleeding -repeat head CT: Occipital bleed -Lovenox SC for DVT ppx -possible mets on CT Endo: -maintain euglycemia, BG target 140-180 as per [employer] trial -Hx of DM, but hold Metformin given NPO and in case patient needs contrast study -Sliding scale insulin, hypoglycemic protocols, Accuchecks q6 -glucagon 1mg IM PRN
[2018-04-28] MEDS ORDERED: Acetaminophen 650mg/20.3ml solution UD PO PRN (15:58)
[2018-04-28 22:42] VITALS: PULSE 105
--- NOTE | 2018-04-28 23:39 | CP.PCM.PRO ---
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 [id number]
[2018-04-29 00:45] VITALS: BP 117/66; RESP 30; TEMP 99; O2SAT 91
--- NOTE | 2018-04-29 07:40 | CON ---
DATE: 04/28/2018 HISTORY OF PRESENT ILLNESS: This is a 72-year-old gentleman, who presented to the ED, it was thought to be a stroke. His CT was negative 4 days ago, was admitted to the hospital, then the ICU. He is now suffering with acute pulmonary edema. Apparently, another CT of the brain was done for some reasons, which demonstrated a tiny amount of layering blood in the right posterior occipital horn of the ventricle with no other findings. ASSESSMENT AND PLAN: This is a completely insignificant finding. Most likely, he has some degree of minor head trauma along the way. If the patient recovers from his cardiopulmonary situation, might be advisable to obtain an MRI/MRA at some point, but certainly there is no indication for any further workup or certainly any intervention at this point in time. Cleveland Villa MD
== END 2018-04-28 23:28 | DRG 64 ==
LOC: C.ER 08:34 → C.9E 10:31 → C.5S 11:07 → C.9I 04-22 15:05
PROVIDERS: ADMIT Internal Medicine; ATTEND Internal Medicine
PROC: 5A09557 Assistance with Respiratory Ventilation, Greater than 96 Consecutive Hours, Continuous Positive Airway Pressure (ICD-10-PCS; principal; 2018-04-22)
DX: I63.9 Cerebral infarction, unspecified (principal); I61.5 Nontraumatic intracerebral hemorrhage, intraventricular; G92 Toxic encephalopathy; A41.9 Sepsis, unspecified organism; I50.43 Acute on chronic combined systolic (congestive) and diastolic (congestive) heart failure; G81.94 Hemiplegia, unspecified affecting left nondominant side; R13.10 Dysphagia, unspecified; R29.707 NIHSS score 7; R47.01 Aphasia; Z66 Do not resuscitate; Z79.82 Long term (current) use of aspirin; Z79.84 Long term (current) use of oral hypoglycemic drugs; Z89.411 Acquired absence of right great toe; G20 Parkinson's disease; I11.0 Hypertensive heart disease with heart failure; E11.9 Type 2 diabetes mellitus without complications; E78.1 Pure hyperglyceridemia; E78.5 Hyperlipidemia, unspecified; E86.1 Hypovolemia; I65.29 Occlusion and stenosis of unspecified carotid artery